=== PATIENT | male | born 1955 | race African-American/Black ===

== ENCOUNTER 2020-07-30 14:03 | Outpatient (CLI) | payer OTHER, SELFPAY ==
[2020-07-30 14:45] LABS: Albumin Level 4.1 g/dL (3.5-5.1); Anion Gap 8 mmol/L (8-16); Blood Urea Nitrogen 71 mg/dL (9-20); Calcium 9.1 mg/dL (8.4-10.2); Carbon Dioxide 25 mmol/L (22-30); Chloride 107 mmol/L (98-107); Estimated Glomerular Filt Rate 16; Glucose 119 mg/dL (75-110); Potassium 5.5 mmol/L (3.4-5.0); Sodium 140 mmol/L (137-145)
== END 2020-07-30 14:04 | disposition home or self-care (01) ==
LOC: ANHLAB 14:05
PROVIDERS: Visit Provider Internal Medicine Nephrology
DX: N18.4 Chronic kidney disease, stage 4 (severe) (principal); E11.29 Type 2 diabetes mellitus with other diabetic kidney complication; I12.9 Hypertensive chronic kidney disease with stage 1 through stage 4 chronic kidney disease, or unspecified chronic kidney disease
CPT/HCPCS: 36415; 80069

== ENCOUNTER 2020-09-02 11:01 | Outpatient (CLI) | payer OTHER, SELFPAY ==
--- NOTE | ~2020-09-02 | US_ITS ---
US renal BI DATE: 09/02/2020 12:15 INDICATION: Chronic kidney disease TECHNIQUE: Real-time imaging of kidneys and urinary bladder COMPARISON: None FINDINGS: The right kidney measures approximately 12 cm length. 4.7 x 5.3 x 5.7 cm right renal exophytic simpl e cyst. The left kidney measures 10.7 cm approximate length. 13 x 14 x 10 mm left renal cyst. There is increased echogenicity of the renal parenchyma bilaterally, suggesting bilateral chronic dirk al disease. No suspicious solid mass lesion or hydronephrosis of either kidney is evident. No significant abnormality of the urinary bladder is evident. IMPRESSION: Bilateral renal cysts Increased echogenicity of the renal parenchyma, suggesting chronic renal disease. Reviewed, dictated and finalized at [facility]. Reviewed, dictated and finalized at [facility]. IMPRESSION: Bilateral renal cysts Increased echogenicity of the renal parenchyma, suggesting chronic renal diseas e.
== END 2020-09-02 11:02 | disposition home or self-care (01) ==
PROVIDERS: Visit Provider Internal Medicine Nephrology
DX: N18.4 Chronic kidney disease, stage 4 (severe) (principal); M54.5 Low back pain; N28.1 Cyst of kidney, acquired
CPT/HCPCS: 76775

== ENCOUNTER 2020-09-10 13:14 | Outpatient (CLI) | payer OTHER, SELFPAY ==
[2020-09-10 17:29] LABS: Creatinine Urine 99.2 mg/dL; Total Protein Urine Random 161 mg/dL; Ur Ttl Prot Creatinine Ratio 1.62 mg/mg (0-0.20)
[2020-09-10 17:39] LABS: Vitamin D 25 Hydroxy 78.4 ng/mL
[2020-09-11 05:52] LABS: Albumin Level 3.8 g/dL (3.5-5.1); Anion Gap 8 mmol/L (8-16); Blood Urea Nitrogen 65 mg/dL (9-20); Carbon Dioxide 23 mmol/L (22-30); Chloride 108 mmol/L (98-107); Estimated Glomerular Filt Rate 18; Glucose 173 mg/dL (75-110); Phosphorus 4.4 mg/dL (2.5-4.5); Potassium 4.9 mmol/L (3.4-5.0); Sodium 139 mmol/L (137-145)
[2020-09-11 06:03] LABS: Parathyroid Intact 176.3 pg/mL (7.5-53.5)
== END 2020-09-10 13:15 | disposition home or self-care (01) ==
LOC: ANHLAB 13:16
PROVIDERS: Visit Provider Internal Medicine Nephrology
DX: I12.9 Hypertensive chronic kidney disease with stage 1 through stage 4 chronic kidney disease, or unspecified chronic kidney disease (principal); N18.4 Chronic kidney disease, stage 4 (severe); E11.29 Type 2 diabetes mellitus with other diabetic kidney complication; R84.8 Other abnormal findings in specimens from respiratory organs and thorax
CPT/HCPCS: 36415; 80069; 82306; 82570; 83970; 84156

== ENCOUNTER 2021-05-11 14:17 | Inpatient (IN) | payer OTHER, SELFPAY ==
[2021-05-11] VITALS (9 sets, daily range): BP systolic 161–189; BP diastolic 50–86; PULSE 86–103; RESP 16–31; TEMP 36.6–38.1; O2SAT 97–99; BMI 32.0
--- NOTE | ~2021-05-11 | XR_ITS ---
EXAMINATION: XR chest port-a-cath/central EXAM DATE: 05/13/2021 15:52 INDICATION: Insertion of tunneled dialysis catheter. TECHNIQUE: Portable AP frontal chest x-ray was obtained. Comparison is made to prior examination from 05/11/2021. FINDINGS: Left-sided double-lumen dialysis catheter. Some interval progression in diffuse bilateral a irspace disease, pneumonia and/or edema. There is cardiomegaly. No pneumothorax or sizable pleural ef fusion. Mild thoracic spondylosis. Patient has diffuse idiopathic skeletal hyperostosis (DISH). IMPRESSION: No evidence postprocedure pneumothorax. Diffuse pneumonia/edema with interval progressio n. Reviewed, dictated and finalized at location [facility]. BIT PREPARATOR IMPRESSION: No evidence postprocedure pneumothorax. Diffuse pneumonia/edema wi th interval progression.
--- NOTE | ~2021-05-11 | XR_ITS ---
EXAMINATION: XR fl guide central line place EXAM DATE: 05/13/2021 15:36 INDICATION: Tunnel dialysis catheter. TECHNIQUE: Fluoroscopy used during dialysis catheter placement performed by Dr. Stephen Hernandez DO. Radiologist was not present for the imaging or procedure. Total fluoroscopic time of 30 seconds . The DAP for this procedure was 0.2 mGym2. A total of 3 images sent to PACS from the exam. FINDINGS: Images demonstrate left-sided double-lumen dialysis catheter, tip projecting over cavoatri al junction, expected position. Correlate with procedure note. IMPRESSION: Fluoroscopy used during dialysis catheter placement. Reviewed, dictated and finalized at location [facility]. ITY DIVISION PROJECT MANAGER
--- NOTE | ~2021-05-11 | XR_ITS ---
EXAMINATION: XR chest 1V portable EXAM DATE: 05/11/2021 15:24 INDICATION: Cough,Weakness,Fatigue,N/V X 1wk,Hx CKD. TECHNIQUE: Portable AP frontal chest x-ray was obtained. There is no prior study for comparison. FINDINGS: Moderate amount of bilateral ill-defined airspace disease, pneumonia and/or edema. Recommen d considering COVID 19 given appearance and also community prevalence. There is cardiomegaly and/or p ericardial effusion. No sizable pleural effusion. No pneumothorax. IMPRESSION: 1. Moderate amount of pneumonia and/or edema. 2. Cardiomegaly and/or pericardial effusion. Reviewed, dictated and finalized at location [facility]. R GRADER ROUGH GRADE
--- NOTE | 2021-05-11 14:55 | ED.GENADULT ---
HPI - General Adult General Chief complaint: Weakness Stated complaint: weak Time Seen by Provider: 05/11/21 14:46 Source: patient and RN notes reviewed History of Present Illness HPI narrative: Patient is a 65 y/o male complaining of severe, generalized weakness starting 1 week ago. There is no alleviating or exacerbating factor. He also has fever, cough, vomiting and diarrhea. He states that he has been vomiting 4-5 times daily. He has no chest pain or abdominal pain. Related Data Home Medications Medication Instructions Recorded Confirmed amlodipine 10 mg PO HS 06/18/20 05/11/21 aspirin 81 mg PO DAILY 06/18/20 05/11/21 atorvastatin 40 mg PO HS 06/18/20 05/11/21 calcitriol 0.25 mcg PO DAILY 06/18/20 05/11/21 cholecalciferol (vitamin D3) 50 mcg PO DAILY 06/18/20 05/11/21 ferrous sulfate [iron] 325 mg PO DAILY 06/18/20 05/11/21 glipizide 5 mg PO DAILY 06/18/20 05/11/21 hydralazine 50 mg PO BID 06/18/20 05/11/21 isosorbide mononitrate [Imdur] 30 mg PO DAILY 06/18/20 05/11/21 labetalol 200 mg PO BID 06/18/20 05/11/21 pantoprazole 40 mg PO HS 06/18/20 05/11/21 trazodone 50 mg PO HS 08/13/20 05/11/21 baclofen 10 mg PO DAILY PRN 08/27/20 05/11/21 Allergies Allergy/AdvReac Type Severity Reaction Status Date / Time iohexol AdvReac Other Verified 05/12/21 00:40 [From contrast - CT, X-RAY] Review of Systems Constitutional: Constitutional: Denies chills, Reports fever(s), Denies headache(s) and Reports weakness Eyes: Eyes: Denies blurry vision ENT: Denies headache(s) and Denies neck pain Cardiovascular: Cardiovascular: Denies chest pain and Denies dyspnea Respiratory: Respiratory: Reports cough and Denies dyspnea Gastrointestinal: Gastrointestinal: Denies abdominal pain, Reports diarrhea, Reports nausea and Reports vomiting Genitourinary: Genitourinary: Denies hematuria and Denies dysuria Musculoskeletal: Musculoskeletal: Denies back pain and Denies neck pain Neurologic: Denies headache(s) and Denies weakness PMFSH Past Medical History Medical History (Updated 05/12/21 @ 06:56 by Kenji Clay MD) Anemia of chronic disease Chronic kidney disease, stage 5 Chronic neck pain DM2 (diabetes mellitus, type 2) HTN (hypertension), malignant Hyperlipidemia associated with type 2 diabetes mellitus Surgical History Surgical History History of carpal tunnel release elisa Hx of cervical spine surgery Hx of meniscectomy of right knee Family History Family History Mother Diabetes mellitus Father Heart disease Social History Social History Social History: the patient has had 6 children but he lost 2. He lives with his . She is the durable power state attorney for healthcare. 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 the patient stated that he used to smoke but no longer does he said it was many years ago since he smoked. He said he used to drink and smoke marijuana when he was younger but no longer does that either. Code status full code Smoking status: Former smoker Alcohol intake: never Substance use: never Gender identity (if verbalized by the patient): Male Spiritual care concerns: No Exam Const: General: no acute distress and well developed Orientation/consciousness: oriented to person, oriented to place, oriented to time and patient oriented x3 HENMT: Head: normocephalic Ears: external ears normal General nose exam: Normal external nose present Eyes: General: appearance normal, both eyes and all related structures Conjunctivae: conjunctivae normal Neck: Neck: normal visual inspection and full ROM Chest: Chest palpation & inspection: normal inspection of the chest and no tenderness Resp: Effort & Inspection: normal respiratory effort Auscultation: clear to auscultation bilaterally Cardio: Rate: tachycardic R
[2021-05-11 15:21] LABS: Basophils Percent Auto 0.3 % (0.2-1.2); Eosinophils Percent Auto 0.2 % (0-4.4); Hematocrit 29.1 % (42.0-52.0); Hemoglobin 9.3 g/dL (14.0-18.0); Immature Granulocyte Absolute 0.04 K/mm3 (0.00-0.031); Immature Granulocyte Percent A 0.7 % (0-0.5); Lymphocytes Absolute Auto 0.78 K/mm3 (0.9-3.2); Lymphocytes Percent Auto 12.7 % (18.3-44.2); Mean Corpuscular Hemoglobin 27.3 pg (26-34); Mean Corpuscular Volume 85.3 fl (80-100); Mean Platelet Volume 8.7 fl (7.4-10.4); Monocytes Absolute Auto 0.6 K/mm3 (0.1-0.6); Monocytes Percent Auto 9.2 % (2.6-8.5); Neutrophils Absolute Auto 4.7 K/mm3 (1.3-6.7); Neutrophils Percent Auto 76.9 % (45.5-73.1); Platelet Count Result 337 k/mm3 (150-375); Red Blood Count 3.41 M/mm3 (4.6-6.20); Red Cell Distribution Width 18.7 % (11.5-14.5); White Blood Count 6.1 K/mm3 (4.5-10.0)
[2021-05-11 15:33] LABS: Alanine Aminotransferase 21 U/L (4-50); Alkaline Phosphatase 56 U/L (38-126); Anion Gap 15 mmol/L (8-16); Aspartate Amino Transferase 35 U/L (17-59); Bilirubin,Total 0.4 mg/dL (0.2-1.3); Blood Urea Nitrogen 85 mg/dL (9-20); Calcium 7.9 mg/dL (8.4-10.2); Carbon Dioxide 11 mmol/L (22-30); Chloride 106 mmol/L (98-107); Estimated CRCL calculation 8 ml/min; Estimated Glomerular Filt Rate 6; Glucose 104 mg/dL (65-110); Lipase 314 U/L (23-300); Potassium 4.8 mmol/L (3.4-5.0); Sodium 132 mmol/L (137-145)
[2021-05-11 15:34] LABS: Lactic Acid Reflex 0.7 mmol/L (0.7-2.1)
[2021-05-11] MEDS: ONDANSETRON INJ 4 MG/2 ML VIAL IV PUSH (15:43)
[2021-05-11] MEDS: SODIUM CHLORIDE 0.9% IV 1,000 ML 999 ML IV CONT (15:43)
[2021-05-11 16:33] LABS: Influenza A QL RT-PCR Negative (Negative); Influenza B QL RT-PCR Negative (Negative); SARS-CoV-2 RNA PCR Positive
[2021-05-11 18:35] LABS: Add Urine Microscopic? YES; Appearance Urine Cloudy (Clear); Bilirubin Urine Negative (Negative); Blood Urine 2+ (Negative); Color Urine Yellow (Yellow); Glucose Urine UA Negative (Negative); Ketones Urine Negative (Negative); Leukocyte Esterase Ur Negative LEU/UL (Negative); Nitrate Urine Negative (Negative); Protein Urine 3+ mg/dL (Negative); Specific Grav Ur 1.011 (1.001-1.035); Urobilinogen Urine Negative mg/dL (<2.0)
--- NOTE | 2021-05-11 19:41 | PM.IMHP ---
H&P: HPI History of Present Illness Date/Time: 05/11/21 19:41 this is a 65-year-old male patient who has chronic renal failure. He also has chronic anemia due to the renal failure and typically gets Epogen. The patient came in complaining of severe generalized weakness of started about a week ago. The patient stated that he usually isolates himself and uses social distancing. He stated he has not been around any sick contacts. The patient denies any fever But has a cough and has been vomiting 4 to 5 times a day. No chest pain or abdominal pain. H&H is 9.3 and 29.1 which appears to be is baseline. His creatinine is 9.9 today and his baseline is anywhere from 4.2-6. Nephrology has been consulted. The patient was also found to be positive for COVID-19. The patient was started on IV fluids, Decadron, Tylenol, and Zofran. Initially the patient was admitted to inpatient status but was changed to observation. Date of service is 05/11/2021. Chief Complaint: Weakness Review of Systems Review of Systems: All systems reviewed & are unremarkable except as noted in HPI and below Constitutional: Constitutional: Reports as per HPI and Reports no additional constitutional complaints Eyes: Eyes: Reports as per HPI and Reports no additional eye complaints ENT: Reports system reviewed and no additional complaints, except as documented and Reports Normal hearing present Cardiovascular: Cardiovascular: Reports no additional cardiovascular complaints Respiratory: Respiratory: Reports no additional respiratory complaints and Reports no additional respiratory complaints Gastrointestinal: Gastrointestinal: Reports as per HPI and Reports no additional gastrointestinal complaints Musculoskeletal: Musculoskeletal: Reports no additional musculoskeletal complaints Integumentary/Breasts: Skin/Breast: Reports system reviewed and no additional complaints, except as docu and Reports as per HPI Neurologic: Reports system reviewed and no additional complaints, except as documented, Reports as per HPI and Reports Normal hearing present Psychiatric: Psychiatric: Reports no additional psychiatric complaints and Reports as per HPI Endocrine: Endocrine: Reports no additional endocrine complaints Hematologic/Lymphatic: Hematologic/Lymphatic: Reports no additional hematologic/lymphatic complaints Allergic/Immunologic: Allergic/Immunologic: Reports no additional allergic/immunologic complaints [facility] Past Medical History Medical History (Updated 05/12/21 @ 00:00 by Roxie Vincent NP) Anemia of chronic disease Chronic neck pain DM2 (diabetes mellitus, type 2) HTN (hypertension), malignant Hyperlipidemia associated with type 2 diabetes mellitus Surgical History Surgical History (Updated 05/11/21 @ 19:45 by Roxie Vincent NP) History of carpal tunnel release elisa Hx of cervical spine surgery Hx of meniscectomy of right knee Family History Family History Mother Diabetes mellitus Father Heart disease Social History Social History (Updated 05/12/21 @ 00:01 by Roxie Vincent NP) Social History: the patient has had 6 children but he lost 2. He lives with his . She is the durable power tax attorney for healthcare. He works for a [employer] company. the patient stated that he used to smoke but no longer does he said it was many years ago since he smoked. He said he used to drink and smoke marijuana when he was younger but no longer does that either. Code status full code Smoking status: Former smoker Alcohol intake: never Substance use: never Gender identity (if verbalized by the patient): Male Spiritual care concerns: No Meds Home Medications and Allergies Home Medications Medication Instructions Recorded Confirmed Type amlodipine 10 mg PO HS 06/18/20 05/11/21 History aspirin 81 mg PO DAILY 06/18/20 05/11/21 History atorvastatin 40 mg PO HS
[2021-05-11] MEDS: hydrALAZINE HCL 20 MG/ML VIAL 10 MG IV PUSH (21:25)
[2021-05-11] MEDS: SODIUM CHLORIDE 0.9% IV 1,000 ML 125 ML IV CONT (21:30)
[2021-05-11 22:08] LABS: Glucose Point of Care 94 mg/dl (65-105)
[2021-05-11] MEDS: ATORVASTATIN 40 MG TABLET PO (23:12)
[2021-05-11] MEDS: amLODIPine BESYLATE 5 MG TABLET 10 MG PO (23:12)
[2021-05-11] MEDS: hydrALAZINE HCL 50 MG TABLET PO (23:12)
[2021-05-11] MEDS: LABETALOL HCL 100 MG TABLET 200 MG PO (23:13)
[2021-05-11] MEDS: PANTOPRAZOLE 40 MG TABLET PO (23:13)
[2021-05-11] MEDS: traZODone HCL 50 MG TABLET PO (23:13)
[2021-05-12] VITALS (7 sets, daily range): BP systolic 142–166; BP diastolic 40–73; PULSE 61–84; RESP 18–20; TEMP 36.3–36.9; O2SAT 95–98
[2021-05-12] MEDS: guaiFENesin/DEXTROMETHORPHAN 10 ML UDC PO (00:15)
--- NOTE | 2021-05-12 04:45 | ADMGEN ---
This patient, Kenji Hernandez, was admitted to 3 [facility] Surg Room 312-01. Patient/family oriented to hospital policies and general routines including ID bracelet, bed and alarms, visiting hours, pain management, procedures, bathroom and other care routines, personal items, smoking policy, room service/diet, and visiting hours. Information on how to activate the Rapid Response Team has been discussed. Patient/Family are encouraged to report perceived risks to care and to ask questions if they do not understand what they are told or what they should do.
[2021-05-12] MEDS: SODIUM CHLORIDE 0.9% IV 1,000 ML 125 ML IV CONT (06:41)
--- NOTE | 2021-05-12 06:50 | PM.CNNEP ---
Assessment and Plan Assessment and plan (1) Chronic kidney disease, stage 5: Code(s): N18.5 - Chronic kidney disease, stage 5 Status: Acute Assessment and Plan: The patient has slowly progressive chronic kidney disease. Now his creatinine is up to 9. He has some symptoms of uremia including the nausea and vomiting. He also has volume overload on his chest x-ray. The emergency room tried giving a little bit of IV fluids but we can not give him much more because of the COVID. I think it is time for him to start dialysis. I will ask the surgeon to place a catheter and will initiate dialysis today or tomorrow depending on the timing of the catheter. I discussed the risks benefits alternatives and process of dialysis. He understands and agrees to proceed. (2) Pneumonia due to COVID-19 virus: Code(s): U07.1 - COVID-19; J12.82 - Pneumonia due to coronavirus disease 2018 Status: Acute Assessment and Plan: the patient has COVID-19. He is not on oxygen. Management per hospitalists. (3) HTN (hypertension), malignant: Code(s): I10 - Essential (primary) hypertension Status: Chronic Assessment and Plan: His blood pressure ranges from 140-190. Will get him back on his outpatient medications and on dialysis and see how it looks. Will give a p.r.n. if his blood pressure is above 170. (4) DM2 (diabetes mellitus, type 2): Code(s): E11.9 - Type 2 diabetes mellitus without complications Status: Chronic Assessment and Plan: Patient is on Accu-Cheks and sliding-scale insulin (5) Anemia in CKD (chronic kidney disease): Code(s): N18.9 - Chronic kidney disease, unspecified; D63.1 - Anemia in chronic kidney disease Status: Chronic Assessment and Plan: Hemoglobin is 9.3. Will give him a dose of EPO today Subcutaneously and then IV with dialysis (6) Hyperlipidemia associated with type 2 diabetes mellitus: Code(s): E11.69 - Type 2 diabetes mellitus with other specified complication; E78.5 - Hyperlipidemia, unspecified Status: Chronic Assessment and Plan: he is on atorvastatin History of Present Illness Reason for Consult Consult date: 05/12/21 Chief Complaint Chief complaint: yuli History of Present Illness Narrative: Kenji is a very pleasant 65-year-old gentleman who has multiple medical problems including chronic kidney disease due to hypertension diabetes, hyperlipidemia, hypertension, diabetes, anemia of chronic kidney disease on intermittent Epogen, who has had a fairly high creatinine. He has not had any uremic symptoms and his GFR has been between 7 and 12 so he has been followed in the office by Dr. Hernandez. last office visit the patient was started to feel a little bit under the weather. Dr. Hernandez told him that they would touch base in a week or 2 and see how he felt. If he was worse than they would initiate dialysis. He has been leaning toward peritoneal dialysis. Couple of days ago the patient had some nausea but no vomiting. He had intermittent diarrhea as well.. He had a little bit of a fever as well. He came to the emergency room yesterday because of these symptoms. Yesterday he developed shortness of breath and cough. He in the emergency room he was evaluated. His oxygen level was okay so he is not on supplemental oxygen. his creatinine was found to be 9. He is not having any chest pain. He was admitted Review of Systems Constitutional: Constitutional: Reports no additional constitutional complaints Eyes: Eyes: Reports no additional eye complaints ENT: Reports system reviewed and no additional complaints, except as documented Cardiovascular: Cardiovascular: Reports no additional cardiovascular complaints Respiratory: Respiratory: Reports no additional respiratory complaints Gastrointestinal: Gastrointestinal: Reports no additional gastrointestinal complaints Genitour
[2021-05-12 07:41] LABS: Basophils Percent Auto 0.2 % (0.2-1.2); Hematocrit 28.5 % (42.0-52.0); Hemoglobin 8.7 g/dL (14.0-18.0); Immature Granulocyte Absolute 0.04 K/mm3 (0.00-0.031); Immature Granulocyte Percent A 0.8 % (0-0.5); Lymphocytes Absolute Auto 0.37 K/mm3 (0.9-3.2); Lymphocytes Percent Auto 7.4 % (18.3-44.2); Mean Corpuscular HGB Conc 30.5 g/dl (32-36); Mean Corpuscular Hemoglobin 27.4 pg (26-34); Mean Corpuscular Volume 89.6 fl (80-100); Mean Platelet Volume 9.3 fl (7.4-10.4); Monocytes Absolute Auto 0.1 K/mm3 (0.1-0.6); Neutrophils Absolute Auto 4.5 K/mm3 (1.3-6.7); Neutrophils Percent Auto 89.6 % (45.5-73.1); Platelet Count Result 358 k/mm3 (150-375); Red Blood Count 3.18 M/mm3 (4.6-6.20); Red Cell Distribution Width 18.8 % (11.5-14.5)
[2021-05-12 07:43] LABS: Lactic Acid Reflex 0.5 mmol/L (0.7-2.1)
--- NOTE | 2021-05-12 07:45 | PM.IMPN ---
Progress Note: A&P Assessment and Plan (1) Acute on chronic kidney failure: Qualifiers: Acute renal failure type: unspecified Chronic kidney disease stage: unspecified stage Qualified Code(s): N17.9 - Acute kidney failure, unspecified; N18.9 - Chronic kidney disease, unspecified Code(s): N17.9 - Acute kidney failure, unspecified; N18.9 - Chronic kidney disease, unspecified Status: Acute Assessment and Plan: potassium is within normal limits chronic kidney disease renal ultrasound performed on 09/02/2020 which was read as bilateral renal cyst Increased echogenicity of the renal parenchyma suggesting chronic renal disease Continue with IV fluids turn them down to 75ml/hrs Nephrology consulted thank you Surgery consulted for dialysis catheter Baseline creatinine 4-6, currently 10.70 Will probably need dialysis today (2) Pneumonia due to COVID-19 virus: Code(s): U07.1 - COVID-19; J12.82 - Pneumonia due to coronavirus disease 2018 Status: Acute Assessment and Plan: Covid PCR positive Chest xray: Mod amount of PNA/Pulm edema, cardiomegaly, pericardial effusion Hold on remdesivir and decadron, ED gave one dose cough medicine and inhaler ordered patient is on room air Patient updated on plan of care (3) Chronic neck pain: Code(s): M54.2 - Cervicalgia; G89.29 - Other chronic pain Status: Chronic Assessment and Plan: cervical fusion several weeks ago Educate about Ibprofen and renal failure Baclophen ordered Add tylenol and norco for better control (4) DM2 (diabetes mellitus, type 2): Code(s): E11.9 - Type 2 diabetes mellitus without complications Status: Chronic Assessment and Plan: A1c 5.5 Insulin sliding scale AC/HS accu cheks Diabetic diet Adjust therapy as indicated (5) Hyperlipidemia associated with type 2 diabetes mellitus: Code(s): E11.69 - Type 2 diabetes mellitus with other specified complication; E78.5 - Hyperlipidemia, unspecified Status: Chronic Assessment and Plan: Continue with patient's Lipitor. (6) HTN (hypertension), malignant: Code(s): I10 - Essential (primary) hypertension Status: Chronic Assessment and Plan: Current BP 143/55 Continue home Amlodipine 10mg PO, Hydralazine 50mg PO BID, Imdur 30mg PO daily, labetalol 200mg PO BID Clonidine 0.1mg PO PRN for SBP >170 Trend BP Probably will be better after dailysis Adjust therapy as indicated (7) Anemia in CKD (chronic kidney disease): Code(s): N18.9 - Chronic kidney disease, unspecified; D63.1 - Anemia in chronic kidney disease Status: Chronic Assessment and Plan: H/H 8.7/28.5 Patient is seen by Oncology for Epogen. His H&H is at baseline Time Spent With Patient Time with patient: Greater than 35 minutes Subjective Date/time seen: 05/12/21744 Interval history: Date/Time: 05/11/21 19:41 This is a 65-year-old male patient who has chronic renal failure. He also has chronic anemia due to the renal failure and typically gets Epogen. The patient came in complaining of severe generalized weakness of started about a week ago. The patient stated that he usually isolates himself and uses social distancing. He stated he has not been around any sick contacts. The patient denies any fever But has a cough and has been vomiting 4 to 5 times a day. No chest pain or abdominal pain. H&H is 9.3 and 29.1 which appears to be is baseline. His creatinine is 9.9 today and his baseline is anywhere from 4.2-6. Nephrology has been consulted. The patient was also found to be positive for COVID-19. The patient was started on IV fluids, Decadron, Tylenol, and Zofran. Initially the patient was admitted to inpatient status but was changed to observation. Date/Time 05/12/21744 Patient was sitting up on the side the bed. Patient stated h
--- NOTE | 2021-05-12 07:45 | P.PNIM_ITS ---
Progress Note: A&P Assessment and Plan (1) Acute on chronic kidney failure: Qualifiers: Acute renal failure type: unspecified Chronic kidney disease stage: unspecified stage Qualified Code(s): N17.9 - Acute kidney failure, unspecified; N18.9 - Chronic kidney disease, unspecified Code(s): N17.9 - Acute kidney failure, unspecified; N18.9 - Chronic kidney disease, unsp ecified Status: Acute Assessment and Plan: * potassium is within normal limits * chronic kidney disease * renal ultrasound performed on 09/02/2020 which was read as bilateral renal cyst * Increased echogenicity of the renal parenchyma suggesting chronic renal disease * Continue with IV fluids turn them down to 75ml/hrs * Nephrology consulted thank you * Surgery consulted for dialysis catheter * Baseline creatinine 4-6, currently 10.70 * Will probably need dialysis today (2) Pneumonia due to COVID-19 virus: Code(s): U07.1 - COVID-19; J12.82 - Pneumonia due to coronavirus disease 2018 Status: Acute Assessment and Plan: * Covid PCR positive * Chest xray: Mod amount of PNA/Pulm edema, cardiomegaly, pericardial effusion * Hold on remdesivir and decadron, ED gave one dose * cough medicine and inhaler ordered * patient is on room air * Patient updated on plan of care (3) Chronic neck pain: Code(s): M54.2 - Cervicalgia; G89.29 - Other chronic pain Status: Chronic Assessment and Plan: * cervical fusion several weeks ago * Educate about Ibprofen and renal failure * Baclophen ordered * Add tylenol and norco for better control (4) DM2 (diabetes mellitus, type 2): Code(s): E11.9 - Type 2 diabetes mellitus without complications Status: Chronic Assessment and Plan: * A1c 5.5 * Insulin sliding scale * AC/HS accu cheks * Diabetic diet * Adjust therapy as indicated (5) Hyperlipidemia associated with type 2 diabetes mellitus: Code(s): E11.69 - Type 2 diabetes mellitus with other specified complication; E78.5 - Hyperlipidemia, unspecified Status: Chronic Assessment and Plan: * Continue with patient's Lipitor. (6) HTN (hypertension), malignant: Code(s): I10 - Essential (primary) hypertension Status: Chronic Assessment and Plan: * Current BP 143/55 * Continue home Amlodipine 10mg PO, Hydralazine 50mg PO BID, Imdur 30mg PO daily, labetalol 200mg PO BID * Clonidine 0.1mg PO PRN for SBP >170 * Trend BP * Probably will be better after dailysis * Adjust therapy as indicated (7) Anemia in CKD (chronic kidney disease): Code(s): N18.9 - Chronic kidney disease, unspecified; D63.1 - Anemia in chronic kidney disease Status: Chronic Assessment and Plan: * H/H 8.7/28.5 * Patient is seen by Oncology for Epogen. * His H&H is at baseline Time Spent With Patient Time with patient: Greater than 35 minutes Subjective Date/time seen: 05/12/21 0745 Interval history: Date/Time: 05/11/21 19:41 This is a 65-year-old male patient who has chronic renal failure. He also has chronic anemia due to the renal failure and typically gets Epogen. The patient came in complaining of severe generalized weakness of started about a week ago. The patient stated that he usually isolates himself and uses social distancing. He stated he has not been around any sick contacts. The patient denies any fever But has a cough and has been vomiting 4 to
[2021-05-12 07:51] LABS: Alanine Aminotransferase 20 U/L (4-50); Albumin Level 3.6 g/dL (3.5-5.1); Alkaline Phosphatase 46 U/L (38-126); Anion Gap 15 mmol/L (8-16); Aspartate Amino Transferase 33 U/L (17-59); Bilirubin,Total 0.4 mg/dL (0.2-1.3); Blood Urea Nitrogen 96 mg/dL (9-20); Calcium 7.5 mg/dL (8.4-10.2); Carbon Dioxide 9 mmol/L (22-30); Chloride 108 mmol/L (98-107); Estimated CRCL calculation 7 ml/min; Estimated Glomerular Filt Rate 6; Glucose 201 mg/dL (65-110); Lactate Dehydrogenase 979 U/L (313-618); Lipase 255 U/L (23-300); Magnesium 1.9 mg/dL (1.6-2.3); Potassium 5.9 mmol/L (3.4-5.0); Sodium 132 mmol/L (137-145)
[2021-05-12 07:57] LABS: Glucose Point of Care 197 mg/dl (65-105)
[2021-05-12 08:06] LABS: Hemoglobin A1C 5.5 % (<5.7)
[2021-05-12] MEDS: FERROUS SULFATE 324 MG TABLET PO (08:48)
[2021-05-12] MEDS: calcitrioL 0.25 MCG CAPSULE PO (08:48)
[2021-05-12] MEDS: CHOLECALCIFEROL 1,000 UNITS TABLET 2000 UNITS PO (08:48)
[2021-05-12] MEDS: ASPIRIN 81 MG CHEWABLE TABLET PO (08:48)
[2021-05-12] MEDS: hydrALAZINE HCL 50 MG TABLET PO ×2 (08:49→17:08)
[2021-05-12] MEDS: LABETALOL HCL 100 MG TABLET 200 MG PO ×2 (08:49→17:08)
[2021-05-12] MEDS: ISOSORBIDE MONONITRATE 30 MG TAB.ER.24H PO (08:49)
[2021-05-12 08:52] LABS: Atypical Lymphocytes Present; Platelet Estimate Adequate (Adequate)
[2021-05-12] MEDS: EPOETIN ALFA-EPBX 10,000 UNITS/ML VIAL 10000 UNITS SUB-Q (11:13)
[2021-05-12 11:41] LABS: Glucose Point of Care 307 mg/dl (65-105)
[2021-05-12] MEDS: INSULIN ASPART (*BKC) 100 UNITS/ML SUB-Q ×2 (12:14→17:08)
--- NOTE | 2021-05-12 13:01 | PM.CNGS ---
Assessment and Plan Assessment and plan (1) Chronic kidney disease, stage 5: Code(s): N18.5 - Chronic kidney disease, stage 5 Status: Acute Assessment and Plan: The patient has progressive chronic kidney disease with Nephrology wanting to start hemodialysis. We have been asked to see the patient for placement of a tunneled dialysis catheter. I have discussed the procedure, risks, benefits, and expected outcomes with the patient. He agrees to proceed. Dr. Hernandez will work on adding him onto the OR schedule for tomorrow. I will make him NPO after midnight in plans for surgery. (2) Pneumonia due to COVID-19 virus: Code(s): U07.1 - COVID-19; J12.82 - Pneumonia due to coronavirus disease 2018 Status: Acute Assessment and Plan: Continue droplet precautions and medical management per Hospitalist. (3) DM2 (diabetes mellitus, type 2): Code(s): E11.9 - Type 2 diabetes mellitus without complications Status: Chronic (4) Anemia in CKD (chronic kidney disease): Code(s): N18.9 - Chronic kidney disease, unspecified; D63.1 - Anemia in chronic kidney disease Status: Chronic (5) Chronic neck pain: Code(s): M54.2 - Cervicalgia; G89.29 - Other chronic pain Status: Chronic Assessment and Plan: 6-7 weeks post-op from cervical spinal surgery Additional Plan I have discussed the patient's case and plan of care with Dr. Hernandez. Thank you for allowing us to see the patient in consultation. History of Present Illness Consult details Consult date: 05/12/21 Reason for consult: other (Placement of tunneled dialysis catheter) Requesting physician: Kenji Clay MD Narrative: This is a 65-year-old male with a history of chronic kidney disease, diabetes, hypertension, and other medical problems, who presented to the ED for evaluation of generalized weakness, cough, fever, and vomiting. He was found to be positive for COVID-19 in the ER. He was also found to have acute on chronic renal failure with a creatinine of 9.9. He has been admitted to the hospitalist service, and nephrology has been consulted. They would like to initiate hemodialysis. Nephrology has consulted our service for placement of a tunneled dialysis catheter. He has never had hemodialysis in the past. He is now seen on the medical floor. He reports having cervical spinal surgery about 6-7 weeks ago at [facility] with no reported complications. Review of Systems Review of Systems: All systems reviewed & are unremarkable except as noted in HPI and below Constitutional: Constitutional: Reports fatigue, Reports fever(s) and Reports weakness ENT: Comments: Hx of cervical spinal surgery 6-7 weeks ago with a healed incision on the right anterior neck Cardiovascular: Cardiovascular: Denies chest pain Respiratory: Respiratory: Reports no additional respiratory complaints and Reports cough PMFSH Past Medical History Medical History Anemia of chronic disease Chronic kidney disease, stage 5 Chronic neck pain DM2 (diabetes mellitus, type 2) HTN (hypertension), malignant Hyperlipidemia associated with type 2 diabetes mellitus Surgical History Surgical History History of carpal tunnel release elisa Hx of cervical spine surgery 6-7 weeks ago at [facility] Hx of meniscectomy of right knee Family History Family History Mother Diabetes mellitus Father Heart disease Social History Social History Social History: The patient has had 6 children, but he lost 2. He lives with his , who is the durable power collections attorney for healthcare. 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 the patient stated that he used to smoke but has quit. He said he used to drink and smoke marijuana
[2021-05-12] MEDS: SODIUM CHLORIDE 0.9% IV 1,000 ML 75 ML IV CONT (14:36)
[2021-05-12 16:38] LABS: Glucose Point of Care 285 mg/dl (65-105)
[2021-05-12] MEDS: traZODone HCL 50 MG TABLET PO (20:49)
[2021-05-12] MEDS: ATORVASTATIN 40 MG TABLET PO (20:49)
[2021-05-12] MEDS: amLODIPine BESYLATE 5 MG TABLET 10 MG PO (20:49)
[2021-05-12] MEDS: PANTOPRAZOLE 40 MG TABLET PO (20:49)
[2021-05-13] VITALS (15 sets, daily range): BP systolic 120–174; BP diastolic 37–76; PULSE 73–94; RESP 18–36; TEMP 36.4–37.3; O2SAT 91–99
[2021-05-13] MEDS: guaiFENesin/DEXTROMETHORPHAN 10 ML UDC PO (03:45)
[2021-05-13] MEDS: SODIUM CHLORIDE 0.9% IV 1,000 ML 75 ML IV CONT (04:00)
[2021-05-13 07:33] LABS: Basophils Percent Auto 0.1 % (0.2-1.2); Hematocrit 25.8 % (42.0-52.0); Hemoglobin 8.1 g/dL (14.0-18.0); Lymphocytes Absolute Auto 0.64 K/mm3 (0.9-3.2); Lymphocytes Percent Auto 6.5 % (18.3-44.2); Mean Corpuscular HGB Conc 31.4 g/dl (32-36); Monocytes Absolute Auto 0.7 K/mm3 (0.1-0.6); Monocytes Percent Auto 7.5 % (2.6-8.5); Neutrophils Absolute Auto 8.4 K/mm3 (1.3-6.7); Neutrophils Percent Auto 84.9 % (45.5-73.1); Platelet Count Result 418 k/mm3 (150-375); Red Cell Distribution Width 18.6 % (11.5-14.5); White Blood Count 9.9 K/mm3 (4.5-10.0)
[2021-05-13 07:43] LABS: D Dimer 1.85 ug/mL (<0.48)
--- NOTE | 2021-05-13 08:00 | PM.PNNEP ---
Progress Note: A&P Assessment and Plan (1) Chronic kidney disease, stage 5: Code(s): N18.5 - Chronic kidney disease, stage 5 Status: Acute Assessment and Plan: The patient has slowly progressive chronic kidney disease. this is due to htn and dm. creatinine is worsening, probably due to the covid. to get a permacath later today HD tomorropw (2) Pneumonia due to COVID-19 virus: Code(s): U07.1 - COVID-19; J12.82 - Pneumonia due to coronavirus disease 2018 Status: Acute Assessment and Plan: the patient has COVID-19. He is not on oxygen. Management per hospitalists. (3) HTN (hypertension), malignant: Code(s): I10 - Essential (primary) hypertension Status: Chronic Assessment and Plan: His blood pressure ranges from 140-170 overnight on amlodipine, labetalol, isorbide, hydralazine. received clonidine once yesterday. give more prn (4) DM2 (diabetes mellitus, type 2): Code(s): E11.9 - Type 2 diabetes mellitus without complications Status: Chronic Assessment and Plan: Patient is on Accu-Cheks and sliding-scale insulin (5) Anemia in CKD (chronic kidney disease): Code(s): N18.9 - Chronic kidney disease, unspecified; D63.1 - Anemia in chronic kidney disease Status: Chronic Assessment and Plan: Hemoglobin is 8.1 will give more epo once bp is down (6) Hyperlipidemia associated with type 2 diabetes mellitus: Code(s): E11.69 - Type 2 diabetes mellitus with other specified complication; E78.5 - Hyperlipidemia, unspecified Status: Chronic Assessment and Plan: he is on atorvastatin Subjective Date/time seen: 05/13/21 08:00 Interval history: late entry pt is feeling okay. his is coughing more today no sob. no cp. ready for permacath placement today Review of Systems Cardiovascular: Cardiovascular: Reports no additional cardiovascular complaints Respiratory: Respiratory: Reports no additional respiratory complaints Gastrointestinal: Gastrointestinal: Reports no additional gastrointestinal complaints Genitourinary: Genitourinary: Reports no additional male genitourinary complaints Exam Narrative: WDWN in NAD skin no rash head ncat lungs dec breath sounds at the bases cor reg no rub abd BS+ nontender and soft ext trace edema. Objective Data Vital Signs Vital Signs: Vital Signs - 24 hr 05/12/21 20:00 05/13/21 00:00 05/13/21 04:00 Temperature 36.6 C 36.4 C 36.6 C Pulse Rate 81 80 88 Respiratory Rate 20 18 20 Blood Pressure 156/69 H 150/60 H 140/49 L Pulse Oximetry 96 94 93 05/13/21 08:00 05/13/21 09:20 05/13/21 11:19 Temperature 37.3 C 37.2 C Pulse Rate 94 94 84 Respiratory Rate 20 20 Blood Pressure 174/65 H 140/53 L Pulse Oximetry 94 94 05/13/21 14:15 05/13/21 15:32 05/13/21 15:45 Temperature 37.1 C 36.8 C Pulse Rate 87 83 87 Respiratory Rate 22 H 24 H 20 Blood Pressure 153/76 H 163/70 H 145/73 H Pulse Oximetry 96 97 99 05/13/21 15:54 05/13/21 16:10 05/13/21 16:57 Temperature 36.6 C 36.7 C Pulse Rate 73 88 85 Respiratory Rate 20 36 H 28 H Blood Pressure 148/70 H 149/51 H 160/55 H Pulse Oximetry 94 91 96 Intake/Output Intake/Output: Intake & Output 05/10/21 05/11/21 05/12/21 05/13/21 23:59 23:59 23:59 23:59 Intake Total 1100 2690 1200 Output Total 600 Balance 1100 2690 600 Meds/Results Medications: Active Medications Generic Name Dose Route Start Last Admin Trade Name Freq PRN Reason Stop Dose Admin Hydrocodone Bitart/Acetaminophen 1 tab 05/13/21 15:59 Hydrocodone/Acetaminophen (*Crx) 5-325 Mg Tablet PO Q4H PRN Pain Rated 4-6 Albuterol 2 puff 05/12/21 00:02 Albuterol Sulfate (*Sp) Aerosol 1 Puff INHALATION Q6HRT PRN Shortness Of Breath Amlodipine Besylate 10 mg 05/11/21 22:00 05/12/21 20:49 Amlodipine Besylate 5 Mg Tablet PO 10 mg HS JAVI Administration Aspirin
[2021-05-13 08:08] LABS: Alanine Aminotransferase 21 U/L (4-50); Albumin Level 3.6 g/dL (3.5-5.1); Alkaline Phosphatase 51 U/L (38-126); Anion Gap 15 mmol/L (8-16); Aspartate Amino Transferase 26 U/L (17-59); Bilirubin,Total 0.3 mg/dL (0.2-1.3); Blood Urea Nitrogen 107 mg/dL (9-20); CRP 5.2 mg/dL (<1.0); Calcium 7.5 mg/dL (8.4-10.2); Carbon Dioxide 10 mmol/L (22-30); Chloride 107 mmol/L (98-107); Estimated CRCL calculation 7 ml/min; Estimated Glomerular Filt Rate 6; Glucose 263 mg/dL (65-110); Lactate Dehydrogenase 904 U/L (313-618); Magnesium 1.9 mg/dL (1.6-2.3); Potassium 5.2 mmol/L (3.4-5.0); Sodium 132 mmol/L (137-145)
[2021-05-13 08:16] LABS: Glucose Point of Care 240 mg/dl (65-105)
--- NOTE | 2021-05-13 08:30 | P.PNIM_ITS ---
Progress Note: A&P Assessment and Plan (1) Acute on chronic kidney failure: Qualifiers: Acute renal failure type: unspecified Chronic kidney disease stage: unspecified stage Qualified Code(s): N17.9 - Acute kidney failure, unspecified; N18.9 - Chronic kidney disease, unspecified Code(s): N17.9 - Acute kidney failure, unspecified; N18.9 - Chronic kidney disease, unsp ecified Status: Acute Assessment and Plan: * potassium is slightly elevated at 5.2 * chronic kidney disease * renal ultrasound performed on 09/02/2020 which was read as bilateral renal cyst * Increased echogenicity of the renal parenchyma suggesting chronic renal disease * Continue with IV fluids turn them down to 30ml/hrs * Nephrology consulted thank you * Surgery consulted for dialysis catheter * Baseline creatinine 4-6, currently 11.10 * Will probably need dialysis today (2) Pneumonia due to COVID-19 virus: Code(s): U07.1 - COVID-19; J12.82 - Pneumonia due to coronavirus disease 2018 Status: Acute Assessment and Plan: * Covid PCR positive * Chest xray: Mod amount of PNA/Pulm edema, cardiomegaly, pericardial effusion * Hold on remdesivir and decadron, ED gave one dose * cough medicine and inhaler ordered * patient is on room air * Patient updated on plan of care (3) Chronic neck pain: Code(s): M54.2 - Cervicalgia; G89.29 - Other chronic pain Status: Chronic Assessment and Plan: * cervical fusion several weeks ago * Educate about Ibprofen and renal failure * Baclophen ordered * Add tylenol and norco for better control (4) DM2 (diabetes mellitus, type 2): Code(s): E11.9 - Type 2 diabetes mellitus without complications Status: Chronic Assessment and Plan: * Glucose 263 * A1c 5.5 * Insulin sliding scale * AC/HS accu cheks * Diabetic diet * Adjust therapy as indicated (5) Hyperlipidemia associated with type 2 diabetes mellitus: Code(s): E11.69 - Type 2 diabetes mellitus with other specified complication; E78.5 - Hyperlipidemia, unspecified Status: Chronic Assessment and Plan: * Continue with patient's Lipitor. (6) HTN (hypertension), malignant: Code(s): I10 - Essential (primary) hypertension Status: Chronic Assessment and Plan: * Current BP 174/65 * Continue home Amlodipine 10mg PO, Hydralazine 50mg PO BID, Imdur 30mg PO daily, labetalol 200mg PO BID * Clonidine 0.1mg PO PRN for SBP >170 * Trend BP * Probably will be better after dailysis * Adjust therapy as indicated (7) Anemia in CKD (chronic kidney disease): Code(s): N18.9 - Chronic kidney disease, unspecified; D63.1 - Anemia in chronic kidney disease Status: Chronic Assessment and Plan: * H/H 8.1/25.8 * Patient is seen by Oncology for Epogen. * His H&H is at baseline (8) Cough: Code(s): R05.9 - Cough, unspecified Status: Acute Assessment and Plan: * Reports cough overnight * antitussives on board * Could be secondary to fluid overload. Time Spent With Patient Time with patient: Greater than 35 minutes Subjective Date/time seen: 05/13/21 08:30 Interval history: Date/Time: 05/11/21 19:41 This is a 65-year-old male patient who has chronic renal failure. He also has chronic anemia due to the renal failure and typically gets Epogen. The pat
--- NOTE | 2021-05-13 08:30 | PM.IMPN ---
Progress Note: A&P Assessment and Plan (1) Acute on chronic kidney failure: Qualifiers: Acute renal failure type: unspecified Chronic kidney disease stage: unspecified stage Qualified Code(s): N17.9 - Acute kidney failure, unspecified; N18.9 - Chronic kidney disease, unspecified Code(s): N17.9 - Acute kidney failure, unspecified; N18.9 - Chronic kidney disease, unspecified Status: Acute Assessment and Plan: potassium is slightly elevated at 5.2 chronic kidney disease renal ultrasound performed on 09/02/2020 which was read as bilateral renal cyst Increased echogenicity of the renal parenchyma suggesting chronic renal disease Continue with IV fluids turn them down to 30ml/hrs Nephrology consulted thank you Surgery consulted for dialysis catheter Baseline creatinine 4-6, currently 11.10 Will probably need dialysis today (2) Pneumonia due to COVID-19 virus: Code(s): U07.1 - COVID-19; J12.82 - Pneumonia due to coronavirus disease 2018 Status: Acute Assessment and Plan: Covid PCR positive Chest xray: Mod amount of PNA/Pulm edema, cardiomegaly, pericardial effusion Hold on remdesivir and decadron, ED gave one dose cough medicine and inhaler ordered patient is on room air Patient updated on plan of care (3) Chronic neck pain: Code(s): M54.2 - Cervicalgia; G89.29 - Other chronic pain Status: Chronic Assessment and Plan: cervical fusion several weeks ago Educate about Ibprofen and renal failure Baclophen ordered Add tylenol and norco for better control (4) DM2 (diabetes mellitus, type 2): Code(s): E11.9 - Type 2 diabetes mellitus without complications Status: Chronic Assessment and Plan: Glucose 263 A1c 5.5 Insulin sliding scale AC/HS accu cheks Diabetic diet Adjust therapy as indicated (5) Hyperlipidemia associated with type 2 diabetes mellitus: Code(s): E11.69 - Type 2 diabetes mellitus with other specified complication; E78.5 - Hyperlipidemia, unspecified Status: Chronic Assessment and Plan: Continue with patient's Lipitor. (6) HTN (hypertension), malignant: Code(s): I10 - Essential (primary) hypertension Status: Chronic Assessment and Plan: Current BP 174/65 Continue home Amlodipine 10mg PO, Hydralazine 50mg PO BID, Imdur 30mg PO daily, labetalol 200mg PO BID Clonidine 0.1mg PO PRN for SBP >170 Trend BP Probably will be better after dailysis Adjust therapy as indicated (7) Anemia in CKD (chronic kidney disease): Code(s): N18.9 - Chronic kidney disease, unspecified; D63.1 - Anemia in chronic kidney disease Status: Chronic Assessment and Plan: H/H 8.1/25.8 Patient is seen by Oncology for Epogen. His H&H is at baseline (8) Cough: Code(s): R05.9 - Cough, unspecified Status: Acute Assessment and Plan: Reports cough overnight antitussives on board Could be secondary to fluid overload. Time Spent With Patient Time with patient: Greater than 35 minutes Subjective Date/time seen: 05/13/21 08:30 Interval history: Date/Time: 05/11/21 19:41 This is a 65-year-old male patient who has chronic renal failure. He also has chronic anemia due to the renal failure and typically gets Epogen. The patient came in complaining of severe generalized weakness of started about a week ago. The patient stated that he usually isolates himself and uses social distancing. He stated he has not been around any sick contacts. The patient denies any fever But has a cough and has been vomiting 4 to 5 times a day. No chest pain or abdominal pain. H&H is 9.3 and 29.1 which appears to be is baseline. His creatinine is 9.9 today and his baseline is anywhere from 4.2-6. Nephrology has been consulted. The patient was also found to be positive for COVID-19. The patient was s
[2021-05-13] MEDS: LABETALOL HCL 100 MG TABLET 200 MG PO ×2 (09:20→17:52)
[2021-05-13] MEDS: hydrALAZINE HCL 50 MG TABLET PO ×2 (09:20→17:52)
[2021-05-13] MEDS: ISOSORBIDE MONONITRATE 30 MG TAB.ER.24H PO (09:20)
[2021-05-13] MEDS: CHOLECALCIFEROL 1,000 UNITS TABLET 2000 UNITS PO (09:20)
[2021-05-13] MEDS: calcitrioL 0.25 MCG CAPSULE PO (09:21)
[2021-05-13] MEDS: FERROUS SULFATE 324 MG TABLET PO (09:21)
[2021-05-13] MEDS: INSULIN ASPART (*BKC) 100 UNITS/ML SUB-Q (11:33)
[2021-05-13 11:56] LABS: Glucose Point of Care 236 mg/dl (65-105)
--- NOTE | 2021-05-13 13:50 | WPDANESEPPF ---
Anes - Initial Pre Proc Eval Procedure: Operation Date: 05/13/21 15:00 Proposed Procedures p Insertion Tunneled Dialysis Catheter - Stephen Hernandez DO Date/Time: 05/13/21 13:50 Surgeon: Huyen Crowe MD Pre Op Diagnosis: yuli Patient Data Age: 65 Gender: M Height: 1.73 m Weight: 95.5 kg Last Vital Signs Temp 37.2 C 05/13/21 11:19 Pulse 84 05/13/21 11:19 Resp 20 05/13/21 11:19 BP 140/53 L 05/13/21 11:19 Pulse Ox 94 05/13/21 11:19 Allergies Allergy/AdvReac Type Severity Reaction Status Date / Time iohexol AdvReac Other Verified 05/12/21 00:40 [From contrast - CT, X-RAY] Home Medications Medication Instructions Recorded Confirmed Type amlodipine 10 mg PO HS 06/18/20 05/11/21 History aspirin 81 mg PO DAILY 06/18/20 05/11/21 History atorvastatin 40 mg PO HS 06/18/20 05/11/21 History calcitriol 0.25 mcg PO DAILY 06/18/20 05/11/21 History cholecalciferol (vitamin D3) 50 mcg PO DAILY 06/18/20 05/11/21 History ferrous sulfate [iron] 325 mg PO DAILY 06/18/20 05/11/21 History glipizide 5 mg PO DAILY 06/18/20 05/11/21 History hydralazine 50 mg PO BID 06/18/20 05/11/21 History isosorbide mononitrate [Imdur] 30 mg PO DAILY 06/18/20 05/11/21 History labetalol 200 mg PO BID 06/18/20 05/11/21 History pantoprazole 40 mg PO HS 06/18/20 05/11/21 History trazodone 50 mg PO HS 08/13/20 05/11/21 History baclofen 10 mg PO DAILY PRN 08/27/20 05/11/21 History Laboratory Tests 05/12/21 05/13/21 05/13/21 16:21 07:03 07:03 WBC 9.9 K/mm3 K/mm3 (4.5-10.0) RBC 3.00 M/mm3 L M/mm3 (4.6-6.20) Hgb 8.1 g/dL L g/dL (14.0-18.0) Hct 25.8 % L % (42.0-52.0) MCV 86.0 fl fl (80-100) MCH 27.0 pg pg (26-34) MCHC 31.4 g/dl L g/dl (32-36) RDW 18.6 % H % (11.5-14.5) Plt Count 418 k/mm3 H k/mm3 (150-375) MPV 9.0 fl fl (7.4-10.4) Immature Gran % (Auto) 1.0 % H % (0-0.5) Neut % (Auto) 84.9 % H % (45.5-73.1) Lymph % (Auto) 6.5 % L % (18.3-44.2) [place] % (Auto) 7.5 % % (2.6-8.5) Eos % (Auto) 0.0 % % (0-4.4) Baso % (Auto) 0.1 % L % (0.2-1.2) Lymph # (Auto) 0.64 K/mm3 L K/mm3 (0.9-3.2) [place] # (Auto) 0.7 K/mm3 H K/mm3 (0.1-0.6) Eos # (Auto) 0.0 K/mm3 K/mm3 (0-0.3) Baso # (Auto) 0.0 K/mm3 K/mm3 (0.0-0.1) Abs Immat Gran (auto) 0.10 K/mm3 H K/mm3 (0.00-0.031) Absolute Neuts (auto) 8.4 K/mm3 H K/mm3 (1.3-6.7) Absolute Nucleated RBC 0.0 K/mm3 K/mm3 (0.0-0.012) Nucleated RBC % 0.0 % % (0.0-0.2) D-Dimer 1.85 ug/mL H ug/mL (<0.48) Sodium Potassium Chloride Carbon Dioxide Anion Gap BUN Creatinine Estim Creat Clear Calc Estimated GFR Glucose POC Capillary Glucose 285 mg/dl H mg/dl (65-105) Calcium Magnesium Ferritin Total Bilirubin AST ALT Alkaline Phosphatase Lactate Dehydrogenase C-Reactive Protein Total Protein Albumin Hepatitis A IgM Ab Hep Bs Antigen Hep Bs Antibody Hep B Core Total Ab Hep B Core IgM Ab Hepatitis C Ab Screen 05/13/21 05/13/21 05/13/21 07:03 07:03 07:37 WBC RBC Hgb Hct MCV MCH MCHC RDW Plt Count MPV Immature Gran % (Auto) Neut % (Auto) Lymph % (Auto) [place] % (Auto) Eos % (Auto) Baso % (Auto) Lymph # (Auto) [place] # (Auto) Eos # (Auto) Baso
[2021-05-13 14:22] LABS: Glucose Point of Care 170 mg/dl (65-105)
--- NOTE | 2021-05-13 14:33 | WPDHPUPDATE1 ---
History and Physical Update Update Date/Time: 05/13/21 14:33 History and Physical has been reviewed, including an updated exam of the patient. There are NO changes in the patient's condition. Risks, benefits, and alternatives have been discussed and questions answered. Patient agrees to proceed with procedure.
--- NOTE | 2021-05-13 14:38 | PC.NURSE ---
to OR per bed. on room air. iv saline locked.
[2021-05-13] MEDS: LIDO 1%/EPINEPHRINE 1:100,000 50 ML VIAL 10 ML INFILTRATE (15:14)
[2021-05-13] MEDS: HEPARIN SODIUM, PORCINE 10,000 UNITS/10 ML VIAL 4000 UNITS IV PUSH (15:16)
[2021-05-13] MEDS: HEPARIN SODIUM 5,000 UNITS/ML VIAL 5000 UNITS IRRIGATION (15:16)
[2021-05-13] MEDS: SODIUM CHLORIDE 0.9% IV 500 ML 30 ML IV CONT (15:32)
--- NOTE | 2021-05-13 15:48 | P.OP_ITS ---
Procedure Note - Detailed Date of Procedure 05/13/21 Pre-op Diagnosis Acute on chronic renal failure, COVID-19 Post-op Diagnosis same Procedure Performed Left internal jugular tunneled dialysis catheter placement using ultrasound and fluoroscopic guidance Surgeon Stephen Hernandez, DO Anesthesia general and local (1% lidocaine with epinephrine) Findings Ultrasound guidance was used to identify the left internal jugular vein. This was visualized as a compressible vessel just lateral to the pulsatile carotid a rtery. The 18 gauge introducer needle was advanced under ultrasound guidance. Fluoroscopy was then used to guide advancement of the guidewire, followed by dilators and sheath. The final fluoroscopic images demonstrated catheter tip in the distal SVC and no kinks along its path. Description of Procedure Procedure as well as risks, benefits, and alternatives were discussed with patient. Written consent was obtained and placed in chart prior to procedure. Patient was brought back to surgical suite. Placed supine on operating table. Time-out was done confirm patient procedure. IV sedation was then administered by the Anesthesia Department. His left chest and neck area was prepped and draped in sterile fashion using chlorhexidine prep. Patient was placed in Trendelenburg position. SonoSite ultrasound was used to identify the left internal jugular vein. It was visualized as a compressible vessel just lateral to the carotid artery. 1% lidocaine with epinephrine was infiltrated directly over the vessel under ultrasound guidance. An 18 gauge introducer needle was then advanced under ultrasound guidance directly into the left internal jugular vein. Dark nonpulsatile blood was aspirated. A 0.035 in guidewire was then advanced through the needle under fluoroscopic guidance. The guidewire was visualized advancing all the way down into the superior vena cava. 1% lidocaine with epinephrine was then infiltrated on the left anterior chest and along the tract up to the guidewire insertion site. A 5 mm incision was made with a 15 blade scalpel. A small dada incision was then also made at the insertion site at the neck. The tunneler was then advanced from the chest incision up to the neck incision and the catheter tubing was brought up through this tract. The dilator and sheath were then advanced over the guidewire under fluoroscopic visualization. The dilator and guidewire were then removed leaving the sheath in place. The catheter tubing was then advanced through the sheath under fluoroscopic guidance. The sheath was unsnapped and carefully peeled away. The catheter tubing was released underneath the neck incision. Fluoroscopy was used to confirm proper placement of the catheter tubing and no kinks along its path. The catheter was then hep-locked with Hep-Lock solution. The skin of the incisions was then approximated using 4-0 Monocryl subcuticular suture. Exofin glue was then applied at the neck incision and 2x2 gauze and Tegaderm drassing applied at the chest. The patient was then awakened from anesthesia and transferred to recovery. Implants 28 cm DuraFlow2 dialysis catheter Estimated Blood Loss -10.0 Urine Output 300 Complications No immediate complications Condition stable Disposition floor
[2021-05-13] MEDS: FUROSEMIDE INJ 40 MG/4 ML VIAL 80 MG (17:04)
[2021-05-13 17:31] LABS: Hepatitis B Surface Antigen Negative (Negative)
[2021-05-13 17:37] LABS: HAV RESULT Negative (Negative); Hepatitis B Core IgM Result Negative (Negative)
[2021-05-13 17:48] LABS: Hepatitis B Surface Anti Res Negative; Hepatitis C Virus Antibody Negative (Negative)
[2021-05-13] MEDS: HYDROcodone/acetaminophen (*CRX) 5-325 MG TABLET 1 TAB PO (17:54)
[2021-05-13 18:03] LABS: Glucose Point of Care 181 mg/dl (65-105)
[2021-05-13 18:15] LABS: Glucose Point of Care 187 mg/dl (65-105)
[2021-05-13 19:26] LABS: Hepatitis B Surface Antigen Negative (Negative)
[2021-05-13 19:49] LABS: Hepatitis B Surface Anti Res Negative; Hepatitis C Virus Antibody Negative (Negative)
[2021-05-13] MEDS: ATORVASTATIN 40 MG TABLET PO (20:40)
[2021-05-13] MEDS: amLODIPine BESYLATE 5 MG TABLET 10 MG PO (20:40)
[2021-05-13 21:33] LABS: Glucose Point of Care 129 mg/dl (65-105)
[2021-05-14] VITALS (22 sets, daily range): BP systolic 124–165; BP diastolic 49–79; PULSE 82–102; RESP 18–20; TEMP 36.5–37.3; O2SAT 90–96
[2021-05-14] MEDS: HYDROcodone/acetaminophen (*CRX) 5-325 MG TABLET 1 TAB PO ×2 (03:50→20:19)
[2021-05-14] MEDS: ASPIRIN 81 MG CHEWABLE TABLET PO (08:19)
[2021-05-14] MEDS: FERROUS SULFATE 324 MG TABLET PO (08:19)
[2021-05-14] MEDS: CHOLECALCIFEROL 1,000 UNITS TABLET 2000 UNITS PO (08:20)
[2021-05-14] MEDS: calcitrioL 0.25 MCG CAPSULE PO (08:20)
--- NOTE | 2021-05-14 08:31 | PC.NURSE ---
Patient states his blood pressure is running low for him (120s/50s). Patient is also to have first dialysis treatment this morning. Held Labetolol and Hydralazine until I can discuss with Jaden Kovacs NP.
--- NOTE | 2021-05-14 08:45 | P.PNIM_ITS ---
Progress Note: A&P Assessment and Plan (1) Acute on chronic kidney failure: Qualifiers: Acute renal failure type: unspecified Chronic kidney disease stage: unspecified stage Qualified Code(s): N17.9 - Acute kidney failure, unspecified; N18.9 - Chronic kidney disease, unspecified Code(s): N17.9 - Acute kidney failure, unspecified; N18.9 - Chronic kidney disease, unsp ecified Status: Acute Assessment and Plan: * potassium is slightly elevated at 5.2 * chronic kidney disease * renal ultrasound performed on 09/02/2020 which was read as bilateral renal cyst * Increased echogenicity of the renal parenchyma suggesting chronic renal disease * Continue with IV fluids turn them down to 30ml/hrs * Nephrology consulted thank you * Surgery consulted for dialysis catheter * Baseline creatinine 4-6, currently 8.90 * dialysis today 3L off (2) Pneumonia due to COVID-19 virus: Code(s): U07.1 - COVID-19; J12.82 - Pneumonia due to coronavirus disease 2018 Status: Acute Assessment and Plan: * Covid PCR positive * Chest xray: Mod amount of PNA/Pulm edema, cardiomegaly, pericardial effusion * Hold on remdesivir and decadron, ED gave one dose * cough medicine and inhaler ordered * patient is on room air * Patient updated on plan of care (3) Chronic neck pain: Code(s): M54.2 - Cervicalgia; G89.29 - Other chronic pain Status: Chronic Assessment and Plan: * cervical fusion several weeks ago * Educate about Ibprofen and renal failure * Baclophen ordered * Add tylenol and norco for better control (4) DM2 (diabetes mellitus, type 2): Code(s): E11.9 - Type 2 diabetes mellitus without complications Status: Chronic Assessment and Plan: * Glucose 184 * A1c 5.5 * Insulin sliding scale * AC/HS accu cheks * Diabetic diet * Adjust therapy as indicated (5) Hyperlipidemia associated with type 2 diabetes mellitus: Code(s): E11.69 - Type 2 diabetes mellitus with other specified complication; E78.5 - Hyperlipidemia, unspecified Status: Chronic Assessment and Plan: * Continue with patient's Lipitor. (6) HTN (hypertension), malignant: Code(s): I10 - Essential (primary) hypertension Status: Chronic Assessment and Plan: * Current BP 150/51 * Continue home Amlodipine 10mg PO, Hydralazine 50mg PO BID, Imdur 30mg PO daily, labetalol 200mg PO BID * Clonidine 0.1mg PO PRN for SBP >170 * Trend BP * Probably will be better after dailysis * Adjust therapy as indicated (7) Anemia in CKD (chronic kidney disease): Code(s): N18.9 - Chronic kidney disease, unspecified; D63.1 - Anemia in chronic kidney disease Status: Chronic Assessment and Plan: * H/H 8.1/25.0 * Patient is seen by Oncology for Epogen. * His H&H is at baseline (8) Cough: Code(s): R05.9 - Cough, unspecified Status: Acute Assessment and Plan: * Reports cough overnight * Blood in the cough * antitussives on board * Could be secondary to fluid overload. Subjective Date/time seen: 05/14/21 0845 Interval history: Date/Time: 05/11/21 19:41 This is a 65-year-old male patient who has chronic renal failure. He also has chronic anemia due to the renal failure and typically gets Epogen. The patient came in complaining of severe generalized weakness of s
--- NOTE | 2021-05-14 08:45 | PM.IMPN ---
Progress Note: A&P Assessment and Plan (1) Acute on chronic kidney failure: Qualifiers: Acute renal failure type: unspecified Chronic kidney disease stage: unspecified stage Qualified Code(s): N17.9 - Acute kidney failure, unspecified; N18.9 - Chronic kidney disease, unspecified Code(s): N17.9 - Acute kidney failure, unspecified; N18.9 - Chronic kidney disease, unspecified Status: Acute Assessment and Plan: potassium is slightly elevated at 5.2 chronic kidney disease renal ultrasound performed on 09/02/2020 which was read as bilateral renal cyst Increased echogenicity of the renal parenchyma suggesting chronic renal disease Continue with IV fluids turn them down to 30ml/hrs Nephrology consulted thank you Surgery consulted for dialysis catheter Baseline creatinine 4-6, currently 8.90 dialysis today 3L off (2) Pneumonia due to COVID-19 virus: Code(s): U07.1 - COVID-19; J12.82 - Pneumonia due to coronavirus disease 2018 Status: Acute Assessment and Plan: Covid PCR positive Chest xray: Mod amount of PNA/Pulm edema, cardiomegaly, pericardial effusion Hold on remdesivir and decadron, ED gave one dose cough medicine and inhaler ordered patient is on room air Patient updated on plan of care (3) Chronic neck pain: Code(s): M54.2 - Cervicalgia; G89.29 - Other chronic pain Status: Chronic Assessment and Plan: cervical fusion several weeks ago Educate about Ibprofen and renal failure Baclophen ordered Add tylenol and norco for better control (4) DM2 (diabetes mellitus, type 2): Code(s): E11.9 - Type 2 diabetes mellitus without complications Status: Chronic Assessment and Plan: Glucose 184 A1c 5.5 Insulin sliding scale AC/HS accu cheks Diabetic diet Adjust therapy as indicated (5) Hyperlipidemia associated with type 2 diabetes mellitus: Code(s): E11.69 - Type 2 diabetes mellitus with other specified complication; E78.5 - Hyperlipidemia, unspecified Status: Chronic Assessment and Plan: Continue with patient's Lipitor. (6) HTN (hypertension), malignant: Code(s): I10 - Essential (primary) hypertension Status: Chronic Assessment and Plan: Current BP 150/51 Continue home Amlodipine 10mg PO, Hydralazine 50mg PO BID, Imdur 30mg PO daily, labetalol 200mg PO BID Clonidine 0.1mg PO PRN for SBP >170 Trend BP Probably will be better after dailysis Adjust therapy as indicated (7) Anemia in CKD (chronic kidney disease): Code(s): N18.9 - Chronic kidney disease, unspecified; D63.1 - Anemia in chronic kidney disease Status: Chronic Assessment and Plan: H/H 8.1/25.0 Patient is seen by Oncology for Epogen. His H&H is at baseline (8) Cough: Code(s): R05.9 - Cough, unspecified Status: Acute Assessment and Plan: Reports cough overnight Blood in the cough antitussives on board Could be secondary to fluid overload. Subjective Date/time seen: 05/14/21 0845 Interval history: Date/Time: 05/11/21 19:41 This is a 65-year-old male patient who has chronic renal failure. He also has chronic anemia due to the renal failure and typically gets Epogen. The patient came in complaining of severe generalized weakness of started about a week ago. The patient stated that he usually isolates himself and uses social distancing. He stated he has not been around any sick contacts. The patient denies any fever But has a cough and has been vomiting 4 to 5 times a day. No chest pain or abdominal pain. H&H is 9.3 and 29.1 which appears to be is baseline. His creatinine is 9.9 today and his baseline is anywhere from 4.2-6. Nephrology has been consulted. The patient was also found to be positive for COVID-19. The patient was started on IV fluids, Decadron, Tylenol, and Zofran. Initia
[2021-05-14 08:46] LABS: Glucose Point of Care 183 mg/dl (65-105)
--- NOTE | 2021-05-14 12:22 | WPDANESPN ---
Anes - Prog Note Post-Op Date/Time: 05/14/21 12:22 Cardiovascular status: normal Respiratory status: normal Airway patency: baseline Mental status: baseline Post-Op hydration status: normal Vital Signs: Last Vital Signs Temp 98.3 F 05/14/21 10:05 Pulse 94 05/14/21 12:15 Resp 18 05/14/21 10:05 BP 138/70 05/14/21 12:15 Pulse Ox 90 05/14/21 08:00 Pain Score (VAS): 05/05 I/O: Intake & Output 05/13/21 05/14/21 05/14/21 23:59 07:59 15:59 Intake Total 300 300 Output Total 650 Balance -350 300 Laboratory Tests 05/13/21 07:03 05/13/21 07:03 05/13/21 05/13/21 05/13/21 13:15 13:15 14:17 POC Capillary Glucose 170 H Hepatitis A IgM Ab Negative Hep Bs Antigen Negative Hep Bs Antibody Negative Hep B Core Total Ab Pending Hep B Core IgM Ab Negative Hepatitis C Ab Screen Negative 05/13/21 05/13/21 05/13/21 15:32 17:46 17:46 POC Capillary Glucose 181 H Hepatitis A IgM Ab Hep Bs Antigen Negative Hep Bs Antibody Negative Hep B Core Total Ab Hep B Core IgM Ab Hepatitis C Ab Screen Negative 05/13/21 05/13/21 05/14/21 17:50 21:23 08:14 POC Capillary Glucose 187 H 129 H 183 H Hepatitis A IgM Ab Hep Bs Antigen Hep Bs Antibody Hep B Core Total Ab Hep B Core IgM Ab Hepatitis C Ab Screen Post-procedural complaints: none Patient Feedback: Patient satisfied with anesthetic care.
--- NOTE | 2021-05-14 13:00 | PM.PNNEP ---
Progress Note: A&P Assessment and Plan (1) Chronic kidney disease, stage 5: Code(s): N18.5 - Chronic kidney disease, stage 5 Status: Acute Assessment and Plan: The patient has slowly progressive chronic kidney disease. this is due to htn and dm. creatinine is worsening, probably due to the covid. getting hemodialysis now. (2) Pneumonia due to COVID-19 virus: Code(s): U07.1 - COVID-19; J12.82 - Pneumonia due to coronavirus disease 2018 Status: Acute Assessment and Plan: the patient has COVID-19. He is not on oxygen. Management per hospitalists. (3) HTN (hypertension), malignant: Code(s): I10 - Essential (primary) hypertension Status: Chronic Assessment and Plan: His blood pressure ranges from 130 to 140 on amlodipine, labetalol, isorbide, hydralazine. received clonidine once yesterday. give more prn (4) DM2 (diabetes mellitus, type 2): Code(s): E11.9 - Type 2 diabetes mellitus without complications Status: Chronic Assessment and Plan: Patient is on Accu-Cheks and sliding-scale insulin (5) Anemia in CKD (chronic kidney disease): Code(s): N18.9 - Chronic kidney disease, unspecified; D63.1 - Anemia in chronic kidney disease Status: Chronic Assessment and Plan: Hemoglobin is 8.1 will give more epo (6) Hyperlipidemia associated with type 2 diabetes mellitus: Code(s): E11.69 - Type 2 diabetes mellitus with other specified complication; E78.5 - Hyperlipidemia, unspecified Status: Chronic Assessment and Plan: he is on atorvastatin Subjective Date/time seen: 05/14/21 13:00 Interval history: yesterday he developed more cough and sob after surgery but improved when anesthesia wore off. he is on HD and chandler it well. seen at 12:10pm his is coughing more today no sob. no cp. Exam Narrative: WDWN in NAD skin no rash head ncat lungs dec breath sounds at the bases cor reg no rub abd BS+ nontender and soft ext trace edema. Objective Data Vital Signs Vital Signs: Vital Signs - 24 hr 05/13/21 14:15 05/13/21 15:32 05/13/21 15:45 Temperature 37.1 C 36.8 C Pulse Rate 87 83 87 Respiratory Rate 22 H 24 H 20 Blood Pressure 153/76 H 163/70 H 145/73 H Pulse Oximetry 96 97 99 05/13/21 15:54 05/13/21 16:10 05/13/21 16:57 Temperature 36.6 C 36.7 C Pulse Rate 73 88 85 Respiratory Rate 20 36 H 28 H Blood Pressure 148/70 H 149/51 H 160/55 H Pulse Oximetry 94 91 96 05/13/21 17:44 05/13/21 17:52 05/13/21 18:40 Temperature 36.5 C 36.8 C Pulse Rate 86 85 86 Respiratory Rate 24 H 24 H Blood Pressure 151/62 H 120/37 L Pulse Oximetry 97 93 05/13/21 21:44 05/14/21 01:36 05/14/21 04:00 Temperature 36.6 C 36.6 C 36.5 C Pulse Rate 80 82 86 Respiratory Rate 20 18 18 Blood Pressure 122/43 L 128/50 L 124/53 L Pulse Oximetry 94 94 96 05/14/21 08:00 05/14/21 10:05 05/14/21 10:13 Temperature 36.6 C 36.8 C Pulse Rate 86 90 89 Respiratory Rate 18 18 Blood Pressure 150/51 H 152/74 H 159/72 H Pulse Oximetry 90 05/14/21 10:30 05/14/21 10:45 05/14/21 11:00 Temperature Pulse Rate 88 87 89 Respiratory Rate Blood Pressure 165/79 H 152/76 H 143/72 H Pulse Oximetry 05/14/21 11:15 05/14/21 11:30 05/14/21 11:45 Temperature Pulse Rate 91 90 93 Respiratory Rate Blood Pressure 146/74 H 140/67 139/69 Pulse Oximetry 05/14/21 12:00 05/14/21 12:15 Temperature Pulse Rate 93 94 Respiratory Rate Blood Pressure 137/70 138/70 Pulse Oximetry Intake/Output Intake/Output: Intake & Output 05/11/21 05/12/21 05/13/21 05/14/21 23:59 23:59 23:59 23:59 Intake Total 1100 2690 1500 300 Output Total 1250 Balance 1100 2690 250 300 Meds/Results Medications: Active Medications Generic Name Dose Route Start Last Admin Trade Name Freq PRN Reason Stop Dose Admin Hydrocodone Bitart/Acetaminophen 1 tab 05/13/21 15:59 05/14/21 03:
[2021-05-14 14:02] LABS: Glucose Point of Care 145 mg/dl (65-105)
[2021-05-14 15:21] LABS: Hemoglobin 8.1 g/dL (14.0-18.0); Mean Corpuscular HGB Conc 32.4 g/dl (32-36); Mean Corpuscular Hemoglobin 27.5 pg (26-34); Mean Corpuscular Volume 84.7 fl (80-100); Mean Platelet Volume 8.9 fl (7.4-10.4); Platelet Count Result 349 k/mm3 (150-375); Red Blood Count 2.95 M/mm3 (4.6-6.20); Red Cell Distribution Width 18.8 % (11.5-14.5); White Blood Count 8.4 K/mm3 (4.5-10.0)
[2021-05-14] MEDS: LABETALOL HCL 100 MG TABLET 200 MG PO (15:28)
[2021-05-14] MEDS: EPOETIN ALFA-EPBX 10,000 UNITS/ML VIAL 10000 UNITS SUB-Q (15:28)
[2021-05-14] MEDS: hydrALAZINE HCL 50 MG TABLET PO (15:29)
[2021-05-14 15:44] LABS: D Dimer 2.97 ug/mL (<0.48)
[2021-05-14 15:58] LABS: Band Neutrophils Percent 2 % (0-6); Eosinophils Absolute Manual 0.08 K/mm3 (0.02-0.5); Eosinophils Percent Manual 1 % (0-4); Lymphocytes Absolute Manual 0.84 K/mm3 (1.1-4.5); Monocytes Absolute Manual 0.67 K/mm3 (0.1-0.90); Monocytes Percent Manual 8 % (3-9); Neutrophils Percent Manual 79 % (46-73); Platelet Estimate Adequate (Adequate); Total Cells Counted 100
[2021-05-14 15:59] LABS: Anisocytosis 2+ (NORMAL)
[2021-05-14 17:07] LABS: Glucose Point of Care 200 mg/dl (65-105)
[2021-05-14 17:13] LABS: Alanine Aminotransferase 22 U/L (4-50); Albumin Level 3.4 g/dL (3.5-5.1); Alkaline Phosphatase 52 U/L (38-126); Anion Gap 16 mmol/L (8-16); Aspartate Amino Transferase 34 U/L (17-59); Bilirubin,Total 0.5 mg/dL (0.2-1.3); Blood Urea Nitrogen 78 mg/dL (9-20); CRP 7.1 mg/dL (<1.0); Calcium 7.7 mg/dL (8.4-10.2); Carbon Dioxide 17 mmol/L (22-30); Chloride 103 mmol/L (98-107); Estimated CRCL calculation 9 ml/min; Estimated Glomerular Filt Rate 7; Glucose 184 mg/dL (65-110); Lactate Dehydrogenase 939 U/L (313-618); Magnesium 1.9 mg/dL (1.6-2.3); Phosphorus 5.9 mg/dL (2.5-4.5); Potassium 4.1 mmol/L (3.4-5.0); Sodium 136 mmol/L (137-145)
[2021-05-14] MEDS: traZODone HCL 50 MG TABLET PO (20:19)
[2021-05-14] MEDS: ATORVASTATIN 40 MG TABLET PO (20:19)
[2021-05-14] MEDS: amLODIPine BESYLATE 5 MG TABLET 10 MG PO (20:19)
[2021-05-14 20:58] LABS: Glucose Point of Care 216 mg/dl (65-105)
[2021-05-15 04:00] VITALS: BP 148/50; PULSE 97; RESP 18; TEMP 36.7; O2SAT 93
--- NOTE | 2021-05-15 06:47 | PM.PNNEP ---
Progress Note: A&P Assessment and Plan (1) Chronic kidney disease, stage 5: Code(s): N18.5 - Chronic kidney disease, stage 5 Status: Acute Assessment and Plan: He now has end-stage renal disease. He is on dialysis. Hepatitis studies are negative so far. He will get placed to the unit the Dr. Hernandez goes to (2) Pneumonia due to COVID-19 virus: Code(s): U07.1 - COVID-19; J12.82 - Pneumonia due to coronavirus disease 2018 Status: Acute Assessment and Plan: the patient has COVID-19. He is not on oxygen. Management per hospitalists. (3) HTN (hypertension), malignant: Code(s): I10 - Essential (primary) hypertension Status: Chronic Assessment and Plan: His blood pressure ranges from 140-160 overnight on amlodipine, labetalol, isorbide, hydralazine. Will add lisinopril. received clonidine once yesterday. give more prn (4) DM2 (diabetes mellitus, type 2): Code(s): E11.9 - Type 2 diabetes mellitus without complications Status: Chronic Assessment and Plan: Patient is on Accu-Cheks and sliding-scale insulin (5) Anemia in CKD (chronic kidney disease): Code(s): N18.9 - Chronic kidney disease, unspecified; D63.1 - Anemia in chronic kidney disease Status: Chronic Assessment and Plan: Hemoglobin is 8.1 He received a 1 time EPO dose yesterday. Will continue EPO with dialysis. (6) Hyperlipidemia associated with type 2 diabetes mellitus: Code(s): E11.69 - Type 2 diabetes mellitus with other specified complication; E78.5 - Hyperlipidemia, unspecified Status: Chronic Assessment and Plan: he is on atorvastatin Subjective Date/time seen: 05/15/21 06:47 Interval history: The patient feels better today. He is less short of breath. Exam Narrative: WDWN in NAD skin no rash or subQ nodules head ncat lungs dec breath sounds at the bases cor reg no rub or gallop abd BS+ nontender and soft ext trace edema. Objective Data Vital Signs Vital Signs: Vital Signs - 24 hr 05/14/21 08:00 05/14/21 10:05 05/14/21 10:13 Temperature 36.6 C 36.8 C Pulse Rate 86 90 89 Respiratory Rate 18 18 Blood Pressure 150/51 H 152/74 H 159/72 H Pulse Oximetry 90 05/14/21 10:30 05/14/21 10:45 05/14/21 11:00 Temperature Pulse Rate 88 87 89 Respiratory Rate Blood Pressure 165/79 H 152/76 H 143/72 H Pulse Oximetry 05/14/21 11:15 05/14/21 11:30 05/14/21 11:45 Temperature Pulse Rate 91 90 93 Respiratory Rate Blood Pressure 146/74 H 140/67 139/69 Pulse Oximetry 05/14/21 12:00 05/14/21 12:15 05/14/21 12:30 Temperature Pulse Rate 93 94 95 Respiratory Rate Blood Pressure 137/70 138/70 141/66 H Pulse Oximetry 05/14/21 12:45 05/14/21 13:00 05/14/21 13:13 Temperature Pulse Rate 93 95 93 Respiratory Rate Blood Pressure 137/72 134/64 140/74 Pulse Oximetry 05/14/21 13:25 05/14/21 15:28 05/14/21 16:00 Temperature 36.6 C 37.3 C Pulse Rate 93 82 102 H Respiratory Rate 18 20 Blood Pressure 163/76 H 151/61 H Pulse Oximetry 94 05/14/21 20:00 05/14/21 23:50 05/15/21 04:00 Temperature 37.2 C 36.7 C 36.7 C Pulse Rate 95 99 97 Respiratory Rate 20 18 18 Blood Pressure 160/54 H 143/49 H 148/50 H Pulse Oximetry 90 96 93 Intake/Output Intake/Output: Intake & Output 05/12/21 05/13/21 05/14/21 05/15/21 23:59 23:59 23:59 23:59 Intake Total 2690 1500 600 500 Output Total 1250 3000 Balance 2690 250 -2400 500 Meds/Results Medications: Active Medications Generic Name Dose Route Start Last Admin Trade Name Freq PRN Reason Stop Dose Admin Hydrocodone Bitart/Acetaminophen 1 tab 05/13/21 15:59 05/14/21 20:19 Hydrocodone/Acetaminophen (*Crx) 5-325 Mg Tablet PO 1 tab Q4H PRN Administration Pain Rated 4-6 Albuterol 2 puff 05/12/21 00:02 Albuterol Sulfate (*Sp) Aerosol 1 Puff INHALATION Q6HRT PRN Shortness Of
[2021-05-15 08:00] VITALS: BP 155/50; PULSE 98; RESP 18; TEMP 36.8; O2SAT 90
[2021-05-15 08:46] LABS: Glucose Point of Care 187 mg/dl (65-105)
[2021-05-15 09:39] LABS: Basophils Percent Auto 0.3 % (0.2-1.2); Eosinophils Absolute Auto 0.1 K/mm3 (0-0.3); Eosinophils Percent Auto 0.6 % (0-4.4); Hematocrit 24.6 % (42.0-52.0); Hemoglobin 7.9 g/dL (14.0-18.0); Immature Granulocyte Percent A 2.6 % (0-0.5); Lymphocytes Absolute Auto 1.12 K/mm3 (0.9-3.2); Lymphocytes Percent Auto 14.5 % (18.3-44.2); Mean Corpuscular HGB Conc 32.1 g/dl (32-36); Mean Corpuscular Hemoglobin 27.3 pg (26-34); Mean Corpuscular Volume 85.1 fl (80-100); Mean Platelet Volume 8.7 fl (7.4-10.4); Monocytes Absolute Auto 0.5 K/mm3 (0.1-0.6); Monocytes Percent Auto 6.1 % (2.6-8.5); Neutrophils Absolute Auto 5.8 K/mm3 (1.3-6.7); Neutrophils Percent Auto 75.9 % (45.5-73.1); Nucleated Red Blood Cells Absolute Auto 0.1 K/mm3 (0.0-0.012); Nucleated Red Blood Cells Perc 0.6 % (0.0-0.2); Platelet Count Result 345 k/mm3 (150-375); Red Blood Count 2.89 M/mm3 (4.6-6.20); Red Cell Distribution Width 18.7 % (11.5-14.5); White Blood Count 7.7 K/mm3 (4.5-10.0)
--- NOTE | 2021-05-15 09:45 | PM.IMPN ---
Progress Note: A&P Assessment and Plan (1) Acute on chronic kidney failure: Qualifiers: Acute renal failure type: unspecified Chronic kidney disease stage: unspecified stage Qualified Code(s): N17.9 - Acute kidney failure, unspecified; N18.9 - Chronic kidney disease, unspecified Code(s): N17.9 - Acute kidney failure, unspecified; N18.9 - Chronic kidney disease, unspecified Status: Acute Assessment and Plan: potassium is better today 4.0 chronic kidney disease renal ultrasound performed on 09/02/2020 which was read as bilateral renal cyst Increased echogenicity of the renal parenchyma suggesting chronic renal disease Nephrology consulted thank you Surgery consulted for dialysis catheter Baseline creatinine 4-6, currently 9.90 dialysis today 3L off 05/14/21 (2) Pneumonia due to COVID-19 virus: Code(s): U07.1 - COVID-19; J12.82 - Pneumonia due to coronavirus disease 2018 Status: Acute Assessment and Plan: Covid PCR positive Chest xray: Mod amount of PNA/Pulm edema, cardiomegaly, pericardial effusion (05/13/21) Hold on remdesivir and decadron, ED gave one dose cough medicine and inhaler ordered patient is on room air Patient updated on plan of care Inflammatory markers: Dimer 2.89, Ferritin 890, LDH 1014, CRP 7.9 (3) Chronic neck pain: Code(s): M54.2 - Cervicalgia; G89.29 - Other chronic pain Status: Chronic Assessment and Plan: cervical fusion several weeks ago Educate about Ibprofen and renal failure Baclophen ordered Add tylenol and norco for better control (4) DM2 (diabetes mellitus, type 2): Code(s): E11.9 - Type 2 diabetes mellitus without complications Status: Chronic Assessment and Plan: Glucose 198 A1c 5.5 Insulin sliding scale AC/HS accu cheks Diabetic diet Adjust therapy as indicated (5) Hyperlipidemia associated with type 2 diabetes mellitus: Code(s): E11.69 - Type 2 diabetes mellitus with other specified complication; E78.5 - Hyperlipidemia, unspecified Status: Chronic Assessment and Plan: Continue with patient's Lipitor. (6) HTN (hypertension), malignant: Code(s): I10 - Essential (primary) hypertension Status: Chronic Assessment and Plan: Current BP 136/56 Continue home Amlodipine 10mg PO, Hydralazine 50mg PO BID, Imdur 30mg PO daily, labetalol 200mg PO BID Clonidine 0.1mg PO PRN for SBP >170 Trend BP Probably will be better after dailysis Adjust therapy as indicated (7) Anemia in CKD (chronic kidney disease): Code(s): N18.9 - Chronic kidney disease, unspecified; D63.1 - Anemia in chronic kidney disease Status: Chronic Assessment and Plan: H/H 7.9/24.6 Patient is seen by Oncology for Epogen. His H&H is at baseline (8) Cough: Code(s): R05.9 - Cough, unspecified Status: Acute Assessment and Plan: Reports cough overnight Blood in the cough antitussives on board Could be secondary to fluid overload. Time Spent With Patient Time with patient: Greater than 35 minutes Subjective Date/time seen: 05/15/21 09:45 Interval history: Date/Time: 05/11/21 19:41 This is a 65-year-old male patient who has chronic renal failure. He also has chronic anemia due to the renal failure and typically gets Epogen. The patient came in complaining of severe generalized weakness of started about a week ago. The patient stated that he usually isolates himself and uses social distancing. He stated he has not been around any sick contacts. The patient denies any fever But has a cough and has been vomiting 4 to 5 times a day. No chest pain or abdominal pain. H&H is 9.3 and 29.1 which appears to be is baseline. His creatinine is 9.9 today and his baseline is anywhere from 4.2-6. Nephrology has been consulted. The patient was also found to be positive
--- NOTE | 2021-05-15 09:45 | P.PNIM_ITS ---
Progress Note: A&P Assessment and Plan (1) Acute on chronic kidney failure: Qualifiers: Acute renal failure type: unspecified Chronic kidney disease stage: unspecified stage Qualified Code(s): N17.9 - Acute kidney failure, unspecified; N18.9 - Chronic kidney disease, unspecified Code(s): N17.9 - Acute kidney failure, unspecified; N18.9 - Chronic kidney disease, unsp ecified Status: Acute Assessment and Plan: * potassium is better today 4.0 * chronic kidney disease * renal ultrasound performed on 09/02/2020 which was read as bilateral renal cyst * Increased echogenicity of the renal parenchyma suggesting chronic renal disease * Nephrology consulted thank you * Surgery consulted for dialysis catheter * Baseline creatinine 4-6, currently 9.90 * dialysis today 3L off 05/14/21 (2) Pneumonia due to COVID-19 virus: Code(s): U07.1 - COVID-19; J12.82 - Pneumonia due to coronavirus disease 2018 Status: Acute Assessment and Plan: * Covid PCR positive * Chest xray: Mod amount of PNA/Pulm edema, cardiomegaly, pericardial effusion (05/13/21) * Hold on remdesivir and decadron, ED gave one dose * cough medicine and inhaler ordered * patient is on room air * Patient updated on plan of care * Inflammatory markers: Dimer 2.89, Ferritin 890, LDH 1014, CRP 7.9 (3) Chronic neck pain: Code(s): M54.2 - Cervicalgia; G89.29 - Other chronic pain Status: Chronic Assessment and Plan: * cervical fusion several weeks ago * Educate about Ibprofen and renal failure * Baclophen ordered * Add tylenol and norco for better control (4) DM2 (diabetes mellitus, type 2): Code(s): E11.9 - Type 2 diabetes mellitus without complications Status: Chronic Assessment and Plan: * Glucose 198 * A1c 5.5 * Insulin sliding scale * AC/HS accu cheks * Diabetic diet * Adjust therapy as indicated (5) Hyperlipidemia associated with type 2 diabetes mellitus: Code(s): E11.69 - Type 2 diabetes mellitus with other specified complication; E78.5 - Hyperlipidemia, unspecified Status: Chronic Assessment and Plan: * Continue with patient's Lipitor. (6) HTN (hypertension), malignant: Code(s): I10 - Essential (primary) hypertension Status: Chronic Assessment and Plan: * Current BP 136/56 * Continue home Amlodipine 10mg PO, Hydralazine 50mg PO BID, Imdur 30mg PO daily, labetalol 200mg PO BID * Clonidine 0.1mg PO PRN for SBP >170 * Trend BP * Probably will be better after dailysis * Adjust therapy as indicated (7) Anemia in CKD (chronic kidney disease): Code(s): N18.9 - Chronic kidney disease, unspecified; D63.1 - Anemia in chronic kidney disease Status: Chronic Assessment and Plan: * H/H 7.9/24.6 * Patient is seen by Oncology for Epogen. * His H&H is at baseline (8) Cough: Code(s): R05.9 - Cough, unspecified Status: Acute Assessment and Plan: * Reports cough overnight * Blood in the cough * antitussives on board * Could be secondary to fluid overload. Time Spent With Patient Time with patient: Greater than 35 minutes Subjective Date/time seen: 05/15/21 09:45 Interval history: Date/Time: 05/11/21 19:41 This is a 65-year-old male patient who has chronic renal failure. He also has chronic anemia due to the renal
[2021-05-15 09:54] LABS: Alanine Aminotransferase 20 U/L (4-50); Albumin Level 3.5 g/dL (3.5-5.1); Alkaline Phosphatase 50 U/L (38-126); Anion Gap 14 mmol/L (8-16); Aspartate Amino Transferase 27 U/L (17-59); Bilirubin,Total 0.5 mg/dL (0.2-1.3); Blood Urea Nitrogen 90 mg/dL (9-20); CRP 7.9 mg/dL (<1.0); Calcium 7.6 mg/dL (8.4-10.2); Carbon Dioxide 17 mmol/L (22-30); Chloride 103 mmol/L (98-107); Estimated CRCL calculation 8 ml/min; Estimated Glomerular Filt Rate 6; Glucose 198 mg/dL (65-110); Lactate Dehydrogenase 1014 U/L (313-618); Sodium 134 mmol/L (137-145)
[2021-05-15] MEDS: LABETALOL HCL 100 MG TABLET 200 MG PO ×2 (10:12→16:45)
[2021-05-15] MEDS: lisinopriL 20 MG TABLET PO (10:12)
[2021-05-15] MEDS: hydrALAZINE HCL 50 MG TABLET PO ×2 (10:12→16:45)
[2021-05-15] MEDS: CHOLECALCIFEROL 1,000 UNITS TABLET 2000 UNITS PO (10:12)
[2021-05-15] MEDS: calcitrioL 0.25 MCG CAPSULE PO (10:13)
[2021-05-15] MEDS: ASPIRIN 81 MG CHEWABLE TABLET PO (10:13)
[2021-05-15] MEDS: ISOSORBIDE MONONITRATE 30 MG TAB.ER.24H PO (10:13)
[2021-05-15] MEDS: FERROUS SULFATE 324 MG TABLET PO (10:13)
[2021-05-15 10:17] LABS: D Dimer 2.89 ug/mL (<0.48)
[2021-05-15 11:48] LABS: Glucose Point of Care 287 mg/dl (65-105)
[2021-05-15 12:00] VITALS: BP 136/56; PULSE 90; RESP 18; TEMP 36.8; O2SAT 90
[2021-05-15] MEDS: INSULIN ASPART (*BKC) 100 UNITS/ML SUB-Q (13:15)
[2021-05-15 15:35] VITALS: BP 147/52; PULSE 81; RESP 16; TEMP 36.3; O2SAT 90
[2021-05-15 17:09] LABS: Glucose Point of Care 192 mg/dl (65-105)
[2021-05-15 18:29] LABS: Hepatitis B Core Ab Total Nonreactive (Nonreactive)
[2021-05-15 20:00] VITALS: BP 163/59; PULSE 85; PULSE 88; RESP 16; TEMP 36.7; O2SAT 94
[2021-05-15] MEDS: amLODIPine BESYLATE 5 MG TABLET 10 MG PO (20:21)
[2021-05-15] MEDS: ATORVASTATIN 40 MG TABLET PO (20:22)
[2021-05-15] MEDS: traZODone HCL 50 MG TABLET PO (20:22)
[2021-05-15] MEDS: PANTOPRAZOLE 40 MG TABLET PO (20:23)
[2021-05-16] VITALS (20 sets, daily range): BP systolic 119–162; BP diastolic 42–72; PULSE 73–89; RESP 16–18; TEMP 36.5–37.9; O2SAT 94–100
[2021-05-16] MEDS: HYDROcodone/acetaminophen (*CRX) 5-325 MG TABLET 1 TAB PO (01:23)
[2021-05-16 06:54] LABS: Basophils Percent Auto 0.3 % (0.2-1.2); Eosinophils Absolute Auto 0.2 K/mm3 (0-0.3); Eosinophils Percent Auto 2.3 % (0-4.4); Hematocrit 22.8 % (42.0-52.0); Hemoglobin 7.1 g/dL (14.0-18.0); Immature Granulocyte Percent A 2.2 % (0-0.5); Lymphocytes Absolute Auto 1.28 K/mm3 (0.9-3.2); Lymphocytes Percent Auto 14.2 % (18.3-44.2); Mean Corpuscular HGB Conc 31.1 g/dl (32-36); Mean Corpuscular Hemoglobin 26.9 pg (26-34); Mean Corpuscular Volume 86.4 fl (80-100); Mean Platelet Volume 8.9 fl (7.4-10.4); Monocytes Absolute Auto 0.9 K/mm3 (0.1-0.6); Monocytes Percent Auto 9.6 % (2.6-8.5); Neutrophils Absolute Auto 6.5 K/mm3 (1.3-6.7); Neutrophils Percent Auto 71.4 % (45.5-73.1); Nucleated Red Blood Cells Absolute Auto 0.1 K/mm3 (0.0-0.012); Nucleated Red Blood Cells Perc 0.6 % (0.0-0.2); Platelet Count Result 343 k/mm3 (150-375); Red Blood Count 2.64 M/mm3 (4.6-6.20); Red Cell Distribution Width 18.6 % (11.5-14.5)
[2021-05-16 06:55] LABS: Alanine Aminotransferase 17 U/L (4-50); Albumin Level 3.1 g/dL (3.5-5.1); Alkaline Phosphatase 47 U/L (38-126); Anion Gap 14 mmol/L (8-16); Aspartate Amino Transferase 22 U/L (17-59); Bilirubin,Total 0.4 mg/dL (0.2-1.3); Blood Urea Nitrogen 96 mg/dL (9-20); CRP 6.7 mg/dL (<1.0); Calcium 7.2 mg/dL (8.4-10.2); Carbon Dioxide 16 mmol/L (22-30); Chloride 103 mmol/L (98-107); Estimated CRCL calculation 8 ml/min; Estimated Glomerular Filt Rate 6; Glucose 161 mg/dL (65-110); Sodium 133 mmol/L (137-145)
[2021-05-16 07:13] LABS: Lactate Dehydrogenase 912 U/L (313-618)
[2021-05-16 08:20] LABS: Anisocytosis 1+ (NORMAL); Platelet Estimate Adequate (Adequate); Poikilocytosis 1+ (NORMAL)
[2021-05-16 08:56] LABS: D Dimer 3.24 ug/mL (<0.48)
[2021-05-16 09:11] LABS: Glucose Point of Care 146 mg/dl (65-105)
[2021-05-16] MEDS: ISOSORBIDE MONONITRATE 30 MG TAB.ER.24H PO (09:21)
[2021-05-16] MEDS: ASPIRIN 81 MG CHEWABLE TABLET PO (09:21)
[2021-05-16] MEDS: CHOLECALCIFEROL 1,000 UNITS TABLET 2000 UNITS PO (09:21)
[2021-05-16] MEDS: FERROUS SULFATE 324 MG TABLET PO (09:21)
[2021-05-16] MEDS: calcitrioL 0.25 MCG CAPSULE PO (09:21)
[2021-05-16] MEDS: lisinopriL 20 MG TABLET PO (09:21)
[2021-05-16] MEDS: LABETALOL HCL 100 MG TABLET 200 MG PO (09:21)
[2021-05-16] MEDS: hydrALAZINE HCL 50 MG TABLET PO (09:21)
[2021-05-16 12:09] LABS: Glucose Point of Care 168 mg/dl (65-105)
--- NOTE | 2021-05-16 13:16 | PM.PNNEP ---
Progress Note: A&P Assessment and Plan (1) End stage renal disease: Code(s): N18.6 - End stage renal disease Status: Chronic Assessment and Plan: due to progression of disease with acute decline due to #2 HD today and continue M/W/F schedule follow electrolytes, volume status, and clearance (2) Pneumonia due to COVID-19 virus: Code(s): U07.1 - COVID-19; J12.82 - Pneumonia due to coronavirus disease 2019 Status: Acute Assessment and Plan: no evidence of hypoxia continue supportive therapy (3) HTN (hypertension), malignant: Code(s): I10 - Essential (primary) hypertension Status: Chronic Assessment and Plan: difficult to control at baseline just added lisinopril to regimen follow trend of hemodynamics dialysis intiation may help to some degree (4) Anemia in CKD (chronic kidney disease): Code(s): N18.9 - Chronic kidney disease, unspecified; D63.1 - Anemia in chronic kidney disease Status: Chronic Assessment and Plan: due to ESRD Epogen with HD follow trend of H/H (5) DM2 (diabetes mellitus, type 2): Code(s): E11.9 - Type 2 diabetes mellitus without complications Status: Chronic Assessment and Plan: follow Accu-Cheks on sliding-scale insulin Not opposed to discharge from renal perspective if otherwise medically stable and his outpatient dialysis unit/schedule has been finalized. Will continue to follow. Subjective Date/time seen: 05/16/21 13:16 Chart reviewed - assuming care from Dr. Clay; tolerating dialysis treatment at the time of my visit (seen on HD at 12:55PM); feeling okay currently; asking me about discharge; no other issues/events overnight. Exam Narrative: General: WD/WN AA male in NAD Heart: normal S1 and S2; no rub Lungs: decreased at bases Abdomen: soft, nontender, nondistended, positive bowel sounds Extremities: no cyanosis or clubbing; trace edema Skin: warm and dry Objective Data Vital Signs Vital Signs: Vital Signs Temp Pulse Resp BP Pulse Ox 05/16/21 14:18 95 05/16/21 14:15 36.8 C 84 16 135/69 05/16/21 14:06 88 130/69 05/16/21 14:01 100 05/16/21 13:45 81 119/62 05/16/21 13:30 86 138/63 05/16/21 13:15 82 123/64 05/16/21 13:00 74 132/65 05/16/21 12:45 76 133/68 05/16/21 12:30 73 126/66 05/16/21 12:15 75 140/69 05/16/21 12:00 76 146/69 H 05/16/21 11:45 75 145/72 H 05/16/21 11:35 76 152/70 H 05/16/21 11:15 36.7 C 76 16 147/71 H 05/16/21 08:00 36.6 C 84 18 162/65 H 95 05/16/21 04:46 95 05/16/21 04:00 36.6 C 76 16 132/55 L 98 05/16/21 02:30 89 18 94 05/16/21 00:00 37.9 C H 88 16 136/42 L 05/15/21 20:00 36.7 C 88 16 163/59 H 94 05/15/21 15:35 36.3 C L 81 16 147/52 H 90 Intake/Output Intake/Output: Intake & Output 05/13/21 05/14/21 05/15/21 05/16/21 23:59 23:59 23:59 23:59 Intake Total 2656 880 6216 850 Output Total 1250 3000 Balance 250 -2400 1460 850 Meds/Results Medications: Active Medications Generic Name Dose Route Start Last Admin Trade Name Freq PRN Reason Stop Dose Admin Hydrocodone Bitart/Acetaminophen 1 tab 05/13/21 15:59 05/16/21 01:23 Hydrocodone/Acetaminophen (*Crx) 5-325 Mg Tablet PO 1 tab Q4H PRN Administration Pain Rated 4-6 Albuterol 2 puff 05/12/21 00:02 Albuterol Sulfate (*Sp) Aerosol 1 Puff INHALATION Q6HRT PRN Shortness Of Breath Amlodipine Besylate 10 mg 05/11/21 22:00 05/15/21 20:21 Amlodipine Besylate 5 Mg Tablet PO 10 mg HS JAVI Administration Aspirin 81 mg 05/12/21 08:00 05/16/21 09:21 Aspirin 81 Mg Chewable Tablet PO 81 mg DAILY@0800 JAVI Administration Atorvastatin Calcium 40 mg 05/11/21 22:00 05/15/21 20:22 Atorvastatin 40 Mg Tablet PO 40 mg HS JAVI Administration Baclofen 10 mg 05/11/21 21:58 Baclofen 10 Mg Tab
[2021-05-16] MEDS: SODIUM CHLORIDE 0.9% IV 1,000 ML 999 ML IV CONT (13:20)
[2021-05-16] MEDS: EPOETIN ALFA-EPBX 10,000 UNITS/ML VIAL 10000 UNITS IV PUSH (13:20)
--- NOTE | 2021-05-16 15:12 | P.DS_ITS ---
DS: Admitting Diagnosis Discharge Date 05/16/2021 Admitting Diagnosis weakness DS: Discharge Diagnosis Discharge Diagnosis (1) Acute on chronic kidney failure: Qualifiers: Acute renal failure type: unspecified Chronic kidney disease stage: unspecified stage Qualified Code(s): N17.9 - Acute kidney failure, unspecified; N18.9 - Chronic kidney disease, unspecified Code(s): N17.9 - Acute kidney failure, unspecified; N18.9 - Chronic kidney disease, unspecified Status: Acute Assessment and Plan: * potassium is better today 4.0 * chronic kidney disease * renal ultrasound performed on 09/02/2020 which was read as bilateral renal cyst * Increased echogenicity of the renal parenchyma suggesting chronic renal disease * Nephrology consulted thank you * Surgery consulted for dialysis catheter * Baseline creatinine 4-6, currently 9.90 * dialysis today 3L off 05/14/21 (2) Pneumonia due to COVID-19 virus: Code(s): U07.1 - COVID-19; J12.82 - Pneumonia due to coronavirus disease 2018 Status: Acute Assessment and Plan: * Covid PCR positive * Chest xray: Mod amount of PNA/Pulm edema, cardiomegaly, pericardial effusion (05/13/21) * Hold on remdesivir and decadron, ED gave one dose * cough medicine and inhaler ordered * patient is on room air * Patient updated on plan of care * Inflammatory markers: Dimer 2.89, Ferritin 890, LDH 1014, CRP 7.9 (3) Chronic neck pain: Code(s): M54.2 - Cervicalgia; G89.29 - Other chronic pain Status: Chronic Assessment and Plan: * cervical fusion several weeks ago * Educate about Ibprofen and renal failure * Baclophen ordered * Add tylenol and norco for better control (4) DM2 (diabetes mellitus, type 2): Code(s): E11.9 - Type 2 diabetes mellitus without complications Status: Chronic Assessment and Plan: * Glucose 198 * A1c 5.5 * Insulin sliding scale * AC/HS accu cheks * Diabetic diet * Adjust therapy as indicated (5) Hyperlipidemia associated with type 2 diabetes mellitus: Code(s): E11.69 - Type 2 diabetes mellitus with other specified complication; E78.5 - Hyperlipidemia, unspecified Status: Chronic Assessment and Plan: * Continue with patient's Lipitor. (6) HTN (hypertension), malignant: Code(s): I10 - Essential (primary) hypertension Status: Chronic Assessment and Plan: * Current BP 136/56 * Continue home Amlodipine 10mg PO, Hydralazine 50mg PO BID, Imdur 30mg PO daily, labetalol 200mg PO BID * Clonidine 0.1mg PO PRN for SBP >170 * Trend BP * Probably will be better after dailysis * Adjust therapy as indicated (7) Anemia in CKD (chronic kidney disease): Code(s): N18.9 - Chronic kidney disease, unspecified; D63.1 - Anemia in chronic kidney disease Status: Chronic Assessment and Plan: * H/H 7.9/24.6 * Patient is seen by Oncology for Epogen. * His H&H is at baseline (8) Cough: Code(s): R05.9 - Cough, unspecified Status: Acute Assessment and Plan: * Reports cough overnight * Blood in the cough * antitussives on board * Could be secondary to fluid overload. DS: Summary Hospital Course Reason for hospitalization: this is a 65-year-old male patient who has chronic renal failure. He also has chronic anemia due to the renal failure an
--- NOTE | 2021-05-16 15:12 | PM.DS ---
DS: Admitting Diagnosis Discharge Date 05/16/2021 Admitting Diagnosis weakness DS: Discharge Diagnosis Discharge Diagnosis (1) Acute on chronic kidney failure: Qualifiers: Acute renal failure type: unspecified Chronic kidney disease stage: unspecified stage Qualified Code(s): N17.9 - Acute kidney failure, unspecified; N18.9 - Chronic kidney disease, unspecified Code(s): N17.9 - Acute kidney failure, unspecified; N18.9 - Chronic kidney disease, unspecified Status: Acute Assessment and Plan: potassium is better today 4.0 chronic kidney disease renal ultrasound performed on 09/02/2020 which was read as bilateral renal cyst Increased echogenicity of the renal parenchyma suggesting chronic renal disease Nephrology consulted thank you Surgery consulted for dialysis catheter Baseline creatinine 4-6, currently 9.90 dialysis today 3L off 05/14/21 (2) Pneumonia due to COVID-19 virus: Code(s): U07.1 - COVID-19; J12.82 - Pneumonia due to coronavirus disease 2018 Status: Acute Assessment and Plan: Covid PCR positive Chest xray: Mod amount of PNA/Pulm edema, cardiomegaly, pericardial effusion (05/13/21) Hold on remdesivir and decadron, ED gave one dose cough medicine and inhaler ordered patient is on room air Patient updated on plan of care Inflammatory markers: Dimer 2.89, Ferritin 890, LDH 1014, CRP 7.9 (3) Chronic neck pain: Code(s): M54.2 - Cervicalgia; G89.29 - Other chronic pain Status: Chronic Assessment and Plan: cervical fusion several weeks ago Educate about Ibprofen and renal failure Baclophen ordered Add tylenol and norco for better control (4) DM2 (diabetes mellitus, type 2): Code(s): E11.9 - Type 2 diabetes mellitus without complications Status: Chronic Assessment and Plan: Glucose 198 A1c 5.5 Insulin sliding scale AC/HS accu cheks Diabetic diet Adjust therapy as indicated (5) Hyperlipidemia associated with type 2 diabetes mellitus: Code(s): E11.69 - Type 2 diabetes mellitus with other specified complication; E78.5 - Hyperlipidemia, unspecified Status: Chronic Assessment and Plan: Continue with patient's Lipitor. (6) HTN (hypertension), malignant: Code(s): I10 - Essential (primary) hypertension Status: Chronic Assessment and Plan: Current BP 136/56 Continue home Amlodipine 10mg PO, Hydralazine 50mg PO BID, Imdur 30mg PO daily, labetalol 200mg PO BID Clonidine 0.1mg PO PRN for SBP >170 Trend BP Probably will be better after dailysis Adjust therapy as indicated (7) Anemia in CKD (chronic kidney disease): Code(s): N18.9 - Chronic kidney disease, unspecified; D63.1 - Anemia in chronic kidney disease Status: Chronic Assessment and Plan: H/H 7.9/24.6 Patient is seen by Oncology for Epogen. His H&H is at baseline (8) Cough: Code(s): R05.9 - Cough, unspecified Status: Acute Assessment and Plan: Reports cough overnight Blood in the cough antitussives on board Could be secondary to fluid overload. DS: Summary Hospital Course Reason for hospitalization: this is a 65-year-old male patient who has chronic renal failure. He also has chronic anemia due to the renal failure and typically gets Epogen. The patient came in complaining of severe generalized weakness of started about a week ago. The patient stated that he usually isolates himself and uses social distancing. He stated he has not been around any sick contacts. The patient denies any fever But has a cough and has been vomiting 4 to 5 times a day. No chest pain or abdominal pain. H&H is 9.3 and 29.1 which appears to be is baseline. His creatinine is 9.9 today and his baseline is anywhere from 4.2-6. Nephrology has been consulted. The patient was also found to be positive for COVID-19.
== END 2021-05-16 16:02 | disposition home or self-care (01) | DRG 177 ==
LOC: ANHED 15:04 → ANH3MEDSUR 19:51
PROVIDERS: Internal Medicine Nephrology; Nurse Practitioner; Surgery; Admitting Provider Hospitalist; Emergency Provider Emergency Medicine; Visit Provider Nurse Practitioner
PROC: 0JH63XZ Insertion of Tunneled Vascular Access Device into Chest Subcutaneous Tissue and Fascia, Percutaneous Approach (ICD-10-PCS; CPT 36908; principal; 2021-05-13 15:00)
DX: U07.1 COVID-19 (principal); J12.82 Pneumonia due to coronavirus disease 2019; N18.6 End stage renal disease; I12.0 Hypertensive chronic kidney disease with stage 5 chronic kidney disease or end stage renal disease; D63.1 Anemia in chronic kidney disease; E11.69 Type 2 diabetes mellitus with other specified complication; E11.22 Type 2 diabetes mellitus with diabetic chronic kidney disease; E78.5 Hyperlipidemia, unspecified; G89.29 Other chronic pain; I51.7 Cardiomegaly; M54.2 Cervicalgia; N28.1 Cyst of kidney, acquired; E66.9 Obesity, unspecified; Z79.82 Long term (current) use of aspirin; Z87.891 Personal history of nicotine dependence; Z79.84 Long term (current) use of oral hypoglycemic drugs; Z98.1 Arthrodesis status; Z68.33 Body mass index [BMI] 33.0-33.9, adult
CPT/HCPCS: 36415; 71045; 77001; 80053; 80069; 80074; 81001; 82728; 82948; 83036; 83605; 83615; 83690; 83735; 84100; 84443; 85025; 85380; 86140; 86704; 86705; 86706; 86803; 87040; 87340; 87502; 96360; 96361; 96365; 96375; 99285; A9270; C1750; C9803; G0257; G0378; J0131; J0360; J1100; J1644; J1815; J1940; J2405; J7030; J7040; Q5105; U0003; U0005

== ENCOUNTER 2024-06-18 11:37 | Inpatient (IN) | payer MEDICARE, SELFPAY ==
[2024-06-18] VITALS (17 sets, daily range): BP systolic 120–153; BP diastolic 56–84; PULSE 108–124; RESP 17–30; TEMP 36.1–37.6; O2SAT 96–100; BMI 27.1
--- NOTE | ~2024-06-18 | XR_ITS ---
EXAMINATION: XR chest 1V portable DATE: 06/18/2024 12:27 INDICATION: Weakness. TECHNIQUE: A single frontal view of the chest was obtained. COMPARISON: Chest single view 05/13/2021 FINDINGS: Calcified right lung nodules and calcified right hilar lymph nodes are consistent with old granulomatous disease. No pleural effusion or pneumothorax. The heart size is normal. IMPRESSION: 1. No acute cardiopulmonary disease. Reviewed, dictated and finalized at location A. OR DESIGN ENGINEERING SPECIALIST
--- NOTE | ~2024-06-18 | CT_ITS ---
EXAMINATION: CT chest abdomen pelvis wo con DATE: 06/18/2024 13:41 INDICATION: Shortness of breath. Weakness. TECHNIQUE: Computed tomography (CT) of the chest, abdomen, and pelvis was performed without intraveno us contrast. Automated exposure control and iterative reconstruction technique were employed. The dos e-length product was 726.08 mGy-cm. COMPARISON: None FINDINGS: CHEST CT: There is mild emphysema. There are tree-in-bud opacities and centrilobular nodules in all lobes, cons istent with pneumonia. Calcified right hilar and mediastinal lymph nodes are consistent with old gran ulomatous disease. No pleural effusion. The heart size is normal. There are coronary artery calcifica tions. There is a trace pericardial effusion. There are bridging endplate osteophytes at multiple lev els in the spine, consistent with diffuse idiopathic skeletal hyperostosis (DISH). ABDOMEN/PELVIS CT: Calcifications in the liver and spleen are consistent with old granulomatous disease. There is a smal l sliding hiatal hernia. The gallbladder, pancreas, and adrenal glands are normal. There is moderate atrophy of the kidneys. There are cysts in the kidneys measuring up to 6.3 cm on the right. There is a 5 mm stone in right kidney. There is a transplant kidney in right iliac fossa. The prostate is mild ly enlarged. There is diverticulosis of the colon without evidence of diverticulitis. The appendix is normal. There are no dilated loops of bowel. There are no pathologically enlarged lymph nodes. There is no free intraperitoneal fluid. There is moderate lower lumbar spondylosis. IMPRESSION: 1. Mild pneumonia involving all lobes. 2. Mild emphysema. 3. Small sliding hiatal hernia. Reviewed, dictated and finalized at location A. PACKER
--- OUTSIDE RECORDS SUMMARY | 2024-06-18 11:40 | XMS_ITS | Encounter Summary ---
Author Organization [facility] Address [address] [place] [address] Phone Care Team Providers Care Die Baker Name Role Phone Karolina Crowder MD Primary Care Provider [phone] Reason for Visit * Reason Comments Med Refill Encounter Details Date Type Department Care Team (Late st Contact Info) Description 07/02/[address] [facility] Nephrology and Hypertension [address] [facility], [address] [place] [id number] Lyla Hernandez MD [address] [facility], [address] [facility] [place] [address] Social History Tobacco Use Types Packs/Day Years Used Date Smoking Tobacco: Former Smokeless Tobacco: Never Alcohol Use Standard Drinks/Week Comments No 0 (1 standard drink = 0.6 oz pur e alcohol) Sex and Gender Information Value Date Recorded Sex Assigned at Not on file Gender Identity Not on file Sexual Orientation Not on file documented as of this encounter Miscellaneous Notes * Telephone Encounter - Lyla Hernandez MD - 07/03/2021 12:01 PM CST Under the care of another corporate administrator. documented in this encounter Plan of Treatment Not on file documented as of this encounter Visit Diagnoses Not on filedocumented in this encounter Care Teams Die Baker Relationship Specialty Start Date End Date Karolina Crowder MD [address] [place] [address] PCP - General 03/17/21 documented as of this encounter
--- OUTSIDE RECORDS SUMMARY | 2024-06-18 11:40 | XMS_ITS | Patient Health Summary ---
Author Organization [facility] Address [address] [place] [address] Care Team Providers Care Ship Mate Name Role Phone Rachel Nielsen OPEN HEARTH WORKER-RN HOSPICE Primary Care Provider [phone] Note from [facility],non-owned Affiliates and Associated Physician Practices is amultiple site organization consisting of ambulatory clinics and hospital sitesin [place], [place], [place] and [place]. This disclosure is being madepursuant to the Care Everywhere program and may not contain all information available regarding this patient. Last updated 18.[facility] [place] Allergies No known active allergies Medications * Be aware that medications may not be up to date on this document. Alwaysverify current medications with the patient. * LABETALOL HCL PO * Calcium Citrate (CALCITRATE PO) * AMLODIPINE-ATORVASTATIN PO * FUROSEMIDE PO * glipiZIDE (GLUCOTROL) 5 MG tablet Take 5 mg by mouth daily before breakfast * aspirin (ASPIRIN) 81 MG tablet Take 81 mg by mouth once daily * Cholecalciferol (VITAMIN D3) 1.25 MG (91694 UT) capsule Take 50,000 Units by mouth every 7 days * Ferrous Sulfate (IRON) 28 MG * HYDRALAZINE HCL PO Active Problems Problem Noted Date Diagnosed Date Skin lesion of left leg 05/16/2019 Scar 05/16/2019 Social History Tobacco Use Types Packs/Day Years Used Date Smoking Tobacco: Never Smokeless Tobacco: Never Alcohol Use Standard Drinks/Week Comments Not Currently 0 (1 standard drink = 0.6 oz pur e alcohol) Sex and Gender Information Value Date Recorded Sex Assigned at Not on file Gender Identity Not on file Sexual Orientation Not on file Last Filed Vital Signs Vital Sign Reading Time Taken Comments Blood Pressure 152/69 05/16/2019 11:09 AM BREAKFAST HOSTESS Pulse 80 05/16/2019 11:09 AM BREAKFAST HOSTESS Temperature 36.7 C (98 F) 05/16/2019 11:09 AM BREAKFAST HOSTESS Respiratory Rate - - Oxygen Saturation 98% 05/16/2019 11:09 AM BREAKFAST HOSTESS Inhaled Oxygen Concentration - - Weight 98.9 kg (218 lb) 05/16/2019 11:09 AM BREAKFAST HOSTESS Height 174 cm (5' 8.5 ) 05/16/2019 11:09 AM BREAKFAST HOSTESS Body Mass Index 32.66 05/16/2019 11:09 AM BREAKFAST HOSTESS Care Teams Ship Mate Relationship Specialty Start Date End Date Rachel Nielsen, OPEN HEARTH WORKER-RN HOSPICE [address] [place] [phone] PCP - General 03/20/19
--- OUTSIDE RECORDS SUMMARY | 2024-06-18 11:40 | XMS_ITS | Referral Summary ---
Author Organization [facility] Address [address] [place] [address] Care Team Providers Care Email Production Specialist Name Role Phone Rachel Nielsen CREDIT ADVISOR-ENGRAVING PLATE MAKER Primary Care Provider [phone] Source Comments [facility],non-owned Affiliates and Associated Physician Practices is amultiple site organization consisting of ambulatory clinics and hospital sitesin [place], [place], [place] and [place]. This disclosure is being madepursuant to the Care Everywhere program and may not contain all information available regarding this patient. Last updated 18.[facility] Allergies No known active allergies Medications * Be aware that medications may not be up to date on this document. Alwaysverify current medications with the patient. Medication Sig Dispensed Refills Start Date End Date Status LABETALOL HCL PO Active Calcium Citrate (CALCITRATE PO) Active AMLODIPINE-ATORVASTAT IN PO Active FUROSEMIDE PO Active glipiZIDE (GLUCOTROL) 5 MG tablet Take 5 mg by mouth daily before breakfast Active aspirin (ASPIRIN) 81 MG tablet Take 81 mg by mouth once daily Active Cholecalciferol (VITAMIN D3) 1.25 MG (45315 UT) capsule Take 50,000 Units by mouth every 7 days Active Ferrous Sulfate (IRON) 28 MG Active HYDRALAZINE HCL PO Active Active Problems Problem Noted Date Diagnosed Date [...] Comments Blood Pressure 152/69 05/16/2019 11:09 AM BIOMEDICAL ELECTRONICS TECHNICIAN Pulse 80 05/16/2019 11:09 AM BIOMEDICAL ELECTRONICS TECHNICIAN Temperature 36.7 C (98 F) 05/16/2019 11:09 AM BIOMEDICAL ELECTRONICS TECHNICIAN Respiratory Rate - - Oxygen Saturation 98% 05/16/2019 11:09 AM BIOMEDICAL ELECTRONICS TECHNICIAN Inhaled Oxygen Concentration - - Weight 98.9 kg (218 lb) 05/16/2019 11:09 AM BIOMEDICAL ELECTRONICS TECHNICIAN Height 174 cm (5' 8.5 ) 05/16/2019 11:09 AM BIOMEDICAL ELECTRONICS TECHNICIAN Body Mass Index 32.66 05/16/2019 11:09 AM BIOMEDICAL ELECTRONICS TECHNICIAN Plan of Treatment Not on file Care Teams Email Production Specialist Relationship Specialty Start Date End Date Rachel Nielsen, CREDIT ADVISOR-ENGRAVING PLATE MAKER [address] [place] [phone] PCP - General 03/20/19
--- OUTSIDE RECORDS SUMMARY | 2024-06-18 11:40 | XMS_ITS | Encounter Summary ---
Author Organization [facility] Address [address] [place] [address] Phone Care Team Providers Care Plating Department Helper Name Role Phone Karolina Crowder MD Primary Care Provider [phone] Reason for Visit * Reason Comments Med Refill Encounter Details Date Type Department Care Team ([facility] st Contact Info) Description 10/29/2019 Refill [facility] [address] [facility] [address] [place] [address] Arsalan Carrizales MD [facility] [address] Social History Tobacco Use Types Packs/Day Years Used Date Smoking Tobacco: Former Smokeless Tobacco: Never Alcohol Use Standard Drinks/Week Comments No 0 (1 standard drink = 0.6 oz pur e alcohol) Sex and Gender Information Value Date Recorded Sex Assigned at Not on file Gender Identity Not on file Sexual Orientation Not on file documented as of this encounter Plan of Treatment Not on file documented as of this encounter Visit Diagnoses Not on filedocumented in this encounter Care Teams Plating Department Helper Relationship Specialty Start Date End Date Karolina Crowder MD [address] [place] [address] PCP - General 03/17/21 documented as of this encounter
--- OUTSIDE RECORDS SUMMARY | 2024-06-18 11:40 | XMS_ITS | Clinical Summary ---
Author Organization [facility] Address [address] [place] [address] Care Team Providers Care Hearing Aid Specialist Name Role Phone Rachel Nielsen HOME ADMINISTRATOR-STABLEHAND Primary Care Provider [phone] [facility],non-owned Affiliates and Associated Physician Practices is amultiple site organization consisting of ambulatory clinics and hospital sitesin [place], [place], [place] and [place]. This disclosure is being madepursuant to the Care Everywhere program and may not contain all information available regarding this patient. Last updated 18.[facility] Allergies No known active allergies Medications * [...] daily Active Cholecalciferol (VITAMIN D3) 1.25 MG (07326 UT) capsule Take 50,000 Units by mouth [...] Comments Blood Pressure 152/69 05/16/2019 11:09 AM SHEET METAL WORK FURNACE INSTALLER Pulse 80 05/16/2019 11:09 AM SHEET METAL WORK FURNACE INSTALLER Temperature 36.7 C (98 F) 05/16/2019 11:09 AM SHEET METAL WORK FURNACE INSTALLER Respiratory Rate - - Oxygen Saturation 98% 05/16/2019 11:09 AM SHEET METAL WORK FURNACE INSTALLER Inhaled Oxygen Concentration - - Weight 98.9 kg (218 lb) 05/16/2019 11:09 AM SHEET METAL WORK FURNACE INSTALLER Height 174 cm (5' 8.5 ) 05/16/2019 11:09 AM SHEET METAL WORK FURNACE INSTALLER Body Mass Index 32.66 05/16/2019 11:09 AM SHEET METAL WORK FURNACE INSTALLER Plan of Treatment Health Maintenance Due Date Last Done Comments COLOGUARD (AGES 45-75) - COL ON CA SCREENING 1957 COLON MONITORING 1957 COLONOSCOPY - COLON CA SCREENING 1957 CT COLONOGRAPHY - COLON CA SCREENING 1957 Colorectal Cancer Screening 1957 FIT - COLON CA SCREENING 1957 FLEX SIG - COLON CA SCREENING 1957 HEPATITIS C SCREENING 11/24/1975 DTAP/TDAP/TD VACCINES (1 - Tdap) 1976 PNEUMOCOCCAL VACCINE 50+ (1 of 1 - PCV) 11/29/2007 ZOSTER VACCINE (1 of 2) 11/29/2007 SCREENING FOR DIABETES 05/16/2019 COVID-19 VACCINE ( - 2023-2 5 season) 2023 INFLUENZA VACCINE (#1) 2023 02/15/2017 DEPRESSION SCREENING 04/26/2024 Respiratory Syncytial Virus (RSV) Vaccine Pt: or over 60 yrs (1 - 1-dose 75+ series) 2032 HEPATITIS B VACCINE Aged Out No longe r eligible based on patient's age to complete this topic HIB VACCINE Aged Out No longer eligi ble based on patient's age to complete this topic HPV VACCINE Aged Out No longer eligi ble based on patient's age to complete this topic MENINGOCOCCAL (Group B) VACCINE Aged Out No longer eligible based on patient's age to complete this topic MENINGOCOCCAL VACCINE Aged Out No danielle abdi eligible based on patient's age to complete this topic Care Teams Hearing Aid Specialist Relationship Specialty Start Date End Date Rachel Nielsen, HOME ADMINISTRATOR-STABLEHAND [address] [place] [phone] PCP - General 03/20/19
--- OUTSIDE RECORDS SUMMARY | 2024-06-18 11:40 | XMS_ITS | Clinical Summary ---
Author Organization [facility] Address [address] [place] [address] Phone Care Team Providers Care Director Of Real Estate Name Role Phone Karolina Crowder MD Primary Care Provider [phone] Allergies Active Allergy Reactions Criticality Noted Date Comments Iodinated Contrast Media Other (see comments) Low 09/16/2020 Other reaction(s): Other (See Comments) Pt states it is contraindicated with renal disease. Pt states it is contraindicated with renal disease. Iodine Other (see comments) Low 09/16/2020 Other reaction(s): Other (See Comments) Pt states it is contraindicated with renal disease. Pt states it is contraindicated with renal disease. Pt states it is contraindicated with renal disease. Pt states it is contraindicated with renal disease. Medications Medication Sig Dispensed Refills Start Date End Date Status glipiZIDE (GLUCOTROL) 5 MG tablet 1 tab 2 times daily 0 01/03/2016 Active calcium carbonate (TUMS ULTRA 1000) 1000 MG chewable tablet One two times a day 5 09/22/2017 Active labetalol (NORMODYNE) 200 MG tablet 2 PO two times daily 0 01/03/2016 Active atorvastatin (LIPITOR) 40 MG tablet One tab at bedtime 0 03/10/2017 Active omeprazole (PriLOSEC) [address] capsule one tab daily PRN 0 06/23/2017 Active amLODIPine (NORVASC) 10 MG tablet 1 PO every morning 0 01/03/2016 Active ferrous sulfate 325 (65 Fe) MG tablet 1 PO two times daily 0 01/03/2016 Active isosorbide mononitrate (IMDUR) 30 MG 24 hr tablet One and a half tab daily 0 03/04/2017 Active aspirin (ASPIRIN LOW STRENGTH) 81 MG chewable tablet 1 PO daily 0 01/03/2016 Active ergocalciferol (VITAMIN D-2) 49653 units capsule one tab daily 0 06/15/2017 Active mupirocin (BACTROBAN) 2 % ointment 03/13/2019 Active albuterol HFA (PROVENTIL HFA;VENTOLIN HFA) 108 (90 Base) MCG/ACT inhaler Inhale 1 puff every 4 (four) hours if needed for wheezing Active pantoprazole (PROTONIX) 40 MG EC tablet Take 40 mg by mouth once daily as needed Active calcitriol (ROCALTROL) 0.25 MCG capsule Take 1 capsule (0.25 mcg total) by mouth 1 (one) time each day 30 capsule 11 07/16/2020 Active bumetanide (BUMEX) 1 MG tablet Take 2 tablets (2 mg total) by mouth 2 (two) times a day 120 tablet 11 07/30/2020 Active gabapentin (NEURONTIN) 300 MG capsule TAKE 1 CAPSULE BY MOUTH 3 TIMES A DAY DIRECTED FOR 60 DAYS 07/15/2020 Active diazePAM (VALIUM) 5 MG tablet Take 5 mg by mouth 11/05/2020 Active HYDROcodone-acetamin ophen (NORCO) 5-325 MG per tablet Take 1 tablet by mouth 10/11/2020 Active ondansetron ODT (ZOFRAN-ODT) 4 MG dispersible tablet Take 4 mg by mouth 10/11/2020 Active traZODone (DESYREL) 100 MG tablet TAKE 1 TABLET BY MOUTH EVERY DAY AT BEDTIME NEEDED FOR SLEEP 12/18/2020 Active cyclobenzaprine (FLEXERIL) 10 MG tablet 03/21/2021 Active doxazosin (CARDURA) 2 MG tablet 03/21/2021 Active hydrALAZINE (APRESOLINE) 100 MG tablet 03/21/2021 Active methocarbamol (ROBAXIN) 750 MG tablet 03/27/2021 Active Senexon-S 8.6-50 MG per tablet 03/21/2021 Active capsaicin (ZOSTRIX) 0.025 % cream 04/15/2021 Active Active Problems Problem Noted Date Diagnosed Date Myofascial pain 04/11/2021 Cervical spine instability 03/19/2021 Degeneration of cervical intervertebral disc History of cervical spine fusion 03/19/2021 Stenosis of intervertebral foramina 03/19/2021 Coronary arteriosclerosis 03/04/2021 Fatigue 03/04/2021 Gastritis 03/04/2021 Hypervolemia 03/04/2021 Hypomagnesemia 03/04/2021 Normocytic anemia 03/04/2021 Proteinuria 03/04/2021 Diverticulitis of cecum 10/14/2020 Congestive heart failure 07/30/2020 Insomnia 07/30/2020 Overview (09/05/2020): Last Assessment & Plan: He was recently started on trazodone 25 mg daily. Follow-up with me as needed. Can increase to 50 mg nightly if needed. Chronic kidney disease 07/30/2020 Overview (09/05/2020): Last Assessment & Plan: Chronic and stable. 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 Will check CMP today. Continue follow-up with specialist as scheduled. Anemia in chronic kidney disease stage 4 021 Overview (05/06/2021): Last Assessment & Plan: Chronic and stable. Continue to follow-up with Hematology. Will check CBC today. Chest pain 12/22/2019 Obesity 05/16/2019 Chronic kidney disease, stage 4 (severe) 018 Hypertensive chronic kidney disease with stage 1 through stage 4 chronic kidney disease, or unspecified chronic kidney disease 01/05/2018 Secondary hyperparathyroidism of renal origin Type 2 diabetes mellitus wit h diabetic chronic kidney disease 01/03/2016 Type 2 diabetes mellitus 01/03/2016 Resolved Problems Problem Noted Date Diagnosed Date Resolved Date Disorder of skin of lower limb 05/16/2019 05/28/2020 Hypocalcemia 01/16/2019 04/12/2019 Cervical radiculopathy 12/27/201805/28 Iron deficiency 08/01/2018 01/16/2019 Sideropenic dysphagia 05/04/20182018 Dyslipidemia 11/02/2017 05/28/2020 Essential hypertension 11/02/201705/28 Anemia in chronic kidney disease 09/08/2017 01/16/2019 Carpal tunnel syndrome 02/26/201105/28 Immunizations Name Administration Dates Next Due Influenza TIV (IM) 02/15/2017, 6(Deferred: Patient Refused) MARTITA SARS-COV-2 VACCINATION 07/02/2020 Tdap 04/26/2016 Family History Medical History Relation Comments Diabetes mellitus Father Diabetes mellitus Relative 1 Hypertensive disorder Relative 2 Kidney disease Neg Hx Relation Status Comments Father Relative 1 Relative 2 Social History Tobacco Use Types Packs/Day Years [...] Sign Reading Time Taken Comments Blood Pressure 154/84 05/07/2021 1:27 PM PROFESSOR OF EXERCISE SCIENCE Pulse 77 09/26/2019 1:05 PM CDT Temperature 36.3 C (97.4 F) 05/07/2021 1:27 PM PROFESSOR OF EXERCISE SCIENCE Respiratory Rate 18 05/07/2021 1:27 PM PROFESSOR OF EXERCISE SCIENCE Oxygen Saturation - - Inhaled Oxygen Concentration - - Weight 95.7 kg (211 lb) 05/07/2021 1:27 PM PROFESSOR OF EXERCISE SCIENCE Height 172.7 cm (5' 8 ) 05/07/2021 1:27 PM PROFESSOR OF EXERCISE SCIENCE Body Mass Index 32.08 05/07/2021 1:27 PM PROFESSOR OF EXERCISE SCIENCE Plan of Treatment Health Maintenance Due Date Last Done Comments Pneumococcal PPSV23/PCV13 65 + Years / Low and Medium Risk (1 of 4 - PCV) 2022 Influenza Vaccine (#1) 2023 02/15/2017 Care Teams Director Of Real Estate Relationship Specialty Start Date End Date Karolina Crowder MD [address] [facility] [place] [id number] PCP - General 03/17/21
--- OUTSIDE RECORDS SUMMARY | 2024-06-18 11:41 | XMS_ITS | Encounter Summary ---
Author Organization [facility] Address [address] [place] [address] Care Team Providers Care Awake Overnight Monitor Name Role Phone Rachel Nielsen NP Primary Care Provider Radha JuradoC Primary Care Provider Mohan Camacho MD Unavailable [phone] Lyla Hernandez MD Unavailable Encounter Details Date Type Department Care Team (Late st Contact Info) Description 07/05/2020 Prep for Procedure [facility] [place] [address] Rose Brizuela MD [facility] [address] [address] Social History Tobacco Use Types Packs/Day Years Used Date Smoking Tobacco: Former Cigarettes Q uit: 2009 Smokeless Tobacco: Never Alcohol Use Standard Drinks/Week Comments No 0 (1 standard drink = 0.6 oz pur e alcohol) AUDIT-C Answer Date Recorded Frequency of Alcohol Consumption Never 12/07/2018 Average Number of Drinks Not on file 019 Frequency of Binge Drinking Not on file 11/24 Sex and Gender Information Value Date Recorded Sex Assigned at Male 06/08/2024 3:09 PM PERSONALIZATION SPECIALIST Legal Sex Male 4:42 PM CDT Gender Identity Not on file Sexual Orientation Not on file 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 No / Unsure 07/05/2020 2:39 PM PERSONALIZATION SPECIALIST documented as of this encounter Plan of Treatment Upcoming Encounters Date Type Department Care Team (Latest Contact Info) Description 07/06/2024 10:20 AM CDT Hospital Encounter [facility] [place] [address] [id number] Taisha Meyer MD [facility] [address] [place] [id number] 07/06/2024 10:20 AM CDT - 07/06/2024 10:40 AM CDT Surgery [facility] [place] [address] [id number] Taisha Meyer MD [facility] [address] [place] [address] INJECTION EPIDURAL STEROID [id number] Scheduled Procedures Name Priority Associated Diagnoses Date/Ti me INJECTION EPIDURAL STEROID CERVICAL Cervical radiculopathy 07/06/2024 10:20 AM CDT documented as of this encounter Results * PRE-SURGICAL/PRE-PROCEDURE CORONAVIRUS (COVID 19) (07/08/2020 11:35 AM CDT) Pathologist [facility] CORONAVIRUS SARS COV 2 PCR (RESP) NOT DETECTED NOT DETECTED 07/09/2020 5:51 PM CDT [facility] Comment: A Not Detected (negative) test result for this test means that SARS- CoV-2 RNA was not present in the specimen above the limit of detection. A negative result does not rule out the possibility of COVID-19 and should not be used as the sole basis for treatment or patient management decisions. If COVID-19 is still suspected, based on exposure history together with other clinical findings, re-testing should be considered in consultation with public health authorities. Laboratory test results should always be considered in the context of clinical observations and epidemiological data in making a final diagnosis and patient management decisions. Please review the Fact Sheets and FDA authorized labeling available for health care providers and patients using the following websites: https://www.[employer].com/home/Covid-19/HCP/[facility]/fact- sheet.html https://www.[employer]/home/Covid-19/Patients/ [facility]/fact-sheet.html This test has been authorized by the FDA under an Emergency Use Authorization (EUA) for use by authorized laboratories. Due to the current public health emergency, [facility] is receiving a high volume of samples from a wide variety of swabs and media for COVID-19 testing. In order to serve patients during this public health crisis, samples from appropriate clinical sources are being tested. Negative test results derived from specimens received in non-commercially manufactured viral collection and transport media, or in media and sample collection kits not yet authorized by FDA for COVID-19 testing should be cautiously evaluated and the patient potentially subjected to extra precautions such as additional clinical monitoring, including collection of an additional specimen. Methodology: Nucleic Acid Amplification Test (NAAT) includes RT-PCR or TMA Additional information about COVID-19 can be found at the [facility] website: www.[employer]/Covid19. Test performed at [facility] [address] [id number] Director: ROBERT BELLA DO,MPH FIRST TEST YES 07/08/2020 12:39 PM CDT [facility] EMPLOYED IN HEALTHCARE NO 07/08/2020 12:39 PM CDT [facility] SYMPTOMATIC DEFINED BY CDC NO 07/08/2020 12:39 PM CDT [facility] DATE OF SYMPTOM ONSET NO 07/08/2020 12:50 PM CDT [facility] HOSPITALIZATION STATUS NO 07/08/2020 12:39 PM CDT [facility] PATIENT IN ICU NO 07/08/2020 12:39 PM CDT [facility] RESIDENT OF CONGREGATE CARE NO 07/08/2020 12:39 PM CDT [facility] NO 07/08/2020 12:50 PM CDT [facility] PATIENT'S RACE BLACK OR 07/08/2020 12:39 PM CDT [facility] ETHNICITY NONHISPANIC 07/08/2020 12:39 PM CDT [facility] SOURCE (QST) NASOPHARYNGEAL SWAB 07/08/2020 12:39 PM CDT [facility] NASOPHARYNGEAL SWAB / Unknown 07/08/2020 11:35 AM CDT us Rose Brizuela MD MICROBIOLOGY - GENERAL ORDERABLE S Final Result [facility] [address] [place] [address], [facility] [address] documented in this encounter Visit Diagnoses Diagnosis Diverticulitis- Primary Diverticulitis of colon (without mention of hemorrhage) Cervical radiculopathy Brachial neuritis or radiculitis nos documented in this encounter Additional Health Concerns Infection Onset Date Last Indicated Resolved Time COVID-19 Rule Out 07/08/2020 07/08/2020 07/09/2020 5:51 PM CDT documented as of this encounter Care Teams Awake Overnight Monitor Relationship Specialty Start Date End Date Rachel Nielsen NP [address] [place] [address] PCP - General Nurse Practitioner Family 12/25/19 1 Radha Jurado PA-C [address] [place] [address] PCP - General PHYSICIAN EATING DISORDER PSYCHOLOGIST 01/09/21 Mohan Camacho MD [address] [place] [address] [place] Director CARDIOVASCULAR DISEASE 03/11/21 Lyla Hernandez MD [address] [address] Referring Physician NEPHROLOGY 03/11/21 documented as of this encounter
--- OUTSIDE RECORDS SUMMARY | 2024-06-18 11:41 | XMS_ITS | Encounter Summary ---
Author Organization [facility] Address [address] [place] [address] Phone Care Team Providers Care Sr. Social Media & Mobile Manager Name Role Phone Karolina Crowder MD Primary Care Provider [phone] Reason for Visit * Reason Comments Med Refill Encounter Details Date Type Department Care Team ([facility] st Contact Info) Description 02/29/2020 Refill [facility] [address] [facility] [address] [place] [address] Arsalan Carrizales MD [facility] [address] Social History Tobacco Use Types [...] on filedocumented in this encounter Care Teams Sr. Social Media & Mobile Manager Relationship Specialty Start Date End Date Karolina Crowder MD [address] [place] [address] PCP - General 03/17/21 documented as of this encounter
--- OUTSIDE RECORDS SUMMARY | 2024-06-18 11:41 | XMS_ITS | Encounter Summary ---
Author Organization [facility] Address [address] [place] [address] Care Team Providers Care Manager Military Name Role Phone Mohan Camacho MD Unavailable [phone] Jasmyne Eduardo RN Unavailable [phone] Radha Jurado Primary Care Provider [phone] Sylvester Nicholas MD Unavailable [phone] Lyla Hernandez MD Unavailable [phone] Js Martinez MD Unavailable [phone] Alexis Ngo MD Unavailable [phone] Ludmila Tesfaye RN Unavailable [phone] Sudheer Arnold MD Unavailable + Haja Pires OD Unavailable [phone] Gaby Pierre MA Unavailable Unavailable Encounter Details Date Type Department Care Team (Late st Contact Info) Description 01/05/2022 Telephone [facility] D[facility] Access Center at [facility] [address] [facility] [address] [place] [address] [place] [address] [place] [address] [address] [employer], [place] [id number] Social History Tobacco Use Types Packs/Day Years Used Date Smoking Tobacco: Former Cigarettes 0.3 28 1 974 - 2002 Smokeless Tobacco: Never Comments:not a daily smoker Alcohol Use Standard Drinks/Week Comments No 0 (1 standard drink = 0.6 oz pur e alcohol) AUDIT-C Answer Date Recorded Q1: How often do you have a drink containing alc ohol? Never 01/01/2022 Average Number of Drinks Not on file 022 Q3: How often do you have si x or more drinks on one occasion? 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 Gender Identity Not on file Sexual Orientation Not on file documented as of this encounter Plan of Treatment Scheduled Procedures Name Priority Associated Diagnoses Date/Ti me TRANSPLANT KIDNEY ESRD (end stage renal disease) ([facility]CC) ([facility]) documented as of this encounter Visit Diagnoses Not on filedocumented in this encounter Care Teams Manager Military Relationship Specialty Start Date End Date Radha Jurado PA [address] [place] [address] PCP - General Family Medicine 07/23/20 Mohan Camacho MD Acid Tender Cardiology 12/17/17 Jasmyne Eduardo, RN [address] [facility] [address] [place] [address] Registered Nurse Bench Jeweler 07/04/20 Sylvester Nicholas MD [address] [place] [address] Consulting Physician Family Medicine 07/23/20 Lyla Hernandez MD [facility] [address] [place] [address] Referring Physician Nephrology 08/07/20 07/13/22 Js Martinez MD [address] [facility] [address] [place] [address] Referring Physician Nephrology 06/17/21 Alexis Ngo MD [address] [facility] [address] [place] [address] Surgeon Vascular Surgery 06/30/21 Ludmila Tesfaye, RN [address] [facility] [address] [place] [address] Bench Jeweler 09/01/22 Sudheer Arnold MD [address] [place] [address] Consulting Physician Nephrology 12/23/22 Haja Pires, OD [address] [facility] [address] [place] [address] Underwear Cutter 12/23/22 Gaby Pierre MA [address] [facility] [address] [place] [address] ACO Care Manager Professional Development 01/24/24 01/24/24 documented as of this encounter
--- OUTSIDE RECORDS SUMMARY | 2024-06-18 11:41 | XMS_ITS ---
Author Organization [facility] ([facility]) Address [address] [place] [id number] Care Team Providers Care Pacs Administrator Name Role Phone Unavailable Unavailable Unavailable Allergies, Adverse Reactions, Alerts Allergy Name Allergy Type Status Severity Reaction(s) Onset Date Inactive Date Treating Clinician Comments No Known Allergies Allergy Active 2022-02 21:25:0 9 Problems Condition Name Condition Details Condition Category Status Onset Date Resolution Date Condition Entered On Date Treating Clinician Comments End-stage renal disease Problem List Item Active 2022-05-07 20:01:20 Procedures Procedure Date / Time Performed Performing Clinician Jeana ce Details AV Fistula 2021-06-30 06:00:00 Access Surgeon ELADIO AYALA ([id number]),[place], [place] Access Site Upper Arm (Left) Access Use Start Date 2021-10-29 05:00:0 0 DIALYSIS TREATMENT INFORMATION Conventional Hemodialysis Date Type Treatment Start Date Treatment End Date Pre-Treatment Vitals Post-Treatment Vitals Weight Gain BFR DFR Actual UF Dialysis Access August 31, 2022 In-Ce nter Hemod ialys is Treat ment 2022-08-31 T15:37:42. 000Z 2022-08-31 T18:51:02. 000Z BP Sitting (Pre-Dialysis) 161/103 mmHg BP Sitting (Post-D ialysis ) 138/ 70 mmHg BP Standing (Pre-Dialysis) 174/92 mmHg BP Standing (P ost-Dialysis) 162/79 mmHg Sitting Heart Rate Pre-Dialysis 83 BPM Sitting Heart Rate Post-Dialysis 76 BPM Standing Heart Rate Pre-Dialysis 85 BPM Standing Heart Rate Post-Dialysis 88 BPM Temperature Pre-Dialysis 97.9 degF Temperature Post -Dialysis 96.2 degF August 28, 2022 In-Center Hemodialysis Treatment 9714-46-90P98:58:39.000Z 7062-61-30U67:24:54.000Z BP Sitting (Pre-Dialysis) 163/98 mmHg BP Sitting (Post-Dialysis) 174/85 mmHg Concurrent Access: falseAV Fistula Upper Arm (Left) Arterial BP Standing (Pre-Dialysis) 191/88 mmHg BP Standing (P ost-Dialysis) 174/78 mmHg Sitting Heart Rate Pre-Dialysis 87 BPM Sitting Heart Rate Post-Dialysis 85 BPM Standing Heart Rate Pre-Dialysis 89 BPM Standing Heart Rate Post-Dialysis 94 BPM Temperature Pre-Dialysis 97 degF Temperature Post -Dialysis 98.2 degF August 26, 2022 In-Center Hemodialysis Treatment [id number]:32:34.000Z 0284-11-39D24:02:34.000Z BP Sitting (Pre-Dialysis) 184/80 mmHg BP Sitting (Post-Dialysis) 180/83 mmHg Concurrent Access: falseAV Fistula Upper Arm (Left) Arterial BP Standing (Pre-Dialysis) 200/89 mmHg BP Standing (P ost-Dialysis) 183/82 mmHg Sitting Heart Rate Pre-Dialysis 84 BPM Sitting Heart Rate Post-Dialysis 91 BPM Standing Heart Rate Pre-Dialysis 88 BPM Standing Heart Rate Post-Dialysis 88 BPM Temperature Pre-Dialysis 96.8 degF Temperature Post -Dialysis 97.8 degF August 24, 2022 In-Center Hemodialysis Treatment 9035-38-08M73:34:00.000Z 4515-27-74T45:06:03.000Z BP Sitting (Pre-Dialysis) 121/98 mmHg BP Sitting (Post-Dialysis) 169/93 mmHg Concurrent Access: falseAV Fistula Upper Arm (Left) Arterial BP Standing (Pre-Dialysis) 175/82 mmHg BP Standing (P ost-Dialysis) 188/95 mmHg Sitting Heart Rate Pre-Dialysis 86 BPM Sitting Heart Rate Post-Dialysis 85 BPM Standing Heart Rate Pre-Dialysis 88 BPM Standing Heart Rate Post-Dialysis 95 BPM Temperature Pre-Dialysis 97.4 degF Temperature Post -Dialysis 97.8 degF August 21, 2022 In-Center Hemodialysis Treatment [id number]:41:27.000Z 8259-48-27N69:03:32.000Z BP Sitting (Pre-Dialysis) 169/75 mmHg BP Sitting (Post-Dialysis) 173/80 mmHg Concurrent Access: falseAV Fistula Upper Arm (Left) Arterial BP Standing (Pre-Dialysis) 172/88 mmHg BP Standing (P ost-Dialysis) 171/85 mmHg Sitting Heart Rate Pre-Dialysis 84 BPM Sitting Heart Rate Post-Dialysis 76 BPM Standing Heart Rate Pre-Dialysis 93 BPM Standing Heart Rate Post-Dialysis 90 BPM Temperature Pre-Dialysis 98.1 degF Temperature Post -Dialysis 97.9 degF August 19, 2022 In-Center Hemodialysis Treatment [id number]:33:55.000Z 3950-70-78M45:02:40.000Z BP Sitting (Pre-Dialysis) 159/74 mmHg BP Sitting (Post-Dialysis) 160/100 mmHg Concurrent Access: falseAV Fistula Upper Arm (Left) Arterial BP Standing (Pre-Dialysis) 181/89 mmHg BP Standing (P ost-Dialysis) 159/102 mmHg Sitting Heart Rate Pre-Dialysis 86 BPM Sitting Heart Rate Post-Dialysis 82 BPM Standing Heart Rate Pre-Dialysis 90 BPM Standing Heart Rate Post-Dialysis 94 BPM Temperature Pre-Dialysis 97.6 degF Temperature Post -Dialysis 97.2 degF August 17, 2022 In-Center Hemodialysis Treatment 6816-79-11L16:35:00.000Z 8463-45-68Q35:07:09.000Z BP Sitting (Pre-Dialysis) 184/78 mmHg BP Sitting (Post-Dialysis) 177/87 mmHg Concurrent Access: falseAV Fistula Upper Arm (Left) Arterial BP Standing (Pre-Dialysis) 200/80 mmHg BP Standing (P ost-Dialysis) 194/96 mmHg Sitting Heart Rate Pre-Dialysis 87 BPM Sitting Heart Rate Post-Dialysis 79 BPM Standing Heart Rate Pre-Dialysis 90 BPM Standing Heart Rate Post-Dialysis 92 BPM Temperature Pre-Dialysis 97.9 degF Temperature Post -Dialysis 97.1 degF August 14, 2022 In-Center Hemodialysis Treatment 5866-61-14F51:34:49.000Z 4771-82-51R55:04:24.000Z BP Sitting (Pre-Dialysis) 162/68 mmHg BP Sitting (Post-Dialysis) 181/77 mmHg Concurrent Access: falseAV Fistula Upper Arm (Left) Arterial BP Standing (Pre-Dialysis) 179/84 mmHg BP Standing (P ost-Dialysis) 177/84 mmHg Sitting Heart Rate Pre-Dialysis 78 BPM Sitting Heart Rate Post-Dialysis 72 BPM Standing Heart Rate Pre-Dialysis 92 BPM Standing Heart Rate Post-Dialysis 84 BPM Temperature Pre-Dialysis 97.2 degF Temperature Post -Dialysis 97.6 degF August 12, 2022 In-Center Hemodialysis Treatment 5159-26-76P63:29:00.000Z 8803-44-83O95:00:21.000Z BP Sitting (Pre-Dialysis) 171/75 mmHg BP Sitting (Post-Dialysis) 180/81 mmHg Concurrent Access: falseAV Fistula Upper Arm (Left) Arterial BP Standing (Pre-Dialysis) 166/93 mmHg BP Standing (P ost-Dialysis) 175/90 mmHg Sitting Heart Rate Pre-Dialysis 94 BPM Sitting Heart Rate Post-Dialysis 83 BPM Standing Heart Rate Pre-Dialysis 98 BPM Standing Heart Rate Post-Dialysis 91 BPM Temperature Pre-Dialysis 97.3 degF Temperature Post -Dialysis 96.5 degF August 10, 2022 In-Center Hemodialysis Treatment 8353-19-66O87:29:01.000Z 5504-87-90W95:03:27.000Z BP Sitting (Pre-Dialysis) 190/79 mmHg BP Sitting (Post-Dialysis) 183/89 mmHg Concurrent Access: falseAV Fistula Upper Arm (Left) Arterial BP Standing (Pre-Dialysis) 196/91 mmHg BP Standing (P ost-Dialysis) 184/88 mmHg Sitting Heart Rate Pre-Dialysis 86 BPM Sitting Heart Rate Post-Dialysis 81 BPM Standing Heart Rate Pre-Dialysis 91 BPM Standing Heart Rate Post-Dialysis 96 BPM Temperature Pre-Dialysis 97.2 degF Temperature Post -Dialysis 97.8 degF August 07, 2022 In-Center Hemodialysis Treatment 1937-70-28I08:32:00.000Z 9823-97-72X61:03:11.000Z BP Sitting (Pre-Dialysis) 180/80 mmHg BP Sitting (Post-Dialysis) 191/86 mmHg Concurrent Access: falseAV Fistula Upper Arm (Left) Arterial BP Standing (Pre-Dialysis) 207/96 mmHg BP Standing (P ost-Dialysis) 198/87 mmHg Sitting Heart Rate Pre-Dialysis 93 BPM Sitting Heart Rate Post-Dialysis 81 BPM Standing Heart Rate Pre-Dialysis 95 BPM Standing Heart Rate Post-Dialysis 93 BPM Temperature Pre-Dialysis 98.7 degF Temperature Post -Dialysis 96.7 degF August 05, 2022 In-Center Hemodialysis Treatment 6049-14-06N63:28:00.000Z 0688-32-84Q02:00:07.000Z BP Sitting (Pre-Dialysis) 175/85 mmHg BP Sitting (Post-Dialysis) 174/78 mmHg Concurrent Access: falseAV Fistula Upper Arm (Left) Arterial BP Standing (Pre-Dialysis) 126/54 mmHg BP Standing (P ost-Dialysis) 168/82 mmHg Sitting Heart Rate Pre-Dialysis 87 BPM Sitting Heart Rate Post-Dialysis 86 BPM Standing Heart Rate Pre-Dialysis 99 BPM Standing Heart Rate Post-Dialysis 98 BPM Temperature Pre-Dialysis 98.3 degF Temperature Post -Dialysis 97.1 degF August 03, 2022 In-Center Hemodialysis Treatment 6719-35-41J94:38:00.000Z 1315-60-79J86:01:30.000Z BP Sitting (Pre-Dialysis) 199/91 mmHg BP Sitting (Post-Dialysis) 224/99 mmHg Concurrent Access: falseAV Fistula Upper Arm (Left) Arterial BP Standing (Pre-Dialysis) 197/89 mmHg BP Standing (P ost-Dialysis) 184/119 mmHg Sitting Heart Rate Pre-Dialysis 84 BPM Sitting Heart Rate Post-Dialysis 80 BPM Standing Heart Rate Pre-Dialysis 91 BPM Standing Heart Rate Post-Dialysis 90 BPM Temperature Pre-Dialysis 98.1 degF Temperature Post -Dialysis 98.3 degF July 31, 2022 In-Center Hemodialysis Treatment [id number]:35:00.000Z 4554-39-33J81:01:21.000Z BP Sitting (Pre-Dialysis) 178/78 mmHg BP Sitting (Post-Dialysis) 192/94 mmHg Concurrent Access: falseAV Fistula Upper Arm (Left) Arterial BP Standing (Pre-Dialysis) 187/84 mmHg BP Standing (P ost-Dialysis) 196/90 mmHg Sitting Heart Rate Pre-Dialysis 84 BPM Sitting Heart Rate Post-Dialysis 81 BPM Standing Heart Rate Pre-Dialysis 90 BPM Standing Heart Rate Post-Dialysis 95 BPM Temperature Pre-Dialysis 96.7 degF Temperature Post -Dialysis 98.1 degF July 29, 2022 In-Center Hemodialysis Treatment 5070-82-91F01:27:35.000Z [id number]:57:42.000Z BP Sitting (Pre-Dialysis) 170/80 mmHg BP Sitting (Post-Dialysis) 178/80 mmHg Concurrent Access: falseAV Fistula Upper Arm (Left) Arterial BP Standing (Pre-Dialysis) 184/80 mmHg BP Standing (P ost-Dialysis) 152/83 mmHg Sitting Heart Rate Pre-Dialysis 95 BPM Sitting Heart Rate Post-Dialysis 77 BPM Standing Heart Rate Pre-Dialysis 95 BPM Standing Heart Rate Post-Dialysis 93 BPM Temperature Pre-Dialysis 97.8 degF Temperature Post -Dialysis 98.5 degF July 27, 2022 In-Center Hemodialysis Treatment 2615-02-11J15:28:00.000Z 8179-46-86R93:50:57.000Z BP Sitting (Pre-Dialysis) 175/86 mmHg BP Sitting (Post-Dialysis) 179/76 mmHg Concurrent Access: falseAV Fistula Upper Arm (Left) Arterial BP Standing (Pre-Dialysis) 188/67 mmHg BP Standing (P ost-Dialysis) 182/108 mmHg Sitting Heart Rate Pre-Dialysis 84 BPM Sitting Heart Rate Post-Dialysis 82 BPM Standing Heart Rate Pre-Dialysis 88 BPM Standing Heart Rate Post-Dialysis 92 BPM Temperature Pre-Dialysis 97.7 degF Temperature Post -Dialysis 98 degF July 24, 2022 In-Center Hemodialysis Treatment [id number]:47:16.000Z 7498-31-32C36:19:21.000Z BP Sitting (Pre-Dialysis) 181/83 mmHg BP Sitting (Post-Dialysis) 188/93 mmHg Concurrent Access: falseAV Fistula Upper Arm (Left) Arterial BP Standing (Pre-Dialysis) 194/96 mmHg BP Standing (P ost-Dialysis) 184/94 mmHg Sitting Heart Rate Pre-Dialysis 86 BPM Sitting Heart Rate Post-Dialysis 80 BPM Standing Heart Rate Pre-Dialysis 92 BPM Standing Heart Rate Post-Dialysis 94 BPM Temperature Pre-Dialysis 97.3 degF Temperature Post -Dialysis 98 degF July 22, 2022 In-Center Hemodialysis Treatment 9245-36-09F98:41:00.000Z 8884-59-43H76:13:38.000Z BP Sitting (Pre-Dialysis) 167/69 mmHg BP Sitting (Post-Dialysis) 199/91 mmHg Concurrent Access: falseAV Fistula Upper Arm (Left) Arterial BP Standing (Pre-Dialysis) 179/102 mmHg BP Standing (P ost-Dialysis) 188/96 mmHg Sitting Heart Rate Pre-Dialysis 85 BPM Sitting Heart Rate Post-Dialysis 83 BPM Standing Heart Rate Pre-Dialysis 93 BPM Standing Heart Rate Post-Dialysis 91 BPM Temperature Pre-Dialysis 96.5 degF Temperature Post -Dialysis 98.1 degF July 20, 2022 In-Center Hemodialysis Treatment [id number]:43:42.000Z 9532-41-58P20:13:42.000Z BP Sitting (Pre-Dialysis) 198/88 mmHg BP Sitting (Post-Dialysis) 181/88 mmHg Concurrent Access: falseAV Fistula Upper Arm (Left) Arterial BP Standing (Pre-Dialysis) 201/88 mmHg BP Standing (P ost-Dialysis) 195/92 mmHg Sitting Heart Rate Pre-Dialysis 86 BPM Sitting Heart Rate Post-Dialysis 78 BPM Standing Heart Rate Pre-Dialysis 89 BPM Standing Heart Rate Post-Dialysis 89 BPM Temperature Pre-Dialysis 97.6 degF Temperature Post -Dialysis 96.2 degF July 17, 2022 In-Center Hemodialysis Treatment 8726-30-50M13:32:00.000Z 2820-78-98U79:05:49.000Z BP Sitting (Pre-Dialysis) 160/80 mmHg BP Sitting (Post-Dialysis) 179/83 mmHg Concurrent Access: falseAV Fistula Upper Arm (Left) Arterial BP Standing (Pre-Dialysis) 183/95 mmHg BP Standing (P ost-Dialysis) 176/72 mmHg Sitting Heart Rate Pre-Dialysis 85 BPM Sitting Heart Rate Post-Dialysis 76 BPM Standing Heart Rate Pre-Dialysis 90 BPM Standing Heart Rate Post-Dialysis 87 BPM Temperature Pre-Dialysis 97.9 degF Temperature Post -Dialysis 97.2 degF July 15, 2022 In-Center Hemodialysis Treatment [id number]:39:00.000Z 2705-19-49C32:12:36.000Z BP Sitting (Pre-Dialysis) 185/80 mmHg BP Sitting (Post-Dialysis) 168/78 mmHg Concurrent Access: falseAV Fistula Upper Arm (Left) Arterial BP Standing (Pre-Dialysis) 177/82 mmHg BP Standing (P ost-Dialysis) 181/95 mmHg Sitting Heart Rate Pre-Dialysis 88 BPM Sitting Heart Rate Post-Dialysis 78 BPM Standing Heart Rate Pre-Dialysis 90 BPM Standing Heart Rate Post-Dialysis 92 BPM Temperature Pre-Dialysis 97.3 degF Temperature Post -Dialysis 98 degF July 13, 2022 In-Center Hemodialysis Treatment 5430-38-28Y91:28:00.000Z 1659-14-97Z15:00:55.000Z BP Sitting (Pre-Dialysis) 187/80 mmHg BP Sitting (Post-Dialysis) 192/84 mmHg Concurrent Access: falseAV Fistula Upper Arm (Left) Arterial BP Standing (Pre-Dialysis) 174/102 mmHg BP Standing (P ost-Dialysis) 187/87 mmHg Sitting Heart Rate Pre-Dialysis 91 BPM Sitting Heart Rate Post-Dialysis 75 BPM Standing Heart Rate Pre-Dialysis 94 BPM Standing Heart Rate Post-Dialysis 86 BPM Temperature Pre-Dialysis 97.3 degF Temperature Post -Dialysis 97.4 degF July 11, 2022 In-Center Hemodialysis Treatment 8733-66-77L51:46:45.000Z 3420-68-39Y56:17:10.000Z BP Sitting (Pre-Dialysis) 169/76 mmHg BP Sitting (Post-Dialysis) 148/54 mmHg Concurrent Access: falseAV Fistula Upper Arm (Left) Arterial BP Standing (Pre-Dialysis) 173/80 mmHg BP Standing (P ost-Dialysis) 168/81 mmHg Sitting Heart Rate Pre-Dialysis 74 BPM Sitting Heart Rate Post-Dialysis 80 BPM Standing Heart Rate Pre-Dialysis 81 BPM Standing Heart Rate Post-Dialysis 85 BPM Temperature Pre-Dialysis 98 degF Temperature Post -Dialysis 98 degF July 08, 2022 In-Center Hemodialysis Treatment 2099-06-14X31:42:00.000Z 2616-25-68E25:03:22.000Z BP Sitting (Pre-Dialysis) 164/82 mmHg BP Sitting (Post-Dialysis) 173/76 mmHg Concurrent Access: falseAV Fistula Upper Arm (Left) Arterial BP Standing (Pre-Dialysis) 178/89 mmHg BP Standing (P ost-Dialysis) 160/100 mmHg Sitting Heart Rate Pre-Dialysis 89 BPM Sitting Heart Rate Post-Dialysis 86 BPM Standing Heart Rate Pre-Dialysis 89 BPM Standing Heart Rate Post-Dialysis 95 BPM Temperature Pre-Dialysis 97.4 degF Temperature Post -Dialysis 97.1 degF July 06, 2022 In-Center Hemodialysis Treatment [id number]:39:39.000Z 3886-69-84Z09:08:37.000Z BP Sitting (Pre-Dialysis) 193/92 mmHg BP Sitting (Post-Dialysis) 175/89 mmHg Concurrent Access: falseAV Fistula Upper Arm (Left) Arterial BP Standing (Pre-Dialysis) 183/91 mmHg Sitting Heart Rate Post-Dialysis 92 BPM Sitting Heart Rate Pre-Dialysis 88 BPM Standing Heart Rate Post-Dialysis 92 BPM Standing Heart Rate Pre-Dialysis 90 BPM Temperat ure Post-Dialysis 98 degF Temperature Pre-Dialysis 97.7 degF July 04, 2022 In-Center Hemodialysis Treatment 0275-15-86E09:54:00.000Z 6428-32-60C92:25:47.000Z BP Sitting (Pre-Dialysis) 183/81 mmHg BP Sitting (Post-Dialysis) 166/78 mmHg Concurrent Access: falseAV Fistula Upper Arm (Left) Arterial BP Standing (Pre-Dialysis) 205/92 mmHg BP Standing (P ost-Dialysis) 183/84 mmHg Sitting Heart Rate Pre-Dialysis 83 BPM Sitting Heart Rate Post-Dialysis 84 BPM Standing Heart Rate Pre-Dialysis 87 BPM Standing Heart Rate Post-Dialysis 92 BPM Temperature Pre-Dialysis 98.2 degF Temperature Post -Dialysis 97.9 degF July 01, 2022 In-Center Hemodialysis Treatment 9082-63-13Y42:32:00.000Z 3320-31-36Z39:30:58.000Z BP Sitting (Pre-Dialysis) 185/79 mmHg BP Sitting (Post-Dialysis) 182/111 mmHg Concurrent Access: falseAV Fistula Upper Arm (Left) Arterial BP Standing (Pre-Dialysis) 172/81 mmHg BP Standing (P ost-Dialysis) 176/101 mmHg Sitting Heart Rate Pre-Dialysis 86 BPM Sitting Heart Rate Post-Dialysis 83 BPM Standing Heart Rate Pre-Dialysis 91 BPM Standing Heart Rate Post-Dialysis 92 BPM Temperature Pre-Dialysis 98.1 degF Temperature Post -Dialysis 98.2 degF June 29, 2022 In-Center Hemodialysis Treatment 5777-37-19K49:29:00.000Z 2517-81-07Z36:57:54.000Z BP Sitting (Pre-Dialysis) 182/90 mmHg BP Sitting (Post-Dialysis) 187/81 mmHg Concurrent Access: falseAV Fistula Upper Arm (Left) Arterial BP Standing (Pre-Dialysis) 194/92 mmHg BP Standing (P ost-Dialysis) 190/98 mmHg Sitting Heart Rate Pre-Dialysis 92 BPM Sitting Heart Rate Post-Dialysis 80 BPM Standing Heart Rate Pre-Dialysis 90 BPM Standing Heart Rate Post-Dialysis 96 BPM Temperature Pre-Dialysis 98.1 degF Temperature Post -Dialysis 98.3 degF June 26, 2022 In-Center Hemodialysis Treatment 6166-79-30Y75:33:27.000Z 4809-08-59K10:02:37.000Z BP Sitting (Pre-Dialysis) 178/74 mmHg BP Sitting (Post-Dialysis) 171/81 mmHg Concurrent Access: falseAV Fistula Upper Arm (Left) Arterial BP Standing (Pre-Dialysis) 198/86 mmHg BP Standing (P ost-Dialysis) 174/86 mmHg Sitting Heart Rate Pre-Dialysis 89 BPM Sitting Heart Rate Post-Dialysis 80 BPM Standing Heart Rate Pre-Dialysis 95 BPM Standing Heart Rate Post-Dialysis 93 BPM Temperature Pre-Dialysis 97.4 degF Temperature Post -Dialysis 97.6 degF June 24, 2022 In-Center Hemodialysis Treatment 3210-86-17P53:26:00.000Z 1287-88-38Z84:58:18.000Z BP Sitting (Pre-Dialysis) 178/76 mmHg BP Sitting (Post-Dialysis) 166/77 mmHg Concurrent Access: falseAV Fistula Upper Arm (Left) Arterial BP Standing (Pre-Dialysis) 179/95 mmHg BP Standing (P ost-Dialysis) 176/87 mmHg Sitting Heart Rate Pre-Dialysis 92 BPM Sitting Heart Rate Post-Dialysis 82 BPM Standing Heart Rate Pre-Dialysis 98 BPM Standing Heart Rate Post-Dialysis 94 BPM Temperature Pre-Dialysis 98.1 degF Temperature Post -Dialysis 97.8 degF June 22, 2022 In-Center Hemodialysis Treatment 3218-91-83Y17:29:08.000Z 0250-46-14L06:54:08.000Z BP Sitting (Pre-Dialysis) 174/77 mmHg BP Sitting (Post-Dialysis) 174/72 mmHg Concurrent Access: falseAV Fistula Upper Arm (Left) Arterial BP Standing (Pre-Dialysis) 186/90 mmHg BP Standing (P ost-Dialysis) 180/85 mmHg Sitting Heart Rate Pre-Dialysis 85 BPM Sitting Heart Rate Post-Dialysis 85 BPM Standing Heart Rate Pre-Dialysis 93 BPM Standing Heart Rate Post-Dialysis 98 BPM Temperature Pre-Dialysis 97.8 degF Temperature Post -Dialysis 98 degF June 19, 2022 In-Center Hemodialysis Treatment 2340-12-23B07:30:00.000Z 9991-56-30I01:54:10.000Z BP Sitting (Pre-Dialysis) 189/87 mmHg BP Sitting (Post-Dialysis) 169/109 mmHg Concurrent Access: falseAV Fistula Upper Arm (Left) Arterial BP Standing (Pre-Dialysis) 199/95 mmHg BP Standing (P ost-Dialysis) 189/92 mmHg Sitting Heart Rate Pre-Dialysis 86 BPM Sitting Heart Rate Post-Dialysis 62 BPM Standing Heart Rate Pre-Dialysis 90 BPM Standing Heart Rate Post-Dialysis 96 BPM Temperature Pre-Dialysis 98 degF Temperature Post -Dialysis 97.2 degF June 17, 2022 In-Center Hemodialysis Treatment 2821-01-76U02:27:00.000Z 5215-86-52U55:51:51.000Z BP Sitting (Pre-Dialysis) 156/74 mmHg BP Sitting (Post-Dialysis) 171/84 mmHg Concurrent Access: falseAV Fistula Upper Arm (Left) Arterial BP Standing (Pre-Dialysis) 186/88 mmHg BP Standing (P ost-Dialysis) 185/87 mmHg Sitting Heart Rate Pre-Dialysis 91 BPM Sitting Heart Rate Post-Dialysis 81 BPM Standing Heart Rate Pre-Dialysis 93 BPM Standing Heart Rate Post-Dialysis 92 BPM Temperature Pre-Dialysis 98 degF Temperature Post -Dialysis 97.5 degF June 15, 2022 In-Center Hemodialysis Treatment 2517-72-83M26:45:00.000Z 4386-85-36Z33:12:48.000Z BP Sitting (Pre-Dialysis) 180/77 mmHg BP Sitting (Post-Dialysis) 164/86 mmHg Concurrent Access: falseAV Fistula Upper Arm (Left) Arterial BP Standing (Pre-Dialysis) 177/82 mmHg BP Standing (P ost-Dialysis) 180/87 mmHg Sitting Heart Rate Pre-Dialysis 93 BPM Sitting Heart Rate Post-Dialysis 91 BPM Standing Heart Rate Pre-Dialysis 96 BPM Standing Heart Rate Post-Dialysis 104 BPM Temperature Pre-Dialysis 97.6 degF Temperature Post -Dialysis 98.3 degF June 12, 2022 In-Center Hemodialysis Treatment 4916-12-37W21:29:00.000Z 1781-70-46J10:59:52.000Z BP Sitting (Pre-Dialysis) 182/87 mmHg BP Sitting (Post-Dialysis) 195/83 mmHg Concurrent Access: falseAV Fistula Upper Arm (Left) Arterial BP Standing (Pre-Dialysis) 194/94 mmHg BP Standing (P ost-Dialysis) 194/86 mmHg Sitting Heart Rate Pre-Dialysis 88 BPM Sitting Heart Rate Post-Dialysis 78 BPM Standing Heart Rate Pre-Dialysis 92 BPM Standing Heart Rate Post-Dialysis 89 BPM Temperature Pre-Dialysis 97.8 degF Temperature Post -Dialysis 98.2 degF June 10, 2022 In-Center Hemodialysis Treatment 0561-32-03U36:22:00.000Z 9413-04-05Z10:53:42.000Z BP Sitting (Pre-Dialysis) 180/98 mmHg BP Sitting (Post-Dialysis) 176/93 mmHg Concurrent Access: falseAV Fistula Upper Arm (Left) Arterial BP Standing (Pre-Dialysis) 186/102 mmHg BP Standing (P ost-Dialysis) 167/94 mmHg Sitting Heart Rate Pre-Dialysis 90 BPM Sitting Heart Rate Post-Dialysis 85 BPM Standing Heart Rate Pre-Dialysis 98 BPM Standing Heart Rate Post-Dialysis 99 BPM Temperature Pre-Dialysis 97.3 degF Temperature Post -Dialysis 98.7 degF June 08, 2022 In-Center Hemodialysis Treatment 2567-42-21G77:36:00.000Z 9034-38-20X44:37:37.000Z BP Sitting (Pre-Dialysis) 181/90 mmHg BP Sitting (Post-Dialysis) 191/91 mmHg Concurrent Access: falseAV Fistula Upper Arm (Left) Arterial BP Standing (Pre-Dialysis) 173/95 mmHg BP Standing (P ost-Dialysis) 193/77 mmHg Sitting Heart Rate Pre-Dialysis 91 BPM Sitting Heart Rate Post-Dialysis 81 BPM Standing Heart Rate Pre-Dialysis 93 BPM Standing Heart Rate Post-Dialysis 96 BPM Temperature Pre-Dialysis 97.7 degF Temperature Post -Dialysis 96.6 degF June 05, 2022 In-Center Hemodialysis Treatment 2996-87-87L96:34:00.000Z 8126-89-35H53:58:12.000Z BP Sitting (Pre-Dialysis) 133/52 mmHg BP Sitting (Post-Dialysis) 178/87 mmHg Concurrent Access: falseAV Fistula Upper Arm (Left) Arterial BP Standing (Pre-Dialysis) 185/68 mmHg BP Standing (P ost-Dialysis) 201/99 mmHg Sitting Heart Rate Pre-Dialysis 83 BPM Sitting Heart Rate Post-Dialysis 85 BPM Standing Heart Rate Pre-Dialysis 93 BPM Standing Heart Rate Post-Dialysis 98 BPM Temperature Pre-Dialysis 97.2 degF Temperature Post -Dialysis 97.7 degF June 03, 2022 In-Center Hemodialysis Treatment 5864-25-09X35:34:00.000Z 5420-41-34Z32:04:01.000Z BP Sitting (Pre-Dialysis) 181/86 mmHg BP Sitting (Post-Dialysis) 179/81 mmHg Concurrent Access: falseAV Fistula Upper Arm (Left) Arterial BP Standing (Pre-Dialysis) 167/77 mmHg BP Standing (P ost-Dialysis) 153/80 mmHg Sitting Heart Rate Pre-Dialysis 91 BPM Sitting Heart Rate Post-Dialysis 81 BPM Standing Heart Rate Pre-Dialysis 94 BPM Standing Heart Rate Post-Dialysis 98 BPM Temperature Pre-Dialysis 97.4 degF Temperature Post -Dialysis 98 degF June 01, 2022 In-Center Hemodialysis Treatment 5149-70-73Z06:28:42.000Z 8119-97-65P28:56:22.000Z BP Sitting (Pre-Dialysis) 182/72 mmHg BP Sitting (Post-Dialysis) 177/76 mmHg Concurrent Access: falseAV Fistula Upper Arm (Left) Arterial BP Standing (Pre-Dialysis) 176/78 mmHg BP Standing (P ost-Dialysis) 189/93 mmHg Sitting Heart Rate Pre-Dialysis 91 BPM Sitting Heart Rate Post-Dialysis 80 BPM Standing Heart Rate Pre-Dialysis 94 BPM Standing Heart Rate Post-Dialysis 96 BPM Temperature Pre-Dialysis 98.4 degF Temperature Post -Dialysis 97.4 degF May 29, 2022 In-Center Hemodialysis Treatment 6199-16-16P83:26:29.000Z 4148-66-52F07:50:46.000Z BP Sitting (Pre-Dialysis) 155/79 mmHg BP Sitting (Post-Dialysis) 167/86 mmHg Concurrent Access: falseAV Fistula Upper Arm (Left) Arterial BP Standing (Pre-Dialysis) 162/82 mmHg BP Standing (P ost-Dialysis) 148/82 mmHg Sitting Heart Rate Pre-Dialysis 88 BPM Sitting Heart Rate Post-Dialysis 89 BPM Standing Heart Rate Pre-Dialysis 98 BPM Standing Heart Rate Post-Dialysis 99 BPM Temperature Pre-Dialysis 97 degF Temperature Post -Dialysis 97.8 degF May 27, 2022 In-Center Hemodialysis Treatment 3266-34-44F56:44:00.000Z 2053-97-97P19:15:33.000Z BP Sitting (Pre-Dialysis) 192/87 mmHg BP Sitting (Post-Dialysis) 193/85 mmHg Concurrent Access: falseAV Fistula Upper Arm (Left) Arterial BP Standing (Pre-Dialysis) 165/76 mmHg Sitti ng Heart Rate Post-Dialysis 85 BPM Sitting Heart Rate Pre-Dialysis 90 BPM Temperatu re Post-Dialysis 97.8 degF Standing Heart Rate Pre-Dialysis 95 BPM Temperature Pre-Dialysis 98.3 degF May 25, 2022 In-Center Hemodialysis Treatment [id number]:24:00.000Z [id number]:48:41.000Z BP Sitting (Pre-Dialysis) 168/103 mmHg BP Sitting (Post-Dialysis) 173/115 mmHg Concurrent Access: falseAV Fistula Upper Arm (Left) Arterial BP Standing (Pre-Dialysis) 191/88 mmHg BP Standing (P ost-Dialysis) 201/90 mmHg Sitting Heart Rate Pre-Dialysis 85 BPM Sitting Heart Rate Post-Dialysis 81 BPM Standing Heart Rate Pre-Dialysis 87 BPM Standing Heart Rate Post-Dialysis 95 BPM Temperature Pre-Dialysis 97.6 degF Temperature Post -Dialysis 97.2 degF May 22, 2022 In-Center Hemodialysis Treatment [id number]:35:13.000Z [id number]:01:53.000Z BP Sitting (Pre-Dialysis) 183/88 mmHg BP Sitting (Post-Dialysis) 181/94 mmHg Concurrent Access: falseAV Fistula Upper Arm (Left) Arterial BP Standing (Pre-Dialysis) 200/94 mmHg BP Standing (P ost-Dialysis) 179/87 mmHg Sitting Heart Rate Pre-Dialysis 92 BPM Sitting Heart Rate Post-Dialysis 87 BPM Standing Heart Rate Pre-Dialysis 97 BPM Standing Heart Rate Post-Dialysis 102 BPM Temperature Pre-Dialysis 97.3 degF Temperature Post -Dialysis 97.7 degF May 20, 2022 In-Center Hemodialysis Treatment [id number]:37:17.000Z [id number]:02:42.000Z BP Sitting (Pre-Dialysis) 175/69 mmHg BP Sitting (Post-Dialysis) 184/74 mmHg Concurrent Access: falseAV Fistula Upper Arm (Left) Arterial BP Standing (Pre-Dialysis) 201/93 mmHg BP Standing (P ost-Dialysis) 184/76 mmHg Sitting Heart Rate Pre-Dialysis 88 BPM Sitting Heart Rate Post-Dialysis 75 BPM Standing Heart Rate Pre-Dialysis 90 BPM Standing Heart Rate Post-Dialysis 87 BPM Temperature Pre-Dialysis 96 degF Temperature Post -Dialysis 97.6 degF May 18, 2022 In-Center Hemodialysis Treatment [id number]:29:31.000Z [id number]:59:31.000Z BP Sitting (Pre-Dialysis) 197/91 mmHg BP Sitting (Post-Dialysis) 189/90 mmHg Concurrent Access: falseAV Fistula Upper Arm (Left) Arterial BP Standing (Pre-Dialysis) 191/89 mmHg BP Standing (P ost-Dialysis) 199/92 mmHg Sitting Heart Rate Pre-Dialysis 89 BPM Sitting Heart Rate Post-Dialysis 79 BPM Standing Heart Rate Pre-Dialysis 89 BPM Standing Heart Rate Post-Dialysis 93 BPM Temperature Pre-Dialysis 96.5 degF Temperature Post -Dialysis 97.8 degF May 15, 2022 In-Center Hemodialysis Treatment [id number]:40:00.000Z [id number]:02:27.000Z BP Sitting (Pre-Dialysis) 175/79 mmHg BP Sitting (Post-Dialysis) 164/80 mmHg Concurrent Access: falseAV Fistula Upper Arm (Left) Arterial BP Standing (Pre-Dialysis) 186/91 mmHg BP Standing (P ost-Dialysis) 172/85 mmHg Sitting Heart Rate Pre-Dialysis 87 BPM Sitting Heart Rate Post-Dialysis 83 BPM Standing Heart Rate Pre-Dialysis 92 BPM Standing Heart Rate Post-Dialysis 81 BPM Temperature Pre-Dialysis 98.3 degF Temperature Post -Dialysis 97.6 degF May 13, 2022 In-Center Hemodialysis Treatment [id number]:28:00.000Z [id number]:59:19.000Z BP Sitting (Pre-Dialysis) 187/82 mmHg BP Sitting (Post-Dialysis) 171/76 mmHg Concurrent Access: falseAV Fistula Upper Arm (Left) Arterial BP Standing (Pre-Dialysis) 186/82 mmHg BP Standing (P ost-Dialysis) 181/87 mmHg Sitting Heart Rate Pre-Dialysis 91 BPM Sitting Heart Rate Post-Dialysis 76 BPM Standing Heart Rate Pre-Dialysis 96 BPM Standing Heart Rate Post-Dialysis 88 BPM Temperature Pre-Dialysis 97.8 degF Temperature Post -Dialysis 97.8 degF May 11, 2022 In-Center Hemodialysis Treatment [id number]:31:00.000Z [id number]:56:12.000Z BP Sitting (Pre-Dialysis) 176/84 mmHg BP Sitting (Post-Dialysis) 161/87 mmHg Concurrent Access: falseAV Fistula Upper Arm (Left) Arterial BP Standing (Pre-Dialysis) 149/73 mmHg BP Standing (P ost-Dialysis) 158/77 mmHg Sitting Heart Rate Pre-Dialysis 97 BPM Sitting Heart Rate Post-Dialysis 92 BPM Standing Heart Rate Pre-Dialysis 101 BPM Standing Heart Rate Post-Dialysis 98 BPM Temperature Pre-Dialysis 97.8 degF Temperature Post -Dialysis 97.5 degF May 09, 2022 In-Center Hemodialysis Treatment [id number]:34:13.000Z [id number]:58:23.000Z BP Sitting (Pre-Dialysis) 189/83 mmHg BP Sitting (Post-Dialysis) 180/84 mmHg Concurrent Access: falseAV Fistula Upper Arm (Left) Arterial BP Standing (Pre-Dialysis) 179/81 mmHg BP Standing (P ost-Dialysis) 187/92 mmHg Sitting Heart Rate Pre-Dialysis 89 BPM Sitting Heart Rate Post-Dialysis 77 BPM Standing Heart Rate Pre-Dialysis 89 BPM Standing Heart Rate Post-Dialysis 90 BPM Temperature Pre-Dialysis 98.3 degF Temperature Post -Dialysis 97.6 degF May 07, 2022 In-Center Hemodialysis Treatment [id number]:23:00.000Z [id number]:53:30.000Z BP Sitting (Pre-Dialysis) 186/81 mmHg BP Sitting (Post-Dialysis) 174/86 mmHg Concurrent Access: falseAV Fistula Upper Arm (Left) Arterial BP Standing (Pre-Dialysis) 171/87 mmHg BP Standing (P ost-Dialysis) 166/84 mmHg Sitting Heart Rate Pre-Dialysis 89 BPM Sitting Heart Rate Post-Dialysis 80 BPM Standing Heart Rate Pre-Dialysis 94 BPM Standing Heart Rate Post-Dialysis 91 BPM Temperature Pre-Dialysis 97.7 degF Temperature Post -Dialysis 97.6 degF May 04, 2022 In-Center Hemodialysis Treatment [id number]:32:00.000Z [id number]:02:44.000Z BP Sitting (Pre-Dialysis) 211/82 mmHg BP Sitting (Post-Dialysis) 152/55 mmHg Concurrent Access: falseAV Fistula Upper Arm (Left) Arterial BP Standing (Pre-Dialysis) 197/80 mmHg BP Standing (P ost-Dialysis) 159/82 mmHg Sitting Heart Rate Pre-Dialysis 94 BPM Sitting Heart Rate Post-Dialysis 82 BPM Standing Heart Rate Pre-Dialysis 97 BPM Standing Heart Rate Post-Dialysis 94 BPM Temperature Pre-Dialysis 97.5 degF Temperature Post -Dialysis 98.2 degF May 01, 2022 In-Center Hemodialysis Treatment [id number]:29:39.000Z [id number]:01:19.000Z BP Sitting (Pre-Dialysis) 189/80 mmHg BP Sitting (Post-Dialysis) 179/80 mmHg Concurrent Access: falseAV Fistula Upper Arm (Left) Arterial BP Standing (Pre-Dialysis) 195/77 mmHg BP Standing (P ost-Dialysis) 171/83 mmHg Sitting Heart Rate Pre-Dialysis 92 BPM Sitting Heart Rate Post-Dialysis 87 BPM Standing Heart Rate Pre-Dialysis 96 BPM Standing Heart Rate Post-Dialysis 91 BPM Temperature Pre-Dialysis 97.9 degF Temperature Post -Dialysis 97.8 degF April 29, 2022 In-Center Hemodialysis Treatment [id number]:43:00.000Z [id number]:08:39.000Z BP Sitting (Pre-Dialysis) 191/84 mmHg BP Sitting (Post-Dialysis) 187/82 mmHg Concurrent Access: falseAV Fistula Upper Arm (Left) Arterial BP Standing (Pre-Dialysis) 179/80 mmHg BP Standing (P ost-Dialysis) 186/91 mmHg Sitting Heart Rate Pre-Dialysis 92 BPM Sitting Heart Rate Post-Dialysis 85 BPM Standing Heart Rate Pre-Dialysis 93 BPM Standing Heart Rate Post-Dialysis 96 BPM Temperature Pre-Dialysis 97.8 degF Temperature Post -Dialysis 97.3 degF April 27, 2022 In-Center Hemodialysis Treatment [id number]:45:00.000Z [id number]:52:39.000Z BP Sitting (Pre-Dialysis) 187/86 mmHg BP Sitting (Post-Dialysis) 181/84 mmHg Concurrent Access: falseAV Fistula Upper Arm (Left) Arterial BP Standing (Pre-Dialysis) 201/89 mmHg BP Standing (P ost-Dialysis) 178/91 mmHg Sitting Heart Rate Pre-Dialysis 91 BPM Sitting Heart Rate Post-Dialysis 81 BPM Standing Heart Rate Pre-Dialysis 91 BPM Standing Heart Rate Post-Dialysis 92 BPM Temperature Pre-Dialysis 97.7 degF Temperature Post -Dialysis 97.8 degF April 24, 2022 In-Center Hemodialysis Treatment [id number]:22:35.000Z [id number]:53:00.000Z BP Sitting (Pre-Dialysis) 153/71 mmHg BP Sitting (Post-Dialysis) 161/72 mmHg Concurrent Access: falseAV Fistula Upper Arm (Left) Arterial BP Standing (Pre-Dialysis) 157/71 mmHg BP Standing (P ost-Dialysis) 133/81 mmHg Sitting Heart Rate Pre-Dialysis 84 BPM Sitting Heart Rate Post-Dialysis 83 BPM Standing Heart Rate Pre-Dialysis 88 BPM Standing Heart Rate Post-Dialysis 94 BPM Temperature Pre-Dialysis 98.3 degF Temperature Post -Dialysis 97.9 degF April 22, 2022 In-Center Hemodialysis Treatment [id number]:26:00.000Z [id number]:47:04.000Z BP Sitting (Pre-Dialysis) 14/83 mmHg BP Sitting (Post-Dialysis) 177/89 mmHg Concurrent Access: falseAV Fistula Upper Arm (Left) Arterial BP Standing (Pre-Dialysis) 204/96 mmHg BP Standing (P ost-Dialysis) 184/52 mmHg Sitting Heart Rate Pre-Dialysis 94 BPM Sitting Heart Rate Post-Dialysis 84 BPM Standing Heart Rate Pre-Dialysis 96 BPM Standing Heart Rate Post-Dialysis 94 BPM Temperature Pre-Dialysis 97.6 degF Temperature Post -Dialysis 97.8 degF April 20, 2022 In-Center Hemodialysis Treatment [id number]:42:00.000Z [id number]:02:26.000Z BP Sitting (Pre-Dialysis) 199/83 mmHg BP Sitting (Post-Dialysis) 205/86 mmHg Concurrent Access: falseAV Fistula Upper Arm (Left) Arterial BP Standing (Pre-Dialysis) 198/86 mmHg BP Standing (P ost-Dialysis) 196/93 mmHg Sitting Heart Rate Pre-Dialysis 78 BPM Sitting Heart Rate Post-Dialysis 83 BPM Standing Heart Rate Pre-Dialysis 78 BPM Standing Heart Rate Post-Dialysis 83 BPM Temperature Pre-Dialysis 98.3 degF Temperature Post -Dialysis 98.4 degF April 17, 2022 In-Center Hemodialysis Treatment [id number]:21:49.000Z [id number]:39:19.000Z BP Sitting (Pre-Dialysis) 179/82 mmHg BP Sitting (Post-Dialysis) 197/102 mmHg Concurrent Access: falseAV Fistula Upper Arm (Left) Arterial BP Standing (Pre-Dialysis) 177/75 mmHg BP Standing (P ost-Dialysis) 182/89 mmHg Sitting Heart Rate Pre-Dialysis 93 BPM Sitting Heart Rate Post-Dialysis 86 BPM Standing Heart Rate Pre-Dialysis 91 BPM Standing Heart Rate Post-Dialysis 95 BPM Temperature Pre-Dialysis 97.6 degF Temperature Post -Dialysis 97.8 degF April 15, 2022 In-Center Hemodialysis Treatment [id number]:22:00.000Z [id number]:50:50.000Z BP Sitting (Pre-Dialysis) 200/80 mmHg BP Sitting (Post-Dialysis) 227/89 mmHg Concurrent Access: falseAV Fistula Upper Arm (Left) Arterial BP Standing (Pre-Dialysis) 206/89 mmHg BP Standing (P ost-Dialysis) 194/111 mmHg Sitting Heart Rate Pre-Dialysis 84 BPM Sitting Heart Rate Post-Dialysis 84 BPM Standing Heart Rate Pre-Dialysis 89 BPM Standing Heart Rate Post-Dialysis 91 BPM Temperature Pre-Dialysis 98.1 degF Temperature Post -Dialysis 97.3 degF April 13, 2022 In-Center Hemodialysis Treatment [id number]:39:00.000Z [id number]:09:24.000Z BP Sitting (Pre-Dialysis) 173/74 mmHg BP Sitting (Post-Dialysis) 185/86 mmHg Concurrent Access: falseAV Fistula Upper Arm (Left) Arterial BP Standing (Pre-Dialysis) 195/95 mmHg BP Standing (P ost-Dialysis) 181/86 mmHg Sitting Heart Rate Pre-Dialysis 88 BPM Sitting Heart Rate Post-Dialysis 91 BPM Standing Heart Rate Pre-Dialysis 89 BPM Standing Heart Rate Post-Dialysis 98 BPM Temperature Pre-Dialysis 97 degF Temperature Post -Dialysis 98 degF April 10, 2022 In-Center Hemodialysis Treatment [id number]:49:00.000Z [id number]:57:06.000Z BP Sitting (Pre-Dialysis) 194/90 mmHg BP Sitting (Post-Dialysis) 166/82 mmHg Concurrent Access: falseAV Fistula Upper Arm (Left) Arterial BP Standing (Pre-Dialysis) 197/90 mmHg BP Standing (P ost-Dialysis) 185/93 mmHg Sitting Heart Rate Pre-Dialysis 93 BPM Sitting Heart Rate Post-Dialysis 86 BPM Standing Heart Rate Pre-Dialysis 97 BPM Standing Heart Rate Post-Dialysis 98 BPM Temperature Pre-Dialysis 97 degF Temperature Post -Dialysis 98 degF April 08, 2022 In-Center Hemodialysis Treatment [id number]:13:00.000Z [id number]:12:22.000Z BP Sitting (Pre-Dialysis) 190/81 mmHg BP Sitting (Post-Dialysis) 181/88 mmHg Concurrent Access: falseAV Fistula Upper Arm (Left) Arterial BP Standing (Pre-Dialysis) 205/92 mmHg BP Standing (P ost-Dialysis) 198/95 mmHg Sitting Heart Rate Pre-Dialysis 81 BPM Sitting Heart Rate Post-Dialysis 85 BPM Standing Heart Rate Pre-Dialysis 94 BPM Standing Heart Rate Post-Dialysis 96 BPM Temperature Pre-Dialysis 98 degF Temperature Post -Dialysis 97.7 degF April 06, 2022 In-Center Hemodialysis Treatment [id number]:43:30.000Z [id number]:12:16.000Z BP Sitting (Pre-Dialysis) 170/82 mmHg BP Sitting (Post-Dialysis) 187/87 mmHg Concurrent Access: falseAV Fistula Upper Arm (Left) Arterial BP Standing (Pre-Dialysis) 192/93 mmHg BP Standing (P ost-Dialysis) 161/97 mmHg Sitting Heart Rate Pre-Dialysis 91 BPM Sitting Heart Rate Post-Dialysis 86 BPM Standing Heart Rate Pre-Dialysis 91 BPM Standing Heart Rate Post-Dialysis 100 BPM Temperature Pre-Dialysis 97 degF Temperature Post -Dialysis 98 degF Results Adequacy Description Draw Date Result/Unit Status Ref Range Result Comments stdKt/V (DIAL) 2022-05-20 17:52:32 N/A F stdKT/V Total 2022-05-20 17:52:32 N/A F TOTAL HOURS/WEEK DIALYSIS 2022-05-20 17:52:32 10 F BLOOD FLOW-QWB 2022-05-20 17:52:32 449 F TOTAL HOURS/WEEK DIALYSIS 2022-05-20 17:52:32 10 F WEIGHT - POST DAY 1 2022-05-20 17:52:32 97.9 kg F WEIGHT (KG) 2022-05-20 17:52:32 97.5 kg F HEIGHT IN INCHES 2022-05-20 17:52:32 68 Inches F Total Kt/V 2022-05-20 17:52:32 1.63 F spKt/V 2022-05-20 17:52:32 1.63 F BLOOD FLOW-QWB 2022-05-20 17:52:32 449 F stdKt/V (DIAL) 2022-05-20 17:52:32 N/A F PRESCRIBED DAYS/WEEK 2022-05-20 17:52:32 3 Day/Wk F stdKT/V Total 2022-05-20 17:52:32 N/A F KT/V PRESCRIBED 2022-05-20 17:52:32 1.59 F PATIENT AGE 2022-05-20 17:52:32 66 Years F nPCR 2022-05-20 17:52:32 1 G/KG/D F WEIGHT - PRE DAY 1 2022-05-20 17:52:32 99.5 kg F AMPUTATE FACTOR 2022-05-20 17:52:32 0 F BLOOD FLOW-QWB 2022-05-20 17:52:32 449 F PATIENT AGE 2022-05-20 17:52:32 66 Years F spKt/V 2022-05-20 17:52:32 1.63 F TOTAL HOURS/WEEK DIALYSIS 2022-05-20 17:52:32 10 F stdKt/V (DIAL) 2022-05-20 17:52:32 N/A F PRESCRIBED DAYS/WEEK 2022-05-20 17:52:32 3 Day/Wk F KT/V PRESCRIBED 2022-05-20 17:52:32 1.59 F nPCR 2022-05-20 17:52:32 1 G/KG/D F WEIGHT - PRE DAY 1 2022-05-20 17:52:32 99.5 kg F Total Kt/V 2022-05-20 17:52:32 1.63 F AMPUTATE FACTOR 2022-05-20 17:52:32 0 F HEIGHT IN INCHES 2022-05-20 17:52:32 68 Inches F stdKT/V Total 2022-05-20 17:52:32 N/A F WEIGHT (KG) 2022-05-20 17:52:32 97.5 kg F WEIGHT - POST DAY 1 2022-05-20 17:52:32 97.9 kg F PATIENT AGE 2022-05-20 17:52:32 66 Years F WEIGHT - POST DAY 1 2022-05-20 17:52:32 97.9 kg F WEIGHT - PRE DAY 1 2022-05-20 17:52:32 99.5 kg F HEIGHT IN INCHES 2022-05-20 17:52:32 68 Inches F WEIGHT (KG) 2022-05-20 17:52:32 97.5 kg F PRESCRIBED DAYS/WEEK 2022-05-20 17:52:32 3 Day/Wk F KT/V PRESCRIBED 2022-05-20 17:52:32 1.59 F Total Kt/V 2022-05-20 17:52:32 1.63 F nPCR 2022-05-20 17:52:32 1 G/KG/D F AMPUTATE FACTOR 2022-05-20 17:52:32 0 F spKt/V 2022-05-20 17:52:32 1.63 F Std Renal KT/V 2022-05-20 17:52:32 N/A F CURRENT KRU 2022-05-20 17:52:32 F TBW (Krause) 2022-05-20 17:52:32 49.82 Liters F VM (KT/V MEAN VOL) 2022-05-20 17:52:32 45.1 F Residual kt/v 2022-05-20 17:52:32 F VT (KT/V TX VOL) 2022-05-20 17:52:32 40.4 L F eKt/V 2022-05-20 17:52:32 1.38 F CURRENT KRU 2022-05-20 17:52:32 F BSA XAVI 2022-05-20 17:52:32 2.11 sq m F Std Renal KT/V 2022-05-20 17:52:32 N/A F BSA XAVI 2022-05-20 17:52:32 2.11 sq m F VM (KT/V MEAN VOL) 2022-05-20 17:52:32 45.1 F eKt/V 2022-05-20 17:52:32 1.38 F VT (KT/V TX VOL) 2022-05-20 17:52:32 40.4 L F TBW (Krause) 2022-05-20 17:52:32 49.82 Liters F Residual kt/v 2022-05-20 17:52:32 F CURRENT KRU 2022-05-20 17:52:32 F Std Renal KT/V 2022-05-20 17:52:32 N/A F BSA XAVI 2022-05-20 17:52:32 2.11 sq m F VT (KT/V TX VOL) 2022-05-20 17:52:32 40.4 L F VM (KT/V MEAN VOL) 2022-05-20 17:52:32 45.1 F Residual kt/v 2022-05-20 17:52:32 F TBW (Krause) 2022-05-20 17:52:32 49.82 Liters F eKt/V 2022-05-20 17:52:32 1.38 F Dialyzer NURY 2022-05-20 17:52:31 1218 Calc F LENGTH OF DIALYSIS 2022-05-20 17:52:31 211 min F URR% 2022-05-20 17:52:31 77 % F DIALYZER FLOW-QD 2022-05-20 17:52:31 800 mL/min F URR% 2022-05-20 17:52:31 77 % F Dialyzer NURY 2022-05-20 17:52:31 1218 Calc F LENGTH OF DIALYSIS 2022-05-20 17:52:31 211 min F DIALYZER FLOW-QD 2022-05-20 17:52:31 800 mL/min F URR% 2022-05-20 17:52:31 77 % F DIALYZER FLOW-QD 2022-05-20 17:52:31 800 mL/min F Dialyzer NURY 2022-05-20 17:52:31 1218 Calc F LENGTH OF DIALYSIS 2022-05-20 17:52:31 211 min F Urea nitrogen [Mass/volume] in Serum or Plasma --post dialysis 2022-05-20 17:50:01 15 mg/dL F 9.0-23.0 Urea nitrogen [Mass/volume] in Serum or Plasma --post dialysis 2022-05-20 17:50:01 15 mg/dL F 9.0-23.0 Urea nitrogen [Mass/volume] in Serum or Plasma --post dialysis 2022-05-20 17:50:01 15 mg/dL F 9.0-23.0 Urea nitrogen [Mass/volume] in Serum or Plasma 2022-05-19 17:41:49 64 mg/dL F 9.0-23.0 Creatinine [Mass/volume] in Serum or Plasma 2022-05-19 17:41:49 6.06 mg/dL F 0.7-1.3 Creatinine [Mass/volume] in Serum or Plasma 2022-05-19 17:41:49 6.06 mg/dL F 0.7-1.3 Urea nitrogen [Mass/volume] in Serum or Plasma 2022-05-19 17:41:49 64 mg/dL F 9.0-23.0 Urea nitrogen [Mass/volume] in Serum or Plasma 2022-05-19 17:41:49 64 mg/dL F 9.0-23.0 Creatinine [Mass/volume] in Serum or Plasma 2022-05-19 17:41:49 6.06 mg/dL F 0.7-1.3 Creatinine [Mass/volume] in Serum or Plasma 2022-04-23 20:38:40 5.61 mg/dL F 0.7-1.3 DIALYZER FLOW-QD 2022-04-08 18:11:52 800 mL/min F Dialyzer NURY 2022-04-08 18:11:52 1218 Calc F LENGTH OF DIALYSIS 2022-04-08 18:11:52 211 min F PATIENT AGE 2022-04-08 18:11:52 66 Years F WEIGHT - POST DAY 1 2022-04-08 18:11:52 96.3 kg F LENGTH OF DIALYSIS 2022-04-08 18:11:52 211 min F PATIENT AGE 2022-04-08 18:11:52 66 Years F spKt/V 2022-04-08 18:11:52 1.39 F TOTAL HOURS/WEEK DIALYSIS 2022-04-08 18:11:52 3 F WEIGHT - PRE DAY 1 2022-04-08 18:11:52 98 kg F URR% 2022-04-08 18:11:52 73 % F DIALYZER FLOW-QD 2022-04-08 18:11:52 800 mL/min F Dialyzer NURY 2022-04-08 18:11:52 1218 Calc F WEIGHT - POST DAY 1 2022-04-08 18:11:52 96.3 kg F BLOOD FLOW-QWB 2022-04-08 18:11:52 437 F HEIGHT IN INCHES 2022-04-08 18:11:52 68 Inches F WEIGHT (KG) 2022-04-08 18:11:52 96 kg F nPCR 2022-04-08 18:11:52 0.45 G/KG/D F HEIGHT IN INCHES 2022-04-08 18:11:52 68 Inches F WEIGHT - PRE DAY 1 2022-04-08 18:11:52 98 kg F stdKT/V Total 2022-04-08 18:11:52 N/A F KT/V PRESCRIBED 2022-04-08 18:11:52 1.61 F stdKt/V (DIAL) 2022-04-08 18:11:52 N/A F Total Kt/V 2022-04-08 18:11:52 1.39 F PRESCRIBED DAYS/WEEK 2022-04-08 18:11:52 3 Day/Wk F AMPUTATE FACTOR 2022-04-08 18:11:52 0 F WEIGHT (KG) 2022-04-08 18:11:52 96 kg F PRESCRIBED DAYS/WEEK 2022-04-08 18:11:52 3 Day/Wk F KT/V PRESCRIBED 2022-04-08 18:11:52 1.61 F Total Kt/V 2022-04-08 18:11:52 1.39 F nPCR 2022-04-08 18:11:52 0.45 G/KG/D F AMPUTATE FACTOR 2022-04-08 18:11:52 0 F spKt/V 2022-04-08 18:11:52 1.39 F stdKt/V (DIAL) 2022-04-08 18:11:52 N/A F stdKT/V Total 2022-04-08 18:11:52 N/A F BLOOD FLOW-QWB 2022-04-08 18:11:52 437 F TOTAL HOURS/WEEK DIALYSIS 2022-04-08 18:11:52 3 F stdKt/V (DIAL) 2022-04-08 18:11:52 N/A F PRESCRIBED DAYS/WEEK 2022-04-08 18:11:52 3 Day/Wk F WEIGHT - POST DAY 1 2022-04-08 18:11:52 96.3 kg F Dialyzer NURY 2022-04-08 18:11:52 1218 Calc F spKt/V 2022-04-08 18:11:52 1.39 F WEIGHT - PRE DAY 1 2022-04-08 18:11:52 98 kg F nPCR 2022-04-08 18:11:52 0.45 G/KG/D F HEIGHT IN INCHES 2022-04-08 18:11:52 68 Inches F WEIGHT (KG) 2022-04-08 18:11:52 96 kg F stdKT/V Total 2022-04-08 18:11:52 N/A F KT/V PRESCRIBED 2022-04-08 18:11:52 1.61 F LENGTH OF DIALYSIS 2022-04-08 18:11:52 211 min F DIALYZER FLOW-QD 2022-04-08 18:11:52 800 mL/min F BLOOD FLOW-QWB 2022-04-08 18:11:52 437 F TOTAL HOURS/WEEK DIALYSIS 2022-04-08 18:11:52 3 F Total Kt/V 2022-04-08 18:11:52 1.39 F URR% 2022-04-08 18:11:52 73 % F AMPUTATE FACTOR 2022-04-08 18:11:52 0 F PATIENT AGE 2022-04-08 18:11:52 66 Years F URR% 2022-04-08 18:11:52 73 % F BSA XAVI 2022-04-08 18:11:52 2.09 sq m F CURRENT KRU 2022-04-08 18:11:52 F VT (KT/V TX VOL) 2022-04-08 18:11:52 46.7 L F BSA XAVI 2022-04-08 18:11:52 2.09 sq m F Residual kt/v 2022-04-08 18:11:52 F eKt/V 2022-04-08 18:11:52 1.18 F TBW (Jimi) 2022-04-08 18:11:52 49.28 Liters F Std Renal KT/V 2022-04-08 18:11:52 N/A F VM (KT/V MEAN VOL) 2022-04-08 18:11:52 46.7 F VT (KT/V TX VOL) 2022-04-08 18:11:52 46.7 L F VM (KT/V MEAN VOL) 2022-04-08 18:11:52 46.7 F Residual kt/v 2022-04-08 18:11:52 F TBW (Krause) 2022-04-08 18:11:52 49.28 Liters F eKt/V 2022-04-08 18:11:52 1.18 F Std Renal KT/V 2022-04-08 18:11:52 N/A F CURRENT KRU 2022-04-08 18:11:52 F CURRENT KRU 2022-04-08 18:11:52 F eKt/V 2022-04-08 18:11:52 1.18 F Std Renal KT/V 2022-04-08 18:11:52 N/A F VT (KT/V TX VOL) 2022-04-08 18:11:52 46.7 L F BSA XAVI 2022-04-08 18:11:52 2.09 sq m F Residual kt/v 2022-04-08 18:11:52 F TBW (Krause) 2022-04-08 18:11:52 49.28 Liters F VM (KT/V MEAN VOL) 2022-04-08 18:11:52 46.7 F Urea nitrogen [Mass/volume] in Serum or Plasma --post dialysis 2022-04-08 17:53:46 17 mg/dL F 9.0-23.0 Urea nitrogen [Mass/volume] in Serum or Plasma --post dialysis 2022-04-08 17:53:46 17 mg/dL F 9.0-23.0 Urea nitrogen [Mass/volume] in Serum or Plasma --post dialysis 2022-04-08 17:53:46 17 mg/dL F 9.0-23.0 Urea nitrogen [Mass/volume] in Serum or Plasma 2022-04-07 17:00:45 62 mg/dL F 9.0-23.0 Urea nitrogen [Mass/volume] in Serum or Plasma 2022-04-07 17:00:45 62 mg/dL F 9.0-23.0 Urea nitrogen [Mass/volume] in Serum or Plasma 2022-04-07 17:00:45 62 mg/dL F 9.0-23.0 Anemia Description Draw Date Result/Unit Status Ref Range Result Comments HCT CALC HGBX3 2022-05-19 21:37:04 34.2 % F 42.0-52.0 HCT CALC HGBX3 2022-05-19 21:37:04 34.2 % F 42.0-52.0 HCT CALC HGBX3 2022-05-19 21:37:04 34.2 % F 42.0-52.0 Erythrocyte distribution width [Ratio] by Automated count 2022-05-19 21:36:50 19.6 % F 11.0-15.0 Erythrocytes [#/volume] in Blood by Automated count 2022-05-19 21:36:50 4.02 x 10'6 cells/uL F 4.6-6.2 Hematocrit [Volume Fraction] of Blood by Automated count 2022-05-19 21:36:50 36.1 % F 42.0-52.0 Hemoglobin [Mass/volume] in Blood 2022-05-19 21:36:50 11.4 g/dL F 14.0-18.0 MCV [Entitic volume] by Automated count 2022-05-19 21:36:50 90 fL F 80.0-100.0 MCH [Entitic mass] by Automated count 2022-05-19 21:36:50 28.3 pg F 27.0-31.0 MCHC [Mass/volume] by Automated count 2022-05-19 21:36:50 31.5 g/dL F 32.0-36.0 Platelets [#/volume] in Blood by Automated count 2022-05-19 21:36:50 216 x 10^3 cells/uL F 150.0-400.0 Reticulocytes/100 erythrocytes in Blood by Automated count 2022-05-19 21:36:50 1.95 % F 0.8-2.1 Hematocrit [Volume Fraction] of Blood by Automated count 2022-05-19 21:36:50 36.1 % F 42.0-52.0 Reticulocytes/100 erythrocytes in Blood by Automated count 2022-05-19 21:36:50 1.95 % F 0.8-2.1 MCH [Entitic mass] by Automated count 2022-05-19 21:36:50 28.3 pg F 27.0-31.0 Hemoglobin [Mass/volume] in Blood 2022-05-19 21:36:50 11.4 g/dL F 14.0-18.0 Erythrocyte distribution width [Ratio] by Automated count 2022-05-19 21:36:50 19.6 % F 11.0-15.0 Erythrocytes [#/volume] in Blood by Automated count 2022-05-19 21:36:50 4.02 x 10'6 cells/uL F 4.6-6.2 MCV [Entitic volume] by Automated count 2022-05-19 21:36:50 90 fL F 80.0-100.0 Platelets [#/volume] in Blood by Automated count 2022-05-19 21:36:50 216 x 10'3 cells/uL F 150.0-400.0 MCHC [Mass/volume] by Automated count 2022-05-19 21:36:50 31.5 g/dL F 32.0-36.0 Reticulocytes/100 erythrocytes in Blood by Automated count 2022-05-19 21:36:50 1.95 % F 0.8-2.1 Erythrocytes [#/volume] in Blood by Automated count 2022-05-19 21:36:50 4.02 x 10'6 cells/uL F 4.6-6.2 Erythrocyte distribution width [Ratio] by Automated count 2022-05-19 21:36:50 19.6 % F 11.0-15.0 Hemoglobin [Mass/volume] in Blood 2022-05-19 21:36:50 11.4 g/dL F 14.0-18.0 MCH [Entitic mass] by Automated count 2022-05-19 21:36:50 28.3 pg F 27.0-31.0 MCHC [Mass/volume] by Automated count 2022-05-19 21:36:50 31.5 g/dL F 32.0-36.0 Hematocrit [Volume Fraction] of Blood by Automated count 2022-05-19 21:36:50 36.1 % F 42.0-52.0 MCV [Entitic volume] by Automated count 2022-05-19 21:36:50 90 fL F 80.0-100.0 Platelets [#/volume] in Blood by Automated count 2022-05-19 21:36:50 216 x 10^3 cells/uL F 150.0-400.0 HCT CALC HGBX3 2022-04-23 21:20:19 32.4 % F 42.0-52.0 Erythrocyte distribution width [Ratio] by Automated count 2022-04-23 21:19:41 20 % F 11.0-15.0 Erythrocytes [#/volume] in Blood by Automated count 2022-04-23 21:19:41 3.82 x 10'6 cells/uL F 4.6-6.2 Hematocrit [Volume Fraction] of Blood by Automated count 2022-04-23 21:19:41 34.7 % F 42.0-52.0 MCV [Entitic volume] by Automated count 2022-04-23 21:19:41 90.9 fL F 80.0-100.0 Hemoglobin [Mass/volume] in Blood 2022-04-23 21:19:41 10.8 g/dL F 14.0-18.0 MCH [Entitic mass] by Automated count 2022-04-23 21:19:41 28.1 pg F 27.0-31.0 MCHC [Mass/volume] by Automated count 2022-04-23 21:19:41 31 g/dL F 32.0-36.0 Platelets [#/volume] in Blood by Automated count 2022-04-23 21:19:41 247 x 10^3 cells/uL F 150.0-400.0 Reticulocytes/100 erythrocytes in Blood by Automated count 2022-04-23 21:19:41 3.13 % F 0.8-2.1 HCT CALC HGBX3 2022-04-07 18:24:02 30.3 % F 42.0-52.0 HCT CALC HGBX3 2022-04-07 18:24:02 30.3 % F 42.0-52.0 HCT CALC HGBX3 2022-04-07 18:24:02 30.3 % F 42.0-52.0 Hemoglobin [Mass/volume] in Blood 2022-04-07 18:23:42 10.1 g/dL F 14.0-18.0 Hemoglobin [Mass/volume] in Blood 2022-04-07 18:23:42 10.1 g/dL F 14.0-18.0 Hemoglobin [Mass/volume] in Blood 2022-04-07 18:23:42 10.1 g/dL F 14.0-18.0 FluidBP Description Draw Date Result/Unit Status Ref Range Result Comments Sodium [Moles/volume] in Serum or Plasma 2022-05-19 17:41:49 137 mEq/L F 132.0-146.0 Sodium [Moles/volume] in Serum or Plasma 2022-05-19 17:41:49 137 mEq/L F 132.0-146.0 Sodium [Moles/volume] in Serum or Plasma 2022-05-19 17:41:49 137 mEq/L F 132.0-146.0 Sodium [Moles/volume] in Serum or Plasma 2022-04-23 20:38:40 139 mEq/L F 132.0-146.0 General Description Draw Date Result/Unit Status Ref Range Result Comments Chloride [Moles/volume] in Serum or Plasma 2022-05-19 17:41:51 104 mEq/L F 99.0-109.0 Chloride [Moles/volume] in Serum or Plasma 2022-05-19 17:41:51 104 mEq/L F 99.0-109.0 Chloride [Moles/volume] in Serum or Plasma 2022-05-19 17:41:51 104 mEq/L F 99.0-109.0 Aspartate aminotransferase [Enzymatic activity/volume] in Serum or Plasma 2022-05-19 17:41:49 20 U/L F 0.0-33.0 Alanine aminotransferase [Enzymatic activity/volume] in Serum or Plasma 2022-05-19 17:41:49 19 U/L F 10.0-49.0 Aspartate aminotransferase [Enzymatic activity/volume] in Serum or Plasma 2022-05-19 17:41:49 20 U/L F 0.0-33.0 Alanine aminotransferase [Enzymatic activity/volume] in Serum or Plasma 2022-05-19 17:41:49 19 U/L F 10.0-49.0 Alanine aminotransferase [Enzymatic activity/volume] in Serum or Plasma 2022-05-19 17:41:49 19 U/L F 10.0-49.0 Aspartate aminotransferase [Enzymatic activity/volume] in Serum or Plasma 2022-05-19 17:41:49 20 U/L F 0.0-33.0 Chloride [Moles/volume] in Serum or Plasma 2022-04-23 20:38:40 101 mEq/L F 99.0-109.0 Alanine aminotransferase [Enzymatic activity/volume] in Serum or Plasma 2022-04-23 20:38:40 25 U/L F 10.0-49.0 Aspartate aminotransferase [Enzymatic activity/volume] in Serum or Plasma 2022-04-23 20:38:40 22 U/L F 0.0-33.0 InfectionVaccination Description Draw Date Result/Unit Status Ref Range Result Comments Basophils/100 leukocytes in Blood by Automated count 2022-05-19 21:36:50 1.5 % F Neutrophils/100 leukocytes in Blood by Automated count 2022-05-19 21:36:50 55.2 % F Lymphocytes/100 leukocytes in Blood by Automated count 2022-05-19 21:36:50 26.4 % F Monocytes/100 leukocytes in Blood by Automated count 2022-05-19 21:36:50 8.2 % F Eosinophils/100 leukocytes in Blood by Automated count 2022-05-19 21:36:50 8.7 % F Leukocytes [#/volume] in Blood by Automated count 2022-05-19 21:36:50 4.8 x 10^3 cells/uL F 4.5-11.0 Neutrophils [#/volume] in Blood by Automated count 2022-05-19 21:36:50 2638.56 Cell/uL F 2000.0-8800.0 Lymphocytes [#/volume] in Blood by Automated count 2022-05-19 21:36:50 1261.92 Cell/uL F 1100.0-4800.0 Monocytes [#/volume] in Blood by Automated count 2022-05-19 21:36:50 391.96 Cell/uL F 0.0-1100.0 Basophils [#/volume] in Blood by Automated count 2022-05-19 21:36:50 71.7 Cell/uL F 0.0-400.0 Eosinophils [#/volume] in Blood by Automated count 2022-05-19 21:36:50 415.86 Cell/uL F 0.0-700.0 Lymphocytes [#/volume] in Blood by Automated count 2022-05-19 21:36:50 1261.92 Cell/uL F 1100.0-4800.0 Eosinophils [#/volume] in Blood by Automated count 2022-05-19 21:36:50 415.86 Cell/uL F 0.0-700.0 Monocytes [#/volume] in Blood by Automated count 2022-05-19 21:36:50 391.96 Cell/uL F 0.0-1100.0 Neutrophils/100 leukocytes in Blood by Automated count 2022-05-19 21:36:50 55.2 % F Eosinophils/100 leukocytes in Blood by Automated count 2022-05-19 21:36:50 8.7 % F Basophils/100 leukocytes in Blood by Automated count 2022-05-19 21:36:50 1.5 % F Basophils [#/volume] in Blood by Automated count 2022-05-19 21:36:50 71.7 Cell/uL F 0.0-400.0 Lymphocytes/100 leukocytes in Blood by Automated count 2022-05-19 21:36:50 26.4 % F Leukocytes [#/volume] in Blood by Automated count 2022-05-19 21:36:50 4.8 x 10'3 cells/uL F 4.5-11.0 Neutrophils [#/volume] in Blood by Automated count 2022-05-19 21:36:50 2638.56 Cell/uL F 2000.0-8800.0 Monocytes/100 leukocytes in Blood by Automated count 2022-05-19 21:36:50 8.2 % F Monocytes/100 leukocytes in Blood by Automated count 2022-05-19 21:36:50 8.2 % F Neutrophils/100 leukocytes in Blood by Automated count 2022-05-19 21:36:50 55.2 % F Lymphocytes/100 leukocytes in Blood by Automated count 2022-05-19 21:36:50 26.4 % F Eosinophils/100 leukocytes in Blood by Automated count 2022-05-19 21:36:50 8.7 % F Basophils/100 leukocytes in Blood by Automated count 2022-05-19 21:36:50 1.5 % F Leukocytes [#/volume] in Blood by Automated count 2022-05-19 21:36:50 4.8 x 10^3 cells/uL F 4.5-11.0 Basophils [#/volume] in Blood by Automated count 2022-05-19 21:36:50 71.7 Cell/uL F 0.0-400.0 Eosinophils [#/volume] in Blood by Automated count 2022-05-19 21:36:50 415.86 Cell/uL F 0.0-700.0 Monocytes [#/volume] in Blood by Automated count 2022-05-19 21:36:50 391.96 Cell/uL F 0.0-1100.0 Lymphocytes [#/volume] in Blood by Automated count 2022-05-19 21:36:50 1261.92 Cell/uL F 1100.0-4800.0 Neutrophils [#/volume] in Blood by Automated count 2022-05-19 21:36:50 2638.56 Cell/uL F 2000.0-8800.0 Basophils/100 leukocytes in Blood by Automated count 2022-04-23 21:19:41 0.6 % F Lymphocytes/100 leukocytes in Blood by Automated count 2022-04-23 21:19:41 30.7 % F Neutrophils/100 leukocytes in Blood by Automated count 2022-04-23 21:19:41 57.2 % F Monocytes/100 leukocytes in Blood by Automated count 2022-04-23 21:19:41 6.8 % F Eosinophils/100 leukocytes in Blood by Automated count 2022-04-23 21:19:41 4.8 % F Leukocytes [#/volume] in Blood by Automated count 2022-04-23 21:19:41 5.6 x 10^3 cells/uL F 4.5-11.0 Neutrophils [#/volume] in Blood by Automated count 2022-04-23 21:19:41 3191.76 Cell/uL F 2000.0-8800.0 Lymphocytes [#/volume] in Blood by Automated count 2022-04-23 21:19:41 1713.06 Cell/uL F 1100.0-4800.0 Monocytes [#/volume] in Blood by Automated count 2022-04-23 21:19:41 379.44 Cell/uL F 0.0-1100.0 Basophils [#/volume] in Blood by Automated count 2022-04-23 21:19:41 33.48 Cell/uL F 0.0-400.0 Eosinophils [#/volume] in Blood by Automated count 2022-04-23 21:19:41 267.84 Cell/uL F 0.0-700.0 MineralBone Disorder Description Draw Date Result/Unit Status Ref Range Result Comments CA CORRECTED 2022-05-20 08:18:02 8.5 mg/dL F CA CORRECTED 2022-05-20 08:18:02 8.5 mg/dL F CA CORRECTED 2022-05-20 08:18:02 8.5 mg/dL F Calcium [Mass/volume] in Serum or Plasma 2022-05-20 03:14:23 8.5 mg/dL F 8.7-10.4 Calcium [Mass/volume] in Serum or Plasma 2022-05-20 03:14:23 8.5 mg/dL F 8.7-10.4 Calcium [Mass/volume] in Serum or Plasma 2022-05-20 03:14:23 8.5 mg/dL F 8.7-10.4 Alkaline phosphatase [Enzymatic activity/volume] in Serum or Plasma 2022-05-19 17:41:51 59 U/L F 46.0-116.0 Alkaline phosphatase [Enzymatic activity/volume] in Serum or Plasma 2022-05-19 17:41:51 59 U/L F 46.0-116.0 Alkaline phosphatase [Enzymatic activity/volume] in Serum or Plasma 2022-05-19 17:41:51 59 U/L F 46.0-116.0 CA CORRECTED 2022-04-23 23:07:11 8.5 mg/dL F CA/PHOS PRODUCT 2022-04-23 23:05:05 42.5 Calc F 21.0-53.0 CA*PO4 CORRCTD 2022-04-23 23:05:05 42.5 Calc F 21.0-53.0 Parathyrin.intact [Mass/volume] in Serum or Plasma 2022-04-23 23:04:40 325 pg/mL F 18.0-80.0 Calcium [Mass/volume] in Serum or Plasma 2022-04-23 22:41:08 8.5 mg/dL F 8.7-10.4 Alkaline phosphatase [Enzymatic activity/volume] in Serum or Plasma 2022-04-23 20:38:40 64 U/L F 46.0-116.0 Phosphate [Mass/volume] in Serum or Plasma 2022-04-23 20:38:40 5 mg/dL F 2.4-5.1 CA CORRECTED 2022-04-08 08:09:29 8.5 mg/dL F CA CORRECTED 2022-04-08 08:09:29 8.5 mg/dL F CA CORRECTED 2022-04-08 08:09:29 8.5 mg/dL F CA*PO4 CORRCTD 2022-04-08 05:02:14 40.8 Calc F 21.0-53.0 CA/PHOS PRODUCT 2022-04-08 05:02:14 40.8 Calc F 21.0-53.0 CA*PO4 CORRCTD 2022-04-08 05:02:14 40.8 Calc F 21.0-53.0 CA*PO4 CORRCTD 2022-04-08 05:02:14 40.8 Calc F 21.0-53.0 CA/PHOS PRODUCT 2022-04-08 05:02:14 40.8 Calc F 21.0-53.0 CA/PHOS PRODUCT 2022-04-08 05:02:14 40.8 Calc F 21.0-53.0 Calcium [Mass/volume] in Serum or Plasma 2022-04-08 04:54:21 8.5 mg/dL F 8.7-10.4 Calcium [Mass/volume] in Serum or Plasma 2022-04-08 04:54:21 8.5 mg/dL F 8.7-10.4 Calcium [Mass/volume] in Serum or Plasma 2022-04-08 04:54:21 8.5 mg/dL F 8.7-10.4 Phosphate [Mass/volume] in Serum or Plasma 2022-04-07 17:00:45 4.8 mg/dL F 2.4-5.1 Phosphate [Mass/volume] in Serum or Plasma 2022-04-07 17:00:45 4.8 mg/dL F 2.4-5.1 Phosphate [Mass/volume] in Serum or Plasma 2022-04-07 17:00:45 4.8 mg/dL F 2.4-5.1 Nutrition Description Draw Date Result/Unit Status Ref Range Result Comments A/G RATIO 2022-05-19 17:42:19 2.2 Calc F 1.0-2.5 GLOBULIN 2022-05-19 17:42:19 2.1 g/dL F 0.9-5.0 A/G RATIO 2022-05-19 17:42:19 2.2 Calc F 1.0-2.5 GLOBULIN 2022-05-19 17:42:19 2.1 g/dL F 0.9-5.0 A/G RATIO 2022-05-19 17:42:19 2.2 Calc F 1.0-2.5 GLOBULIN 2022-05-19 17:42:19 2.1 g/dL F 0.9-5.0 Lactate dehydrogenase [Enzymatic activity/volume] in Serum or Plasma 2022-05-19 17:41:49 225 U/L F 120.0-246.0 Protein [Mass/volume] in Serum or Plasma 2022-05-19 17:41:49 6.7 g/dL F 5.7-8.2 Albumin [Mass/volume] in Serum or Plasma by Bromocresol green (BCG) dye binding method 2022-05-19 17:41:49 4.6 g/dL F 3.4-4.8 Potassium [Moles/volume] in Serum or Plasma 2022-05-19 17:41:49 5.4 mEq/L F 3.5-5.5 Bicarbonate [Moles/volume] in Serum or Plasma 2022-05-19 17:41:49 23 mEq/L F 20.0-31.0 Albumin [Mass/volume] in Serum or Plasma by Bromocresol green (BCG) dye binding method 2022-05-19 17:41:49 4.6 g/dL F 3.4-4.8 Potassium [Moles/volume] in Serum or Plasma 2022-05-19 17:41:49 5.4 mEq/L F 3.5-5.5 Protein [Mass/volume] in Serum or Plasma 2022-05-19 17:41:49 6.7 g/dL F 5.7-8.2 Bicarbonate [Moles/volume] in Serum or Plasma 2022-05-19 17:41:49 23 mEq/L F 20.0-31.0 Lactate dehydrogenase [Enzymatic activity/volume] in Serum or Plasma 2022-05-19 17:41:49 225 U/L F 120.0-246.0 Albumin [Mass/volume] in Serum or Plasma by Bromocresol green (BCG) dye binding method 2022-05-19 17:41:49 4.6 g/dL F 3.4-4.8 Bicarbonate [Moles/volume] in Serum or Plasma 2022-05-19 17:41:49 23 mEq/L F 20.0-31.0 Lactate dehydrogenase [Enzymatic activity/volume] in Serum or Plasma 2022-05-19 17:41:49 225 U/L F 120.0-246.0 Potassium [Moles/volume] in Serum or Plasma 2022-05-19 17:41:49 5.4 mEq/L F 3.5-5.5 Protein [Mass/volume] in Serum or Plasma 2022-05-19 17:41:49 6.7 g/dL F 5.7-8.2 A/G RATIO 2022-04-23 20:38:46 1.9 Calc F 1.0-2.5 GLOBULIN 2022-04-23 20:38:46 2.3 g/dL F 0.9-5.0 Albumin [Mass/volume] in Serum or Plasma by Bromocresol green (BCG) dye binding method 2022-04-23 20:38:40 4.4 g/dL F 3.4-4.8 Bicarbonate [Moles/volume] in Serum or Plasma 2022-04-23 20:38:40 27 mEq/L F 20.0-31.0 Lactate dehydrogenase [Enzymatic activity/volume] in Serum or Plasma 2022-04-23 20:38:40 248 U/L F 120.0-246.0 Potassium [Moles/volume] in Serum or Plasma 2022-04-23 20:38:40 4.5 mEq/L F 3.5-5.5 Protein [Mass/volume] in Serum or Plasma 2022-04-23 20:38:40 6.7 g/dL F 5.7-8.2 Albumin [Mass/volume] in Serum or Plasma by Bromocresol green (BCG) dye binding method 2022-04-07 17:00:45 4.4 g/dL F 3.4-4.8 Potassium [Moles/volume] in Serum or Plasma 2022-04-07 17:00:45 4.8 mEq/L F 3.5-5.5 Albumin [Mass/volume] in Serum or Plasma by Bromocresol green (BCG) dye binding method 2022-04-07 17:00:45 4.4 g/dL F 3.4-4.8 Potassium [Moles/volume] in Serum or Plasma 2022-04-07 17:00:45 4.8 mEq/L F 3.5-5.5 Albumin [Mass/volume] in Serum or Plasma by Bromocresol green (BCG) dye binding method 2022-04-07 17:00:45 4.4 g/dL F 3.4-4.8 Potassium [Moles/volume] in Serum or Plasma 2022-04-07 17:00:45 4.8 mEq/L F 3.5-5.5 Encounters No encounter information to report Immunizations Ordered Immunization Name Filled Immunization Name Date Status Comments Refusal Reason TST-PPD intradermal 2022-06-03 22:22:00 Influenza Vaccination 2022-03-06 06:00:00 TB Skin Test 2021-06-12 06:00:00 TB Skin Test 2021-06-10 06:00:00 TB Skin Test 2021-05-28 06:00:00 Hepatitis B Vaccination 2021-05-15 06:00:00 Pneumococcal Vaccination 2021-05-15 06:00:00 Influenza Vaccination 2021-02-13 05:00:00 Influenza Vaccination 2021-02-04 05:00:00
--- OUTSIDE RECORDS SUMMARY | 2024-06-18 11:41 | XMS_ITS | Encounter Summary ---
Author Organization [facility] Facility Care Team Providers Care Policy Analyst Name Role Phone Sena Marie RN Unavailable [phone] Seun Green RN Unavailable [phone] Miscellaneous, Not In File Primary Care Provider Unavailable Unknown, Notinfile Primary Care Provider Unavail able Arsalan Carrizales MD Unavailable + [phone] Miscellaneous, Not In File Primary Care Provider Unavailable Unknown, Notinfile Primary Care Provider Unavail able Karolina Crowder Primary Care Provider + [phone] Mohan Camacho MD Unavailable + [phone] Unknown, Notinfile Primary Care Provider Unavail able Karolina Crowder Primary Care Provider + [phone] Racehl Nielsen RESORT HOUSEKEEPER Primary Care Provider + [phone] MonRachel lindquist RESORT HOUSEKEEPER Primary Care Provider + [phone] Karolina Crowder Primary Care Provider + [phone] MonRachel lindquist RESORT HOUSEKEEPER Primary Care Provider + [phone] Jasmyne Eduardo RN Unavailable [phone] Rachel Nielsen RESORT HOUSEKEEPER Primary Care Provider + [phone] Radha Jurado PA Primary Care Provider [phone] Sylvester Nicholas MD Unavailable + [phone] Lyla Hernandez MD Unavailable [phone] Js Martinez MD Unavailable [phone] Alexis Ngo MD Unavailable +[phone] Ludmila Tesfaye RN Unavailable [phone] Sudheer Arnold MD Unavailable + Haja Pires OD Unavailable [phone] Gaby Pierre MA Unavailable Unavailable Encounter Details Date Type Department Care Team (Latest Contact Info) Description 05/27/2015 Orders Only [facility] CLINCONV Provider, MD Rasheed [address] [place] [id number] Social History Tobacco Use Types Packs/Day Years Used Date Smoking Tobacco: Former Sex and Gender Information Value Date Recorded Sex Assigned at Not on file Legal Sex Male 3:15 PM POLICE CADET Gender Identity Not on file Sexual Orientation Not on file documented as of this encounter Plan of Treatment Scheduled Procedures Name Priority Associated Diagnoses Date/Ti me TRANSPLANT KIDNEY ESRD (end stage renal disease) (CMS/HCC) ([facility]) documented as of this encounter Procedures Procedure Name Priority Date/Time Associated Diagnosis Comments PROCEDURE - RESULT 06/07/2015 12 :00 AM POLICE CADET documented in this encounter Results * PROCEDURE - RESULT (06/07/2015 12:00 AM POLICE CADET) Narrative 06/07/2015 12:00 AM POLICE CADET Ordered by an unspecified provider. Historical Provider Final Res ult documented in this encounter Visit Diagnoses Not on filedocumented in this encounter Additional Health Concerns Infection Onset Date Last Indicated Resolved Time COVID: Recovered Comment:Positive 05/11/21 at OSH. Results scanned in media. 06/25/2021 06/25/2021 10/23/2021 3:0 5 AM CDT documented as of this encounter Care Teams Policy Analyst Relationship Specialty Start Date End Date Miscellaneous, Not In File PCP - General 10/11/17 10/19/17 Unknown, Notinfile PCP - General 10/20/17 11/22/17 Miscellaneous, Not In File PCP - General 11/23/17 11/24/17 Unknown, Notinfile PCP - General 11/25/17 11/28/17 Karolina Crowder PA PCP - General 11/29/17 12/23/17 Unknown, Notinfile PCP - General 12/24/17 06/08/18 Karolina Crowder PA PCP - General 06/09/18 04/24/20 Rachel Nielsen RESORT HOUSEKEEPER PCP - General 04/29/20 05/25/20 Rachel Nielsen RESORT HOUSEKEEPER PCP - General 04/25/20 04/28/20 Karolina Crowder PA PCP - General 05/26/20 06/16/20 Rachel Nielsen RESORT HOUSEKEEPER PCP - General Nurse Practitioner 07/04/20 07/22/20 Rachel Nielsen, RESORT HOUSEKEEPER PCP - General 06/17/20 07/03/20 Radha Jurado PA [facility] [address] [place] [address] PCP - General Family Medicine 07/23/20 Sena Marie, RN [address] [id number] Print Shop Chief Clerk 09/21/17 8 Seun Green, ELEANOR [address] [address] Print Shop Chief Clerk 09/27/17 9 Arsalan Carrizales MD Referring Physician Nephrology 11/08/17 08/06/20 Mohan Camacho MD Disposal Plant Operator Cardiology 12/17/17 Jasmyne Eduardo RN [address] [address] Registered Nurse Print Shop Chief Clerk 07/04/20 Sylvester Nicholas MD [address] [place] [address] Consulting Physician Family Medicine 07/23/20 Lyla Hernandez MD [facility] [address] [address] Referring Physician Nephrology 08/07/20 07/13/22 Js Martinez MD [facility] [address] [address] Referring Physician Nephrology 06/17/21 [place] [address] [place] [address] Surgeon Vascular Surgery 06/30/21 Ludmila Tesfaye, RN [address] [address] Print Shop Chief Clerk 09/01/22 Sudheer Arnold MD [address] [place] [address] Consulting Physician Nephrology 12/23/22 Haja Pires, OD [address] [facility] [address] [place] [address] Life Insurance Sales 12/23/22 Gaby Pierre MA [address] [place] [address] ACO Care Supervisor Nuclear Medicine 01/24/24 01/24/24 documented as of this encounter
--- OUTSIDE RECORDS SUMMARY | 2024-06-18 11:41 | XMS_ITS | Encounter Summary ---
Author Organization [facility] Facility Care Team Providers Care Community Pharmacist Name Role Phone Sena Marie RN Unavailable [phone] Seun Green RN Unavailable [phone] Miscellaneous, Not In File Primary Care [...] Karolina Crowder Primary Care Provider + [phone] Rachel Nielsen FORGING DIES FINAL FINISHER Primary Care Provider + [phone] MonRachel lindquist FORGING DIES FINAL FINISHER Primary Care Provider + [phone] Karolina Crowder Primary Care Provider + [phone] MonRachel lindquist FORGING DIES FINAL FINISHER Primary Care Provider + [phone] Jasmyne Eduardo RN Unavailable [phone] Rachel Nielsen FORGING DIES FINAL FINISHER Primary Care Provider + [phone] Radha Jurado PA Primary Care Provider +[phone] Sylvester Nicholas MD Unavailable + [phone] Lyla Hernandez MD Unavailable [phone] Js Martinez MD Unavailable [phone] Alexis Ngo MD Unavailable +[phone] Ludmila Tesfaye RN Unavailable [phone] Sudheer Arnold MD Unavailable + Haja Pires OD Unavailable [phone] Gaby Pierre MA Unavailable Unavailable Encounter Details Date Type Department Care Team (Latest Contact Info) Description 05/30/2015 Orders Only [facility] CLINCONV ProviderRasheed MD [address] [place] [address] Social History Tobacco Use Types Packs/Day Years Used Date Smoking Tobacco: Former Sex and Gender Information Value Date Recorded Sex Assigned at Not on file Legal Sex Male 3:15 PM LINER REROLL TENDER Gender Identity Not on file Sexual Orientation Not on file documented as of this encounter Plan of Treatment Scheduled Procedures Name Priority Associated Diagnoses Date/Ti me TRANSPLANT KIDNEY ESRD (end stage renal disease) (CMS/HCC) ([facility]) documented as of this encounter Procedures Procedure Name Priority Date/Time Associated Diagnosis Comments PROCEDURE - RESULT 06/03/2015 12 :00 AM LINER REROLL TENDER documented in this encounter Results * PROCEDURE - RESULT (06/03/2015 12:00 AM LINER REROLL TENDER) Narrative 06/03/2015 12:00 AM LINER REROLL TENDER Ordered by an unspecified provider. Historical Provider Final Res ult documented in this encounter Visit Diagnoses Not on filedocumented in this encounter Additional Health Concerns Infection Onset Date Last Indicated Resolved Time COVID: Recovered Comment:Positive 05/11/21 at OSH. Results scanned in media. 06/25/2021 06/25/2021 10/23/2021 3:0 5 AM CDT documented as of this encounter Care Teams Community Pharmacist Relationship Specialty Start Date End Date Miscellaneous, Not In File PCP - General 10/11/17 10/19/17 Unknown, Notinfile PCP - General 10/20/17 11/22/17 Miscellaneous, Not In File PCP - General 11/23/17 11/24/17 Unknown, Notinfile PCP - General 11/25/17 11/28/17 Karolina Crowder PA PCP - General 11/29/17 12/23/17 Unknown, Notinfile PCP - General 12/24/17 06/08/18 Karolina Crowdre PA PCP - General 06/09/18 04/24/20 Rachel Nielsen FORGING DIES FINAL FINISHER PCP - General 04/29/20 05/25/20 Rachel Nielsen FORGING DIES FINAL FINISHER PCP - General 04/25/20 04/28/20 Karolina Crowder PA PCP - General 05/26/20 06/16/20 Rachel Nielsen FORGING DIES FINAL FINISHER PCP - General Nurse Practitioner 07/04/20 07/22/20 Rachel Nielsen, FORGING DIES FINAL FINISHER PCP - General 06/17/20 07/03/20 Radha Jurado PA [facility] [address] [place] [address] PCP - General Family Medicine 07/23/20 Sena Marie, RN [address] [phone] Dairy Management Specialist 09/21/17 8 Seun Green, ELEANOR [address] [address] Dairy Management Specialist 09/27/17 9 Arsalan Carrizales MD Referring Physician Nephrology 11/08/17 08/06/20 Mohan Camacho MD Mobile Home Mechanic Cardiology 12/17/17 Jasmyne Eduardo RN [address] [address] Registered Nurse Dairy Management Specialist 07/04/20 Sylvester Nicholas MD [address] [place] [address] Consulting Physician Family Medicine 07/23/20 Lyla Hernandez MD [facility] [address] Referring Physician Nephrology 08/07/20 07/13/22 Js Martinez MD [facility] [address] [address] Referring Physician Nephrology 06/17/21 [place] [address] [place] [address] Surgeon Vascular Surgery 06/30/21 Ludmila Tesfaye, RN [address] [address] Dairy Management Specialist 09/01/22 Sudheer Arnold MD [address] [place] [address] Consulting Physician Nephrology 12/23/22 Haja Pires, OD [address] [facility] [address] [place] [address] Skills Instructor 12/23/22 Gaby Pierre MA [address] [address] [place] [address] ACO Care Solar Electric Installer 01/24/24 01/24/24 documented as of this encounter
--- OUTSIDE RECORDS SUMMARY | 2024-06-18 11:41 | XMS_ITS ---
Author Organization [facility] [address] [facility] Address [address] [place] [address] Care Team Providers Care Battery Plate Assembler Name Role Phone Mohan Camacho MD Unavailable [phone] Radha Jurado Primary Care Provider [phone] Sylvester Nicholas MD Unavailable + [phone] Js Martinez MD Unavailable [phone] Alexis Ngo MD Unavailable [phone] Ludmila Tesfaye RN Unavailable [phone] Sudheer Arnold MD Unavailable + Haja Pires OD Unavailable [phone] Transplant Episode Kidney Recipient [facility] ([place], [place]) - [facility] Organ Received: 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 Marked as Active Follow-up on 09/01/2022 Reason: Transplanted at [facility] Kidney CoordinatorLudmila Tesfaye RN Fax: N/A Email: N/A [place] Organ Diagnosis Organ Primary Contributory Kidney Diabetes Mellitus - Type II Infection History Noted Survival Infection Treatment Organism Resolved 11/18/2023 1 year 2 months Tinea cruris Donor Information Organ ABO Source Meets Risk Criteria HLA Match Mismatches Cross Match Left Kidney Transplanted O Positive Live A: 2 B: 1 DR: 2 T cell (Negative) B cell (Negative) Left Kidney Donor Serology Results Anti-CMV CMV IgG: Positive EBV IgG EBV VCA IgG: Positive Anti-HBcAb HBC Total: Nonreactive HBsAg HBsAg: Nonreactive HBV DNA HBV DNA: Not Detected Anti-HCV HCV Ab: Nonreactive HCV RNA: Not Detected Anti-HIV I/II HIV RNA: Not Detected HIV Ag/Ab Combo Assay: Nonreactive Anti-HTLV I/II No results on file RPR/VDRL RPR: Nonreactive EBV IgM No results on file HBsAb HBsAb: Nonreacti ve EBNA No results on file SARS CoV-2 SARS CoV-2 RNA: Not Detected Care Team Name Role Phone Fax Email Ludmila Tesfaye RN Kidney Coordinator [phone] N/A N/A Yanet Issa Primary Bellman N/A N/A N/A Daysi Shanks Prime Minister [phone] N/A N/A Js Martinez MD Referring Physician [phone] N/A Reyna Rodriguez Secondary Bellman N/A N/A N/A Clare Castro RN Secondary Coordinator Secondary Post Kidney Coordinator [phone] N/A N/A Ludmila Tesfaye RN Heading Saw Operator [phone] N/A N/A Events Post-Transplant Pre-Transplant Admitted: 09/01/2022 Referred: 07/04/2020 Transplanted: 09/01/2022 Evaluation began: 1 Discharged: 09/04/2022 Committee: 11/04/2020 Center waitlisted: 1 Appointments (05/18/2024 - 07/16/2024) When With Visit Type Description 06/05/2024 Transplant - Marcell, E John Alexander ey transplanted (Primary Dx); Encounter for long-term (current) use of high-risk medication; Primary hypertension; Dyslipidemia Dialysis History Dialysis History Start End Type Comments Center 05/14/2021 09/01/2022 Hemo MWF PM [facility] Dialysis Center Information Center Phone Fax Address [facility] [phone] [facility] [address]
--- OUTSIDE RECORDS SUMMARY | 2024-06-18 11:41 | XMS_ITS | Encounter Summary ---
Author Organization [facility] Healthcare Address [address] [place] [address] Care Team Providers Care Safety Physician Name Role Phone Mohan Camacho MD Unavailable [phone] Jasmyne Eduardo RN Unavailable +[phone] Radha Jurado Primary Care Provider [phone] Sylvester Nicholas MD Unavailable + [phone] Lyla Hernandez MD Unavailable [phone] Js Martinez MD Unavailable [phone] Alexis Ngo MD Unavailable [phone] Ludmila Tesfaye RN Unavailable [phone] Sudheer Arnold MD Unavailable + Haja Pires OD Unavailable [phone] Gaby Pierre MA Unavailable Unavailable Encounter Details Date Type Department Care Team (Late st Contact Info) Description 02/26/2022 Telephone [facility] D[facility] Access [facility] at [facility] [address] [facility] [address] [place] [address] Tutu Ngo MD [address] [facility] [address] [place] [address] Social History Tobacco Use Types Packs/Day Years [...] on file Legal Sex Male 3:15 PM NARRATIVE WRITER Gender Identity Not on file Sexual Orientation Not on file documented as of this encounter Plan of Treatment Scheduled Procedures Name Priority Associated Diagnoses Date/Ti me TRANSPLANT KIDNEY ESRD (end stage renal disease) ([facility]/HCC) ([facility]) documented as of this encounter Visit Diagnoses Not on filedocumented in this encounter Care Teams Safety Physician Relationship Specialty Start Date End Date Radha Jurado PA [address] [place] [address] PCP - General Family Medicine 07/23/20 Mohan Camacho MD Vegetable Packer Cardiology 12/17/17 Jasmyne Eduardo, RN [address] [facility] [address] [place] [address] Registered Nurse Customer Service Cashier 07/04/20 Sylvester Nicholas MD [address] [place] [address] Consulting Physician Family Medicine 07/23/20 Lyla Hernandez MD [facility] [facility] [address] [place] [address] Referring Physician Nephrology 08/07/20 07/13/22 Js Martinez MD [address] [facility] [address] [place] [address] Referring Physician Nephrology 06/17/21 Alexis Ngo MD [address] [facility] [address] [place] [address] Surgeon Vascular Surgery 06/30/21 Ludmila Tesfaye, RN [address] [facility] [address] [place] [address] Customer Service Cashier 09/01/22 Sudheer Arnold MD [address] [place] [address] Consulting Physician Nephrology 12/23/22 Haja Pires, OD [address] [facility] [address] [place] [address] Food Service Sales Representatives 12/23/22 Gaby Pierre, HECTOR [address] [facility] [address] [address] [place] [address] ACO Care Machine Bunch Maker 01/24/24 01/24/24 documented as of this encounter
--- OUTSIDE RECORDS SUMMARY | 2024-06-18 11:41 | XMS_ITS | Clinical Summary ---
Author Organization [facility] Address [address] [place] [address] Care Team Providers Care Art Studio Teacher Name Role Phone Provider, Abstract Primary Care Provider Unavail able Allergies Active Allergy Reactions Criticality Noted Date Comments Iodinated Contrast Media Other (See Comments) Low 09/16/2020 Pt states it is contraindicated with renal disease. Other reaction(s): Other (See Comments) Pt states it is contraindicated with renal disease. Pt states it is contraindicated with renal disease. Iodine Other (See Comments) Low 09/16/2020 Pt states it is contraindicated with renal disease. Pt states it is contraindicated with renal disease. Medications cholecalciferol , vitamin D3, 125 mcg (5,000 unit) Tablet, Rapid Dissolve Take 5,000 Units by mouth. 9 Active calcium as carbonate (TUMS ULTRA) 1,000 mg (400 mg elemental) Tablet, Chewable Take 1 Tablet by mouth. 8 Active atorvastatin (LIPITOR) 40 mg tablet Take 40 mg by mouth. Active calcitRIOL (ROCALTROL) 0.25 mcg capsule Take 0.25 mcg by mouth. 9 Active albuterol HFA 90 mcg inhaler Take 1 Puff by inhalation. Active amLODIPine-ator vastatin 10-10 mg tablet Take 1 Tablet by mouth. Active ferrous sulfate (Iron, Ferrous Sulfate,) 325 mg (65 mg iron) tablet Take by mouth. Activ e glipiZIDE (GLUCOTROL) 5 mg tablet Take 5 mg by mouth. Active furosemide (LASIX) 40 mg tablet Take 40 mg by mouth. Active epoetin lonnie (EPOGEN, PROCRIT) 10,000 unit/mL Solution Inject by subcutaneous injection. Active iron sucrose (VENOFER) 50 mg iron/2.5 mL Solution Active hydrALAZINE (APRESOLINE) 50 mg tablet Take 50 mg by mouth. Active isosorbide dinitrate (ISORDIL) 10 mg tablet Take 10 mg by mouth. Active labetaloL (NORMODYNE) 100 mg tablet Take 100 mg by mouth. Active mupirocin (BACTROBAN) 2 % Ointment 9 Active omeprazole (PriLOSEC) 20 mg Capsule, Delayed Release(E.C.) Take by mouth. 8 Active pantoprazole (PROTONIX) 40 mg Tablet, Delayed Release (E.C.) Take 40 mg by mouth. Active sulfamethoxazol e-trimethoprim (BACTRIM DS) 800-160 mg tablet 9 Active labetaloL (NORMODYNE) 200 mg tablet Take by mouth. Activ e isosorbide mononitrate (IMDUR) 30 mg Extended Release 24 hour tablet TAKE 1 TABLET (30 MG) BY MOUTH EVERY DAY 1 Active amLODIPine (NORVASC) 10 mg tablet Take 10 mg by mouth. 1 Active bumetanide (BUMEX) 1 mg tablet 1 Active aspirin (ECOTRIN EC) 81 mg Tablet, Delayed Release (E.C.) Take 81 mg by mouth daily. Active baclofen (LIORESAL) 10 mg tablet TAKE 1 TABLET BY MOUTH EVERY DAY IN THE EVENING NEEDED FOR MUSCLE SPASMS 1 Active HYDROcodone-na taminophen (NORCO) 5-325 mg tablet Take 1 Tablet by mouth. 1 Active ondansetron (ZOFRAN ODT) 4 mg Tablet, Rapid Dissolve Take 4 mg by mouth. 1 Active traZODone (DESYREL) 100 mg tablet Take 100 mg by mouth. 1 Active diazePAM (VALIUM) 5 mg tablet Take 5 mg by mouth. 1 Active Active Problems Problem Noted Date Diagnosed Date Anemia of chronic renal failure, stage 4 (severe ) 05/27/2020 Family History Medical History Relation Name Comments Diabetes Daughter Diabetes Father Heart Disease Father Diabetes Mother Diabetes Sister Diabetes Son Relation Name Status Comments Brother Alive Daughter Alive Father Mother Sister Alive Son Social History Tobacco Use Types Packs/Day Years Used Date Smoking Tobacco: Never Smokeless Tobacco: Never Alcohol Use Standard Drinks/Week Comments Never 0 (1 standard drink = 0.6 oz pur e alcohol) Sex and Gender Information Value Date Recorded Sex Assigned at Not on file Legal Sex Male 9:35 PM CDT Gender Identity Not on file Sexual Orientation Not on file Last Filed Vital Signs Vital Sign Reading Time Taken Comments Blood Pressure 159/68 02/25/2021 1:34 PM CDT Pulse 82 02/25/2021 1:34 PM CDT Temperature 36.9 C (98.5 F) 02/25/2021 1:34 PM CDT Respiratory Rate - - Oxygen Saturation 98% 02/25/2021 1:34 PM CDT Inhaled Oxygen Concentration - - Weight 101.4 kg (223 lb 9.6 oz) 02/25/2021 1:34 PM CDT Height 172.7 cm (5' 8 ) 02/25/2021 1:34 PM CDT Body Mass Index 34 02/25/2021 1:34 PM CDT Plan of Treatment Health Maintenance Due Date Last Done Comments DIABETES ANNUAL FOOT EXAM 11/29/1975 DIABETES ANNUAL RETINAL EXAM 11/29/1975 DIABETES MICROALBUMIN ANNUAL SCREEN 11/29/1975 LDL CHOLESTEROL ANNUAL 11/29/1975 PNEUMOCOCCAL VACCINE 65+ YEA RS (1 of 2 - PCV) 1976 FIT-DNA Q 3 years 2002 FIT/FOBT Q 1 year 2002 Flex Sig/CT Colonography Q 5 years 2002 ZOSTER VACCINE (1 of 2) 11/29/2007 RSV VACCINE (60+ or ) (1 - Risk 60-74 years 1-dose series) 2017 DIABETES HBA1C Q 6 MONTHS 03/19/2021 09/16/2020, INFLUENZA VACCINE (#1) 2023 02/15/2017 COVID-19 Vaccine (2 - 2023- season) 12/26/202312/2020 DTAP/TDAP/TD VACCINES (2 - Td or Tdap) 04/26/2026 COLORECTAL SCREENING 07/11/2030 07/11/2020 Colorectal Cancer Screening 07/11/2030 Insurance Care Teams Art Studio Teacher Relationship Specialty Start Date End Date Provider, Abstract NO ADDRESS ON FILE PCP - General 05/27/20
--- OUTSIDE RECORDS SUMMARY | 2024-06-18 11:41 | XMS_ITS | Encounter Summary ---
Author Organization [facility] Facility Care Team Providers Care Snow Fence Erector Name Role Phone Sena Marie RN Unavailable [phone] Seun Green RN Unavailable [phone] Miscellaneous, Not In File Primary Care [...] Primary Care Provider + [phone] Rachel Nielsen BOSS MINER Primary Care Provider + [phone] MonRachel lindquist BOSS MINER Primary Care Provider + [phone] Karolina Crowder Primary Care Provider + [phone] MonRachel lindquist BOSS MINER Primary Care Provider + [phone] Jasmyne Eduardo RN Unavailable [phone] Rachel Nielsen BOSS MINER Primary Care Provider + [phone] Radha Jurado PA Primary Care Provider [phone] Sylvester Nicholas MD Unavailable + [phone] Lyla Hernandez MD Unavailable [phone] Js Martinez MD Unavailable [phone] Alexis Ngo MD Unavailable +[phone] Ludmila Tesfaye RN Unavailable [phone] Sudheer Arnold MD Unavailable + Haja Pires OD Unavailable [phone] Gaby Pierre MA Unavailable Unavailable Encounter Details Date Type Department Care Team (Latest Contact Info) Description 06/21/2015 Orders Only [facility] CLINCONV ProviderRasheed MD [address] [place] [address] Social History Tobacco Use Types Packs/Day Years Used Date Smoking Tobacco: Former Sex and Gender Information Value Date Recorded Sex Assigned at Not on file Legal Sex Male 3:15 PM ANALOG DEVICE DESIGNER Gender Identity Not on file Sexual Orientation Not on file documented as of this encounter Plan of Treatment Scheduled Procedures Name Priority Associated Diagnoses Date/Ti me TRANSPLANT KIDNEY ESRD (end stage renal disease) (CMS/HCC) ([facility]) documented as of this encounter Procedures Procedure Name Priority Date/Time Associated Diagnosis Comments PROCEDURE - RESULT 06/21/2015 12 :00 AM ANALOG DEVICE DESIGNER documented in this encounter Results * PROCEDURE - RESULT (06/21/2015 12:00 AM ANALOG DEVICE DESIGNER) Narrative 06/21/2015 12:00 AM ANALOG DEVICE DESIGNER Ordered by an unspecified provider. Historical Provider Final Res ult documented in this encounter Visit Diagnoses Not on filedocumented in this encounter Additional Health Concerns Infection Onset Date Last Indicated Resolved Time COVID: Recovered Comment:Positive 05/11/21 at OSH. Results scanned in media. 06/25/2021 06/25/2021 10/23/2021 3:0 5 AM CDT documented as of this encounter Care Teams Snow Fence Erector Relationship Specialty Start Date End Date Miscellaneous, Not In File PCP - General 10/11/17 10/19/17 Unknown, Notinfile PCP - General 10/20/17 11/22/17 Miscellaneous, Not In File PCP - General 11/23/17 11/24/17 Unknown, Notinfile PCP - General 11/25/17 11/28/17 Karolina Crowder PA PCP - General 11/29/17 12/23/17 Unknown, Notinfile PCP - General 12/24/17 06/08/18 Karolina Crowder PA PCP - General 06/09/18 04/24/20 Rachel Nielsen BOSS MINER PCP - General 04/29/20 05/25/20 Rachel Nielsen BOSS MINER PCP - General 04/25/20 04/28/20 Karolina Crowder PA PCP - General 05/26/20 06/16/20 Rachel Nielsen BOSS MINER PCP - General Nurse Practitioner 07/04/20 07/22/20 Rachel Nielsen, BOSS MINER PCP - General 06/17/20 07/03/20 Radha Jurado PA [facility] [address] [place] [address] PCP - General Family Medicine 07/23/20 Sena Marie, RN [address] [place] [id number] System Programmer 09/21/17 8 Seun Green, ELEANOR [address] [address] System Programmer 09/27/17 9 rAsalan Carrizales MD Referring Physician Nephrology 11/08/17 08/06/20 Mohan Camacho MD Title I Math Tutor Cardiology 12/17/17 Jasmyne Eduardo RN [address] [address] Registered Nurse System Programmer 07/04/20 Sylvester Nicholas MD [address] [place] [address] Consulting Physician Family Medicine 07/23/20 Lyla Hernandez MD [facility] [address] Referring Physician Nephrology 08/07/20 07/13/22 Js Martinez MD [facility] [address] [address] Referring Physician Nephrology 06/17/21 [place] [address] [place] [address] Surgeon Vascular Surgery 06/30/21 Ludmila Tesfaye, RN [address] [address] System Programmer 09/01/22 Sudheer Arnold MD [address] [place] [address] Consulting Physician Nephrology 12/23/22 Haja Pires, OD [address] [facility] [address] [place] [address] Tape Controlled Machine Stitcher 12/23/22 Gaby Pierre MA [address] [facility] [address] [place] [address] ACO Care Cardiac/Vascular Sonographer 01/24/24 01/24/24 documented as of this encounter
--- OUTSIDE RECORDS SUMMARY | 2024-06-18 11:41 | XMS_ITS | Encounter Summary ---
Author Organization [facility] Facility Care Team Providers Care Brick And Blocker Aid Labor Name Role Phone Sena Marie RN Unavailable [phone] Seun Green RN Unavailable [phone] Miscellaneous, Not In File Primary Care [...] Primary Care Provider + [phone] Rachel Nielsen AIRPORT RAMP AGENT Primary Care Provider + [phone] MonRachel lindquist AIRPORT RAMP AGENT Primary Care Provider + 4-05 Karolina Crowder Primary Care Provider + [phone] MonRachel lindquist AIRPORT RAMP AGENT Primary Care Provider + [phone] Jasmyne Eduardo RN Unavailable [phone] Rachel Nielsen AIRPORT RAMP AGENT Primary Care Provider + [phone] Radha Jurado PA Primary Care Provider [phone] Sylvester Nicholas MD Unavailable + [phone] Lyla Hernandez MD Unavailable [phone] Js Martinez MD Unavailable [phone] Alexis Ngo MD Unavailable [phone] Ludmila Tesfaye RN Unavailable [phone] Sudheer Arnold MD Unavailable + Haja Pires OD Unavailable [phone] Gaby Pierre MA Unavailable Unavailable Encounter Details Date Type Department Care Team (Latest Contact Info) Description 06/06/2015 Orders Only [facility] CLINCONV ProviderRasheed MD [address] [place] [address] Social History Tobacco Use Types Packs/Day Years Used Date Smoking Tobacco: Former Sex and Gender Information Value Date Recorded Sex Assigned at Not on file Legal Sex Male 3:15 PM PAINT SPRAY INSPECTOR Gender Identity Not on file Sexual Orientation Not on file documented as of this encounter Plan of Treatment Scheduled Procedures Name Priority Associated Diagnoses Date/Ti me TRANSPLANT KIDNEY ESRD (end stage renal disease) (CMS/HCC) ([facility]) documented as of this encounter Procedures Procedure Name Priority Date/Time Associated Diagnosis Comments PROCEDURE - RESULT 06/06/2015 12 :00 AM PAINT SPRAY INSPECTOR documented in this encounter Results * PROCEDURE - RESULT (06/06/2015 12:00 AM PAINT SPRAY INSPECTOR) Narrative 06/06/2015 12:00 AM PAINT SPRAY INSPECTOR Ordered by an unspecified provider. Historical Provider Final Res ult documented in this encounter Visit Diagnoses Not on filedocumented in this encounter Additional Health Concerns Infection Onset Date Last Indicated Resolved Time COVID: Recovered Comment:Positive 05/11/21 at OSH. Results scanned in media. 06/25/2021 06/25/2021 10/23/2021 3:0 5 AM CDT documented as of this encounter Care Teams Brick And Blocker Aid Labor Relationship Specialty Start Date End Date Miscellaneous, Not In File PCP - General 10/11/17 10/19/17 Unknown, Notinfile PCP - General 10/20/17 11/22/17 Miscellaneous, Not In File PCP - General 11/23/17 11/24/17 Unknown, Notinfile PCP - General 11/25/17 11/28/17 Karolina Crowder PA PCP - General 11/29/17 12/23/17 Unknown, Notinfile PCP - General 12/24/17 06/08/18 Karolina Crowder PA PCP - General 06/09/18 04/24/20 Rachel Nielsen AIRPORT RAMP AGENT PCP - General 04/29/20 05/25/20 Rachel Nielsen AIRPORT RAMP AGENT PCP - General 04/25/20 04/28/20 Karolina Crowder PA PCP - General 05/26/20 06/16/20 Rachel Nielsen AIRPORT RAMP AGENT PCP - General Nurse Practitioner 07/04/20 07/22/20 Rachel Nielsen, AIRPORT RAMP AGENT PCP - General 06/17/20 07/03/20 Radha Jurado PA [facility] [address] [place] [address] PCP - General Family Medicine 07/23/20 Sena Marie, RN [address] [place] [id number] Wardrobe Supervisor 09/21/17 8 Seun Green, ELEANOR [address] [address] Wardrobe Supervisor 09/27/17 9 Arsalan Carrizales MD Referring Physician Nephrology 11/08/17 08/06/20 Mohan Camacho MD Dredge Pipe Installer Cardiology 12/17/17 Jasmyne Eduardo RN [address] [address] Registered Nurse Wardrobe Supervisor 07/04/20 Sylvester Nicholas MD [address] [place] [address] Consulting Physician Family Medicine 07/23/20 Lyla Hernandez MD [facility] [address] Referring Physician Nephrology 08/07/20 07/13/22 Js Martinez MD [facility] [address] Referring Physician Nephrology 06/17/21 [place] [address] [place] [address] Surgeon Vascular Surgery 06/30/21 Ludmila Tesfaye, RN [address] [address] Wardrobe Supervisor 09/01/22 Sudheer Arnold MD [address] [place] [address] Consulting Physician Nephrology 12/23/22 Haja Pires, OD [address] [facility] [address] [place] [address] Vascular Surgeon 12/23/22 Gaby Pierre MA [address] [facility] [address] [place] [address] ACO Care Transportation Supervisor 01/24/24 01/24/24 documented as of this encounter
--- OUTSIDE RECORDS SUMMARY | 2024-06-18 11:41 | XMS_ITS | Patient Health Record ---
Author Organization [facility] Address [address] [address] Care Team Providers Care Table Runner Name Role Phone Karolina Crowder PA-C Primary Care Provider Unavail able Mansoor Pineda Unavailable Reason For Referral No Information Medications Medication SIG (Take, Route, Frequency, Duration) Notes Start Date End Date Status glipiZIDE Active Furosemide Active amLODIPine Besylate Active hydrALAZINE HCl Acti ve Labetalol HCl Active Isosorbide Mononitrate Active Atorvastatin Calcium Active Triamcinolone Acetonide 0.1 % 1 to affected area Topical TID x 2 weeks, BID x 1 week, QD x 1 week for 4 weeks 05/09/2018 Active Social History Tobacco Use: Social History Observation Description Date Details (start date - stop date) Former Smoker NA - NA Tobacco Use/Smoking Question Answer Notes Are you a former smoker How long has it been since you last smoked? > 10 years Problems Problem Type SNOMED Code ICD Code Onset Dates Problem Status W/U Status Risk Notes Problem [id number] Type 2 diabetes mellitus without complication, without long-term current use of insulin (E11.9) Active confirmed Plan Of Treatment No Information Insurance Providers Payer Name Payer Address Payer Phone Subscriber Number Group Number Insured Name Patient Relationship to Insured Coverage Start Date Coverage End Date [employer] [address] [address] [place], [place] [id number] Kenji Hernandez Self - patient is the insured Medical (General) History Medical History History ICD Code anemia, DIABETES, high zeyad sterol, high blood pressure, chronic kidney disease Surgical History Surgery Date(Month/Year)
--- OUTSIDE RECORDS SUMMARY | 2024-06-18 11:42 | XMS_ITS | Data Portability ---
Author Organization [facility] OFFICE Address [address] [place] [id number] Care Team Providers [facility] Coordinator Name Role Phone JHONY DOYLESEY Primary Care Provider [phone] Assessment Encounter Date Assessment Date Assessment LastModified by Organization Details LastModified Time 06/07/2019 06/07/2019 Discussed with patient findings, diagnosis, and prognosis. Discussed evaluation and treatment options including risks and benefits with patient, and patient expressed understanding. The following interventions were recommended: heart healthy low-fat, low-sodium diet, continue regular exercise, maintain appropriate weight, continue current medications, and medical follow-up as noted. [email or web address] Not available 06/07/2019 16:45:08 10/27/2019 10/27/2019 Discussed with patient findings, diagnosis, and prognosis. Discussed evaluation and treatment options including risks and benefits with patient, and patient expressed understanding. The following interventions were recommended: heart healthy low-fat, low-sodium diet, continue regular exercise, maintain appropriate weight, continue current medications, and medical follow-up as noted. [email or web address] Not available 10/27/2019 11:32:27 04/10/2020 04/10/2020 Discussed with patient findings, diagnosis, and prognosis. Discussed evaluation and treatment options including risks and benefits with patient, and patient expressed understanding. The following interventions were recommended: heart healthy low-fat, low-sodium diet, continue regular exercise, maintain appropriate weight, continue current medications, and medical follow-up as noted. [email or web address] Not available 04/09/2020 17:24:35 03/07/2021 03/07/2021 Discussed with patient findings, diagnosis, and prognosis. Discussed evaluation and treatment options including risks and benefits with patient, and patient expressed understanding. The following interventions were recommended: heart healthy low-fat, low-sodium diet, continue regular exercise, maintain appropriate weight, continue current medications, and medical follow-up as noted. [email or web address] Not available 03/06/2021 20:32:11 07/25/2021 07/25/2021 Discussed with patient findings, diagnosis, and prognosis. Discussed evaluation and treatment options including risks and benefits with patient, and patient expressed understanding. The following interventions were recommended: heart healthy low-fat, low-sodium diet, avoid strenuous exercise pending completion of cardiovascular evaluation,mainta in appropriate weight, continue current medications, and medical follow-up as noted. [email or web address] Not available 07/25/2021 13:11:53 Plan of Treatment Reminders Order Date Submit Date Provider Last Modified By Organization Details Last Modified Time Details Appointments None record ed. Lab None record ed. Referral None record ed. Procedures None record ed. Surgeries None record ed. Imaging None record ed. Medication Orders None record ed. Patient TargetsNo targets recorded. Patient Instructions Encounter Date Encounter Id Patient Instructions Last Modified By Organization Details Last Modified Time 06/07/2019 [id number] high cholesterol : care instructions [email or web address] Not available 06/07/2019 18:11:25 learning about low-fat eating [email or web address] Not available 06/07/2019 18:11:24 aortic valve stenosis: care instructions Not available 06/07/2019 18:11:24 leg and ankle edema: care instructions [email or web address] Not available 06/07/2019 18:11:24 10/27/2019 [id number] high cholesterol : care instructions Not available 10/27/2019 13:10:34 learning about low-fat eating [email or web address] Not available 10/27/2019 13:10:33 aortic valve stenosis: care instructions Not available 10/27/2019 13:10:34 leg and ankle edema: care instructions [email or web address] Not available 10/27/2019 13:10:34 04/10/2020 [id number] chest pain: care instructions [email or web address] Not available 04/10/2020 17:01:30 high cholesterol : care instructions [email or web address] Not available 04/10/2020 17:01:30 learning about low-fat eating [email or web address] Not available 04/10/2020 17:01:30 aortic valve stenosis: care instructions [email or web address] Not available 04/10/2020 17:01:30 leg and ankle edema: care instructions Not available 04/10/2020 17:01:30 03/07/2021 [id number] chest pain: care instructions [email or web address] Not available 03/07/2021 13:12:50 high cholesterol : care instructions [email or web address] Not available 03/07/2021 13:12:50 learning about low-fat eating Not available 03/07/2021 13:12:50 aortic valve stenosis: care instructions [email or web address] Not available 03/07/2021 13:12:50 leg and ankle edema: care instructions [email or web address] Not available 03/07/2021 13:12:50 07/25/2021 [id number] chest pain: care instructions [email or web address] Not available 07/25/2021 13:14:32 high cholesterol : care instructions [email or web address] Not available 07/25/2021 13:14:32 learning about low-fat eating [email or web address] Not available 07/25/2021 13:14:32 aortic valve stenosis: care instructions [email or web address] Not available 07/25/2021 13:14:32 leg and ankle edema: care instructions [email or web address] Not available 07/25/2021 13:14:32 Reason for Referral None Reported. Results Created Date Observation Date Name Description Value Unit Range Abnormal Flag Note LastModifiedBy Organization Detail LastModifiedTime 06/09/19 20 06/07/2019 elect rocar diogr am No observ ation record ed. [email or web address] Not Available 2019 13:46:13 01/31/20 20 12/26/2019 (ARIEL) ankle brach ial index * No observ ation record ed. [email or web address] Not Available 2019 14:37:30 04/15/20 20 03/22/2020 elect rocar diogr am No observ ation record ed. [email or web address] Not Available 2019 15:13:37 04/15/20 20 03/22/2020 XR, chest , 1 view No observ ation record ed. [email or web address] Not Available 2019 15:19:35 05/23/19 21 04/10/2020 elect rocar diogr am No observ ation record ed. [email or web address] Not Available 2020 11:06:53 03/12/20 21 07/28/2020 edwin kendallgr am No observ ation record ed. [email or web address] Not Available 2020 17:07:39 03/12/20 21 09/16/2020 stres s echoc ardio gram No observ ation record ed. [email or web address] Not Available 2020 17:11:08 09/23/19 22 09/04/2021 US, echoc ardio gram No observ ation record ed. [email or web address] [facility] [address] [place], [place], [address], 09/23/2021 17:00:54 09/24/19 22 09/04/2021 US, echoc ardio gram No observ ation record ed. [email or web address] Not Available 2021 14:42:33 02/20/20 22 09/16/2020 exerc ise stres s echoc ardio gram No observ ation record ed. [email or web address] Not Available 2021 10:07:16 02/20/20 22 10/14/2021 exerc ise stres s echoc ardio gram No observ ation record ed. [email or web address] Not Available 2021 10:09:00 Result Notes None recorded. Problems Name Problem SNOMED Code Status Onset Date Resolution Date Notes Provider Name and Address Organization Details Recorded Time Pre-surgery evaluation Active [address] [facility] 12:52:09 Edema 860323653 Active 2015 Marlene matthew [place] - [facility] 6 14:55:27 Essential hypertensio n 73816286 Active 2015 Marlene matthew [place] - [facility] 6 14:55:38 Diabetes mellitus 02293186 Active 2015 Marlene matthew [place] - [facility] 6 14:56:09 Chronic renal impairment Active 2015 Marlene matthew [facility] 14:56:26 Hyperlipide dasiy 15560370 Active 2015 Marlene matthew, [place] - [facility] 6 14:56:38 Simple renal cyst 52560452 Active 2015 Marlene Dickson [place], [place] - [facility] 6 14:56:54 Anemia 962938953 Active 2015 Marlene matthew, [place] - [facility] 6 14:57:03 Influenza 0643354 Active 2015 Joseph Fletcher [place] - [facility] 6 16:53:53 Coronary arterioscle rosis 57590428 Active 2015 Joseph Fletcher [place] - [facility] 6 16:37:11 Cramp 59735697 Active 2016 Mohan Janice [place] - [facility] 7 18:42:59 Chronic diastolic heart failure 345868486 Active 2016 Mohan Camacho [place] - [facility] 7 16:47:45 Aortic valve stenosis 36347736 Active 2016 Mohan Eas[place]hman [place] - [facility] 7 17:13:30 Pain in bilateral legs 1720314210414 9108 Active 2016 Mohan Eas[place]hman [place] - [facility] 7 16:57:21 Intermitten t claudicatio n 80320293 Active 2019 Mohan Camacho [place] - [facility] 0 12:51:51 Chest pain 86716991 Active 2019 Mohan Camacho [place] - [facility] 0 16:49:26 Problem Notes None recorded. Procedures Surgical History Date Name Laterality Status Provider Name and Address Organization Details Recorded Time Hernia Repair completed Marlene Ramoselissa [place] - [facility] 10/02/2015 14:57:23 Carpal tunnel surgery completed Rosario Richardelissa ID - [facility] 10/02/2015 14:57:49 Imaging Results Imaging Date Name Status LastModified by Organization Details LastModified Time 06/07/2019 electrocardiogram completed [email or web address] Informa tion not available 06/09/2019 13:46:13 12/26/2019 (ARIEL) ankle brachial index* completed esto Information not available 02/01/2020 14:37:30 03/22/2020 electrocardiogram completed Informa tion not available 04/15/2020 15:13:37 03/22/2020 XR, chest, 1 view completed Informa tion not available 04/15/2020 15:19:35 04/10/2020 electrocardiogram completed [email or web address] Informa tion not available 06/03/2020 11:06:53 07/28/2020 electrocardiogram completed Informa tion not available 03/12/2021 17:07:39 09/16/2020 stress echocardiogram completed Information not available 03/12/2021 17:11:08 09/04/2021 US, echocardiogram completed [email or web address] [facility] [address] [place] [address] [address], [place], [address], 09/23/2021 17:00:54 09/04/2021 US, echocardiogram completed [email or web address] Inform ation not available 09/23/2021 14:42:33 09/16/2020 exercise stress echocardiogram completed Information not available 02/19/2022 10:07:16 10/14/2021 exercise stress echocardiogram completed Information not available 02/19/2022 10:09:00 Procedure Notes None recorded. Medical Equipment None Reported. Allergies No known drug allergies Medications Name Sig Start Date Stop Date Status Note LastModified by Organization Details LastModified Time cyclobenza rod 10 mg tablet active Not Available Not Available No t Available furosemide 40 mg tablet TAKE ONE TABLET BY MOUTH TWICE DAILY active Not Available Not Available No t Available atorvastat in 40 mg tablet TAKE 1 TABLET BY MOUTH EVERYDAY AT BEDTIME active Not Available Not Available No t Available methocarba mol 500 mg tablet active Not Available Not Available Not Available clonidine HCl 0.1 mg tablet 01/27 completed Not Available Not Available Not Available atorvastat in 20 mg tablet Take 1 tablet every day by oral route. 06/16 completed Not Available Not Available Not Available labetalol 200 mg tablet TAKE 1 TABLET (200 MG TOTAL) BY MOUTH 2 TIMES A DAY. active Not Available Not Available No t Available trazodone 50 mg tablet active Not Available Not Available Not Available citalopram 10 mg tablet TAKE 1 TABLET BY MOUTH DAILY active Not Available Not Available No t Available hydrocodon e 5 mg-acetami nophen 325 mg tablet active Not Available Not Available No t Available lisinopril 20 mg tablet qd 07/25 completed Not Available Not Available Not Available prednisone 20 mg tablet 10/02 completed Not Available Not Available Not Available isosorbide mononitrat e ER 30 mg tablet,ext ended release 24 hr TAKE 1 TABLET BY MOUTH EVERY DAY active Not Available Not Available No t Available Adeline Low Dose Aspirin 81 mg tablet,del ayed release Take 1 tablet every day by oral route. active Not Available Not Available No t Available hydralazin e 25 mg tablet Take 1 tablet 3 times a day by oral route. 10/26 completed Not Available Not Available Not Available metronidaz ole 500 mg tablet active Not Available Not Available Not Available hydroxyzin e HCl 50 mg tablet 01/06 completed Not Available Not Available Not Available acetaminop hen 300 mg-codeine 30 mg tablet active Not Available Not Available Not Available dextrometh orphan-gua ifenesin 10 mg-100 mg/5 mL oral syrup active Not Available Not Available N ot Available ciprofloxa eula 500 mg tablet active pt no longer take 021 FH Not Available Not Available Not Available sulfametho xazole 800 mg-trimeth oprim 160 mg tablet active pt not taking 0 Not Available Not Available Not Available tramadol 50 mg tablet TAKE 0.5 TABLET (25 MG) BY MOUTH 2 (TWO) TIMES A DAY NEEDED FOR PAIN active Not Available Not Available No t Available baclofen 20 mg tablet 06/07 completed Not Available Not Available Not Available isosorbide mononitrat e ER 60 mg tablet,ext ended release 24 hr Take 1 tablet every day by oral route. 06/13 completed Not Available Not Available Not Available clonidine HCl 0.2 mg tablet 10/02 completed Not Available Not Available Not Available citalopram 20 mg tablet TAKE 1 TABLET BY MOUTH EVERY DAY active Not Available Not Available No t Available methocarba mol 750 mg tablet active Not Available Not Available Not Available tamsulosin 0.4 mg capsule 1 tab qhs 04/14 completed Not Available Not Available Not Available furosemide 80 mg tablet 1 tab qd 04/10 completed pt not taking 0 Not Available Not Available Not Available trazodone 100 mg tablet TAKE 1 TABLET BY MOUTH AT BEDTIME NEEDED FOR SLEEP active Not Available Not Available No t Available dicyclomin e 20 mg tablet active Not Available Not Available Not Available baclofen 10 mg tablet active Not Available Not Available Not Available amlodipine 10 mg tablet TAKE 1 TABLET BY MOUTH EVERY DAY active Not Available Not Available No t Available benzonatat e 100 mg capsule TAKE 1 CAPSULE BY MOUTH THREE TIMES A DAY NEEDED FOR COUGH active Not Available Not Available No t Available hydrocodon e 7.5 mg-acetami nophen 325 mg tablet 11/07 completed Not Available Not Available Not Available hydralazin e 100 mg tablet TAKE 100 MG BY MOUTH 3 (THREE) TIMES DAILY. 07/25 completed no longer take Not Available Not Available Not Available pantoprazo le 40 mg tablet,del ayed release 1 tab qd active Not Available Not Available Not Available triamcinol one acetonide 0.1 % topical ointment active Not Available Not Available Not Available ranitidine 150 mg tablet 10/02 completed Not Available Not Available Not Available gabapentin 300 mg capsule active Not Available Not Available Not Available omeprazole 20 mg capsule,de layed release 09/13 completed Not Available Not Available Not Available bumetanide 1 mg tablet 07/25 completed Not Available Not Available Not Available capsaicin 0.025 % topical cream active Not Available Not Available Not Available hydralazin e 50 mg tablet TAKE 1 TABLET BY MOUTH TWICE A DAY active Not Available Not Available No t Available mupirocin 2 % topical ointment active Not Available Not Available Not Available furosemide 20 mg tablet Take 1 tablet every day by oral route. 06/16 completed Not Available Not Available Not Available clobetasol 0.05 % topical ointment active Not Available Not Available Not Available lorazepam 1 mg tablet active Not Available Not Available Not Available labetalol 300 mg tablet Take 1 tablet twice a day by oral route. 10/02 completed Not Available Not Available Not Available levofloxac in 500 mg tablet 12/02 completed Not Available Not Available Not Available methylpred nisolone 4 mg tablets in a dose pack 10/02 completed Not Available Not Available Not Available ondansetro n 4 mg disintegra ting tablet TAKE 1 TABLET BY MOUTH EVERY 8 HOURS NEEDED FOR NAUSEA AND VOMITING active Not Available Not Available No t Available fluticason e propionate 50 mcg/actuat ion nasal spray,susp ension 09/13 completed Not Available Not Available Not Available calcitriol 0.25 mcg capsule TAKE 1 CAPSULE BY MOUTH DAILY active Not Available Not Available No t Available Tums 200 mg (as calcium carbonate 500 mg) chewable tablet Take 2 tablets every day by oral route. 04/14 completed Not Available Not Available Not Available glipizide 5 mg tablet TAKE 1 TABLET (5 MG TOTAL) BY MOUTH DAILY. active Not Available Not Available No t Available naproxen 500 mg tablet TAKE 1 TABLET BY MOUTH TWICE A DAY WITH MEALS active Not Available Not Available No t Available diazepam 5 mg tablet active Not Available Not Available No t Available metoclopra mide 10 mg tablet qd active Not Available Not Available Not Available doxazosin 2 mg tablet qd 07/25 completed Not Available Not Available Not Available amoxicilli n 875 mg-potassi um clavulanat e 125 mg tablet TAKE 1 TABLET BY MOUTH TWICE A DAY active pt. no longer takes 021 FH Not Available Not Available Not Available ProAir HFA 90 mcg/actuat ion aerosol inhaler prn active Not Available Not Available Not Available ferrous fumarate 325 mg (106 mg iron) tablet Take every day by oral route. active Not Available Not Available No t Available Kionex (with sorbitol) 15 gram-19.3 gram/60 mL oral suspension 04/14 completed Not Available Not Available Not Available Senexon-S 8.6 mg-50 mg tablet active Not Available Not Available No t Available blood pressure kit med and lrg 04/14 completed Not Available Not Available Not Available D3-2000 50 mcg (2,000 unit) capsule Take every day by oral route. active Not Available Not Available No t Available clonidine HCl ER 0.1 mg tablet,ext ended release,12 hr Take 60 tablets twice a day by oral route. 04/14 completed Not Available Not Available Not Available Retacrit 20,000 unit/mL injection solution active Not Available Not Available Not Available Vitals Date Recorded Body height Body mass index (BMI) Body weight Heart rate Oxygen saturation Oxygen saturation in Arterial blood by Pulse oximetry Systolic blood pressure Diastolic blood pressure Provider Name and Address Organization Details Last Updated DateTime 0 172.72 cm 34.5 kg/m2 499981. 47 g 80 /min 98 % 98 % 178 mm[Hg] 78 mm[Hg] IVANA OLIVARES [facility] 0 17:00:05 Date Recorded Body height Body mass index (BMI) Body weight Heart rate Respiratory rate Oxygen saturation Oxygen saturation in Arterial blood by Pulse oximetry Systolic blood pressure Diastolic blood pressure Provider Name and Address Organization Details Last Updated DateTime 0 172.72 cm 33.8 kg/m2 079409. 51 g 79 /min 18 /min 99 % 99 % 132 mm[Hg] 70 mm[Hg] Levy Jo [facility] 0 11:54:17 Date Recorded Body height Body mass index (BMI) Body weight Heart rate Respiratory rate Oxygen saturation Oxygen saturation in Arterial blood by Pulse oximetry Systolic blood pressure Diastolic blood pressure Systolic blood pressure Diastolic blood pressure Provider Name and Address Organization Details Last Updated DateTime 0 172.72 cm 35 kg/m2 641781. 25 g 80 /min 18 /min 97 % 97 % 160 mm[Hg] 78 mm[Hg] 158 mm[Hg] 74 mm[Hg] Yue Andrew [facility] 0 15:39:56 Date Recorded Body height Body mass index (BMI) Body weight Heart rate Oxygen saturation Oxygen saturation in Arterial blood by Pulse oximetry Systolic blood pressure Diastolic blood pressure Provider Name and Address Organization Details Last Updated DateTime 1 172.72 cm 35 kg/m2 685289. 25 g 67 /min 98 % 98 % 150 mm[Hg] 78 mm[Hg] Liviajerald Momin [facility] 1 11:40:05 Date Recorded Body height Body mass index (BMI) Body weight Heart rate Oxygen saturation Oxygen saturation in Arterial blood by Pulse oximetry Systolic blood pressure Diastolic blood pressure Provider Name and Address Organization Details Last Updated DateTime 2 172.72 cm 31 kg/m2 04389.3 1 g 80 /min 98 % 98 % 138 mm[Hg] 56 mm[Hg] Jeanette Reyna [facility] 2 11:28:24 Social History Question Answer Notes LastModified by Organizat ion Details LastModified Time Tobacco Smoking Status Former Smoker Not Available [employer] 02/27/2020 03:30:19 Do You Or Have You Ever Used E-cigarettes Or Vape? Never Used Electronic Cigarettes [id number] Information not available 02/27/2020 What Was The Date Of Your Most Recent Tobacco Screening? 10/06/2017 [id number] Information not available 02/27/2020 Do You Or Have You Ever Used Smokeless Tobacco? Former Smokeless Tobacco User [id number] Information not available 02/27/2020 Sex: Unknown Functional Status None recorded. Mental Status None recorded. Family History Relationship Description Onset Age of this Age Resolved Age Notes LastModified by Organization Details LastModified Time Mother Hypertensive disorder [email or web address] Not available 2015 15:02:35 Mother Diabetes mellitus [email or web address] Not available 2015 15:02:49 Mother Cerebrovascu lar accident [email or web address] Not available 11/2015 15:03:02 Medical History Condition Response Diabetes Y Hyperlipidemia Y Anemia Y Hypertension Y Kidney Disease Y Past Encounters Encounter ID Performer Location Encounter Start Date Encounter Closed Date Diagnosis/Indication Diagnosis SNOMED-CT Code Diagnosis ICD10 Code Diagnosis Note [id number] [address] [place] [address] 10/03/2015 16:37:02 10/03/2015 17:03:49 Essential hypertension 24170176 I10 Currently elevated, however controlled at home, continue to check bp at home. Will consider to adjust bp meds if bp is consistent ly elevated. Benign hypertension 1072 5009 I10 Chronic re nal impairment 007268905 N18.9 sees nephrology Influenza 1188084 J11.1 recommend hydration and rest, no abx at this time, if symptoms worsen or don't improve with symptomati c therapy call PCP or go to ER. [id number] Joseph Fletcher [facility] Office [address] [facility] [place] [address] 11/04/2015 16:08:01 11/07/2015 12:45:01 Hyperlipidemia 48493961 E78.5 continue on lipitor Essential hypertension 82256090 I10 controlled continue on current meds. Coronary arteriosclerosis 84274347 I25.10 with recent positive stress test and recent admission with chest pain despite maximum medical therapy.Pl an for cardiac cath with IV hydration prior to it.nephrol ogy are Ok with it with acceptable EULA risk for the patientcon tinue on asa and plavix and bb and statin. [id number] Joseph Fletcher [facility] [address] [place] [place] [address] 11/08/2015 11:17:34 11/18/2015 14:49:55 Coronary arteriosclerosis 43103175 I25.10 Mild on cardiac cath Stop plavix (risk of bleeding exceeds benefit) Continue on asa and bb and control of risk factors follow up on renal function. Benign hypertension 1072 5009 I10 Mildly elevated continue no current meds Increase hydralazin e 50 tid Hyperlipidemia 36568253 E78.5 continue crestor goal LDL <100 [id number] Mohan Camacho [facility] [address] [place] [address] 01/07/2016 15:32:00 01/08/2016 11:49:28 Hyperlipidemia 33515447 E78.5 Continue atorvastat in. F/u FLP results from Dr. Johnson. Coronary arteriosclerosis 75887335 I25.10 Distal 50% stenosis involving the right coronary artery and 40% mid LAD stenosis on recent LHC. Needs to keep LDL less than 70, and HDL more than 40. ASA. Essential hypertension 43368188 I10 Patient's blood pressure is {{well-con trolled* s omewhat well-contr olled not well-contr olled}} on present medical therapy. Patient is {{tolerati ng, without difficulty ,* having side effects with}} the current medication s. I have {{not made* made the following} } changes to the current regimen. {{ Patient is advised to maintain a blood pressure diary.}} Patient was advised to eat a low-sodium diet (2 grams sodium or less daily). [id number] Alfonzo Giraldo MD [facility] [address] [place] [address] 04/29/2016 16:46:27 04/30/2016 17:08:50 Benign hypertension 49192484 I10 Patient's blood pressure is {{well-con trolled so mewhat well-contr olled not well-contr olled*}} on present medical therapy. Patient is {{tolerati ng, without difficulty ,* having side effects with}} the current medication s. I have {{not made made the following* }} changes to the current regimen. {{ Patient is advised to maintain a blood pressure diary.*}} Patient was advised to eat a low-sodium diet (2 grams sodium or less daily). Given occasional mild LE edema, pt will return to prior dose of Lasix 20 mg daily from his current 10 mg qd. Check electrolyt es given cramps. Begin isosorbide mononitrat e ER 30mg qd to improve BP control and as anti-angin al. Hyperlipidemia [id number] E78.5 Continue atorvastat in. Obtain FLP. Needs to keep LDL less than 70, and HDL more than 40. Coronary arteriosclerosis 18207424 I25.10 Distal 50% RCA stenosis and 40% mid LAD stenosis on recent LHC. Needs to keep LDL less than 70, and HDL more than 40. Continue ASA, beta-block er, statin. Given 2 episodes of new exertional dyspnea and atypical chest pain, obtain echo to evaluate for structural /functiona l disease. [id number] Alfonzo Giraldo MD [facility] OFFICE [facility] [place] [address] 06/16/2016 15:30:23 06/17/2016 10:04:39 Coronary arteriosclerosis [id number] I25.10 Two vessel mild-moder ate CAD. Distal 50% RCA stenosis and 40% mid LAD stenosis on recent LHC. Needs to keep LDL less than 70, and HDL more than 40. Continue ASA, beta-block er, statin. Benign hypertension 1072 5009 I10 Patient's blood pressure is {{well-con trolled so mewhat well-contr olled not well-contr olled*}} on present medical therapy. Patient is {{tolerati ng, without difficulty ,* having side effects with}} the current medication s. I have {{not made made the following* }} changes to the current regimen. {{ Patient is advised to maintain a blood pressure diary.*}} Patient was advised to eat a low-sodium diet (2 grams sodium or less daily). Began last visit isosorbide mononitrat e ER 30mg qd to improve BP control and as anti-angin al but pt had not started until last night. Increase labetalol from 200 mg bid to 400 mg bid. Hyperlipidemia 14885680 E78.5 LDL: 92. Needs to keep LDL less than 70, and HDL more than 40. Increase atorvastat in from 20 mg to 40 mg qd. FLP in 4 wks. Chronic di astolic heart failure [id number] I50.32 Increased LE edema with worse BP control. Increase Lasix from 20 mg qd to 40 mg qd. BMP/Mg/CK/ CBC in 1-2 days. Aortic valve stenosis 60 844612 I35.0 Mild on 05/06/16 echo. 29634 Mohan Camacho [facility] [address] [place] [address] 07/28/2016 16:30:44 07/29/2016 10:54:27 Coronary arteriosclerosis 85208077 I25.10 Two vessel mild-moder ate CAD. Distal 50% RCA stenosis and 40% mid LAD stenosis on recent LHC. Needs to keep LDL less than 70, and HDL more than 40. Continue ASA, beta-block er, statin. Chronic di astolic heart failure [id number] I50.32 Stable intermitte nt LE edema with need for better BP control. Increased Lasix from 20 mg qd to 40 mg qd 6 weeks ago. BMP/Mg/CK/ FLP. CK elevated at 829 but pt with CKD. Benign hypertension 1072 5009 I10 Patient's blood pressure is {{well-con trolled so mewhat well-contr olled not well-contr olled*}} on present medical therapy. Patient is {{tolerati ng, without difficulty ,* having side effects with}} the current medication s. I have {{not made made the following* }} changes to the current regimen. {{ Patient is advised to maintain a blood pressure diary.*}} Patient was advised to eat a low-sodium diet (2 grams sodium or less daily). Prescribed last visit isosorbide mononitrat e ER 30mg qd to improve BP control and as anti-angin al but pt had not started yet. Will start now. Increased labetalol from 200 mg bid to 400 mg bid 6 weeks ago. Pt to bring med bottles in next visit. Hyperlipidemia 69788787 E78.5 LDL: 92. Needs to keep LDL less than 70, and HDL more than 40. Increase atorvastat in from 20 mg to 40 mg qd. FLP now. Aortic valve stenosis 60 115085 I35.0 Mild on 05/06/16 echo. Follow echo in 2 years. [id number] Mohan Easleyhman [facility] [address] [place] [address] 08/26/2016 16:20:14 08/27/2016 09:33:37 Chronic diastolic heart failure [id number] I50.32 Stable intermitte nt LE edema with need for better BP control. Increased Lasix from 20 mg qd to 40 mg qd 06/16/16. Aortic valve stenosis 60 318269 I35.0 Mild on 05/06/16 echo. Follow echo in 2 years. Coronary arteriosclerosis 94283427 I25.10 Two vessel mild-moder ate CAD. Distal 50% RCA stenosis and 40% mid LAD stenosis on recent LHC. Needs to keep LDL less than 70, and HDL more than 40. Continue ASA, beta-block er, statin. Hyperlipidemia 53858595 E78.5 Well-contr olled.Need s to keep LDL less than 70, and HDL more than 40. Increased atorvastat in from 20 mg to 40 mg qd, with subsequent LDL 68. Benign hypertension 1072 5009 I10 Patient's blood pressure is {{well-con trolled so mewhat well-contr olled not well-contr olled*}} on present medical therapy. Patient is {{tolerati ng, without difficulty ,* having side effects with}} the current medication s. I have {{not made made the following* }} changes to the current regimen. {{ Patient is advised to maintain a blood pressure diary.*}} Patient was advised to eat a low-sodium diet (2 grams sodium or less daily). Prescribed previously isosorbide mononitrat e ER 30mg qd to improve BP control and as anti-angin al. Will start now. Previously Increased labetalol from 200 mg bid to 400 mg bid. Increase hydralazin e 50 mg to 75 mg tid. Pt brought all med bottles in 08/26/16. [address] Mohan Camacho [facility] [address] [place] [address] 12/02/2016 16:00:27 12/03/2016 10:46:06 Chronic diastolic heart failure [id number] I50.32 Stable intermitte nt LE edema with need for better BP control. Increased Lasix from 20 mg qd to 40 mg qd 06/16/16. Pt reports being taken off lisinopril per nephrologi st previously . Aortic valve stenosis 60 368661 I35.0 Mild on 05/06/16 echo. Follow echo in 2 years. Coronary arteriosclerosis 84139068 I25.10 Two vessel mild-moder ate CAD. Distal 50% RCA stenosis and 40% mid LAD stenosis on recent LHC. Needs to keep LDL less than 70, and HDL more than 40. Continue ASA, beta-block er, statin. Hyperlipidemia 76515639 E78.5 Well-contr olled.Need s to keep LDL less than 70, and HDL more than 40. Increased atorvastat in from 20 mg to 40 mg qd, with subsequent LDL 68. Benign hypertension 1072 5009 I10 Patient's blood pressure is {{well-con trolled so mewhat well-contr olled* not well-contr olled}} on present medical therapy. Patient is {{tolerati ng, without difficulty ,* having side effects with}} the current medication s. I have {{not made made the following* }} changes to the current regimen. {{ Patient is advised to maintain a blood pressure diary.*}} Patient was advised to eat a low-sodium diet (2 grams sodium or less daily). Prescribed previously isosorbide mononitrat e ER 30mg qd to improve BP control and as anti-angin al. Will start now. Previously Increased labetalol from 200 mg bid to 400 mg bid. Increased hydralazin e 50 mg to 75 mg tid previously . Pt brought all med bottles in 08/26/16. Began clonidine 0.1 mg bid 12/02/16. [id number] Mohan Camacho [facility] [address] [place] [address] 01/27/2017 15:56:12 01/28/2017 09:19:07 Chronic diastolic heart failure [id number] I50.32 Resolved LE edema with need for continued BP control. Increased Lasix from 20 mg qd to 40 mg qd 06/16/16. Pt reports being taken off lisinopril per nephrologi st previously . Aortic valve stenosis 60 346794 I35.0 Mild on 05/06/16 echo. Follow echo in 2 years. Coronary arteriosclerosis 58018203 I25.10 Two vessel mild-moder ate CAD. Distal 50% RCA stenosis and 40% mid LAD stenosis on recent LHC. Needs to keep LDL less than 70, and HDL more than 40. Continue ASA, beta-block er, statin. Hyperlipidemia 08684951 E78.5 Well-contr olled.Need s to keep LDL less than 70, and HDL more than 40. Increased atorvastat in from 20 mg to 40 mg qd, with subsequent LDL 68 07/2016. Benign hypertension 1072 5009 I10 Patient's blood pressure is {{well-con trolled so mewhat well-contr olled* not well-contr olled}} on present medical therapy. Patient is {{tolerati ng, without difficulty ,* having side effects with}} the current medication s. I have {{not made made the following* }} changes to the current regimen. {{ Patient is advised to maintain a blood pressure diary.*}} Patient was advised to eat a low-sodium diet (2 grams sodium or less daily). Prescribed previously isosorbide mononitrat e ER 30mg qd to improve BP control and as anti-angin al. Will start now. Previously Increased labetalol from 200 mg bid to 400 mg bid. Increased hydralazin e 50 mg to 75 mg tid previously . Return to 75 mg tid 01/27/17. Pt brought all med bottles in 08/26/16. Began clonidine 0.1 mg bid 12/02/16. Diabetes mellitus 560393 09 E11.59 Discussed importance of tight glycemic control to minimize cardiovasc ular disease ronald Field [id number] R25.2 Leg discomfort in calves with walking. [id number] [address] [place] [address] 04/14/2017 16:29:45 04/15/2017 12:07:16 Chronic diastolic heart failure 941652527 I50.32 Recent decompensa tion of HF-pEF with increased edema and dyspnea in the setting of possible viral URI. Edema improving after increased to Lasix 40 mg bid 04/12/17. Continue Lasix 40 mg bid and obtain BMP/Mg. Obtain echo to evaluate for structural /functiona l disease. Pt reports being taken off lisinopril per nephrologi st previously . Pt needs to see PCP and Dr. Carrizales. Aortic valve stenosis 60 527817 I35.0 Mild on 05/06/16 echo. Follow echo in 2 years. Coronary arteriosclerosis 65544221 I25.10 Two vessel mild-moder ate CAD. Distal 50% RCA stenosis and 40% mid LAD stenosis on recent LHC. Needs to keep LDL less than 70, and HDL more than 40. Continue ASA, beta-block er, statin. Hyperlipidemia 44720803 E78.5 Well-contr olled.Need s to keep LDL less than 70, and HDL more than 40. Increased atorvastat in from 20 mg to 40 mg qd, with subsequent LDL 68 07/2016. Had LDL 73 04/12/17. Benign hypertension 1072 5009 I10 Patient's blood pressure is {{well-con trolled so mewhat well-contr olled* not well-contr olled}} on present medical therapy. Patient is {{tolerati ng, without difficulty ,* having side effects with}} the current medication s. I have {{not made made the following* }} changes to the current regimen. {{ Patient is advised to maintain a blood pressure diary.*}} Patient was advised to eat a low-sodium diet (2 grams sodium or less daily). Prescribed previously isosorbide mononitrat e ER 30mg qd to improve BP control and as anti-angin al. Will start now. Previously Increased labetalol from 200 mg bid to 400 mg bid. Increased hydralazin e 50 mg to 75 mg tid previously . Return to 75 mg tid 01/27/17. Pt brought all med bottles in 08/26/16. Began clonidine 0.1 mg bid 12/02/16. Diabetes mellitus 572685 09 E11.59 Discussed importance of tight glycemic control to minimize cardiovasc ular disease progressroland Field [id number] R25.2 Leg discomfort in calves with walking. Obtained ARIEL: Normal. [id number] Mohan Camacho [facility] [address] [place] [address] 09/13/2017 16:32:00 09/16/2017 09:31:07 Chronic diastolic heart failure 349172764 I50.32 Recent decompensa tion of HF-pEF with increased dyspnea and anemia. Edema improving after increased to Lasix 40 mg bid 04/12/17. Continue Lasix 40 mg bid and obtain BMP/Mg. Pt reports being taken off lisinopril per nephrologi st previously and was intolerant of clonidine. Pt needs to see PCP and Dr. Carrizales. Aortic valve stenosis 60 516369 I35.0 Mild on 05/06/16 echo. Follow echo in 2 years. Coronary arteriosclerosis 78968955 I25.10 Two vessel mild-moder ate CAD. Distal 50% RCA stenosis and 40% mid LAD stenosis on recent LHC. Needs to keep LDL less than 70, and HDL more than 40. Continue ASA, beta-block er, statin. Hyperlipidemia 05050544 E78.5 Well-contr olled.Need s to keep LDL less than 70, and HDL more than 40. Increased atorvastat in from 20 mg to 40 mg qd, with subsequent LDL 68 07/2016. Had LDL 73 04/12/17. Benign hypertension 1072 5009 I10 Patient's blood pressure is {{well-con trolled so mewhat well-contr olled* not well-contr olled}} on present medical therapy. Patient is {{tolerati ng, without difficulty ,* having side effects with}} the current medication s. I have {{not made made the following* }} changes to the current regimen. {{ Patient is advised to maintain a blood pressure diary.*}} Patient was advised to eat a low-sodium diet (2 grams sodium or less daily). Prescribed previously isosorbide mononitrat e ER 30mg qd to improve BP control and as anti-angin al. Will start now. Previously Increased labetalol from 200 mg bid to 400 mg bid. Increased hydralazin e 50 mg to 75 mg tid previously . Return to 75 mg tid 01/27/17. Pt brought all med bottles in 08/26/16. Increased to isosorbide mononitrat e 60 mg qd 09/13/17. Obtain renal artery U/S. Diabetes mellitus 143334 09 E11.59 Discussed importance of tight glycemic control to minimize cardiovasc ular disease ronald Field [id number] R25.2 Leg discomfort in calves with walking. Obtained ARIEL: Normal. [id number] [facility] OFFICE [address] [place] [address] 10/06/2017 16:31:00 10/07/2017 11:34:20 Chronic diastolic heart failure 678785262 I50.32 Improved. Had prior decompensa tion of HF-pEF with increased dyspnea and anemia. Edema improving after increased to Lasix 40 mg bid 04/12/17. Continue Lasix 40 mg bid. Pt reports being taken off lisinopril per nephrologi st previously and was intolerant of clonidine. Pt needs to see PCP and Dr. Carrizales. Aortic valve stenosis 60 887804 I35.0 Mild on 05/06/16 echo. Follow echo in 2 years. Coronary arteriosclerosis 63561125 I25.10 Two vessel mild-moder ate CAD. Distal 50% RCA stenosis and 40% mid LAD stenosis on recent LHC. Needs to keep LDL less than 70, and HDL more than 40. Continue ASA, beta-block er, statin. Hyperlipidemia 16211286 E78.5 Well-contr olled.Need s to keep LDL less than 70, and HDL more than 40. Increased atorvastat in from 20 mg to 40 mg qd, with subsequent LDL 68 07/2016. Had LDL 73 04/12/17. Obtain FLP in 3 mo. Benign hypertension 1072 5009 I10 Patient's blood pressure is {{well-con trolled so mewhat well-contr olled* not well-contr olled}} on present medical therapy. Patient is {{tolerati ng, without difficulty ,* having side effects with}} the current medication s. I have {{not made made the following* }} changes to the current regimen. {{ Patient is advised to maintain a blood pressure diary.*}} Patient was advised to eat a low-sodium diet (2 grams sodium or less daily). Previously Increased labetalol from 200 mg bid to 400 mg bid. Increased hydralazin e 50 mg to 75 mg tid previously . Return to 75 mg tid 01/27/17. Pt brought all med bottles in 08/26/16. Increased to isosorbide mononitrat e 60 mg qd 09/13/17. Had Renal Artery Ultrasound on 09/14/17 showing bilateral less than 60% renal artery stenosis, 5x5 cm hypoechoic , nonvascula r lesion in the right kidney. Renal US, CT or MRI analy alan Had Renal US at [facility] on 05/28/17: No hydronephr osis in either kidney. 2.4.9 x 4.7 x 4.6 cm simple cyst in the right kidney. Diabetes mellitus 046351 09 E11.59 Discussed importance of tight glycemic control to minimize cardiovasc ular disease progressio n. Cramp 72071924 R25.2 Leg discomfort in calves with walking. Obtained ARIEL: Normal. Edema 222707236 R60.9 Intermitte nt. Stable. Low sodium diet. [id number] Mohan Easleyhman [facility] [address] [place] [address] 01/12/2018 16:21:19 01/12/2018 18:17:00 Chronic diastolic heart failure 415752327 I50.32 Improved. Had prior decompensa tion of HF-pEF with increased dyspnea and anemia. Edema improving after increased to Lasix 40 mg bid 04/12/17. Continue Lasix 40 mg bid. Pt reports being taken off lisinopril per nephrologi st previously and was intolerant of clonidine. Pt needs to see PCP and Dr. Carrizales. Had ECHO done in 11/29/17 showed Contrast enhancemen t was employed after initial imaging due to sub-optima l quality related to co-morbidi ty defined by patient's body habitus. Maximal exercise stress echo, negative for myocardial ischemia. Grade 2 diastolic dysfunctio n. Mild LVH. Mild aortic sclerosis and no aortic stenosis, mild AI. Aortic valve stenosis 60 147502 I35.0 Mild on 05/06/16 echo. Follow echo in 2 years. Had ECHO done in 11/29/17 showed Contrast enhancemen t was employed after initial imaging due to sub-optima l quality related to co-morbidi ty defined by patient's body habitus. Maximal exercise stress echo, negative for myocardial ischemia. Grade 2 diastolic dysfunctio n. Mild aortic sclerosis and no aortic stenosis, mild AI. Coronary arteriosclerosis 51077544 I25.10 Two vessel mild-moder ate CAD. Distal 50% RCA stenosis and 40% mid LAD stenosis on recent LHC. Needs to keep LDL less than 70, and HDL more than 40. Continue ASA, beta-block er, statin. Hyperlipidemia 13878392 E78.5 Well-contr olled.Need s to keep LDL less than 70, and HDL more than 40. Increased atorvastat in from 20 mg to 40 mg qd, with subsequent LDL 68 07/2016. Had LDL 73 04/12/17. Obtain FLP in 3 mo. Benign hypertension 1072 5009 I10 Patient's blood pressure is {{well-con trolled* s omewhat well-contr olled not well-contr olled}} on present medical therapy. Patient is {{tolerati ng, without difficulty ,* having side effects with}} the current medication s. I have {{not made* made the following} } changes to the current regimen. {{ Patient is advised to maintain a blood pressure diary.*}} Patient was advised to eat a low-sodium diet (2 grams sodium or less daily). Previously Increased labetalol from 200 mg bid to 400 mg bid. Increased hydralazin e 50 mg to 75 mg tid previously . Return to 75 mg tid 01/27/17. Pt brought all med bottles in 08/26/16. Increased to isosorbide mononitrat e 60 mg qd 09/13/17, currently on 30 mg qd 01/12/18 per pt decision. Had Renal Artery Ultrasound on 09/14/17 showing bilateral less than 60% renal artery stenosis, 5x5 cm hypoechoic , nonvascula r lesion in the right kidney. Renal US, CT or MRI recommende d. Had Renal US at [facility] on 05/28/17: No hydronephr osis in either kidney. 2.4.9 x 4.7 x 4.6 cm simple cyst in the right kidney. Diabetes mellitus 336482 09 E11.59 Discussed importance of tight glycemic control to minimize cardiovasc ular disease progressio n. Cramp 96643475 R25.2 Leg discomfort in calves with walking. Obtained ARIEL: Normal. Edema 265266169 R60.9 Intermitte nt. Stable. Low sodium diet. Chronic re nal impairment 482362666 N18.9 Under evaluation for renal transplant but no transplant for now per [facility] since renal function is improved at this time. Had 09/14/17 RENAL ARTERY ULTRASOUND : Bilateral less than 60% renal artery stenosis. 5x5 cm hypoechoic , nonvascula r lesion in the right kidney. Renal ultrasound , CT or MRI recommende d. Had repeat renal U/S 11/2017 which showed stable cyst per patient report. [id number] Mohan Camacho [facility] [address] [place] [address] 06/13/2018 16:40:53 06/13/2018 17:57:07 Chronic diastolic heart failure 033357055 I50.32 Improved. Euvolemic. Had prior decompensa tion of HF-pEF with increased dyspnea and anemia. Edema improving after increased to Lasix 40 mg bid 04/12/17. Continue Lasix 40 mg bid. Pt reports being taken off lisinopril per nephrologi st previously and was intolerant of clonidine. Pt needs to see PCP and Dr. Carrizales. Had ECHO done in 11/29/17 showed Contrast enhancemen t was employed after initial imaging due to sub-optima l quality related to co-morbidi ty defined by patient's body habitus. Maximal exercise stress echo, negative for myocardial ischemia. Grade 2 diastolic dysfunctio n. Mild LVH. Mild aortic sclerosis and no aortic stenosis, mild AI. Obtain most recent BMP from PCP and Dr. Carrizales. Aortic valve stenosis 60 349145 I35.0 Mild on 05/06/16 echo. Follow echo in 2 years. Had ECHO done in 11/29/17 showed Contrast enhancemen t was employed after initial imaging due to sub-optima l quality related to co-morbidi ty defined by patient's body habitus. Maximal exercise stress echo, negative for myocardial ischemia. Grade 2 diastolic dysfunctio n. Mild aortic sclerosis and no aortic stenosis, mild AI. Coronary arteriosclerosis 76893394 I25.10 Two vessel mild-moder ate CAD. Distal 50% RCA stenosis and 40% mid LAD stenosis on recent LHC. Needs to keep LDL less than 70, and HDL more than 40. Continue ASA, beta-block er, statin. Hyperlipidemia 69793919 E78.5 Well-contr olled.Need s to keep LDL less than 70, and HDL more than 40. Increased atorvastat in from 20 mg to 40 mg qd, with subsequent LDL 68 07/2016. Had LDL 73 04/12/17. Obtain FLP per PCP. Benign hypertension 1072 5049 I10 Patient's blood pressure is {{well-con trolled so mewhat well-contr olled not well-contr olled*}} on present medical therapy. Patient is {{tolerati ng, without difficulty ,* having side effects with}} the current medication s. I have {{not made* made the following} } changes to the current regimen. {{ Patient is advised to maintain a blood pressure diary.*}} Patient was advised to eat a low-sodium diet (2 grams sodium or less daily). Previously Increased labetalol from 200 mg bid to 400 mg bid. Increased hydralazin e 50 mg to 75 mg tid previously . Return to 75 mg tid 01/27/17. Pt brought all med bottles in 08/26/16. Increased to isosorbide mononitrat e 60 mg qd 09/13/17, currently on 30 mg qd 01/12/18 per pt decision. Had Renal Artery Ultrasound on 09/14/17 showing bilateral less than 60% renal artery stenosis, 5x5 cm hypoechoic , nonvascula r lesion in the right kidney. Renal US, CT or MRI recommende d. Had Renal US at [facility] on 05/28/17: No hydronephr osis in either kidney. 2.4.9 x 4.7 x 4.6 cm simple cyst in the right kidney. He reports good BP control at home; BP diary. Diabetes mellitus 903033 09 E11.59 Discussed importance of tight glycemic control to minimize cardiovasc ular disease progressio n. Cramp 61771414 R25.2 Leg discomfort in calves with walking. Obtained ARIEL: Normal. Edema 965513545 R60.9 Intermitte nt. Stable. Low sodium diet. Chronic re nal impairment 799931922 N18.9 Under evaluation for renal transplant but no transplant for now per [facility] since renal function is improved at this time. Had 09/14/17 RENAL ARTERY ULTRASOUND : Bilateral less than 60% renal artery stenosis. 5x5 cm hypoechoic , nonvascula r lesion in the right kidney. Renal ultrasound , CT or MRI recommende d. Had repeat renal U/S 11/2017 which showed stable cyst per patient report. [id number] Mohan Camacho [facility] [address] [place] [address] 06/07/2019 16:28:50 06/07/2019 18:13:28 Chronic diastolic heart failure 560877196 I50.32 Improved. Euvolemic. Had prior decompensa tion of HF-pEF with increased dyspnea and anemia. Edema improving after increased to Lasix 40 mg bid 04/12/17. Continue Lasix 40 mg bid. Pt reports being taken off lisinopril per nephrologi st previously and was intolerant of clonidine. Pt needs to see PCP and Dr. Carrizales. Had ECHO done in 11/29/17 showed Contrast enhancemen t was employed after initial imaging due to sub-optima l quality related to co-morbidi ty defined by patient's body habitus. Maximal exercise stress echo, negative for myocardial ischemia. Grade 2 diastolic dysfunctio n. Mild LVH. Mild aortic sclerosis and no aortic stenosis, mild AI. Obtain most recent BMP from PCP and Dr. Carrizales. Aortic valve stenosis 60 745205 I35.0 Mild on 05/06/16 echo. Follow echo in 2 years. Had STRESS ECHO done at [facility] in 11/29/17 showed Contrast enhancemen t was employed after initial imaging due to sub-optima l quality related to co-morbidi ty defined by patient's body habitus. Maximal exercise stress echo, negative for myocardial ischemia. Normal LV systolic function, Grade 2 diastolic dysfunctio n. Mild aortic sclerosis and no aortic stenosis, mild AI. Coronary arteriosclerosis 02248485 I25.10 Two vessel mild-moder ate CAD. Distal 50% RCA stenosis and 40% mid LAD stenosis on LHC. Had LHC/ Angiogram on 11/06/15 : No significan t obstructiv e coronary artery disease. One vessel coronary artery disease with distal 50% stenosis involving the right coronary artery. Had STRESS ECHO done at [facility] in 11/29/17 showed Contrast enhancemen t was employed after initial imaging due to sub-optima l quality related to co-morbidi ty defined by patient's body habitus. Maximal exercise stress echo, negative for myocardial ischemia. Normal LV systolic function, Grade 2 diastolic dysfunctio n. Mild aortic sclerosis and no aortic stenosis, mild AI. Needs to keep LDL less than 70, and HDL more than 40. Continue ASA, beta-block er, statin. Hyperlipidemia [id number] E78.5 Well-contr olled.Need s to keep LDL less than 70, and HDL more than 40. Increased atorvastat in from 20 mg to 40 mg qd, with subsequent LDL 68 07/2016. Had LDL 73 04/12/17. Restarted atorvastat in 3 weeks ago. Obtain FLP. Benign hypertension 1072 5009 I10 Patient's blood pressure is {{well-con trolled so mewhat well-contr olled* not well-contr olled}} on present medical therapy. Patient is {{tolerati ng, without difficulty ,* having side effects with}} the current medication s. I have {{not made* made the following} } changes to the current regimen. {{ Patient is advised to maintain a blood pressure diary.*}} Patient was advised to eat a low-sodium diet (2 grams sodium or less daily). Previously Increased labetalol from 200 mg bid to 400 mg bid. Increased hydralazin e 50 mg to 75 mg tid previously . Return to 75 mg tid 01/27/17. Pt brought all med bottles in 08/26/16. Increased to isosorbide mononitrat e 60 mg qd 09/13/17, currently on 30 mg qd 01/12/18 per pt decision. Had Renal Artery Ultrasound on 09/14/17 showing bilateral less than 60% renal artery stenosis, 5x5 cm hypoechoic , nonvascula r lesion in the right kidney. Renal US, CT or MRI recommende d. Had Renal US at [facility] on 05/28/17: No hydronephr osis in either kidney. 2.4.9 x 4.7 x 4.6 cm simple cyst in the right kidney. He missed mid-day dose of hydralazin e today. BP diary. Diabetes mellitus 292668 09 E11.59 Discussed importance of tight glycemic control to minimize cardiovasc ular disease progressio [place] [id number] R25.2 Leg discomfort in calves with walking. Obtained ARIEL: Normal. Edema [id number] R60.9 Intermitte nt. Stable. Low sodium diet. Chronic re nal impairment [id number] N18.9 Under evaluation for renal transplant but no transplant for now per [facility] since renal function is improved at this time. Had 09/14/17 RENAL ARTERY ULTRASOUND : Bilateral less than 60% renal artery stenosis. 5x5 cm hypoechoic , nonvascula r lesion in the right kidney. Renal ultrasound , CT or MRI recommende d. Had repeat renal U/S 11/2017 which showed stable cyst per patient report. [id number] [address] [address] [place] [address] 10/27/2019 11:25:32 10/27/2019 13:12:10 Chronic diastolic heart failure [id number] I50.32 Improved. Euvolemic. Had prior decompensa tion of HF-pEF with increased dyspnea and anemia. Edema improving after increased to Lasix 40 mg bid 04/12/17. Continue Lasix 40 mg bid. Pt reports being taken off lisinopril per nephrologi st previously and was intolerant of clonidine. Pt needs to see PCP and Dr. Carrizales. Had ECHO done in 11/29/17 showed Contrast enhancemen t was employed after initial imaging due to sub-optima l quality related to co-morbidi ty defined by patient's body habitus. Maximal exercise stress echo, negative for myocardial ischemia. Grade 2 diastolic dysfunctio n. Mild LVH. Mild aortic sclerosis and no aortic stenosis, mild AI. Obtain most recent CMP/FLP from Dr. Carrizales. Aortic valve stenosis 60 427863 I35.0 Mild on 05/06/16 echo. Follow echo in 2 years. Had STRESS ECHO done at [facility] in 11/29/17 showed Contrast enhancemen t was employed after initial imaging due to sub-optima l quality related to co-morbidi ty defined by patient's body habitus. Maximal exercise stress echo, negative for myocardial ischemia. Normal LV systolic function, Grade 2 diastolic dysfunctio n. Mild aortic sclerosis and no aortic stenosis, mild AI. Coronary arteriosclerosis [id number] I25.10 Two vessel mild-moder ate CAD. Distal 50% RCA stenosis and 40% mid LAD stenosis on LHC. Had LHC/ Angiogram on 11/06/15 : No significan t obstructiv e coronary artery disease. One vessel coronary artery disease with distal 50% stenosis involving the right coronary artery. Had STRESS ECHO done at [facility] in 11/29/17 showed Contrast enhancemen t was employed after initial imaging due to sub-optima l quality related to co-morbidi ty defined by patient's body habitus. Maximal exercise stress echo, negative for myocardial ischemia. Normal LV systolic function, Grade 2 diastolic dysfunctio n. Mild aortic sclerosis and no aortic stenosis, mild AI. Needs to keep LDL less than 70, and HDL more than 40. Continue ASA, beta-block er, statin. Hyperlipidemia 73828073 E78.5 Well-contr olled.Need s to keep LDL less than 70, and HDL more than 40. Increased atorvastat in from 20 mg to 40 mg qd, with subsequent LDL 68 07/2016. Had LDL 73 04/12/17. Restarted atorvastat in 3 weeks ago. Obtain FLP, CMP results per Dr. Carrizales 08/2019. Benign hypertension 1072 5009 I10 Patient's blood pressure is {{well-con trolled so mewhat well-contr olled* not well-contr olled}} on present medical therapy. Patient is {{tolerati ng, without difficulty ,* having side effects with}} the current medication s. I have {{not made* made the following} } changes to the current regimen. {{ Patient is advised to maintain a blood pressure diary.*}} Patient was advised to eat a low-sodium diet (2 grams sodium or less daily). Previously Increased labetalol from 200 mg bid to 400 mg bid. Pt brought all med bottles in 08/26/16. Increased to isosorbide mononitrat e 60 mg qd 09/13/17, currently on 30 mg qd 01/12/18 per pt decision. Had Renal Artery Ultrasound on 09/14/17 showing bilateral less than 60% renal artery stenosis, 5x5 cm hypoechoic , nonvascula r lesion in the right kidney. Renal US, CT or MRI recommende lexa. Had Renal US at [facility] on 05/28/17: No hydronephr osis in either kidney. 2.4.9 x 4.7 x 4.6 cm simple cyst in the right kidney. Dr. Carrizales, renal, decreased hydralazin e from 75 mg to 50 mg tid August 2019. BP diary. Diabetes mellitus 275150 09 E11.59 Discussed importance of tight glycemic control to minimize cardiovasc ular disease progressio n. Edema 101486060 R60.9 Intermitte nt. Stable. Low sodium diet. Chronic re nal impairment [id number] N18.9 Under evaluation for renal transplant but no transplant for now per [facility] since renal function is improved at this time. Had 09/14/17 RENAL ARTERY ULTRASOUND : Bilateral less than 60% renal artery stenosis. 5x5 cm hypoechoic , nonvascula r lesion in the right kidney. Renal ultrasound , CT or MRI stevee lexa. Had repeat renal U/S 11/2017 which showed stable cyst per patient report. Intermitte nt claudication [id number] I73.9 Reports left thigh pain with walking. Obtain ARIEL. Previously , had ARIEL on 02/19/17: Normal ankle-brac hial index. Calcified non-compre ssible lower extremity arteries. [id number] [address] [facility] [address] [place] [address] 04/10/2020 15:19:15 04/10/2020 17:02:03 Chronic diastolic heart failure [id number] I50.32 Improved. Euvolemic. Had prior decompensa tion of HF-pEF with increased dyspnea and anemia. Edema improving after increased to Lasix 40 mg bid 04/12/17. Continue Lasix 40 mg bid. Pt reports being taken off lisinopril per nephrologi st previously and was intolerant of clonidine. Pt needs to see PCP and Dr. Carrizales. Had ECHO done in 11/29/17 showed Contrast enhancemen t was employed after initial imaging due to sub-optima l quality related to co-morbidi ty defined by patient's body habitus. Maximal exercise stress echo, negative for myocardial ischemia. Grade 2 diastolic dysfunctio n. Mild LVH. Mild aortic sclerosis and no aortic stenosis, mild AI. Obtain echo to evaluate for structural /functiona l disease. Aortic valve stenosis 60 027613 I35.0 Mild on 05/06/16 echo. Follow with echo. Had STRESS ECHO done at [facility] in 11/29/17 showed Contrast enhancemen t was employed after initial imaging due to sub-optima l quality related to co-morbidi ty defined by patient's body habitus. Maximal exercise stress echo, negative for myocardial ischemia. Normal LV systolic function, Grade 2 diastolic dysfunctio n. Mild aortic sclerosis and no aortic stenosis, mild AI. Coronary arteriosclerosis 69263065 I25.10 Two vessel mild-moder ate CAD. Distal 50% RCA stenosis and 40% mid LAD stenosis on LHC. Had LHC/ Angiogram on 11/06/15: No significan t obstructiv e coronary artery disease. One vessel coronary artery disease with distal 50% stenosis involving the right coronary artery. Had STRESS ECHO done at [facility] in 11/29/17 showed Contrast enhancemen t was employed after initial imaging due to sub-optima l quality related to co-morbidi ty defined by patient's body habitus. Maximal exercise stress echo, negative for myocardial ischemia. Normal LV systolic function, Grade 2 diastolic dysfunctio n. Mild aortic sclerosis and no aortic stenosis, mild AI. Needs to keep LDL less than 70, and HDL more than 40. Continue ASA, beta-block er, statin. Repeat stress testing as above. Hyperlipidemia 24874242 E78.5 Well-contr olled.Need s to keep LDL less than 70, and HDL more than 40. Increased atorvastat in from 20 mg to 40 mg qd, with subsequent LDL 68 07/2016. Had LDL 73 04/12/17. Restarted atorvastat in 3 weeks ago. Obtain FLP. Benign hypertension 1072 5009 I10 Patient's blood pressure is {{well-con trolled so mewhat well-contr olled* not well-contr olled}} on present medical therapy. Patient is {{tolerati ng, without difficulty ,* having side effects with}} the current medication s. I have {{not made* made the following} } changes to the current regimen. {{ Patient is advised to maintain a blood pressure diary.*}} Patient was advised to eat a low-sodium diet (2 grams sodium or less daily). Previously Increased labetalol from 200 mg bid to 400 mg bid. Pt brought all med bottles in 08/26/16. Increased to isosorbide mononitrat e 60 mg qd 09/13/17, currently on 30 mg qd 01/12/18 per pt decision. Had Renal Artery Ultrasound on 09/14/17 showing bilateral less than 60% renal artery stenosis, 5x5 cm hypoechoic , nonvascula r lesion in the right kidney. Renal US, CT or MRI recommende d. Had Renal US at [facility] on 05/28/17: No hydronephr osis in either kidney. 2.4.9 x 4.7 x 4.6 cm simple cyst in the right kidney. Dr. Carrizales, renal, decreased hydralazin e from 75 mg to 50 mg tid August 2019. BP diary. Diabetes mellitus 918346 09 E11.59 Discussed importance of tight glycemic control to minimize cardiovasc ular disease progressio n. Intermitte nt claudication [id number] I73.9 No claudicati on. Had 12-26-2019 ankle brachial index ARIEL 02/19/17 : Normal ankle-brac hial index. Calcified non-compre ssible lower extremity arteries. Normal ankle-brac hial index. Calcified non-compre ssible lower extremity arteries. ARIEL right >1.0 with triphasic waveforms, with toe index 0.803. ARIEL left >1.0 with triphasic waveforms, with toe index 0.809. No significan t peripheral arterial disease at rest. No evidence of tibial artery disease bilaterall y. There is no evidence of small vessel disease or embolism in either foot. Previously , had ARIEL on 02/19/17: Normal ankle-brac hial index. Calcified non-compre ssible lower extremity arteries. Edema [id number] R60.9 Intermitte nt. Stable. Low sodium diet. Chronic re nal impairment 511303443 N18.9 Under evaluation for renal transplant but no transplant for now per [facility] since renal function is improved at this time. Had 09/14/17 RENAL ARTERY ULTRASOUND : Bilateral less than 60% renal artery stenosis. 5x5 cm hypoechoic , nonvascula r lesion in the right kidney. Renal ultrasound , CT or MRI recommende d. Had repeat renal U/S 11/2017 which showed stable cyst per patient report. Chest pain 07114534 R07. 9 Patient presents with {{chest* a rm back ja w}} pain {{typical of angina wit h atypical features*} }. Given the history, exam findings and {{high* in termediate low}} cardiac risk factors with known moderate CAD, I {{feel* do not feel}} additional investigat ion is warranted. I have made arrangemen ts in the near future for {{an exercise stress echocardio gram to evaluate for any ischemia, structural heart disease, or exercise induced arrythmia an exercise stress nuclear test an exercise stress nuclear test (stress echo not possible due to COPD or obesity) a n exercise stress nuclear test and an echocardio gram to evaluate for any ischemia or structural heart disease* a pharmacolo gic stress nuclear test due to reduced functional capacity or conduction abnormalit y cardiac catheteriz ation an echocardio gram to evaluate left ventricula r function and any structural heart disease or valvular abnormalit y}}. The procedure was discussed with the patient, and risks, benefits, and alternativ e options were explained. {{ The patient was informed about heart catheteriz ation and interventi onal procedures and agrees to proceed.}} Appropriat e labwork {{has has not*}} been performed recently, therefore I {{have not have*} } made arrangemen ts for further testing: CMP, Mg, CBC, FLP. I have asked the patient to curtail exercise and activities until our investigat ion is complete. I have {{made no made the following* }} adjustment s to the present medical regimen. {{ Patient has been started on daily aspirin.}} {{ Patient has been given a prescripti on for sublingual nitroglyce rin.}} [id number] [facility] [address] [place] [place] [address] 03/07/2021 11:27:52 03/07/2021 13:12:58 Chest pain 37324298 R07.9 Patient presents with {{chest* a rm back ja w}} pain {{typical of angina wit h atypical features*} } Had STRESS ECHO done at [facility] in 09/16/20: maximal exercise stress echo negative for ischemia, fair exercise tolerance, systolic hypertensi ve response to exercise. LVEF 70%, normal LV size, moderate LVH. Obtain echo results [facility] in 2020. {{ Patient has been given a prescripti on for sublingual nitroglyce rin.}} Chronic di astolic heart failure [id number] I50.32 Improved. Euvolemic. Had prior decompensa tion of HF-pEF with increased dyspnea and anemia. Edema improving after increased to Lasix 40 mg bid 04/12/17. Continue Lasix 40 mg bid. Pt reports being taken off lisinopril per nephrologi st previously and was intolerant of clonidine. Pt needs to see PCP and Renal. Had STRESS ECHO done at [facility] in 09/16/20: maximal exercise stress echo negative for ischemia, fair exercise tolerance, systolic hypertensi ve response to exercise. LVEF 70%, normal LV size, moderate LVH Had ECHO done in 11/29/17 showed Contrast enhancemen t was employed after initial imaging due to sub-optima l quality related to co-morbidi ty defined by patient's body habitus. Maximal exercise stress echo, negative for myocardial ischemia. Grade 2 diastolic dysfunctio n. Mild LVH. Mild aortic sclerosis and no aortic stenosis, mild AI. Aortic valve stenosis 60 299303 I35.0 Mild on 05/06/16 echo. Had STRESS ECHO done at [facility] in 09/16/20: maximal exercise stress echo negative for ischemia, fair exercise tolerance, systolic hypertensi ve response to exercise. LVEF 70%, normal LV size, moderate LVH. No . Had STRESS ECHO done at [facility] in 11/29/17 showed Contrast enhancemen t was employed after initial imaging due to sub-optima l quality related to co-morbidi ty defined by patient's body habitus. Maximal exercise stress echo, negative for myocardial ischemia. Normal LV systolic function, Grade 2 diastolic dysfunctio n. Mild aortic sclerosis and no aortic stenosis, mild AI. Coronary arteriosclerosis 31375024 I25.10 Two vessel mild-moder ate CAD. Distal 50% RCA stenosis and 40% mid LAD stenosis on LHC. Had LHC/ Angiogram on 11/06/15: No significan t obstructiv e coronary artery disease. One vessel coronary artery disease with distal 50% stenosis involving the right coronary artery. Had STRESS ECHO done at [facility] in 09/16/20: maximal exercise stress echo negative for ischemia, fair exercise tolerance, systolic hypertensi ve response to exercise. LVEF 70%, normal LV size, moderate LVH. No . Had STRESS ECHO done at [facility] in 11/29/17 showed Contrast enhancemen t was employed after initial imaging due to sub-optima l quality related to co-morbidi ty defined by patient's body habitus. Maximal exercise stress echo, negative for myocardial ischemia. Normal LV systolic function, Grade 2 diastolic dysfunctio n. Mild aortic sclerosis and no aortic stenosis, mild AI. Needs to keep LDL less than 70, and HDL more than 40. Continue ASA, beta-block er, statin. Repeat stress testing as above. Hyperlipidemia 21913454 E78.5 Well-contr olled.Need s to keep LDL less than 70, and HDL more than 40. Increased atorvastat in from 20 mg to 40 mg qd, with subsequent LDL 68 07/2016. Had LDL 73 04/12/17. Restarted atorvastat in previously . Obtained FLP 09/16/20: LDL 57. Benign hypertension 1072 5009 I10 Patient's blood pressure is {{well-con trolled so mewhat well-contr olled* not well-contr olled}} on present medical therapy. Patient is {{tolerati ng, without difficulty ,* having side effects with}} the current medication s. I have {{not made made the following* }} changes to the current regimen. {{ Patient is advised to maintain a blood pressure diary.*}} Patient was advised to eat a low-sodium diet (2 grams sodium or less daily). Previously Increased labetalol from 200 mg bid to 400 mg bid. Pt brought all med bottles in 08/26/16. Increased to isosorbide mononitrat e 60 mg qd 09/13/17, currently on 30 mg qd 01/12/18 per pt decision. Had Renal Artery Ultrasound on 09/14/17 showing bilateral less than 60% renal artery stenosis, 5x5 cm hypoechoic , nonvascula r lesion in the right kidney. Renal US, CT or MRI analy lindquist. Had Renal US at [facility] on 05/28/17: No hydronephr osis in either kidney. 2.4.9 x 4.7 x 4.6 cm simple cyst in the right kidney. Dr. Carrizales, renal, decreased hydralazin e from 75 mg to 50 mg tid August 2019, but patient had self-reduc ed hydralazin e to 50 mg bid, so resumed hydralazin e 50 mg tid 03/07/21. BP diary. Diabetes mellitus 161726 09 E11.59 Discussed importance of tight glycemic control to minimize cardiovasc ular disease progressio n. Intermitte nt claudication 72932134 I73.9 No claudicati on. Had 12-26-2019 ankle brachial index ARIEL 02/19/17 : Normal ankle-brac hial index. Calcified non-compre ssible lower extremity arteries. Normal ankle-brac hial index. Calcified non-compre ssible lower extremity arteries. ARIEL right >1.0 with triphasic waveforms, with toe index 0.803. ARIEL left >1.0 with triphasic waveforms, with toe index 0.809. No significan t peripheral arterial disease at rest. No evidence of tibial artery disease bilaterall y. There is no evidence of small vessel disease or embolism in either foot. Previously , had ARIEL on 02/19/17: Normal ankle-brac hial index. Calcified non-compre ssible lower extremity arteries. Edema [id number] R60.9 Intermitte nt. Stable. Low sodium diet. Chronic re nal impairment 110125584 N18.9 He is listed for renal transplant . Had 09/14/17 RENAL ARTERY ULTRASOUND : Bilateral less than 60% renal artery stenosis. 5x5 cm hypoechoic , nonvascula r lesion in the right kidney. Renal ultrasound , CT or MRI recommende d. Had repeat renal U/S 11/2017 which showed stable cyst per patient report. Pre-surger y evaluation [id number] Z01.818 He has upcoming C-spine surgery 03/18/21 [facility] with Dr. Carey Ambrocio. Had STRESS ECHO done at [facility] in 09/16/20: maximal exercise stress echo negative for ischemia, fair exercise tolerance, systolic hypertensi ve response to exercise. LVEF 70%, normal LV size, moderate LVH. There is no cardiac contraindi cation for the procedure. The planned procedure would be within acceptable risk. {{ Patient may stop taking aspirin and Plavix five (5) days prior to the procedure. Patient may stop taking aspirin five (5) days prior to the procedure. #}} [id number] [facility] [address] [place] [address] 07/25/2021 11:09:50 07/25/2021 13:15:30 Chest pain 91471039 R07.9 Patient presents with {{chest* a rm back ja w}} pain {{typical of angina wit h atypical features*} }. Given the history, exam findings and {{high* in termediate low}} cardiac risk factors, I {{feel* do not feel}} additional investigat ion is warranted. I have made arrangemen ts in the near future for {{an exercise stress echocardio gram to evaluate for any ischemia, structural heart disease, or exercise induced arrythmia an exercise stress nuclear test an exercise stress nuclear test (stress echo not possible due to COPD or obesity) a n exercise stress nuclear test and an echocardio gram to evaluate for any ischemia or structural heart disease* a pharmacolo gic stress nuclear test due to reduced functional capacity or conduction abnormalit y cardiac catheteriz ation an echocardio gram to evaluate left ventricula r function and any structural heart disease or valvular abnormalit y}}. The procedure was discussed with the patient, and risks, benefits, and alternativ e options were explained. {{ The patient was informed about heart catheteriz ation and interventi onal procedures and agrees to proceed.}} Appropriat e labwork {{has has not*}} been performed recently, therefore I {{have not have*} } made arrangemen ts for further testing. I have asked the patient to curtail exercise and activities until our investigat ion is complete. I have {{made no made the following* }} adjustment s to the present medical regimen. {{ Patient has been started on daily aspirin.}} {{ Patient has been given a prescripti on for sublingual nitroglyce rin.}} Had STRESS ECHO done at [facility] in 09/16/20: maximal exercise stress echo negative for ischemia, fair exercise tolerance, systolic hypertensi ve response to exercise. LVEF 70%, normal LV size, moderate LVH. Obtain echo results [facility] in 2020. {{ Patient has been given a prescripti on for sublingual nitroglyce rin.}} Chronic di astolic heart failure [id number] I50.32 Improved. Euvolemic. Had prior decompensa tion of HF-pEF with increased dyspnea and anemia. Edema improving after increased to Lasix 40 mg bid 04/12/17. Continue Lasix 40 mg bid. Pt reports being taken off lisinopril per nephrologi st previously and was intolerant of clonidine. Pt needs to see PCP and Renal. Had STRESS ECHO done at [facility] in 09/16/20: maximal exercise stress echo negative for ischemia, fair exercise tolerance, systolic hypertensi ve response to exercise. LVEF 70%, normal LV size, moderate LVH Had ECHO done in 11/29/17 showed Contrast enhancemen t was employed after initial imaging due to sub-optima l quality related to co-morbidi ty defined by patient's body habitus. Maximal exercise stress echo, negative for myocardial ischemia. Grade 2 diastolic dysfunctio n. Mild LVH. Mild aortic sclerosis and no aortic stenosis, mild AI. Bring all meds in bottles. Aortic valve stenosis 60 244194 I35.0 Mild on 05/06/16 echo. Had STRESS ECHO done at [facility] in 09/16/20: maximal exercise stress echo negative for ischemia, fair exercise tolerance, systolic hypertensi ve response to exercise. LVEF 70%, normal LV size, moderate LVH. No . Had STRESS ECHO done at [facility] in 11/29/17 showed Contrast enhancemen t was employed after initial imaging due to sub-optima l quality related to co-morbidi ty defined by patient's body habitus. Maximal exercise stress echo, negative for myocardial ischemia. Normal LV systolic function, Grade 2 diastolic dysfunctio n. Mild aortic sclerosis and no aortic stenosis, mild AI. Coronary arteriosclerosis 45807918 I25.10 Two vessel mild-moder ate CAD. Distal 50% RCA stenosis and 40% mid LAD stenosis on LHC. Had LHC/ Angiogram on 11/06/15: No significan t obstructiv e coronary artery disease. One vessel coronary artery disease with distal 50% stenosis involving the right coronary artery. Had STRESS ECHO done at [facility] in 09/16/20: maximal exercise stress echo negative for ischemia, fair exercise tolerance, systolic hypertensi ve response to exercise. LVEF 70%, normal LV size, moderate LVH. No . Had STRESS ECHO done at [facility] in 11/29/17 showed Contrast enhancemen t was employed after initial imaging due to sub-optima l quality related to co-morbidi ty defined by patient's body habitus. Maximal exercise stress echo, negative for myocardial ischemia. Normal LV systolic function, Grade 2 diastolic dysfunctio n. Mild aortic sclerosis and no aortic stenosis, mild AI. Needs to keep LDL less than 70, and HDL more than 40. Continue ASA, beta-block er, statin. Repeat stress testing as above. Hyperlipidemia [id number] E78.5 Well-contr olled.Need s to keep LDL less than 70, and HDL more than 40. Increased atorvastat in from 20 mg to 40 mg qd, with subsequent LDL 68 07/2016. Had LDL 73 04/12/17. Restarted atorvastat in previously . Obtained FLP 09/16/20: LDL 57. Benign hypertension 1072 [id number] I10 Patient's blood pressure is {{well-con trolled so mewhat well-contr olled* not well-contr olled}} on present medical therapy. Patient is {{tolerati ng, without difficulty ,* having side effects with}} the current medication s. I have {{not made* made the following} } changes to the current regimen. {{ Patient is advised to maintain a blood pressure diary.*}} Patient was advised to eat a low-sodium diet (2 grams sodium or less daily). Previously Increased labetalol from 200 mg bid to 400 mg bid. Pt brought all med bottles in 08/26/16. Increased to isosorbide mononitrat e 60 mg qd 09/13/17, currently on 30 mg qd 01/12/18 per pt decision. Had Renal Artery Ultrasound on 09/14/17 showing bilateral less than 60% renal artery stenosis, 5x5 cm hypoechoic , nonvascula r lesion in the right kidney. Renal US, CT or MRI analy alan Had Renal US at [facility] on 05/28/17: No hydronephr osis in either kidney. 2.4.9 x 4.7 x 4.6 cm simple cyst in the right kidney. Dr. Carrizales, renal, decreased hydralazin e from 75 mg to 50 mg tid August 2019, but patient had self-reduc ed hydralazin e to 50 mg bid, so resumed hydralazin e 50 mg tid 03/07/21. BP diary. Diabetes mellitus [id number] E11.59 Discussed importance of tight glycemic control to minimize cardiovasc ular disease progressio n. Intermitte nt claudication [id number] I73.9 No claudicati on. Had 12-26-2019 ankle brachial index ARIEL 02/19/17 : Normal ankle-brac hial index. Calcified non-compre ssible lower extremity arteries. Normal ankle-brac hial index. Calcified non-compre ssible lower extremity arteries. ARIEL right >1.0 with triphasic waveforms, with toe index 0.803. ARIEL left >1.0 with triphasic waveforms, with toe index 0.809. No significan t peripheral arterial disease at rest. No evidence of tibial artery disease bilaterall y. There is no evidence of small vessel disease or embolism in either foot. Previously , had ARIEL on 02/19/17: Normal ankle-brac hial index. Calcified non-compre ssible lower extremity arteries. Edema [id number] R60.9 Resolved. Stable. Low sodium diet. Chronic re nal impairment [id number] N18.9 He is listed for renal transplant . Now on HD. Had 09/14/17 RENAL ARTERY ULTRASOUND : Bilateral less than 60% renal artery stenosis. 5x5 cm hypoechoic , nonvascula r lesion in the right kidney. Renal ultrasound , CT or MRI recommende d. Had repeat renal U/S 11/2017 which showed stable cyst per patient report. Health Concerns Section Related Observation LastModified by Organization Detai ls LastModified Time None Recorded Concern Status LastModified by Organization Details LastModified Time None Recorded Advance Directives Directive None Recorded Payers Encounter Date Sequence Insurance Name Policy Number Policy Cheng Covered Member ID Cheng Member ID Guarantor Name 06/07/2019 1 [facility] [id number] Kenji [facility] [id number] [facility] 10/27/2019 1 [facility] [id number] [facility] [id number] [facility] 04/10/2020 1 [facility] [id number] [facility] [id number] [facility] 03/07/2021 1 [facility] [id number] [facility] [id number] [facility] 07/25/2021 1 [facility] [id number] [facility] [id number] [facility] Notes Date Note Type Note Provider Name and Address Organization Details Recorded Time 06/07/2019 text/html 06/07/19 CC : Shortness of breath 63 year-old -[place] man with CAD, HF-pEF, mild aortic stenosis, hypertension, hyperlipidemia, diabetes mellitus, proteinuria with chronic kidney disease, anemia is here for follow-up. He reports BP at home 148/66. He has no leg edema. He has followed up with Dr. Paige (Pulm) and was told he had FLORENCE but has not used CPAP (AHI 15). Per patient, Dr. Paige does not feel CPAP is needed. He has CKD and follows up with Dr. Carrizales (Neph). BUN 66, Cr 2.8. He does have a physical job, he is active, but does no exercise regularly.No chest pain with exertion. Reports central heartburn/burning sensation without pressure or dullness at rest, but he self-stopped pantoprazole. Tums relieves his heartburn. No shortness of breath at rest. No dyspnea on exertion. No palpitations. No orthopnea. No PND's. No lightheadedness or dizziness. No syncope or near syncope. Rare infrequent leg swelling, intermittent. No nausea and vomiting. No major bleeding events. No side effects from medications. Previously, he was in the hospital in 05/27/17 because of shortness of breath with exertion. He was admitted for CHF and given IV Lasix. EKG showed normal sinus rhythm, single PVC, poor R progression. Had ECHO done in 05/28/17 showed mild LVH, LV systolic function is normal. EF 55-60%. He was also found to be anemic and needed 2 Units of blood transfused, said to be from possible gastric ulcer. He is now taking Iron supplements daily and Iron shot every week. Had Renal US at [facility] on 05/28/17: No hydronephrosis in either kidney. 2.4.9 x 4.7 x 4.6 cm simple cyst in the right kidney. Had Renal Artery Ultrasound on 09/14/17 showing bilateral less than 60% renal artery stenosis, 5x5 cm hypoechoic, nonvascular lesion in the right kidney. Renal US, CT or MRI recommended. Had Echo on 05/28/17: There is mild concentric left ventricular hypertrophy. Left ventricular systolic function is normal. Ejection fraction =55-60%. Had ARIEL on 02/19/17: Normal ankle-brachial index. Calcified non-compressible lower extremity arteries. Had LHC/ Angiogram on 11/06/15 : No significant obstructive coronary artery disease. One vessel coronary artery disease with distal 50% stenosis involving the right coronary artery. Had STRESS ECHO done at [facility] in 11/29/17 showed Contrast enhancement was employed after initial imaging due to sub-optimal quality related to co-morbidity defined by patient's body habitus. Maximal exercise stress echo, negative for myocardial ischemia. Normal LV systolic function, Grade 2 diastolic dysfunction. Mild aortic sclerosis and no aortic stenosis, mild AI. Results from this visit, or from the past: 09/23/17 HGB: 9.9, HCT: 30.5 08/26/17: Na 140 , K 4.6 ,CL 104 , CO2 21 ,GLU 128 , BUN 66 , CR 2.8, 07/15/17: HGB: 10.1, HCT 30.7 07/01/17: BMP: SOD 141, K 4.5, CL 101, CO2 24, GL 115, BUN 64, CR 3.3 05/28/17: CBC: WBC 7.1, RBC 3.78, HGB 10.2, HCT 31.6, PLT 252.; smCBC 05/28/17: WBC 7.1, Hgb 10.2, Hct 31.6, PLt 252 05/28/17: NA 143 , K 4.8 , CL 101 ,CO2 25 ,GLU 108 , BUN 44 ,CR 2.6, 08/15/16: Cr 2.05, BUN 40, K 5.2, Na 142, CK 566, Lipids: LDL 68. HDL 44. TC 125. TG 64. 07/04/16, Cr 2.11, BUN 36, K 5.3 (stable). 06-28-2016: GLU-181 BUN-42 CR-2.91 N-139 K-5.3 (upper limit of normal is 5.3 for [facility]) CL-107 CO2-23 04/27/16 : NA:140, K:4.3,CL:102, CO2: 25, GLU:107, BUN:18, CR:1.2, AST:19, ALT:16 04/27/16 : TR:229, TC:167, HDL:29, LDL:92 11/29/2015: Cr 1.75, BUN 36, K 4.7, 11-13-2015: SOD 143, K 4.6, CL 108, GLU 115, BUN 34, CR 2.0, Co2 22. 11-13-2015: WBC 6.8, RBC 3.18, HGB 8.9, HCT 26.6, PLT 260 10/30/15: SOD 137, K 4.9, CL 104, CO2 22, GL 232, BUN 38, CR 2.3, TC 186, HDL 43, TR 159, LDL 111, AST 17, ALT 23. (nonfasting) EKG 06/13/18 : Poor R progression in chest leads , Non-specific Inverted T waves , inferior leads. 09/13/17 EKG: Sinus rhythm. P: normal. QRS: vertical axis. ST: T inferior ST:T changes. Consider ischemia or LV overload. Negative T n aVF, with negative T in III, Abnormal ECG. EKG 05/28/17: Sinus rhythm occasional premature ventricular complexes right reddy axis,possible anterior infarct age undetermined T wave abnormality consider inferior ischemia abnormal EKG. EKG 12/02/16 : NSR. nonspecific inverted T waves, inferior leads EKG 08/26/16: sinus rhythm. P: normal. QRS: vertical axis. ST-T: inferior ST-T changes, consider ischemia or LV overload. negative T in aVF. with negative T in III. Conclusion: abnormal ECG. HR:82 EKG 04/29/16: sinus rhythm. P: normal. QRS: right axis deviation. possible LVH. age corrected Sokolow index (SV1 +RV5 or V6.) = 3.7 mV. age corrected R in left precordial leads= 2.8mV. ST-T: marked inferior ST-T changes secondary to LVH. consider also ischemia. large negative T in III. Conclusion: abnormal ECG EKG 10/03/15: Sinus rhythm(rapid).P:lorena l.QRS:normal.ST-T:nor mal. EK10/30/15 Normal sinus rhythm. Possible inferior infarct (cited on or before 30-OCT-2015). Abnormal ECG. When compared with ECG of 30-OCT-2015 No significant change was found. 05/27/17 Chest XR: No acute cardiopulmonary abnormality. Cardiomegaly with no acute pulmonary edema; 10/30/15: CXR Stable mild cardiomegaly. No acute appearing cardiopulmonary abnormality is evident. 11/29/17 ECHO: Contrast enhancement was employed after initialimaging due to sub-optimal quality related to co-morbidity defined by patient's body habitus. Mximal exercise stress echo, negative for myocardial ischemia. Had STRESS ECHO done at [facility] in 11/29/17 showed Contrast enhancement was employed after initial imaging due to sub-optimal quality related to co-morbidity defined by patient's body habitus. Maximal exercise stress echo, negative for myocardial ischemia. Normal LV systolic function, Grade 2 diastolic dysfunction. Mild aortic sclerosis and no aortic stenosis, mild AI. US, echocardiogram 05-28-2017 ECHO 05/28/17 : There is a mild concentric LVH. LV systolic function is normal. EF 55-60%. 05/06/16 ECHOCARDIOGRAM REPORT: Study quality : technically difficult. LV chamber size is normal. LV wall thickness is mildly increased. There is normal global systolic function and contractility. The estimated left ventricle ejection fraction is 55-60%(normal). Diastolic filling reveals impaired relaxation ( grade 1 diastolic dysfunction). Left Atrium chamber is mildly dilated. The aortic valve is mildly calcified. There is mild aortic regurgitation. There is mild aortic valve stenosis. There is mild tricuspid regurgitation. ARIEL 02/19/17 : Normal ankle-brachial index. Calcified non-compressible lower extremity arteries. C 11/06/15 : No significant obstructive coronary artery disease. One vessel coronary artery disease with distal 50% stenosis involving the right coronary artery. 40% mid LAD stenosis. Mohan Camacho [place], [place] - [facility] 06/07/2019 18:13:25 10/27/2019 text/html 11/23/19 CC: Shortness of breath 63 year-old -[place] man with CAD, HF-pEF, mild aortic stenosis, hypertension, hyperlipidemia, diabetes mellitus, proteinuria with chronic kidney disease, anemia is here for follow-up. He has no leg edema. He had 5 lb weight loss. In the distant past, he followed up with Dr. Paige (Pulm) and was told he had FLORENCE but has not used CPAP (AHI 15). Per patient, Dr. Paige does not feel CPAP is needed. He has CKD and follows up with Dr. Carrizales (Neph). BUN 66, Cr 2.8. He does have a physical job, he is active, but does no exercise regularly.No chest pain with exertion. Previously, reported central heartburn/burning sensation without pressure or dullness at rest, but he self-stopped pantoprazole. Tums relieves his heartburn. No shortness of breath at rest. No dyspnea on exertion. No palpitations. No orthopnea. No PND's. No lightheadedness or dizziness. No syncope or near syncope. Rare infrequent leg swelling, intermittent. No nausea and vomiting. No major bleeding events. No side effects from medications. Obtain CMP, Mg in 2 weeks. Reports left thigh pain with walking. Previously, he was in the hospital in 05/27/17 because of shortness of breath with exertion. He was admitted for CHF and given IV Lasix. EKG showed normal sinus rhythm, single PVC, poor R progression. Had ECHO done in 05/28/17 showed mild LVH, LV systolic function is normal. EF 55-60%. He was also found to be anemic and needed 2 Units of blood transfused, said to be from possible gastric ulcer. He is now taking Iron supplements daily and Iron shot every week. Had Renal US at [facility] on 05/28/17: No hydronephrosis in either kidney. 2.4.9 x 4.7 x 4.6 cm simple cyst in the right kidney. Had Renal Artery Ultrasound on 09/14/17 showing bilateral less than 60% renal artery stenosis, 5x5 cm hypoechoic, nonvascular lesion in the right kidney. Renal US, CT or MRI recommended. Had Echo on 05/28/17: There is mild concentric left ventricular hypertrophy. Left ventricular systolic function is normal. Ejection fraction =55-60%. Had ARIEL on 02/19/17: Normal ankle-brachial index. Calcified non-compressible lower extremity arteries. Had LHC/ Angiogram on 11/06/15 : No significant obstructive coronary artery disease. One vessel coronary artery disease with distal 50% stenosis involving the right coronary artery. Had STRESS ECHO done at [facility] in 11/29/17 showed Contrast enhancement was employed after initial imaging due to sub-optimal quality related to co-morbidity defined by patient's body habitus. Maximal exercise stress echo, negative for myocardial ischemia. Normal LV systolic function, Grade 2 diastolic dysfunction. Mild aortic sclerosis and no aortic stenosis, mild AI. Results from this visit, or from the past: 09/23/17 HGB: 9.9, HCT: 30.5 08/26/17: Na 140 , K 4.6 ,CL 104 , CO2 21 ,GLU 128 , BUN 66 , CR 2.8, 07/15/17: HGB: 10.1, HCT 30.7 07/01/17: BMP: SOD 141, K 4.5, CL 101, CO2 24, GL 115, BUN 64, CR 3.3 05/28/17: CBC: WBC 7.1, RBC 3.78, HGB 10.2, HCT 31.6, PLT 252.; smCBC 05/28/17: WBC 7.1, Hgb 10.2, Hct 31.6, PLt 252 05/28/17: NA 143 , K 4.8 , CL 101 ,CO2 25 ,GLU 108 , BUN 44 ,CR 2.6, 08/15/16: Cr 2.05, BUN 40, K 5.2, Na 142, CK 566, Lipids: LDL 68. HDL 44. TC 125. TG 64. 3/03/12, Cr 2.11, BUN 36, K 5.3 (stable). 06-28-2016: GLU-181 BUN-42 CR-2.91 N-139 K-5.3 (upper limit of normal is 5.3 for [facility]) CL-107 CO2-23 04/27/16 : NA:140, K:4.3,CL:102, CO2: 25, GLU:107, BUN:18, CR:1.2, AST:19, ALT:16 04/27/16 : TR:229, TC:167, HDL:29, LDL:92 11/29/2015: Cr 1.75, BUN 36, K 4.7, 11-13-2015: SOD 143, K 4.6, CL 108, GLU 115, BUN 34, CR 2.0, Co2 22. 11-13-2015: WBC 6.8, RBC 3.18, HGB 8.9, HCT 26.6, PLT 260 10/30/15: SOD 137, K 4.9, CL 104, CO2 22, GL 232, BUN 38, CR 2.3, TC 186, HDL 43, TR 159, LDL 111, AST 17, ALT 23. (nonfasting) EKG 06/13/18 : Poor R progression in chest leads , Non-specific Inverted T waves , inferior leads. 09/13/17 EKG: Sinus rhythm. P: normal. QRS: vertical axis. ST: T inferior ST:T changes. Consider ischemia or LV overload. Negative T n aVF, with negative T in III, Abnormal ECG. EKG 05/28/17: Sinus rhythm occasional premature ventricular complexes right reddy axis,possible anterior infarct age undetermined T wave abnormality consider inferior ischemia abnormal EKG. EKG 12/02/16 : NSR. nonspecific inverted T waves, inferior leads EKG 08/26/16: sinus rhythm. P: normal. QRS: vertical axis. ST-T: inferior ST-T changes, consider ischemia or LV overload. negative T in aVF. with negative T in III. Conclusion: abnormal ECG. HR:82 EKG 04/29/16: sinus rhythm. P: normal. QRS: right axis deviation. possible LVH. age corrected Sokolow index (SV1 +RV5 or V6.) = 3.7 mV. age corrected R in left precordial leads= 2.8mV. ST-T: marked inferior ST-T changes secondary to LVH. consider also ischemia. large negative T in III. Conclusion: abnormal ECG EKG 10/03/15: Sinus rhythm(rapid).P:lorena l.QRS:normal.ST-T:nor mal. EK10/30/15 Normal sinus rhythm. Possible inferior infarct (cited on or before 30-OCT-2015). Abnormal ECG. When compared with ECG of 30-OCT-2015 No significant change was found. 05/27/17 Chest XR: No acute cardiopulmonary abnormality. Cardiomegaly with no acute pulmonary edema; 10/30/15: CXR Stable mild cardiomegaly. No acute appearing cardiopulmonary abnormality is evident. 11/29/17 ECHO: Contrast enhancement was employed after initialimaging due to sub-optimal quality related to co-morbidity defined by patient's body habitus. Mximal exercise stress echo, negative for myocardial ischemia. Had STRESS ECHO done at [facility] in 11/29/17 showed Contrast enhancement was employed after initial imaging due to sub-optimal quality related to co-morbidity defined by patient's body habitus. Maximal exercise stress echo, negative for myocardial ischemia. Normal LV systolic function, Grade 2 diastolic dysfunction. Mild aortic sclerosis and no aortic stenosis, mild AI. US, echocardiogram 05-28-2017 ECHO 05/28/17 : There is a mild concentric LVH. LV systolic function is normal. EF 55-60%. 05/06/16 ECHOCARDIOGRAM REPORT: Study quality : technically difficult. LV chamber size is normal. LV wall thickness is mildly increased. There is normal global systolic function and contractility. The estimated left ventricle ejection fraction is 55-60%(normal). Diastolic filling reveals impaired relaxation ( grade 1 diastolic dysfunction). Left Atrium chamber is mildly dilated. The aortic valve is mildly calcified. There is mild aortic regurgitation. There is mild aortic valve stenosis. There is mild tricuspid regurgitation. ARIEL 02/19/17 : Normal ankle-brachial index. Calcified non-compressible lower extremity arteries. LHC 11/06/15 : No significant obstructive coronary artery disease. One vessel coronary artery disease with distal 50% stenosis involving the right coronary artery. 40% mid LAD stenosis. [facility] - [facility] 10/27/2019 13:11:48 04/10/2020 text/html 04/10/20 CC: Shortness of breath 64 year-old -[place] man with CAD, HF-pEF, mild aortic stenosis, hypertension, hyperlipidemia, diabetes mellitus, proteinuria with chronic kidney disease, anemia is here for follow-up. Following increased diuretic to Lasix 80 mg bid from [address] Carrizales, he was seen in [facility] ED 03/22/20 for fatigue and was found to have low Mg, and he was started on Mg. He was noted to have low iron and anemia. BP was elevated 185/81. Had 03/22/20: K 5.1, Cr 3.5, Mg 1.5, LDL 108, hgb 9.0. Reports recent BP 167-140/80-69. .He has intermittent mild leg edema. He had 8 lb weight gain. In the distant past, he followed up with Dr. Paige (Pulm) and was told he had FLORENCE but has not used CPAP (AHI 15). Per patient, Dr. Paige does not feel CPAP is needed. He has CKD and follows up with Dr. Carrizales (Neph). He does have a physical job, he is active, but does no exercise regularly.Reports chest pain with exertion at work. Previously, reported central heartburn/burning sensation without pressure or dullness at rest, but he self-stopped pantoprazole. Tums relieves his heartburn. No shortness of breath at rest. No dyspnea on exertion. No palpitations. No orthopnea. No PND's. No lightheadedness or dizziness. No syncope or near syncope. Occasional leg swelling, intermittent. No nausea and vomiting. No major bleeding events. No side effects from medications. Obtain CMP, Mg in 2 weeks. Reports left thigh pain with walking. Previously, he was in the hospital in 05/27/17 because of shortness of breath with exertion. He was admitted for CHF and given IV Lasix. EKG showed normal sinus rhythm, single PVC, poor R progression. Had ECHO done in 05/28/17 showed mild LVH, LV systolic function is normal. EF 55-60%. He was also found to be anemic and needed 2 Units of blood transfused, said to be from possible gastric ulcer. He is now taking Iron supplements daily and Iron shot every week. Had Renal US at [facility] on 05/28/17: No hydronephrosis in either kidney. 2.4.9 x 4.7 x 4.6 cm simple cyst in the right kidney. Had Renal Artery Ultrasound on 09/14/17 showing bilateral less than 60% renal artery stenosis, 5x5 cm hypoechoic, nonvascular lesion in the right kidney. Renal US, CT or MRI recommended. Had Echo on 05/28/17: There is mild concentric left ventricular hypertrophy. Left ventricular systolic function is normal. Ejection fraction =55-60%. Had ARIEL on 02/19/17: Normal ankle-brachial index. Calcified non-compressible lower extremity arteries. Had LHC/ Angiogram on 11/06/15 : No significant obstructive coronary artery disease. One vessel coronary artery disease with distal 50% stenosis involving the right coronary artery. Had STRESS ECHO done at [facility] in 11/29/17 showed Contrast enhancement was employed after initial imaging due to sub-optimal quality related to co-morbidity defined by patient's body habitus. Maximal exercise stress echo, negative for myocardial ischemia. Normal LV systolic function, Grade 2 diastolic dysfunction. Mild aortic sclerosis and no aortic stenosis, mild AI. No claudication. Had 12-26-2019 ankle brachial index ARIEL 02/19/17 : Normal ankle-brachial index. Calcified non-compressible lower extremity arteries. Normal ankle-brachial index. Calcified non-compressible lower extremity arteries. ARIEL right >1.0 with triphasic waveforms, with toe index 0.803. ARIEL left >1.0 with triphasic waveforms, with toe index 0.809. No significant peripheral arterial disease at rest. No evidence of tibial artery disease bilaterally. There is no evidence of small vessel disease or embolism in either foot. Results from this visit, or from the past: Had 03/22/20: K 5.1, Cr 3.5, Mg 1.5, LDL 108, hgb 9.0 01/25/20: HGB: 9.5; HCT: 30.8 01/14/18: Na 141, K 5.2, CL 104 , CO2 21, GLU 134, BUN 62, CR 3.3, AST 25,ALT 29,01/14/18: HB 9.7, HT 30.5 09/23/17 HGB: 9.9, HCT: 30.5 08/26/17: Na 140 , K 4.6 ,CL 104 , CO2 21 ,GLU 128 , BUN 66 , CR 2.8, 07/15/17: HGB: 10.1, HCT 30.7 07/01/17: BMP: SOD 141, K 4.5, CL 101, CO2 24, GL 115, BUN 64, CR 3.3 05/28/17: CBC: WBC 7.1, RBC 3.78, HGB 10.2, HCT 31.6, PLT 252.; smCBC 05/28/17: WBC 7.1, Hgb 10.2, Hct 31.6, PLt 252 05/28/17: NA 143 , K 4.8 , CL 101 ,CO2 25 ,GLU 108 , BUN 44 ,CR 2.6, 08/15/16: Cr 2.05, BUN 40, K 5.2, Na 142, CK 566, Lipids: LDL 68. HDL 44. TC 125. TG 64. 07/04/16, Cr 2.11, BUN 36, K 5.3 (stable). 06-28-2016: GLU-181 BUN-42 CR-2.91 N-139 K-5.3 (upper limit of normal is 5.3 for [facility]) CL-107 CO2-23 04/27/16 : NA:140, K:4.3,CL:102, CO2: 25, GLU:107, BUN:18, CR:1.2, AST:19, ALT:16 04/27/16 : TR:229, TC:167, HDL:29, LDL:92 11/29/2015: Cr 1.75, BUN 36, K 4.7, 11-13-2015: SOD 143, K 4.6, CL 108, GLU 115, BUN 34, CR 2.0, Co2 22. 11-13-2015: WBC 6.8, RBC 3.18, HGB 8.9, HCT 26.6, PLT 260 10/30/15: SOD 137, K 4.9, CL 104, CO2 22, GL 232, BUN 38, CR 2.3, TC 186, HDL 43, TR 159, LDL 111, AST 17, ALT 23. (nonfasting) 06/07/2019 EKG: Normal sinus rhythm within normal limits EKG 06/13/18 : Poor R progression in chest leads , Non-specific Inverted T waves , inferior leads. 09/13/17 EKG: Sinus rhythm. P: normal. QRS: vertical axis. ST: T inferior ST:T changes. Consider ischemia or LV overload. Negative T n aVF, with negative T in III, Abnormal ECG. EKG 05/28/17: Sinus rhythm occasional premature ventricular complexes right reddy axis,possible anterior infarct age undetermined T wave abnormality consider inferior ischemia abnormal EKG. EKG 12/02/16 : NSR. nonspecific inverted T waves, inferior leads EKG 08/26/16: sinus rhythm. P: normal. QRS: vertical axis. ST-T: inferior ST-T changes, consider ischemia or LV overload. negative T in aVF. with negative T in III. Conclusion: abnormal ECG. HR:82 EKG 04/29/16: sinus rhythm. P: normal. QRS: right axis deviation. possible LVH. age corrected Sokolow index (SV1 +RV5 or V6.) = 3.7 mV. age corrected R in left precordial leads= 2.8mV. ST-T: marked inferior ST-T changes secondary to LVH. consider also ischemia. large negative T in III. Conclusion: abnormal ECG EKG 10/03/15: Sinus rhythm(rapid).P:lorena l.QRS:normal.ST-T:nor mal. EK10/30/15 Normal sinus rhythm. Possible inferior infarct (cited on or before 30-OCT-2015). Abnormal ECG. When compared with ECG of 30-OCT-2015 No significant change was found. 12/26/19: ARIEL right >1.0 with triphasic waveforms, with toe index 0.803. ARIEL left >1.0 with triphasic waveforms, with toe index 0.809. No significant peripheral arterial disease at rest. No evidence of tibial artery disease bilaterally. There is no evidence of small vessel disease or embolism in either foot. 05/27/17 Chest XR: No acute cardiopulmonary abnormality. Cardiomegaly with no acute pulmonary edema; 10/30/15: CXR Stable mild cardiomegaly. No acute appearing cardiopulmonary abnormality is evident. 11/29/17 ECHO: Contrast enhancement was employed after initialimaging due to sub-optimal quality related to co-morbidity defined by patient's body habitus. Mximal exercise stress echo, negative for myocardial ischemia. Had STRESS ECHO done at [facility] in 11/29/17 showed Contrast enhancement was employed after initial imaging due to sub-optimal quality related to co-morbidity defined by patient's body habitus. Maximal exercise stress echo, negative for myocardial ischemia. Normal LV systolic function, Grade 2 diastolic dysfunction. Mild aortic sclerosis and no aortic stenosis, mild AI. 09/14/17 RENAL ARTERY ULTRASOUND: Bilateral less than 60% renal artery stenosis. 5x5 cm hypoechoic, nonvascular lesion in the right kidney. Renal ultrasound , CT or MRI recommended. US, echocardiogram 05-28-2017 ECHO 05/28/17 : There is a mild concentric LVH. LV systolic function is normal. EF 55-60%. 05/06/16 ECHOCARDIOGRAM REPORT: Study quality : technically difficult. LV chamber size is normal. LV wall thickness is mildly increased. There is normal global systolic function and contractility. The estimated left ventricle ejection fraction is 55-60%(normal). Diastolic filling reveals impaired relaxation ( grade 1 diastolic dysfunction). Left Atrium chamber is mildly dilated. The aortic valve is mildly calcified. There is mild aortic regurgitation. There is mild aortic valve stenosis. There is mild tricuspid regurgitation. ARIEL 02/19/17 : Normal ankle-brachial index. Calcified non-compressible lower extremity arteries. LHC 11/06/15 : No significant obstructive coronary artery disease. One vessel coronary artery disease with distal 50% stenosis involving the right coronary artery. 40% mid LAD stenosis. Mohan Camacho [place], [place] - [facility] 04/10/2020 17:02:00 03/07/2021 text/html 03/07/21 CC: Shortness of breath 65 year-old -[place] man with CAD, HF-pEF, mild aortic stenosis, hypertension, hyperlipidemia, diabetes mellitus, proteinuria with chronic kidney disease (follows with Renal at [facility]), anemia, is here for follow-up. He is now on the renal transplant list at [facility]. He has upcoming C-spine surgery 03/18/21 at [facility] with Dr. Carey Ambrocio. Previously, following increased diuretic to Lasix 80 mg bid from [address] Carrizales, he was seen in [facility] ED 03/22/20 for fatigue and was found to have low Mg, and he was started on Mg. He was noted to have low iron and anemia. BP was elevated 185/81. Had 03/22/20: K 5.1, Cr 3.5, Mg 1.5, LDL 108, hgb 9.0. Reports recent BP 140s/69, with reading at PCP 180/80..He has intermittent improving mild leg edema. He had 0 lb weight gain. In the distant past, he followed up with Dr. Paige ([facility]) and was told he had FLORENCE but has not used CPAP (AHI 15). Per patient, Dr. Paige does not feel CPAP is needed. He has CKD and follows up with Neph. He does have a physical job, he is active, but does no exercise regularly.Reports no chest pain with exertion at work. Previously, reported central heartburn/burning sensation without pressure or dullness at rest, but he self-stopped pantoprazole. Tums relieves his heartburn. No shortness of breath at rest. No dyspnea on exertion. No palpitations. No orthopnea. No PND's. No lightheadedness or dizziness. No syncope or near syncope. Occasional mild right leg swelling, intermittent. No nausea and vomiting. No major bleeding events. No side effects from medications. Obtain CMP, Mg in 2 weeks. Reports left thigh pain with walking. Previously, he was in the hospital in 05/27/17 because of shortness of breath with exertion. He was admitted for CHF and given IV Lasix. EKG showed normal sinus rhythm, single PVC, poor R progression. Had ECHO done in 05/28/17 showed mild LVH, LV systolic function is normal. EF 55-60%. He was also found to be anemic and needed 2 Units of blood transfused, said to be from possible gastric ulcer. He is now taking Iron supplements daily and Iron shot every week. Had Renal US at [facility] on 05/28/17: No hydronephrosis in either kidney. 2.4.9 x 4.7 x 4.6 cm simple cyst in the right kidney. Had Renal Artery Ultrasound on 09/14/17 showing bilateral less than 60% renal artery stenosis, 5x5 cm hypoechoic, nonvascular lesion in the right kidney. Renal US, CT or MRI recommended. Had Echo on 05/28/17: There is mild concentric left ventricular hypertrophy. Left ventricular systolic function is normal. Ejection fraction =55-60%. Had ARIEL on 02/19/17: Normal ankle-brachial index. Calcified non-compressible lower extremity arteries. Had LHC/ Angiogram on 11/06/15 : No significant obstructive coronary artery disease. One vessel coronary artery disease with distal 50% stenosis involving the right coronary artery. Had STRESS ECHO done at [facility] in 09/16/20: maximal exercise stress echo negative for ischemia, fair exercise tolerance, systolic hypertensive response to exercise. LVEF 70%, normal LV size, moderate LVH. Had STRESS ECHO done at [facility] in 11/29/17 showed Contrast enhancement was employed after initial imaging due to sub-optimal quality related to co-morbidity defined by patient's body habitus. Maximal exercise stress echo, negative for myocardial ischemia. Normal LV systolic function, Grade 2 diastolic dysfunction. Mild aortic sclerosis and no aortic stenosis, mild AI. No claudication. Had 12-26-2019 ankle brachial index ARIEL 02/19/17 : Normal ankle-brachial index. Calcified non-compressible lower extremity arteries. Normal ankle-brachial index. Calcified non-compressible lower extremity arteries. ARIEL right >1.0 with triphasic waveforms, with toe index 0.803. ARIEL left >1.0 with triphasic waveforms, with toe index 0.809. No significant peripheral arterial disease at rest. No evidence of tibial artery disease bilaterally. There is no evidence of small vessel disease or embolism in either foot. Results from this visit, or from the past: 10/14/20: hgb 8.6, K 4.7, Cr 4.3 Had 03/22/20: K 5.1, Cr 3.5, Mg 1.5, LDL 108, hgb 9.0 01/25/20: HGB: 9.5; HCT: 30.8 01/14/18: Na 141, K 5.2, CL 104 , CO2 21, GLU 134, BUN 62, CR 3.3, AST 25,ALT 29,01/14/18: HB 9.7, HT 30.5 09/23/17 HGB: 9.9, HCT: 30.5 08/26/17: Na 140 , K 4.6 ,CL 104 , CO2 21 ,GLU 128 , BUN 66 , CR 2.8, 07/15/17: HGB: 10.1, HCT 30.7 07/01/17: BMP: SOD 141, K 4.5, CL 101, CO2 24, GL 115, BUN 64, CR 3.3 05/28/17: CBC: WBC 7.1, RBC 3.78, HGB 10.2, HCT 31.6, PLT 252.; smCBC 05/28/17: WBC 7.1, Hgb 10.2, Hct 31.6, PLt 252 05/28/17: NA 143 , K 4.8 , CL 101 ,CO2 25 ,GLU 108 , BUN 44 ,CR 2.6, 08/15/16: Cr 2.05, BUN 40, K 5.2, Na 142, CK 566, Lipids: LDL 68. HDL 44. TC 125. TG 64. 3/03/12, Cr 2.11, BUN 36, K 5.3 (stable). 06-28-2016: GLU-181 BUN-42 CR-2.91 N-139 K-5.3 (upper limit of normal is 5.3 for [facility]) CL-107 CO2-23 04/27/16 : NA:140, K:4.3,CL:102, CO2: 25, GLU:107, BUN:18, CR:1.2, AST:19, ALT:16 04/27/16 : TR:229, TC:167, HDL:29, LDL:92 11/29/2015: Cr 1.75, BUN 36, K 4.7, 11-13-2015: SOD 143, K 4.6, CL 108, GLU 115, BUN 34, CR 2.0, Co2 22. 11-13-2015: WBC 6.8, RBC 3.18, HGB 8.9, HCT 26.6, PLT 260 10/30/15: SOD 137, K 4.9, CL 104, CO2 22, GL 232, BUN 38, CR 2.3, TC 186, HDL 43, TR 159, LDL 111, AST 17, ALT 23. (nonfasting) 06/07/2019 EKG: Normal sinus rhythm within normal limits EKG 06/13/18 : Poor R progression in chest leads , Non-specific Inverted T waves , inferior leads. 09/13/17 EKG: Sinus rhythm. P: normal. QRS: vertical axis. ST: T inferior ST:T changes. Consider ischemia or LV overload. Negative T n aVF, with negative T in III, Abnormal ECG. EKG 05/28/17: Sinus rhythm occasional premature ventricular complexes right reddy axis,possible anterior infarct age undetermined T wave abnormality consider inferior ischemia abnormal EKG. EKG 12/02/16 : NSR. nonspecific inverted T waves, inferior leads EKG 08/26/16: sinus rhythm. P: normal. QRS: vertical axis. ST-T: inferior ST-T changes, consider ischemia or LV overload. negative T in aVF. with negative T in III. Conclusion: abnormal ECG. HR:82 EKG 04/29/16: sinus rhythm. P: normal. QRS: right axis deviation. possible LVH. age corrected Sokolow index (SV1 +RV5 or V6.) = 3.7 mV. age corrected R in left precordial leads= 2.8mV. ST-T: marked inferior ST-T changes secondary to LVH. consider also ischemia. large negative T in III. Conclusion: abnormal ECG EKG 10/03/15: Sinus rhythm(rapid).P:lorena l.QRS:normal.ST-T:nor mal. EK10/30/15 Normal sinus rhythm. Possible inferior infarct (cited on or before 30-OCT-2015). Abnormal ECG. When compared with ECG of 30-OCT-2015 No significant change was found. 12/26/19: ARIEL right >1.0 with triphasic waveforms, with toe index 0.803. ARIEL left >1.0 with triphasic waveforms, with toe index 0.809. No significant peripheral arterial disease at rest. No evidence of tibial artery disease bilaterally. There is no evidence of small vessel disease or embolism in either foot. 05/27/17 Chest XR: No acute cardiopulmonary abnormality. Cardiomegaly with no acute pulmonary edema; 10/30/15: CXR Stable mild cardiomegaly. No acute appearing cardiopulmonary abnormality is evident. 11/29/17 ECHO: Contrast enhancement was employed after initialimaging due to sub-optimal quality related to co-morbidity defined by patient's body habitus. Mximal exercise stress echo, negative for myocardial ischemia. Had STRESS ECHO done at [facility] in 09/16/20: maximal exercise stress echo negative for ischemia, fair exercise tolerance, systolic hypertensive response to exercise. Had STRESS ECHO done at [facility] in 11/29/17 showed Contrast enhancement was employed after initial imaging due to sub-optimal quality related to co-morbidity defined by patient's body habitus. Maximal exercise stress echo, negative for myocardial ischemia. Normal LV systolic function, Grade 2 diastolic dysfunction. Mild aortic sclerosis and no aortic stenosis, mild AI. 09/14/17 RENAL ARTERY ULTRASOUND: Bilateral less than 60% renal artery stenosis. 5x5 cm hypoechoic, nonvascular lesion in the right kidney. Renal ultrasound , CT or MRI recommended. US, echocardiogram 05-28-2017 ECHO 05/28/17 : There is a mild concentric LVH. LV systolic function is normal. EF 55-60%. 05/06/16 ECHOCARDIOGRAM REPORT: Study quality : technically difficult. LV chamber size is normal. LV wall thickness is mildly increased. There is normal global systolic function and contractility. The estimated left ventricle ejection fraction is 55-60%(normal). Diastolic filling reveals impaired relaxation ( grade 1 diastolic dysfunction). Left Atrium chamber is mildly dilated. The aortic valve is mildly calcified. There is mild aortic regurgitation. There is mild aortic valve stenosis. There is mild tricuspid regurgitation. ARIEL 02/19/17 : Normal ankle-brachial index. Calcified non-compressible lower extremity arteries. LHC 11/06/15 : No significant obstructive coronary artery disease. One vessel coronary artery disease with distal 50% stenosis involving the right coronary artery. 40% mid LAD stenosis. Mohan Camacho [place], [place] - [facility] 03/07/2021 13:12:55 07/25/2021 text/html 07/25/2021 CC: Shortness of breath 65 year-old -[place] man with CAD, HF-pEF, mild aortic stenosis, hypertension, hyperlipidemia, diabetes mellitus, proteinuria with chronic kidney disease (follows with Renal at [facility], Dr. Martinez), anemia, is here for follow-up. He is still on the renal transplant list at [facility]. He is awaiting HD fistula and was started on HD 04/2021, while in [facility] with COVID pneumonia and ARF. He had pre-syncope 07/19/21 while on HD with BP 80/42 with fluid removal with some associated central sharp, stabbing chest pain. He had C-spine surgery 03/18/21 at [facility]., with Dr. Carey Ambrocio. Previously, following increased diuretic to Lasix 80 mg bid from [address] Carrizales, he was seen in [facility] ED 03/22/20 for fatigue and was found to have low Mg, and he was started on Mg. He was noted to have low iron and anemia. BP was elevated 185/81. Had 03/22/20: K 5.1, Cr 3.5, Mg 1.5, LDL 108, hgb 9.0. Reports recent BP 140s/69. He has no leg edema. He had 0 lb weight gain. In the distant past, he followed up with Dr. Paige ([facility]) and was told he had FLORENCE but has not used CPAP (AHI 15). Per patient, Dr. Paige does not feel CPAP is needed and did not feel he had FLORENCE. He has CKD and follows up with Neph. He did have a physical job but has been away from that, he is active, but does not exercise regularly. Reports chest pain. Previously, reported central heartburn/burning sensation without pressure or dullness at rest, but he self-stopped pantoprazole. Tums relieves his heartburn. No shortness of breath at rest. No dyspnea on exertion. No palpitations. No orthopnea. No PND's. Reports dizziness. No syncope or near syncope. No leg swelling. No nausea and vomiting. No major bleeding events. No side effects from medications. Obtain CMP, Mg in 2 weeks. Reports left thigh pain with walking. Previously, he was in the hospital in 05/27/17 because of shortness of breath with exertion. He was admitted for CHF and given IV Lasix. EKG showed normal sinus rhythm, single PVC, poor R progression. Had ECHO done in 05/28/17 showed mild LVH, LV systolic function is normal. EF 55-60%. He was also found to be anemic and needed 2 Units of blood transfused, said to be from possible gastric ulcer. He is now taking Iron supplements daily and Iron shot every week. Had Renal US at [facility] on 05/28/17: No hydronephrosis in either kidney. 2.4.9 x 4.7 x 4.6 cm simple cyst in the right kidney. Had Renal Artery Ultrasound on 09/14/17 showing bilateral less than 60% renal artery stenosis, 5x5 cm hypoechoic, nonvascular lesion in the right kidney. Renal US, CT or MRI recommended. Had Echo on 05/28/17: There is mild concentric left ventricular hypertrophy. Left ventricular systolic function is normal. Ejection fraction =55-60%. Had ARIEL on 02/19/17: Normal ankle-brachial index. Calcified non-compressible lower extremity arteries. Had LHC/ Angiogram on 11/06/15 : No significant obstructive coronary artery disease. One vessel coronary artery disease with distal 50% stenosis involving the right coronary artery. Had STRESS ECHO done at [facility] in 09/16/20: maximal exercise stress echo negative for ischemia, fair exercise tolerance, systolic hypertensive response to exercise. LVEF 70%, normal LV size, moderate LVH. Had STRESS ECHO done at [facility] in 11/29/17 showed Contrast enhancement was employed after initial imaging due to sub-optimal quality related to co-morbidity defined by patient's body habitus. Maximal exercise stress echo, negative for myocardial ischemia. Normal LV systolic function, Grade 2 diastolic dysfunction. Mild aortic sclerosis and no aortic stenosis, mild AI. No claudication. Had 12-26-2019 ankle brachial index ARIEL 02/19/17 : Normal ankle-brachial index. Calcified non-compressible lower extremity arteries. Normal ankle-brachial index. Calcified non-compressible lower extremity arteries. ARIEL right >1.0 with triphasic waveforms, with toe index 0.803. ARIEL left >1.0 with triphasic waveforms, with toe index 0.809. No significant peripheral arterial disease at rest. No evidence of tibial artery disease bilaterally. There is no evidence of small vessel disease or embolism in either foot. Results from this visit, or from the past: 10/14/20: hgb 8.6, K 4.7, Cr 4.3 Had 03/22/20: K 5.1, Cr 3.5, Mg 1.5, LDL 108, hgb 9.0 01/25/20: HGB: 9.5; HCT: 30.8 01/14/18: Na 141, K 5.2, CL 104 , CO2 21, GLU 134, BUN 62, CR 3.3, AST 25,ALT 29,01/14/18: HB 9.7, HT 30.5 09/23/17 HGB: 9.9, HCT: 30.5 08/26/17: Na 140 , K 4.6 ,CL 104 , CO2 21 ,GLU 128 , BUN 66 , CR 2.8, 07/15/17: HGB: 10.1, HCT 30.7 07/01/17: BMP: SOD 141, K 4.5, CL 101, CO2 24, GL 115, BUN 64, CR 3.3 05/28/17: CBC: WBC 7.1, RBC 3.78, HGB 10.2, HCT 31.6, PLT 252.; smCBC 05/28/17: WBC 7.1, Hgb 10.2, Hct 31.6, PLt 252 05/28/17: NA 143 , K 4.8 , CL 101 ,CO2 25 ,GLU 108 , BUN 44 ,CR 2.6, 08/15/16: Cr 2.05, BUN 40, K 5.2, Na 142, CK 566, Lipids: LDL 68. HDL 44. TC 125. TG 64. 3/03/12, Cr 2.11, BUN 36, K 5.3 (stable). 06-28-2016: GLU-181 BUN-42 CR-2.91 N-139 K-5.3 (upper limit of normal is 5.3 for [facility]) CL-107 CO2-23 04/27/16 : NA:140, K:4.3,CL:102, CO2: 25, GLU:107, BUN:18, CR:1.2, AST:19, ALT:16 04/27/16 : TR:229, TC:167, HDL:29, LDL:92 11/29/2015: Cr 1.75, BUN 36, K 4.7, 11-13-2015: SOD 143, K 4.6, CL 108, GLU 115, BUN 34, CR 2.0, Co2 22. 11-13-2015: WBC 6.8, RBC 3.18, HGB 8.9, HCT 26.6, PLT 260 10/30/15: SOD 137, K 4.9, CL 104, CO2 22, GL 232, BUN 38, CR 2.3, TC 186, HDL 43, TR 159, LDL 111, AST 17, ALT 23. (nonfasting) 07/28/2020 EKG: Normal sinus rhythm. Poor R-wave progression in the precordial leads. Nonspecific T wave abnormality. When compared with ECG of 22-Mar-2020, no significant change was found. 06/07/2019 EKG: Normal sinus rhythm within normal limits EKG 06/13/18 : Poor R progression in chest leads , Non-specific Inverted T waves , inferior leads. 09/13/17 EKG: Sinus rhythm. P: normal. QRS: vertical axis. ST: T inferior ST:T changes. Consider ischemia or LV overload. Negative T n aVF, with negative T in III, Abnormal ECG. EKG 05/28/17: Sinus rhythm occasional premature ventricular complexes right reddy axis,possible anterior infarct age undetermined T wave abnormality consider inferior ischemia abnormal EKG. EKG 12/02/16 : NSR. nonspecific inverted T waves, inferior leads EKG 08/26/16: sinus rhythm. P: normal. QRS: vertical axis. ST-T: inferior ST-T changes, consider ischemia or LV overload. negative T in aVF. with negative T in III. Conclusion: abnormal ECG. HR:82 EKG 04/29/16: sinus rhythm. P: normal. QRS: right axis deviation. possible LVH. age corrected Sokolow index (SV1 +RV5 or V6.) = 3.7 mV. age corrected R in left precordial leads= 2.8mV. ST-T: marked inferior ST-T changes secondary to LVH. consider also ischemia. large negative T in III. Conclusion: abnormal ECG EKG 10/03/15: Sinus rhythm(rapid).P:lorena l.QRS:normal.ST-T:nor mal. EK10/30/15 Normal sinus rhythm. Possible inferior infarct (cited on or before 30-OCT-2015). Abnormal ECG. When compared with ECG of 30-OCT-2015 No significant change was found. 12/26/19: ARIEL right >1.0 with triphasic waveforms, with toe index 0.803. ARIEL left >1.0 with triphasic waveforms, with toe index 0.809. No significant peripheral arterial disease at rest. No evidence of tibial artery disease bilaterally. There is no evidence of small vessel disease or embolism in either foot. 05/27/17 Chest XR: No acute cardiopulmonary abnormality. Cardiomegaly with no acute pulmonary edema; 10/30/15: CXR Stable mild cardiomegaly. No acute appearing cardiopulmonary abnormality is evident. 11/29/17 ECHO: Contrast enhancement was employed after initialimaging due to sub-optimal quality related to co-morbidity defined by patient's body habitus. Mximal exercise stress echo, negative for myocardial ischemia. Had STRESS ECHO done at [facility] in 09/16/20: maximal exercise stress echo negative for ischemia, fair exercise tolerance, systolic hypertensive response to exercise. Had STRESS ECHO done at [facility] in 11/29/17 showed Contrast enhancement was employed after initial imaging due to sub-optimal quality related to co-morbidity defined by patient's body habitus. Maximal exercise stress echo, negative for myocardial ischemia. Normal LV systolic function, Grade 2 diastolic dysfunction. Mild aortic sclerosis and no aortic stenosis, mild AI. 09/14/17 RENAL ARTERY ULTRASOUND: Bilateral less than 60% renal artery stenosis. 5x5 cm hypoechoic, nonvascular lesion in the right kidney. Renal ultrasound , CT or MRI recommended. US, echocardiogram 05-28-2017 ECHO 05/28/17 : There is a mild concentric LVH. LV systolic function is normal. EF 55-60%. 05/06/16 ECHOCARDIOGRAM REPORT: Study quality : technically difficult. LV chamber size is normal. LV wall thickness is mildly increased. There is normal global systolic function and contractility. The estimated left ventricle ejection fraction is 55-60%(normal). Diastolic filling reveals impaired relaxation ( grade 1 diastolic dysfunction). Left Atrium chamber is mildly dilated. The aortic valve is mildly calcified. There is mild aortic regurgitation. There is mild aortic valve stenosis. There is mild tricuspid regurgitation. ARIEL 02/19/17 : Normal ankle-brachial index. Calcified non-compressible lower extremity arteries. LHC 11/06/15 : No significant obstructive coronary artery disease. One vessel coronary artery disease with distal 50% stenosis involving the right coronary artery. 40% mid LAD stenosis. Mohan Camacho [facility], [place] - [facility] 07/25/2021 13:15:23
--- OUTSIDE RECORDS SUMMARY | 2024-06-18 11:42 | XMS_ITS | Data Portability ---
Author Organization [facility] Address [address] [address] Care Team Providers Care Gas Tender Name Role Phone GURINDER NIELSEN Primary Care Provider [phone] Assessment Encounter Date Assessment Date Assessment LastModified by Organization Details LastModified Time 05/06/2020 05/06/2020 Phone visit as hosp f/u. Pt with recent inpatient stay in the management of cecal diverticuliti s: tmond Not available 05/06/2020 16:55:11 06/07/2020 06/07/2020 Pt presents for routine f/u and review of chronic illnesses, medication effectiveness , labs and advised screenings: tmond Not available 06/07/2020 12:02:54 07/15/2020 07/15/2020 Pt presents with acute complaints r/t persistent neck pain worsening with pain radiating down arms: tmond Not available 07/15/2020 20:07:36 12/19/2020 12/19/2020 Pt presents for routine f/u and review of chronic illnesses, medication effectiveness , labs and advised screenings: tmond Not available 12/19/2020 16:25:47 01/07/2023 01/07/2023 Pt presents as returning pt. Routine exam, screenings and education completed: tmond Not available 01/07/2023 11:56:53 Plan of Treatment Reminders Order Date Submit Date Provider Last Modified By Organization Details Last Modified Time Details Appointments None recorded. Lab HbA1c (hemoglob in A1c), blood 2022 023 tmond In-Office Order, Internal Use Only DO Not Attach Compendium DO Not Attach Compendium, Do Not Delete/merge, [id number] 09/14/202 3 12:34:18 glucose, fingersti ck, blood 2022 023 ond In-Office Order, Internal Use Only DO Not Attach Compendium DO Not Attach Compendium, Do Not Delete/merge, [id number] 3 12:34:18 lipid panel, serum 2020 021 [facility], [address], [place], [address], 1 10:49:58 HbA1c (hemoglob in A1c), blood 2020 021 [facility], [address], [place], [address], 1 11:22:04 HIV 1+2 Ab + HIV1 p24 Ag, quantitat mckenzie immunoass ay, serum 2020 021 AT[facility], [address], [address], [place], [address], 1 10:49:58 HbA1c (hemoglob in A1c), blood 2020 021 [facility], [address], [place], [address], 1 13:40:11 Referral neurosurg galileo referral 2020 021 todd [facility] - Neurosurgery, [address], [address], [place], [address], 1 09:45:36 Procedures None recorded. Surgeries None recorded. Imaging None recorded. Medication Orders Vitamin D3 50 mcg (2,000 unit) capsule 2022 023 [facility], [address], [place], [address], 3 15:45:23 gabapenti n 300 mg capsule 2020 021 [id number], [address] [place] [address], [address], 3 11:38:13 glipizide 5 mg tablet 2020 021 [facility] In [facility], [address] [place] [address], [address], 3 11:38:22 atorvasta tin 40 mg tablet 2020 021 tmond [facility] In [facility], [address] [place] [address], [address], 3 12:07:39 pantopraz ole 40 mg tablet,de layed release 2020 021 tmond [facility] [address] In [facility], [address] [place] [address], [address], 3 11:59:26 isosorbid e mononitra te ER 30 mg tablet,ex tended release 24 hr 2020 021 [facility] [address] In [facility], [address] [place] [address], [address], 3 11:38:51 hydralazi ne 50 mg tablet 2020 021 [facility] [address] In [facility], [address] [place] [address], [address], 3 11:38:35 labetalol 200 mg tablet 2020 021 [facility] [address] In [facility], [address] [place] [address], [address], 3 11:39:15 furosemid e 40 mg tablet 2020 021 [facility] [address]268 In [facility], [address] [place] [address], [address], 3 11:38:02 amlodipin e 10 mg tablet 2020 021 tmond [facility] In [facility], [address] [place] [address], [address], 3 12:01:31 gabapenti n 300 mg capsule 2020 021 [facility] [address] In [facility], [address] [place] [address], [address], 3 11:38:13 pantopraz ole 40 mg tablet,de layed release 2020 021 [facility] [address]184 In [facility], [address] [place] [address], [address], 1 17:55:15 glipizide 5 mg tablet 2020 021 [facility] [address] In [facility], [address] [place] [address], [address], 3 11:38:22 isosorbid e mononitra te ER 30 mg tablet,ex tended release 24 hr 2020 021 [facility] [address] In [facility], [address] [place] [address], [address], 3 11:38:51 hydralazi ne 50 mg tablet 2020 021 [facility] [address] In [facility], [address] [place] [address], [address], 3 11:38:35 labetalol 200 mg tablet 2020 021 [facility] [address] In [facility], [address] [place] [address], [address], 3 11:39:15 furosemid e 40 mg tablet 2020 021 [facility] [address]253 In [facility], [address] [place] [address], [address], 3 11:38:02 amlodipin e 10 mg tablet 2020 021 [facility] [address]677 In [facility], [address] [place] [address], [address], 1 15:53:09 atorvasta tin 40 mg tablet 2020 021 [facility] [address], [address], 1 13:57:50 Patient TargetsNo targets recorded. Patient Instructions Encounter Date Encounter Id Patient Instructions Last Modified By Organization Details Last Modified Time 05/06/2020 [id number] diverticulitis: care instructions tmond Not available 05/06/2020 16:32:04 body mass index: care instructions tmond Not available 05/06/2020 16:56:06 learning about healthy weight tmond Not available 05/06/2020 16:56:06 -Patient instructed to call office with changes in condition -Pt instructed to present to the ED or urgent care with urgent concerns or urgent changes in condition. tmond Not available 05/06/2020 16:43:18 -Discussed POC -Pt to follow up with routine f/u visits with PCP as scheduled tmond Not available 05/06/2020 16:43:28 06/07/2020 [id number] medicines to avoid with kidney disease: care instructions tmond Not available 06/07/2020 13:55:27 knee pain or injury: care instructions tmond Not available 06/07/2020 13:55:27 low sodium diet (2,000 milligram): care instructions tmond Not available 06/07/2020 13:55:27 -Always present to ER or Urgent Care with any progession of/alarming symptoms, significant changes in symptoms that are concerning or urgent matters -Pt to avoid a diet high in NA+ as well as no addeded NA+ -Pt to check b/p daily in am and in evening -Patient instructed to call office with changes in condition -Pt advised to continue to check FBG daily as well as post prandial 1-2 hrs after dinner meal, record and bring to f/u visits tmond Not available 06/07/2020 12:03:00 -Discussed POC -Pt informed of optimum health recommendations: 150 mins of aerobic exercise weekly 7-9 hrs of sleep 7-13 servings of fruit and vegetables each day 1/2 of body weight in oz of water daily Plant based diet tmond Not available 06/07/2020 13:52:04 07/15/2020 [id number] cervical disc disease: care instructions tmond Not available 07/15/2020 17:13:29 A healthy lifestyle: care instructions tmond Not available 07/15/2020 16:46:03 body mass index: care instructions tmond Not available 07/15/2020 16:46:04 -Patient instructed to call office with changes in condition -Pt instructed to present to the ED or urgent care with urgent concerns or urgent changes in condition. tmond Not available 07/15/2020 16:41:13 -Discussed POC -Pt to follow up with routine f/u visits with PCP tmond Not available 07/15/2020 16:40:30 12/19/2020 [id number] A healthy lifestyle: care instructions tmond Not available 12/20/2020 13:56:34 medicines to avoid with kidney disease: care instructions tmond Not available 12/20/2020 13:56:34 knee pain or injury: care instructions tmond Not available 12/20/2020 13:56:34 low sodium diet (2,000 milligram): care instructions tmond Not available 12/20/2020 13:56:34 body mass index: care instructions tmond Not available 12/20/2020 13:56:34 -Always present to ER or Urgent Care with any progression of/alarming symptoms, significant changes in symptoms that are concerning or urgent matters -Pt to avoid a diet high in NA+ as well as no addeded NA+ -Pt to check b/p daily in am and in evening -Patient instructed to call office with changes in condition -Pt advised to continue to check FBG daily as well as post prandial 1-2 hrs after dinner meal, record and bring to f/u visits tmond Not available 12/20/2020 13:39:42 -Discussed POC -Pt informed of optimum health recommendations: 150 mins of aerobic exercise weekly 7-9 hrs of sleep 7-13 servings of fruit and vegetables each day 1/2 of body weight in oz of water daily Plant based diet Pt has reported he has failed f/u as he had transitioned to a new provider. Pt cites reason as clinical staff rudeness . He states he wishes to return to provider for care. Discussed appropriate management r/t staff and pt interactions. Pt is to call for appt (3 mo f/u on Wednesday). tmond Not available 12/20/2020 13:59:16 01/07/2023 [id number] medical record request* - MOST RECENT DISCHARGE FROM [facility] LOCATION tmond Not available 01/11/2023 15:25:39 -Always present to ER or Urgent Care with any progression of/alarming symptoms, significant changes in symptoms that are concerning or urgent matters -Pt to avoid a diet high in NA+ as well as no addeded NA+ -Pt to check b/p daily in am and in evening -Patient instructed to call office with changes in condition -Pt advised to continue to check FBG daily as well as post prandial 1-2 hrs after dinner meal, record and bring to f/u visits -Pt educated re heart health TLCs: Eat a variety of foods every day. Good choices include fruits, vegetables, whole grains (like oatmeal), dried beans and peas, nuts and seeds, soy products (like tofu), and fat-free or low-fat dairy products. Replace butter, margarine, and hydrogenated or partially hydrogenated oils with olive and canola oils. (Canola oil margarine without trans fat is fine.) Replace red meat with fish, poultry, and soy protein (like tofu). Limit processed and packaged foods like chips, crackers, and cookies. Bake, broil, or steam foods. Don't peace them. Be physically active. Get at least 30 minutes of exercise on most days of the week. tmond Not available 01/11/2023 15:19:52 -Discussed POC -Pt informed of optimum health recommendations: 150 mins of aerobic exercise weekly 7-9 hrs of sleep 7-13 servings of fruit and vegetables each day 1/2 of body weight in oz of water daily Plant based diet tmond Not available 01/11/2023 15:19:15 Reason for Referral Neurosurgery Referral for Ce rvical radiculopathy Referring Physician: Gurinder Nielsen, Family Medicine, Encounter Date: 07/15/2020 Results Created Date Observation Date Name Description Value Unit Range Abnormal Flag Note LastModifiedBy Organization Detail LastModifiedTime 01/08/20 23 01/07/2023 HbA1c (hemo globi n A1c), blood HbA1c 7.4 Not Available In-Office Order Internal Use Only DO Not Attach Compendium DO Not Attach Compendium, Do Not Delete/merge, [id number] 01/07/2023 11:49:10 01/08/20 23 01/07/2023 gluco se, finge rstic k, blood Blood Glucose: mg/dl 224 Not Available In-Off ice Order Internal Use Only DO Not Attach Compendium DO Not Attach Compendium, Do Not Delete/merge, [id number] 01/07/2023 11:49:15 04/29/19 21 04/29/2020 CT, abdom en + pelvi s, w/o contr ast No observ ation record ed. tmond Not Available 2020 16:20:33 06/14/19 21 06/11/2020 CT, abdom en + pelvi s, w/o contr ast No observ ation record ed. tmond Not Available 2020 20:18:27 12/10/19 21 12/05/2020 MRI, cervi [place] spine , w/o contr ast No observ ation record ed. tmond [facility] [place] [address] [facility], [place], [address], 12/19/2020 16:25:04 03/06/20 23 MRI brain wo acute strok e merced col [facility] [place] [address] REASON FOR EXAM: Pain, left upper extrem ity parest hesias COMPAR ALAN: Head CT, earlie r same date TECHNI QUE: Multip lanar multis equenc e imagin g of the brain, withou t admini strati on of IV contra st. DISCUS TREVON: Noncon trast MRI evalua tion of the brain demons trates no eviden ce of abnorm al diffus ion restri ction within the brain or extra- axial spaces . A few scatte red tiny areas of T2 and FLAIR signal hyperi ntensi ty within the vee radiat a and centru m semiov amelia of both cerebr al hemisp heres in a patter n compat ible with mild white matter small vessel diseas e. No signif icant intrac ranial mass effect or midlin e shift. No intrac ranial hemorr karson or abnorm al extra- axial fluid collec tion is identi fied. Ventri cles and basal cister ns are normal . Evalua tion of the mold forms builder ior fossa struct ures demons trates normal appear ance of the cerebe llar hemisp heres and cerebe llar vermis . Cerebe llar tonsil s are normal in positi on and morpho logy. Fourth ventri ian is normal . No brains tem abnorm ality identi fied. Intrac ranial flow voids are patent . Mucus retent ion cyst left maxill rohan sinus. IMPRES TREVON: 1. No acute intrac ranial abnorm ality. 2. Trace chroni c microv ascula r ischem ic change s of the white matter . Referr ed By: Electr onical ly Signed By: Arabella Abbott MD on 2022 12:31 AM Interp reted By: Arabella Abbott MD, 2022 11:55 PM onwanegwo [facility] [address] [facility], [place], [address], 03/12/2023 09:05:57 Result Notes None recorded. Problems Name Problem SNOMED Code Status Onset Date Resolution Date Notes Provider Name and Address Organization Details Recorded Time Iron deficien cy anemia 48902674 Completed 201703/14/2019 Removal Reason: Duplicat e JIMENA GALE Attn: Accountin g,[address], [place], [address], [place] [facility] 9 21:20:12 Abdomina l pain 39462525 Completed 201703/14/2019 Removal Reason: acute resolved JIMENA GALE Attn: Accountin g,[address], [place], [address], [place] [facility] 9 22:06:24 Hyperpar athyroid ism 78328884 Completed 201703/14/[address] Carrizales Removal Reason: Updated JIMENA GALE Attn: Accountin g,[address], [place], [address], [place] [facility] 9 22:05:29 Neck pain 86306366 Completed 201703/14/2019 Removal Reason: Updated JIMENA GALE Attn: Accountin g,[address], [place], [address], [place] [facility] 9 21:19:25 Anemia of chronic disease 576250345 Active 2018 Secondar y to renal failure; *Managed by JIMENA Kern Attn: Accountin g,[address], [place], [address], [place] [facility] 3 15:21:00 Hyperpar athyroid ism due to renal insuffic iency 61200705 Active 2018 Managed by Nephrolo JIMENA Pierre Attn: Accountin g,[address], [place], [address], [place] [facility] 3 15:21:48 Gastroes ophageal reflux disease without esophagi tis 498204893 Active 2019 JIMENA GALE Attn: Angie diaz,[address] [facility], [place], [place], [address] [place] [address] 2, [facility] 3 15:21:37 Coronary arterios clerosis 86732373 Active 2020 Per Cards Note JIMENA GALE Attn: Angie diaz,[address] [facility], [place], [place], [address] [place] [address] 2, [facility] 1 12:04:33 Aortic valve stenosis 40795802 Active 2020 Per Cards Note; Mild JIMENA GALE Attn: Angie diaz,[address] [facility], [place], [place], [address] [place] [address] 2, [facility] 1 12:05:03 Diastoli c dysfunct ion 5126300 Active 2020 Per Cards note; Grade II JIMENA GALE Attn: Angie diaz,[address] [facility], [place], [place], [address] [place] [address] 2, [facility] 1 12:06:35 Benign prostati c hyperpla sarah 281636022 Active 2020 Mild; incident al finding per CT of abd/pelv is JIMENA GALE Attn: Angie diaz,[address] [facility], [place], [address] [place] [address] 2, [facility] 1 14:18:08 Degenera tion of cervical interver tebral disc 80662388 Active 2020 Pain Manageme nt JIMENA GALE Attn: Angie diaz,[address] [facility], [place], [address] [place] [address] 2, [facility] 3 15:21:27 Chronic kidney disease due to hyperten trevon 25374429218 9100 Completed 202005/02/2021 Nephrolo gy Removal Reason: Duplicat e JIMENA GALE Attn: Accountin g,[address] [facility], [place], [address] [place] [address] 2, [place] [facility] 2 13:41:37 Cervical radiculo meenu 03077515 Active 2020 Managed by Pain Manageme nt JIMENA GALE Attn: Accountin g,[address] [facility], [place], [address] [place] [address] 2, [facility] 3 15:21:02 Anxiety 15283849 Completed 05/02/2021 Pt states resolved Removal Reason: Pt denies (resolve d) JIMENA GALE Attn: Accountin g,[address] [facility], [place], [address] [place] [address] 2, [facility] 2 13:40:47 Dyslipid emia 510246862 Completed 03/14/2019 Removal Reason: Duplicat jessica JIMENA GALE Attn: Accounthiram g,[address] [facility], [place], [address] [place] [address] 2, [place] - [facility] 9 22:06:08 Benign paroxysm al position al vertigo 051239921 Active 2022 JIMENA GALE Attn: Accounthiram g,[address] [facility], [place], [address] [place] [address] 2, [place] [facility] 3 15:21:04 Internal carotid artery stenosis 697779703 Active 2022 JIMENA GALE Attn: Accountin g,[address] [facility], [place], [address] [place] [address] 2, [place] [facility] 3 15:21:51 History of deep vein thrombos is 409407493 Active 2022 JIMENA GALE Attn: Accountin g,[address] [facility], [place], [address] [place] [address] 2, [place] [facility] 3 15:21:42 Hyperlip idemia 84814507 Active JIMENA GALE Attn: Accountin g,[address] [facility], [place], [address], [facility] 3 15:21:45 Urgent desire to urinate 65356801 Completed 05/02/2021 Removal Reason: duplicat e VIC GALEP-C Attn: Angie diaz,[address] [facility], [place], [address], [facility] 2 13:42:12 Cooper graves 276066977 Completed 03/14/2019 Removal Reason: Resolved GURINDER NIELSEN [employer] Attn: Angie diaz,[address] [facility], [place], [address], [facility] 9 21:19:43 Knee pain Completed 05/03/2019 resolved GURINDER NIELSEN [employer] Attn: Angie diaz,[address] [facility], [place], [address], [facility] 0 23:55:[address] [facility] l hyperten trevon 55032148 Active GURINDER NIELSEN [employer] Attn: Angie diaz,[address] [facility], [place], [address], [facility] 3 15:21:32 Renal failure syndrome 89479165 Completed 03/14/2019 Removal Reason: Updated VIC GALEP-C Attn: Angie diaz,[address] [facility], [place], [address], [facility] 9 22:21:59 Diabetes mellitus 42241431 Active WITH DIABETIC NEPHROPA THY PER LAST DIACHARG E SUMMARY VIC GALEP-C Attn: Angie diaz,[address] [facility], [place], [address], [facility] 3 15:24:12 Notes:Hx of Carpel Tunnel Re lease, Knee surgery and Prostate Biopsy; problem list updated r/t acute problems, duplicates and updating dx Problem Notes None recorded. Procedures Surgical History Date Name Laterality Status Provider Name and Address Organization Details Recorded Time 8 Routine Foot Care completed SABRINA BUENROSTRO DPM [address] [place], [address], [facility] 09/07/2017 16:03:27 Imaging Results Imaging Date Name Status LastModified by Organiz ation Details LastModified Time 04/29/2020 CT, abdomen + pelvis, w/o contrast completed Information not available 05/06/2020 16:20:33 06/11/2020 CT, abdomen + pelvis, w/o contrast completed Information not available 07/15/2020 20:18:27 12/05/2020 MRI, cervical spine, w/o contrast completed ond [facility] [place], [address], 12/19/2020 16:25:04 03/06/2023 MRI brain wo acute stroke protocol completed onwanegwo [address], [place], [address], 03/12/2023 09:05:57 Procedure Notes None recorded. Medical Equipment None Reported. Allergies Allergen ID Allergen Name Allergen Category Reaction Reaction Severity Criticality Documentation Date Start Date Code Code System Note Provider Name and Address Organization Details Recorded Time 503572 Non-stero idal anti-infl ammatory agent (product) medicatio n other severe Not available 03/13/2019 64781 005 SNOMED Renal ; Intol eranc e Not Available Not Available Not Available 863372 Substance with sulfonami de structure and antibacte rial mechanism of action (substanc e) medicatio n Not available Not available unabletoasse ss 01/11/2023 20723 8003 SNOMED PER [facility] NOTE Not Available Not Available Not Available Medications Name Sig Start Date Stop Date Status Note LastModified by Organization Details LastModified Time cyclobenz aprine 10 mg tablet TAKE 1 TABLET BY MOUTH THREE TIMES A DAY NEEDED FOR MUSCLE SPASMS 01/07 completed Not Available Not Available Not Available furosemid e 40 mg tablet TAKE 1 TABLET BY MOUTH TWICE DAILY 01/07 completed Not Available Not Available Not Available atorvasta tin 40 mg tablet TAKE 1 TABLET BY MOUTH ONCE DAILY active Not Available Not Available No t Available methocarb keon 500 mg tablet TAKE 2 TABLETS (1,000 MG TOTAL) BY MOUTH 3 (THREE) TIMES DAILY NEEDED. 01/07 completed Not Available Not Available Not Available hydralazi ne 10 mg tablet Take 1 tablet 3 times a day by oral route. 2014 active Not Available Not Available Not Avai lable valgancic lovir 450 mg tablet 01/07 completed Not Available Not Available Not Available carvedilo l 25 mg tablet TAKE ONE TABLET TWICE DAILY active Not Available Not Available No t Available clonidine HCl 0.1 mg tablet 10/11 completed Not Available Not Available Not Available atorvasta tin 20 mg tablet Take 1 tablet every day by oral route. 11/06 completed Not Available Not Available Not Available labetalol 200 mg tablet TAKE 1 TABLET BY MOUTH TWICE DAILY 01/07 completed Not Available Not Available Not Available trazodone 50 mg tablet 12/20 completed Not Available Not Available Not Available Iron (ferrous sulfate) 325 mg (65 mg iron) tablet Take 1 tablet twice a day by oral route. 01/07 completed Neph Rx Not Available Not Available Not Available glyburide 2.5 mg tablet Take 1 tablet every day by oral route with meals. 06/10 completed Not Available Not Available Not Available citalopra m 10 mg tablet 01/07 completed Not Available Not Available Not Available hydrocodo ne 5 mg-acetam inophen 325 mg tablet TAKE 1 TABLET BY MOUTH EVERY 6 HOURS NEEDED FOR PAIN FOR UP TO 15 DOSES 01/07 completed Not Available Not Available Not Available fluconazo le 200 mg tablet 01/07 completed Not Available Not Available Not Available lisinopri l 20 mg tablet TAKE 1 TABLET BY MOUTH EVERY MORNING 01/07 completed Not Available Not Available Not Available Medrol (Ronny) 4 mg tablets in a dose pack Take 1 package by oral route as directed . 04/06 completed Not Available Not Available Not Available prednison e 20 mg tablet active Not Available Not Available Not Available isosorbid e mononitra te ER 30 mg tablet,ex tended release 24 hr TAKE 1 TABLET BY MOUTH ONCE DAILY 01/07 completed Not Available Not Available Not Available prednison e 5 mg tablet active Not Available Not Available Not Available hydralazi ne 25 mg tablet TAKE ONE TABLET BY MOUTH THREE TIMES A DAY 11/02 completed Not Available Not Available Not Available metronida zole 500 mg tablet TAKE 1 TABLET BY MOUTH THREE TIMES A DAY FOR 10 DAYS 12/19 completed Not Available Not Available Not Available hydroxyzi ne HCl 50 mg tablet Take 1 tablet 3 times a day by oral route as needed. 05/02 completed Not Available Not Available Not Available acetamino phen 300 mg-codein e 30 mg tablet 11/02 completed Not Available Not Available Not Available clopidogr el 75 mg tablet TAKE 1 TABLET BY MOUTH ONCE DAILY active Not Available Not Available No t Available dextromet horphan-g uaifenesi n 10 mg-100 mg/5 mL oral syrup TAKE 10ML BY MOUTH EVERY 4 HOURS NEEDED FOR COUGH 01/07 completed Not Available Not Available Not Available ciproflox acin 500 mg tablet TAKE 1 TABLET BY MOUTH TWICE A DAY FOR 10 DAYS 12/19 completed Not Available Not Available Not Available sulfameth oxazole 800 mg-trimet hoprim 160 mg tablet Take 1 tablet every 12 hours by oral route for 3 days. 05/02 completed Not Available Not Available Not Available aspirin 81 mg tablet,de layed release Take 1 tablet every day by oral route. 01/07 completed Not Available Not Available Not Available tramadol 50 mg tablet TAKE 0.5 TABLET (25 MG) BY MOUTH 2 (TWO) TIMES A DAY NEEDED FOR PAIN 01/07 completed Not Available Not Available Not Available lidocaine -prilocai ne 2.5 %-2.5 % topical cream USE DIRECTED 01/07 completed Not Available Not Available Not Available baclofen 20 mg tablet Take 1 tablet 3 times a day by oral route. 07/03 completed Not Available Not Available Not Available Lamisil AT 1 % topical cream APPLY TO THE AFFECTED AND SURROUND ING AREAS OF SKIN BY TOPICAL ROUTE ONCE DAILY 03/13 completed Not Available Not Available Not Available isosorbid e mononitra te ER 60 mg tablet,ex tended release 24 hr 04/06 completed Not Available Not Available Not Available clonidine HCl 0.2 mg tablet active Not Available Not Available No t Available alprazola m 0.25 mg tablet TAKE 1 TABLET BY MOUTH A ONE TIME DOSE [address] MYELOGRA M 01/07 completed Not Available Not Available Not Available citalopra m 20 mg tablet TAKE 1 TABLET BY MOUTH EVERY DAY 01/07 completed Not Available Not Available Not Available methocarb keon 750 mg tablet 01/07 completed *Neurolo gy Rx (?) Not Available Not Available Not Available tamsulosi n 0.4 mg capsule Take 1 capsule every day by oral route. 03/13 completed Not Available Not Available Not Available furosemid e 80 mg tablet TAKE ONE TABLET BY MOUTH TWICE DAILY 03/08 completed Not Available Not Available Not Available trazodone 100 mg tablet TAKE 1 TABLET BY MOUTH EVERY DAY AT BEDTIME NEEDED FOR SLEEP 01/07 completed Not Available Not Available Not Available dicyclomi ne 20 mg tablet TAKE 1 TABLET BY MOUTH 2 TIMES A DAY FOR 10 DAYS. 01/07 completed Not Available Not Available Not Available meclizine 25 mg tablet TAKE 1 TABLET BY MOUTH THREE TIMES DAILY NEEDED FOR DIZZINES S active [facility] Not Available Not Available No t Available baclofen 10 mg tablet Take 1 tablet 3 times a day by oral route as needed. 12/19 completed Not Available Not Available Not Available amlodipin e 10 mg tablet TAKE 1 TABLET BY MOUTH ONCE DAILY active Not Available Not Available No t Available benzonata te 100 mg capsule TAKE 1 CAPSULE BY MOUTH THREE TIMES A DAY NEEDED FOR COUGH 01/07 completed Not Available Not Available Not Available hydrocodo ne 7.5 mg-acetam inophen 325 mg tablet 02/08 completed Not Available Not Available Not Available cephalexi n 500 mg capsule 01/07 completed Not Available Not Available Not Available hydralazi ne 100 mg tablet TAKE 100 MG BY MOUTH 3 (THREE) TIMES DAILY. 01/07 completed Not Available Not Available Not Available pantopraz ole 40 mg tablet,de layed release TAKE 1 TABLET EVERY DAY BY ORAL ROUTE BEFORE MEALS FOR 90 DAYS. active Not Available Not Available No t Available triamcino lone acetonide 0.1 % topical ointment 03/13 completed Not Available Not Available Not Available ranitidin e 150 mg tablet 03/13 completed Not Available Not Available Not Available calcium 200 mg (as calcium carbonate 500 mg) chewable tablet Take 1 tablet twice a day by oral route as directed . 2022 active *PER HOST DISCHARG E NOTE (500 MG W/200 MG ELEMENTA L CALCIUM) Not Available Not Available Not Available losartan 25 mg tablet TAKE 1/2 (ONE-XAVIER F) TABLET BY MOUTH ONCE DAILY active Not Available Not Available No t Available orphenadr ine citrate ER 100 mg tablet,ex tended release TAKE 1 TABLET BY MOUTH TWICE A DAY FOR 30 DAYS 01/07 completed Not Available Not Available Not Available gabapenti n 300 mg capsule Take 1 capsule 3 times a day by oral route for 30 days. 01/07 completed Not Available Not Available Not Available omeprazol e 20 mg capsule,d elayed release 04/06 completed Not Available Not Available Not Available bumetanid e 1 mg tablet TAKE 2 TABLETS (2 MG TOTAL) BY MOUTH TWO TIMES A DAY 01/07 completed *Cardiol ogy RX Not Available Not Available Not Available capsaicin 0.025 % topical cream 01/07 completed Not Available Not Available Not Available hydralazi ne 50 mg tablet TAKE 1 TABLET BY MOUTH TWICE DAILY 01/07 completed Not Available Not Available Not Available aspirin 81 mg tablet Take 1 tablet every day by oral route. 01/07 completed NEPH RX Not Available Not Available Not Available mupirocin 2 % topical ointment APPLY A SMALL AMOUNT TO THE AFFECTED AREA BY TOPICAL ROUTE 3 TIMES PER DAY TO LT LOWER LEG X 2 WEEKs 11/02 completed Not Available Not Available Not Available gabapenti n 100 mg capsule TAKE 1 CAPSULE BY MOUTH THREE TIMES DAILY active [facility]; NEPH Not Available Not Available Not Available clobetaso l 0.05 % topical ointment 11/02 completed Not Available Not Available Not Available lorazepam 1 mg tablet Take 1 tablet every day by oral route for 1 day. 05/02 completed Not Available Not Available Not Available levofloxa eula 500 mg tablet 04/06 completed Not Available Not Available Not Available lisinopri l 40 mg tablet Take 1 tablet every day by oral route. active Not Available Not Available No t Available ondansetr on 4 mg disintegr ating tablet TAKE 1 TABLET BY MOUTH EVERY 8 HOURS NEEDED FOR NAUSEA AND VOMITING 01/07 completed Not Available Not Available Not Available fluticaso ne propionat e 50 mcg/actua tion nasal spray,xiang pension [place] 2 sprays every day by intranas al route. 03/13 completed Not Available Not Available Not Available clotrimaz ole 1 % topical cream APPLY TO THE AFFECTED AND SURROUND ING AREAS OF SKIN BY TOPICAL ROUTE 2 TIMES PER DAY IN THE MORNING AND EVENING 03/13 completed Not Available Not Available Not Available calcitrio l 0.25 mcg capsule TAKE 1 CAPSULE (0.25 MCG TOTAL) BY MOUTH 1 (ONE) TIME EACH DAY 01/07 completed *Nephrol ogy Rx Not Available Not Available Not Available glipizide 5 mg tablet TAKE 1 TABLET BY MOUTH ONCE DAILY 01/07 completed Not Available Not Available Not Available naproxen 500 mg tablet TAKE 1 TABLET BY MOUTH TWICE A DAY WITH MEALS 01/07 completed Not Available Not Available Not Available atovaquon e 750 mg/5 mL oral suspensio n TAKE 10 ML BY MOUTH ONCE DAILY active Not Available Not Available No t Available diazepam 5 mg tablet TAKE 1 TABLET (5 MG TOTAL) BY MOUTH ONCE NEEDED (FOR MRI). 12/20 completed Not Available Not Available Not Available metoclopr amide 10 mg tablet 04/06 completed Not Available Not Available Not Available doxazosin 2 mg tablet 01/07 completed *Cards Rx Not Available Not Available Not Available amoxicill in 875 mg-potass ium clavulana te 125 mg tablet TAKE 1 TABLET BY MOUTH TWICE A DAY FOR 7 DAYS 06/07 completed Not Available Not Available Not Available Ventolin HFA 90 mcg/actua tion aerosol inhaler Inhale 2 puffs every 4-6 hours by inhalati on route as needed. 03/13 completed Not Available Not Available Not Available valsartan 160 mg tablet TAKE 1 TABLET BY MOUTH DAILY 01/07 completed Not Available Not Available Not Available enoxapari n 80 mg/0.8 mL subcutane ous syringe INJECT 0.8 ML SUBCUTAN EOUSLY EVERY 12 HOURS FOR 2 DAYS PRIOR TO PAIN MANAGEME NT INJECTIO N active Not Available Not Available No t Available cyclobenz aprine 5 mg tablet TAKE 1 TABLET BY MOUTH THREE TIMES DAILY NEEDED FOR MUSCLE SPASM active Not Available Not Available No t Available Klor-Con M20 mEq tablet,ex tended release active Not Available Not Available Not Available mycopheno late sodium 360 mg tablet,de layed release TAKE ONE TABLET TWICE DAILY active Not Available Not Available No t Available clopidogr el TAKE ONE TABLET DAILY active [facility] RX FOR DVT; APPT TO SEE VASCULAR Not Available Not Available Not Available Lantus Solostar U-100 Insulin 100 unit/mL (3 mL) subcutane ous pen INJECT 15 UNITS SUBCUTAN EOUSLY IN THE MORNING active Not Available Not Available No t Available Humalog KwikPen (U-100) Insulin 100 unit/mL subcutane ous active Not Available Not Available Not Available Kionex (with sorbitol) 15 gram-19.3 gram/60 mL oral suspensio n 03/13 completed Not Available Not Available Not Available Astepro 205.5 mcg (0.15 %) nasal spray [place] 2 sprays twice a day by intranas al route. 03/13 completed Not Available Not Available Not Available Senexon-S 8.6 mg-50 mg tablet 01/07 completed Outlying Rx Not Available Not Available Not Available Vitamin D3 50 mcg (2,000 unit) capsule Take 1 capsule every day by oral route for 90 days. 2022 active *PER BALJEET HED DX; NEPHROLO G RX(?) Not Available Not Available Not Available OneTouch Verio test strips USE 1 STRIP TO CHECK GLUCOSE FOUR TIMES DAILY WITH MEALS AND AT BEDTIME active Not Available Not Available No t Available Eliquis 5 mg tablet TAKE 1 TABLET BY MOUTH TWICE DAILY active Not Available Not Available No t Available Jardiance 10 mg tablet TAKE 1 TABLET BY MOUTH ONCE DAILY active Not Available Not Available No t Available Envarsus XR 1 mg tablet,ex tended release active Not Available Not Available Not Available Envarsus XR 4 mg tablet,ex tended release TAKE 1 TABLET BY MOUTH ONCE DAILY active Not Available Not Available No t Available OneTouch Verio Flex Meter active CGM ORDERED PER ENDO YET INAPPROP RIATE R/T BLEEDING RISK Not Available Not Available Not Available Eliquis DVT-PE Treatment 30-Day Starter 5 mg (74 tablets) in dose pack TAKE 2 TABLETS BY MOUTH TWICE DAILY FOR 7 DAYS THEN 1 TWICE DAILY THEREAFT ER 01/07 completed Not Available Not Available Not Available OneTouch Delica Plus Lancet 30 gauge active Not Available Not Available Not Available Ozempic 1 mg/dose (4 mg/3 mL) subcutane ous pen injector INJECT 1 MG SUBCUTAN EOUSLY ONCE EVERY 7 DAYS 01/07 completed [facility]; ENDO Not Available Not Available Not Available Mounjaro 7.5 mg/0.5 mL subcutane ous pen injector INJECT 7.5MG SUBCUTAN EOUSLY ONCE A WEEK active Not Available Not Available No t Available Mounjaro 5 mg/0.5 mL subcutane ous pen injector INJECT 5MG SUBCUTAN EOUSLY ONCE A WEEK active Not Available Not Available No t Available Mounjaro 10 mg/0.5 mL subcutane ous pen injector INJECT 10 MG SUBCUTAN EOUSLY ONCE A WEEK active Not Available Not Available No t Available Mounjaro 12.5 mg/0.5 mL subcutane ous pen injector MONTH 1: 12.5MG WEEKLY, MONTH 2: 15MG WEEKLY AND CONTINUE active Not Available Not Available No t Available Ozempic 0.25 mg or 0.5 mg (2 mg/3 mL) subcutane ous pen injector INJECT 0.5 MG SUBCUTAN EOUSLY ONCE A WEEK 01/07 completed Not Available Not Available Not Available Vitals Date Recorded Body height Body mass index (BMI) Body weight Provider Name and Address Organization Details Last Updated DateTime 05/06/2020 172.72 cm 34.5 kg/m2 570869.47 g JIMENA GALE Attn: [employer]ing[address] [place], [address], [place] [facility] 05/06/2020 16:54:47 Date Recorded Body height Body mass index (BMI) Body weight Provider Name and Address Organization Details Last Updated DateTime 06/07/2020 172.72 cm 32.7 kg/m2 39487.36 g Kushal Brown MA [place] [facility] 06/07/2020 10:42:05 Date Recorded Systolic blood pressure Diastolic blood pressure Provider Name and Address Organization Details Last Updated DateTime 06/07/2020 139 mm[Hg] 69 mm[Hg] JIMENA GALE Attn: [facility] [facility], [place], [address], [facility] 06/07/2020 12:13:03 Date Recorded Body weight Body height Body mass index (BMI) Provider Name and Address Organization Details Last Updated DateTime 07/15/2020 28639.32 g 172.72 cm 33.5 kg/m2 Kushal Brown MA [facility] 07/15/2020 14:24:45 Date Recorded Body height Body mass index (BMI) Body weight Provider Name and Address Organization Details Last Updated DateTime 12/19/2020 172.72 cm 31.9 kg/m2 12436.4 g Kushal Brown MA [facility] 12/19/2020 16:06:24 Date Recorded Body weight Body mass index (BMI) Body height Body temperature Heart rate Oxygen saturation Oxygen saturation in Arterial blood by Pulse oximetry Systolic blood pressure Diastolic blood pressure Systolic blood pressure Diastolic blood pressure Provider Name and Address Organization Details Last Updated DateTime 3 81372.1 g 29.8 kg/m2 172.72 cm 96.6 [degF] 94 /min 97 % 97 % 148 mm[Hg] 74 mm[Hg] 131 mm[Hg] 77 mm[Hg] Kushal Brown MA [facility] 11:50:18 Social History Question Answer Notes LastModified by Organizat ion Details LastModified Time Tobacco Smoking Status Former Smoker Margarita Hernandez MA null, [facility] 06/27/2014 13:29:19 What Is Your Level Of Alcohol Consumption? None Information not available 11/03/2019 Are You Blind Or Do You Have Difficulty Seeing? Yes Information not available 01/07/2023 What Is Your Level Of Caffeine Consumption? Occasional Information not available 01/07/2023 In The 14 Days Before Symptom Onset, Have You Had Close Contact With A Laboratory-confir med COVID-19 While That Case Was Ill? No Information not available 01/07/2023 In The 14 Days Before Symptom Onset, Have You Had Close Contact With A Person Who Is Under Investigation For COVID-19 While That Person Was Ill? No Information not available 01/07/2023 Have You Been To An Area Known To Be High Risk For COVID-19? No Information not available 01/07/2023 Are You Currently Employed? Yes Information not available 01/07/2023 Are You Deaf Or Do You Have Serious Difficulty Hearing? No Information not available 01/07/2023 Do You Or Have You Ever Used E-cigarettes Or Vape? 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 01/07/2023 Information not available 01/07/2023 How Many Children Do You Have? 6 Information not available 11/03/2019 What Is Your Current Pack Years? 10-19packyears Information not available 01/07/2023 What Is Your Relationship Status? Information not available 01/07/2023 Are You Sexually Active? Yes Information not available 01/07/2023 At What Age Did You Start Smoking Tobacco? 17 Information not available 01/07/2023 Do You Or Have You Ever Used Smokeless Tobacco? Never Used Smokeless Tobacco Information not available 03/08/2020 How Much Tobacco Do You Smoke? No Information not available 03/11/2020 Do You Use Any Illicit Or Recreational Drugs? No Information not available 01/07/2023 How Many Years Have You Smoked Tobacco? 8 Information not available 01/07/2023 Do You Or Have You Ever Used Any Other Forms Of Tobacco Or Nicotine? No Information not available 01/07/2023 Sex: Unknown Functional Status Question Answer Note LastModified by Organization D etails LastModified Time Are you able to care for yourself? Yes Information not available 01/07/2023 What is your exercise level? Moderate Information not available 01/07/2023 Mental Status None recorded. Family History Relationship Description Onset Age of this Age Resolved Age Notes LastModified by Organization Details LastModified Time Father Diabetes mellitus Not available 2015 16:44:21 Father Hypertensive disorder [email or web address] Not available 2015 16:44:58 Mother Hypertensive disorder [email or web address] Not available 2015 16:44:40 Mother Diabetes mellitus [email or web address] Not available 2015 16:45:05 Medical History Condition Response Diabetes Y Anemia Y High Blood Pressure Y High Cholesterol Y Hypertension Y Depression Y Kidney Disease Y Immunizations Vaccine Type Date Status Note Provider Nam e and Address Organization Details Recorded Time COVID-19 vaccine, vector-nr, rS-Ad26, PF, 0.5 mL 1 completed KALE GALE-C Attn: Accounting[address] [place], [address], [facility] 01/07/2023 12:35:25 influenza, unspecified formulation 1 completed KALE GALE-C Attn: Accounting[address] [place], [address], [facility] 01/07/2023 12:35:25 Tdap 7 completed KALE GALE-C Attn: Accounting[address] [place], [address], [facility] 01/07/2023 12:35:25 Pneumococcal conjugate PCV15, polysaccharide [id number] conjugate, adjuvant, PF 2 completed KALE GALE-C Attn: Accounting[address] [place], [address], [facility] 01/11/2023 15:50:39 Past Encounters Encounter ID Performer Location Encounter Start Date Encounter Closed Date Diagnosis/Indication Diagnosis SNOMED-CT Code Diagnosis ICD10 Code Diagnosis Note [id number] [address] [place] [address] 05/07/2014 16:42:19 05/08/2014 14:53:36 Knee pain 51884341 Essential hypertension 15140394 Renal fail ure syndrome 27204860 Diabetes mellitus 63413463 [id number] Jagruti Gray [address] [place] [address] 06/07/2014 14:16:39 06/07/2014 17:12:20 Essential hypertension 61793839 Knee pain 83534595 [id number] Lana Escobar [address] [place] [address] 06/22/2014 12:17:24 06/22/2014 14:58:19 Renal failure syndrome 01734558 Anxiety 78446964 [id number] [address] [facility] [address] [place] [address] 06/27/2014 12:29:38 07/05/2014 16:15:23 Essential hypertension 94355992 Diabetes mellitus 35865689 Knee pain 99649315 Renal fail ure syndrome 52111332 Dyslipidemia 954729005 [id number] [address] [place] [address] 09/06/2014 15:24:36 09/13/2014 12:41:36 Diabetes mellitus 07058971 Hyperlipidemia 05577444 [id number] Lana Escobar [address] [place] [address] 12/12/2014 16:41:00 12/13/2014 16:25:57 Essential hypertension 75047251 continue appointmen ts with Dr. Elliott and Dr. Barnett (cardiolog ist) as directed. discussed that cardiologi st recently increased labatelol. I will await records. Diabetes mellitus 63249850 discussed that patient is interested in increasing glipizide due to not having tight glycemic control on glipzide 5mg. home blood sugars have been ranging 150s , which is higher then it was when patient was on metformin. metformin was d/c'd due to renal disease. we will increase to glipizide 5mg twice daily with food. patient recently had labs drawn by Dr. Elliott. I will await labs and call patient with results. Hyperlipidemia 06768214 continue medication s as directed. I will await labs from Dr. Elliott and call patient with results. [id number] MARQUITA Rajputia [facility] [address] [place] [address] 04/03/2015 16:24:31 04/10/2015 03:47:50 Essential hypertension 99011238 I10 discussed recent visit with cardiologi st starting patient on clonidine 0.1mg twice a day. discussed that blood pressures most likely elevated due to not taking medication correctly. I will order routine fasting labs and also order magnesium due to recent cramping symptoms patient has been experienci ng. patient can take Tylenol+ tramadol prn arthralgia . continue appointmen ts with Dr. Elliott and Dr. Barnett (cardiolog ist) as directed. Urgent koki raúl to urinate 61754818 R39.15 discussed symptoms of nocturia. I will trial with Flomax 0.4mg 30 min after breakfast. we may discuss referral to urology if no relief of symptoms. [id number] MARQUITA Rajput [facility] [place] [address] 09/30/2015 15:57:26 10/02/2015 15:27:57 Knee pain 12689292 M25.561 discussed meniscus surgery on right knee June 2015. patient still experienci ng mild discomfort . Medrol dose pack sent to pharmacy. if no relief at follow up I may discuss ordering imaging. Essential hypertension 86758122 I10 discussed recent visit with cardiologi st starting patient on clonidine 0.1mg twice a day. discussed that blood pressures most likely elevated due to not taking medication correctly. I will order routine fasting labs and also order magnesium due to recent cramping symptoms patient has been experienci ng. patient can take Tylenol+ tramadol prn arthralgia . continue appointmen ts with Dr. Elliott and Dr. Barnett (cardiolog ist) as directed. Hyperlipidemia 12836433 E78.5 continue medication s as directed. labs ordered. [id number] MARQUITA Rajput [facility] [place] [address] 12/04/2015 16:39:35 12/11/2015 03:48:00 Essential hypertension 73097368 I10 Diabetes mellitus 868792 09 E11.9 discussed that patient is interested in increasing glipizide due to not having tight glycemic control on glipzide 5mg. home blood sugars have been ranging 150s , which is higher then it was when patient was on metformin. metformin was d/c'd due to renal disease. we will increase to glipizide 5mg twice daily with food. patient recently had labs drawn by Dr. Elliott. I will await labs and call patient with results. [place] [id number] B 35.6 [id number] MARQUITA Rajput [address] [place] [address] 04/08/2016 16:31:21 04/14/2016 09:23:38 Diabetes mellitus 32298091 E11.9 refilled medication s. 10/30/15 hgba1c: 7.0 Essential hypertension 02049919 I10 continue appointmen ts with Dr. Elliott and Dr. Barnett (cardiolog ist) as directed. discussed that cardiologi st recently increased labatelol. I will await records. Musculoskeletal pain 279 372790 M79.1 discussed full body cramping may be due to history of kidney failure or muscle tension. will trial with baclofen 10mg tid prn, medrol dose pack use as directed. referral to PT [id number] MARQUITA Rajput [facility] [place] [address] 11/06/2016 16:51:08 11/11/2016 14:51:36 Adult health examination 859548999 Z00.00 [facility] will [facility]. Renal fail ure syndrome 32600973 N19 [facility] will [facility]. patient was interested in d/c'ing glipizide and re-initiat ing metformin. patient states that nephrologi stated this was ok, I will await records from nephrologi before making any changes. Essential hypertension 59682984 I10 continue appointmen ts with Dr. Elliott and Dr. Barnett (cardiolog ist) as directed. discussed that cardiologi st recently increased labatelol. I will await records. I called pharmacy and refilled medication s that was prescribed by cardiologi since patient is running out of medication . provided clonidine 0.1mg in office today. patient currently stable and asymptomat ic. patient to return to see me in 4weeks for re-evaluat ion. [id number] MARQUITA Rajput [address] [place] [address] 04/20/2017 10:01:51 04/21/2017 16:06:12 Renal failure syndrome 60045639 N19 Patient recently went to [facility] 1 week ago for difficulty breathing, lower extremity edema, and shortness of breath. Patient was diagnosed with fluid build up and had his lasix increased, which patient said improved the symptoms. patient has since seen his cardiologi st, Dr. Randolph who order echo, pending results, but stated that he thought the symptoms were due to his kidneys. patient has pending appointmen t with nephrologi st, Dr. Elliott, for next week. he is feeling better now. I will wait for records from cardiology , and [facility] and discuss ordering routine labs at follow up as needed. Patient is currently stable and asymptomat ic. Allergic rhinitis 508001 04 J30.9 Discussed symptoms may be due to allergic rhinitis. I will trial with flonase use as directed, and astepro. patient to return in 3-4weeks for re-evaluat ion. [id number] MARQUITA Rajput [facility] [place] [address] 05/31/2017 15:46:31 06/23/2017 11:08:15 Essential hypertension 85047821 I10 - BP controlled in office today. Patient's medication s have been refilled- Follow up with nephrologi st as directed Hyperlipidemia 48488536 E78.5 - Patient instructed to find out if cholestero l is check during weekly lab draws, if not order placed for lipid panel. Dyspnea 106269910 R06.02 - Follow up with pulmonolog ist as directed Skin lesion 37400903 L98 .9 - 1 month history of lesion on nose. Will refer to dermatolog y. [id number] Morteza [facility] [place] [address] 06/28/2017 16:32:34 06/29/2017 15:30:05 Diabetes mellitus 72370005 E11.9 refilled medication s. 10/30/15 hgba1c: 7.0. patient has pending appointmen t with rah angela for this month. Patient states he has had labs drawn for hgba1c and lipids in the past, since I don't have these results, I provided order for patient to get labs drawn with next blood draw ordered by Dr. Elliott. Patient can call me for results. patient to return to see me in 3months. Adult heal th examination [id number] Z00.00 Reviewed routine labs that are recommende d for patient. I recommende d HIV, which offended patient. I tried to explain that this was just a routine lab test that the [facility] recommends , to have once every 10 years but he did not have to have it done if he didn't want to or thought he had it done already. After about 15min of discussion , patient agreed to get it drawn with next blood draw. Iron defic iency anemia 03220106 D50.9 Patient is being managed by Dr. Elliott. Currently on IM iron supplement . Patient to keep appointmen ts with Dr. Elliott as directed. Renal fail ure syndrome [id number] N19 Patient currently stable and asymptomat ic. patient to keep appointmen t with Dr. Elliott as directed. Essential hypertension 30830217 I10 Discussed elevated blood pressure due to stressor. patient currently stable and asymptomat ic. [id number] SABRINA BUENROSTRO DPM [facility] [address] [place] [address] 09/07/2017 15:31:33 09/27/2017 11:00:09 Tinea pedis 5569267 B35.3 Onychomycosis 431399610 B35.1 Diabetic p eripheral neuropathy 740098487 E11.42 [place] - lesion [id number] L84 [id number] MARQUITA Rajput [address] [place] [address] 02/08/2018 09:57:53 02/09/2018 10:23:15 Abdominal pain 95244500 R10.9 2 week history of abdominal pain, went to [facility] t had imaging donewill await recordsdis cussed management with Dr. Preston discuss referral to general surgery to evaluate for possible herniaI will trial with baclofenpa tient see's Dr. Carrizales, nephrologi st and Dr. Freeman, urologistI will wait for records. [id number] MARQUITA Rajput [address] [place] [address] 04/06/2018 15:58:54 04/13/2018 15:54:37 Essential hypertension 81297106 I10 refilled labetalol 200mg, hydralazin e 75mg, furosemide 40mg and isosorbide mononitrat e Hyperlipidemia 87554772 E78.5 refilled atorvastat inlipid panel ordered Diabetes mellitus 467781 09 E11.9 refilled glipizide 5mg ordering labs Renal fail ure syndrome 74502585 N19 Patient currently stable and asymptomat ic. patient to keep appointmen t with Dr. Elliott as directed.1 06/14/17 [place] [id number] B 35.6 lamisilref erral to podiatry Neck pain 51748380 M54.2 1 yearno injuryachi ngradiculo pathyrefer ral PTcspine xray ordered [id number] MARQUITA Rajput [address] [place] [address] 06/07/2018 15:53:33 06/10/2018 11:44:24 Essential hypertension 50860631 I10 continue labetalol 200mg, hydralazin e 75mg, furosemide 40mg and isosorbide mononitrat ecurrently stablemay be due to musculoske letal painrecomm ended to follow up with cardiologi st as directed Diabetes mellitus 261093 09 E11.9 hgba1c: 6.4refille d glipizide 5mg Renal fail ure syndrome 14581895 N19 Patient currently stable and asymptomat ic. patient to keep appointmen t with Dr. Elliott as directed in July 2018 [place] [id number] B 35.6 follow up with podiatry Neck pain 42056928 M54.2 1 yearno injuryachi ngradiculo pathyrefer ral PTcspine xray orderedrev iewed 04/26/18 cspine xray: DJDpicks up heavy objectsmos t likely musculoske letalincre asing baclofen 20mg tidorderin g MRI as requested by patient, referral to ortho Anemia of chronic disease 306107190 D63.8 due to kindey diseasecon tinue iron supplement s as directed by nephrology , Dr. Carrizales. Abdominal pain 24209875 R10.9 2 week history of abdominal pain, went to [facility] t had imaging donewill await recordsdis cussed management with Dr. Preston discuss referral to general surgery to evaluate for possible herniaI will trial with baclofenpa tient see's Dr. Carrizales, nephrologi st and Dr. Freeman, urologistI will wait for records.im proved Hand pain 58424811 M79.6 44 hit hand today at worknormal romrecomme nded [facility] watch and wait for now. [id number] MARQUITA Rajput [address] [place] [address] 10/11/2018 15:51:16 10/13/2018 11:36:33 Essential hypertension 43954819 I10 continue labetalol 200mg, hydralazin e 75mg, furosemide 40mg and isosorbide mononitrat ecurrently stablemay be due to musculoske letal painrecomm ended to follow up with cardiologi st as directed Diabetes mellitus 781939 09 E11.9 10/11/18 hgba1c: 6.2refille d glipizide 5mg Renal fail ure syndrome 24043939 N19 Patient currently stable and asymptomat ic. patient to keep appointmen t with Dr. Elliott as directed in November 2018 Neck pain 90062323 M54.2 1 yearno injuryachi ngradiculo pathyrefer ral PTcspine xray orderedrev iewed 04/26/18 cspine xray: DJDmost likely musculoske letalincre asing baclofen 20mg tidno improvemen t from last visit will wait for mri resultsmay discuss ordering open mri or giving a short dose of ativan prior to repeat mri testing if needed, since patient states his nerves caused him to stop the procedure early. Anemia of chronic disease [id number] D63.8 due to kidney diseasecon tinue iron supplement s as directed by nephrology , Dr. Carrizales. Hand pain 66214997 M79.6 42 improved since last visit [id number] JIMENA GALE [address] [place] [address] 03/13/2019 16:04:38 03/15/2019 14:46:33 Diabetes mellitus 27962508 E11.9 Last A1C:{{less than 7.0%* 7-8% 8-9% grea ter than 9%}} Goal A1C less than:{{7.0 %* 8.0%}} Current Therapy:{{ metformin sulfonylur ea* TZD SG LT-2 DDP-4 GLP-1 RA long-ac ting insulin ra pid/short- acting insulin}}S tatin:{{ye s no* decl ined due to adverse reaction/a llergy dec lined}} JENNIFER/ARB:{{ yes no no due to negative nephropath y screening* contraind icated dec lined due to adverse reaction/a llergy dec lined}} Foot Exam:{{com pleted in the past 12 months-neg ative comp leted in the past 12 months-pos itive comp leted in the past 12 months- result unknown du e*}} Nephropath y Screening: {{complete d in the past 12 months- negative c ompleted in the past 12 months- positive* due}} Pneumovax 23:{{UTD D eclined No t given*}} Eye Exam:{{due - recommende d annual dilated eye exam; referral made# comp leted in the last 12 months- negative c ompleted in the last 12 months- positive c ompleted per patient report due - recommende d annual dilated eye exam}} Patient Education: healthy diet: {{yes# yes no}} exercise: {{yes# yes no}} weight loss: {{yes# yes no}} foot care: {{yes# yes no}} complicati ons of uncontroll ed diabetes: {{yes# yes no}} medication compliance : {{yes# yes no}} Next Visit: {{1 2 3 4* 5 6 7 8 9 10 11 12} } {{week(s)* month(s)} } Hyperlipidemia 56786853 E78.5 -Pt without management r/t hx of HLD; medication stopped by nephrology per pt report-Silas l recheck and follow for further management at this time with alternativ e options to reduce any cardiovasc ular or cerebrovas cular risks Essential hypertension 03012142 I10 BP Goal: {{Less than 140/90* Le ss than 150/90}} BP Controlled : {{yes no*} } Healthy Weight: {{4'10= 91-118 lbs 4'11= 94-123 lbs 5'= 97-127 lbs 5'1= 100-131 lbs 5'2= 104-135 5' 3= 107-140 lbs 5'4= 110-144 lbs 5'5= 115-149 lbs 5'6= 118-154 lbs 5'7= 121-158 lbs 5'8= 125-163 lbs* 5'9= 128-168 lbs 5'10= 132-173 lbs 5'11= 136-178 lbs 6'= 140-183 lbs 6'1= 144-188 lbs 6'2= 148-193 lbs 6'3= 152-199 lbs 6'4= 156-204 lbs}} Discussed: Low sodium balanced diet, moderate exercise at least 3-4 times per week for an average of 40 minutes; pt is active with aerobic exercise; he maintains employment Next Visit: {{1 2 3 4* 5 6 7 8 9 10 11 12} }{{week(s) * month(s) }}-Pt with historical mild LVH; E of 55-60% per cardiology not, not uncommon in ESRD-Pt continues with cardiology and nephrology -Nephology note with recorded b/p fo 168 SBP with plan to watch; pt to follow for further advisement and management as b/p which is stable within 2mmHg of stated sbp Screening for malignant neoplasm of prostate 265251674 Z12.5 -No historical PSA noted-Eval with further management as required Degenerati on of cervical intervertebral disc 47331091 M50.30 -With bulging disc-Histo rical pain management visit; opts out for steroid injection- Unable to take NSAIDs; managed with Muscle relaxers; may add Tylenol ES Skin lesion 18339329 L98 .9 -Pt presents with skin lesion that appears to be in the healing stages; lg in size of approx 9 in in diameter-L esion is non-evolvi ng, non-tender to touch, healing and raised-Ref errals and diagnostic s for eval and management -Pt and educated on the signs of hydroblaster y concerns and infection and to report immediatel y with signs or symptoms Arthropath y of cervical spine facet joint 354623775 M46.92 -With varying areas of spinal stenosis and radiculopa thy-Pt with persistent pain; historical visit with pain management yielded advisement for steroid injection- Pt to make considerat ion for advised management with steroid injections Hyperparat hyroidism due to renal insufficiency 82966351 N25.81 -Managed by nephrology (Calcitrio l)-Last noted Phos level WDL per nephrology note Chronic ki dney disease stage 4 032355322 N18.4 -Pt followed by nephrology -No acute concerns today-Will continue to follow up with appts as abigail lindquist and advised-De eGFR (20), K=+ (5.1), BUN/Creat (51/3.13) Depression screening 171 593032 Z13.31 -Routine Recommende d screening; (-) -PHQ9 completed and filed [id number] JIMENA GALE [address] [place] [address] 05/02/2019 16:02:45 05/04/2019 13:02:17 Hyperparathyroidism due to renal insufficiency 03404145 N25.81 -Managed by nephrology (Calcitrio l)-Last noted Phos level WDL per nephrology note Knee pain 58204913 M25.5 69 -Pt with degenerati ve changes. Denies pain. Chronic ki dney disease stage 4 127990380 N18.4 -Pt followed by nephrology -No acute concerns today-Will continue to follow up with appts as abigail lindquist and advised Anxiety 33594156 F41.9 -Pt reports that he manages does not feel anxious. Feels it is basically gone Hyperlipidemia 17277795 E78.5 -Pt without management r/t hx of HLD; medication stopped by nephrology per pt report-Sta tin therapy initiated. Pt medication had been stopped by his nephologis t as pt reports due to cramping in legs; renal function and LFTs WDL. Essential hypertension 01105102 I10 BP Goal: {{Less than 140/90* Le ss than 150/90}} BP Controlled : {{yes; pt and spouse verifies that b/p is monitored at home stating values are always within desired range# yes no}} Healthy Weight: {{4'10= 91-118 lbs 4'11= 94-123 lbs 5'= 97-127 lbs 5'1= 100-131 lbs 5'2= 104-135 5' 3= 107-140 lbs 5'4= 110-144 lbs 5'5= 115-149 lbs 5'6= 118-154 lbs 5'7= 121-158 lbs 5'8= 125-163 lbs* 5'9= 128-168 lbs 5'10= 132-173 lbs 5'11= 136-178 lbs 6'= 140-183 lbs 6'1= 144-188 lbs 6'2= 148-193 lbs 6'3= 152-199 lbs 6'4= 156-204 lbs}} Discussed: Low sodium balanced diet, moderate exercise at least 3-4 times per week for an average of 40 minutes; pt is active with aerobic exercise; he maintains employment as well Next Visit: {{1 2 3* 4 5 6 7 8 9 10 11 12} }{{week(s) month(s)* }}-Pt with historical mild LVH; E of 55-60% per cardiology not, not uncommon in ESRD-Pt continues with cardiology and nephrology Diabetes mellitus 333392 09 E11.9 Last A1C:{{less than 7.0%* 7-8% 8-9% grea ter than 9%}} Goal A1C less than:{{7.0 %* 8.0%}} Current Therapy:{{ metformin sulfonylur ea* TZD SG LT-2 DDP-4 GLP-1 RA long-ac ting insulin ra pid/short- acting insulin}}S tatin:{{ye s no* decl ined due to adverse reaction/a llergy dec lined}} JENNIFER/ARB:{{ yes no no due to negative nephropath y screening* contraind icated dec lined due to adverse reaction/a llergy dec lined}} Foot Exam:{{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 and will have records forwarded; [facility] podiatry at [facility] in the past year# comp leted in the past 12 months-neg ative comp leted in the past 12 months-pos itive comp leted in the past 12 months- result unknown du e}} Nephropath y Screening: {{complete d in the past 12 months- negative c ompleted in the past 12 months- positive* due}} Pneumovax 23:{{UTD D eclined No t given*}} Eye Exam:{{com pleted per patient report; records to be provided as pt reports he will retrieve# completed in the last 12 months- negative c ompleted in the last 12 months- positive c ompleted per patient report due - recommende d annual dilated eye exam}} Patient Education: healthy diet: {{yes# yes no}} exercise: {{yes# yes no}} weight loss: {{yes# yes no}} foot care: {{yes# yes no}} complicati ons of uncontroll ed diabetes: {{yes# yes no}} medication compliance : {{yes# yes no}} Next Visit: {{1 2 3 4* 5 6 7 8 9 10 11 12} } {{week(s)* month(s)} } Skin lesion 13639637 L98 .9 -Pt presents with skin lesion that appears to be in the healing stages; lg in size of approx 9 in in diameter-L esion is non-evolvi ng, non-tender to touch, healing and raised-Ref errals and diagnostic s for eval and management -Pt and educated on the signs of hydroblaster y concerns and infection and to report immediatel y with signs or symptoms [id number] KALE GALE-Cam acuna [address] [place] [address] 07/04/2019 11:22:22 07/06/2019 15:15:40 Gastroesophageal reflux disease without esophagitis 912584628 K21.9 -Pt reports sx concerning for Water Brash -Edu cated pt and advised in appropriat e dosing of PPI as he has not taken pill individual ly prior to other meds or food.-Pt advised to call if sx persists beyond changes [id number] JIMENA GALE armand [address] [place] [address] 08/04/2019 11:02:36 08/04/2019 15:21:47 Hyperparathyroidism due to renal insufficiency 58055052 N25.81 -Managed by nephrology (Calcitrio l)-Last noted Phos level WDL per nephrology note Knee pain 99952355 M25.5 71 -Pt with degenerati ve changes. Denies pain. Chronic ki dney disease stage 4 397585200 N18.4 -Pt followed by nephrology -No acute concerns today-Will continue to follow up with appts as establishe d and advised Hyperlipidemia 23176195 E78.5 -Pt without management r/t hx of HLD; medication stopped by nephrology per pt report due to cramping in legs; renal function and LFTs WDL.-Stati n therapy initiated during prior visit.-Cur rent regimen maintained -Pt reports symptoms controlled -RFs as appropriat e Essential hypertension 45767232 I10 BP Goal: {{Less than 140/90* Le ss than 150/90}} BP Controlled : {{Pt reports as sbp always 140 which is borderline ; he is intructed to monitor hidden NA+ and to be more diligent in his routine aerobic exercise; hewill call in 1 week if sbp not improved# yes no}} Healthy Weight: {{4'10= 91-118 lbs 4'11= 94-123 lbs 5'= 97-127 lbs 5'1= 100-131 lbs 5'2= 104-135 5' 3= 107-140 lbs 5'4= 110-144 lbs 5'5= 115-149 lbs 5'6= 118-154 lbs 5'7= 121-158 lbs 5'8= 125-163 lbs* 5'9= 128-168 lbs 5'10= 132-173 lbs 5'11= 136-178 lbs 6'= 140-183 lbs 6'1= 144-188 lbs 6'2= 148-193 lbs 6'3= 152-199 lbs 6'4= 156-204 lbs}} Discussed: Low sodium balanced diet, moderate exercise at least 3-4 times per week for an average of 40 minutes; pt is active with aerobic exercise; he maintains employment as well Next Visit: {{1 2 3* 4 5 6 7 8 9 10 11 12} }{{week(s) month(s)* }}-Pt with historical mild LVH; E of 55-60% per cardiology -Pt continues with cardiology and nephrology Diabetes mellitus 998420 09 E11.9 Last A1C:{{less than 7.0%* 7-8% 8-9% grea ter than 9%}} Goal A1C less than:{{7.0 %* 8.0%}} Current Therapy:{{ metformin sulfonylur ea* TZD SG LT-2 DDP-4 GLP-1 RA long-ac ting insulin ra pid/short- acting insulin}}S tatin:{{ye s no* decl ined due to adverse reaction/a llergy dec lined}} JENNIFER/ARB:{{ yes no no due to negative nephropath y screening* contraind icated dec lined due to adverse reaction/a llergy dec lined}} Foot Exam:{{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 and will have records forwarded; [facility] podiatry at [facility] in the past year# comp leted in the past 12 months-neg ative comp leted in the past 12 months-pos itive comp leted in the past 12 months- result unknown du e}} Nephropath y Screening: {{complete d in the past 12 months- negative c ompleted in the past 12 months- positive* due}} Pneumovax 23:{{UTD D eclined No t given*}} Eye Exam:{{com pleted per patient report; records to be provided as pt reports he will retrieve# completed in the last 12 months- negative c ompleted in the last 12 months- positive c ompleted per patient report due - recommende d annual dilated eye exam}} Patient Education: healthy diet: {{yes# yes no}} exercise: {{yes# yes no}} weight loss: {{yes# yes no}} foot care: {{yes# yes no}} complicati ons of uncontroll ed diabetes: {{yes# yes no}} medication compliance : {{yes# yes no}} Next Visit: {{1 2 3 4* 5 6 7 8 9 10 11 12} } {{week(s)* month(s)} } Gastroesop hageal reflux disease without esophagitis 258590645 K21.9 -Pt reports sx concerning for Water Brasboubacar -Rogers cated pt and advised in appropriat e dosing of PPI as he has not taken pill individual ly prior to other meds or food.-Pt advised to call if sx persists beyond changes [id number] JIMENA GALE [address] [place] [address] 11/29/2019 14:24:50 11/30/2019 09:29:06 Diabetes mellitus 42189201 E11.9 Last A1C:{{less than 7.0%* 7-8% 8-9% grea ter than 9%}} Goal A1C less than:{{7.0 %* 8.0%}} Current Therapy:{{ metformin sulfonylur ea* TZD SG LT-2 DDP-4 GLP-1 RA long-ac ting insulin ra pid/short- acting insulin}}S tatin:{{ye s no* decl ined due to adverse reaction/a llergy dec lined}} JENNIFER/ARB:{{ yes no no due to negative nephropath y screening* contraind icated dec lined due to adverse reaction/a llergy dec lined}} Foot Exam:{{com pleted in the past 12 months-neg ative* com pleted in the past 12 months-pos itive comp leted in the past 12 months- result unknown du e}} Nephropath y Screening: {{complete d in the past 12 months- negative c ompleted in the past 12 months- positive* due}} Pneumovax 23:{{UTD D eclined No t given*}} Eye Exam:{{com pleted per patient report; records to be provided as pt reports he will retrieve# completed in the last 12 months- negative c ompleted in the last 12 months- positive c ompleted per patient report due - recommende d annual dilated eye exam}} Patient Education: healthy diet: {{yes# yes no}} exercise: {{yes# yes no}} weight loss: {{yes# yes no}} foot care: {{yes# yes no}} complicati ons of uncontroll ed diabetes: {{yes# yes no}} medication compliance : {{yes# yes no}} Next Visit: {{1 2 3* 4 5 6 7 8 9 10 11 12} } {{week(s) month(s)*} } Hyperlipidemia 11269907 E78.5 -Pt without management r/t hx of HLD; medication stopped by nephrology per pt report due to cramping in legs; renal function and LFTs WDL.-Stati n therapy initiated during prior visit.-Cur rent regimen maintained -Pt reports symptoms controlled -RFs as appropriat e Knee pain 77142378 M25.5 71 -Pt with degenerati ve changes-Re ports as stable Chronic ki dney disease stage 4 530406983 N18.4 -Pt followed by nephrology -No acute concerns today-Will continue to follow up with appts as establishe d and advised Hyperparat hyroidism due to renal insufficiency 90981541 N25.81 -Managed by nephrology (Timothy torres)-Last noted Phos level WDL per nephrology note Essential hypertension 46456904 I10 BP Goal: {{Less than 140/90* Le ss than 150/90}} BP Controlled : {{yes* no} } Healthy Weight: {{4'10= 91-118 lbs 4'11= 94-123 lbs 5'= 97-127 lbs 5'1= 100-131 lbs 5'2= 104-135 5' 3= 107-140 lbs 5'4= 110-144 lbs 5'5= 115-149 lbs 5'6= 118-154 lbs 5'7= 121-158 lbs 5'8= 125-163 lbs* 5'9= 128-168 lbs 5'10= 132-173 lbs 5'11= 136-178 lbs 6'= 140-183 lbs 6'1= 144-188 lbs 6'2= 148-193 lbs 6'3= 152-199 lbs 6'4= 156-204 lbs}} Discussed: Low sodium balanced diet, moderate exercise at least 3-4 times per week for an average of 40 minutes; pt is active with aerobic exercise; he maintains employment as well Next Visit: {{1 2 3* 4 5 6 7 8 9 10 11 12} }{{week(s) month(s)* }}-Pt with historical mild LVH; E of 55-60% per cardiology -Pt continues with cardiology and nephrology Gastroesop hageal reflux disease without esophagitis 799251312 K21.9 -Pt reports sx concerning for Water Brash (increased salivation secondary to acid reflux to throat)-Ed ucated pt and advised in appropriat e dosing of PPI as he has not taken pill individual ly prior to other meds or food.-Pt advised to call if sx persists beyond changes Hand cramps [id number] R2 5.2 -Pt states he remains hydrated-F urther eval and management as outlined [id number] KALE GALE-C Ivette acuna [address] [place] [address] 03/08/2020 14:34:12 03/11/2020 10:59:56 Hyperlipidemia 85821780 E78.5 -Pt without management r/t hx of HLD; medication stopped by nephrology per pt report due to cramping in legs; renal function and LFTs WDL.-Stati n therapy initiated during prior visit.-Cur rent regimen maintained -Pt reports symptoms controlled -RFs as appropriat e-Prior Lipid Panel 04/08/19 Pt is due Chronic ki dney disease stage 4 [id number] N18.4 -Pt followed by nephrology -No acute concerns today-Will continue to follow up with appts as establishe d and advised Hyperparat hyroidism due to renal insufficiency 68036093 N25.81 -Managed by nephrology (Calcitrio l)-Last noted Phos level WDL per nephrology note Diabetes mellitus 095694 09 E11.9 Last A1C:{{less than 7.0%* 7-8% 8-9% grea ter than 9%}} Goal A1C less than:{{7.0 %* 8.0%}} Current Therapy:{{ metformin sulfonylur ea* TZD SG LT-2 DDP-4 GLP-1 RA long-ac ting insulin ra pid/short- acting insulin}}S tatin:{{ye s no* decl ined due to adverse reaction/a llergy dec lined}} JENNIFER/ARB:{{ yes no no due to negative nephropath y screening* contraind icated dec lined due to adverse reaction/a llergy dec lined}} Foot Exam:{{com pleted in the past 12 months-neg ative* com pleted in the past 12 months-pos itive comp leted in the past 12 months- result unknown du e}} Nephropath y Screening: {{complete d in the past 12 months- negative c ompleted in the past 12 months- positive* due}} Pneumovax 23:{{UTD D eclined No t given*}} Eye Exam:{{com pleted per patient report; have not received a report# co mpleted in the last 12 months- negative c ompleted in the last 12 months- positive c ompleted per patient report due - recommende d annual dilated eye exam}} Patient Education: healthy diet: {{yes# yes no}} exercise: {{yes# yes no}} weight loss: {{yes# yes no}} foot care: {{yes# yes no}} complicati ons of uncontroll ed diabetes: {{yes# yes no}} medication compliance : {{yes# yes no}} Next Visit: {{1 2 3* 4 5 6 7 8 9 10 11 12} } {{week(s) month(s)*} } Essential hypertension 46413541 I10 BP Goal: {{Less than 140/90* Le ss than 150/90}} BP Controlled : {{yes* no} } Healthy Weight: {{4'10= 91-118 lbs 4'11= 94-123 lbs 5'= 97-127 lbs 5'1= 100-131 lbs 5'2= 104-135 5' 3= 107-140 lbs 5'4= 110-144 lbs 5'5= 115-149 lbs 5'6= 118-154 lbs 5'7= 121-158 lbs 5'8= 125-163 lbs* 5'9= 128-168 lbs 5'10= 132-173 lbs 5'11= 136-178 lbs 6'= 140-183 lbs 6'1= 144-188 lbs 6'2= 148-193 lbs 6'3= 152-199 lbs 6'4= 156-204 lbs}} Discussed: Low sodium balanced diet, moderate exercise at least 3-4 times per week for an average of 40 minutes; pt is active with aerobic exercise; he maintains employment as well Next Visit: {{1 2 3* 4 5 6 7 8 9 10 11 12} }{{week(s) month(s)* }}-Pt with historical mild LVH; E of 55-60% per cardiology -Pt continues with cardiology (Janice) and was seen by Alexy onal Cardiology (Hadib) historical ly and nephrology (Beau) currently Gastroesop hageal reflux disease without esophagitis [id number] K21.9 -Pt reports sx concerning for Water Brash (increased salivation secondary to acid reflux to throat)-Ed ucated pt and advised in appropriat e dosing of PPI as he has not taken pill individual ly prior to other meds or food.-Pt advised to call if sx persists beyond changes Depression screening 171 219586 Z13.31 -Routine Recommende d screening; (-) -PHQ9 completed and filed Hand pain 71486928 M79.6 41 -Pt reports bialteral hand pain-See HPI-Furthe r eval and management as outlined [id number] JIMENA GALE [address] [place] [address] 03/29/2020 09:57:19 04/01/2020 09:13:27 Seen in emergency clinic [id number] Z76.89 -Recent ED visit (see HPI)-Pt stable after tx for hypo MG+-Instru cted to f/u with PCP and Neph-No further management required at this time [id number] JIMENA GALEia [address] [place] [id number] 04/15/2020 10:55:31 04/23/2020 09:23:36 Laboratory test result abnormal [id number] R89.9 -Pt has been advised regarding lab results as he calls to requests infusion of iron as advised by his insurance co nurse family service caseworker as he states his nephrologi st has not managed-Pt understand s fiction and nonfiction writer prose will review his record and will inform as to best course of action [id number] JIMENA GALE [address] [place] [id number] 05/06/2020 15:29:29 05/07/2020 09:52:32 Follow-up visit [id number] Z09 -Pt presents for follow up with regard to recent ED visit as noted Diverticulitis 120977951 K57.92 -Pt reports as stable and adding that he is much improved from a pain level of 10 to now a 2-Reports f/u appt with GI to plan colonoscop y per ED referral and advice Body mass index 30+ - obesity 528884300 Z68.34 -Pt advised of BMI; wt per most recent visit to cardiology -Pt encouraged to eat a plant-base d diet, minimizing processed foods and portion control -Pt advised on the recommenda tions for routine exercise [id number] JIMENA GALE [address] [place] [address] 06/07/2020 10:21:28 06/10/2020 13:27:45 Hyperlipidemia 43968484 E78.5 -Pt without management r/t hx of HLD; medication stopped by nephrology per pt report due to cramping in legs; renal function and LFTs WDL.-Stati n therapy initiated during prior visit.-Cur rent regimen maintained -Pt reports symptoms controlled -RFs as appropriat e-Prior Lipid Panel 04/08/19; ordered Feb 2020Pt states she had it done; will submit for records Knee pain 97864421 M25.5 71 -Pt with degenerati ve changes-Re ports as stable Chronic ki dney disease stage 4 [id number] N18.4 -Pt followed by nephrology -No acute concerns today-Will continue to follow up with appts as abigail lindquist and advised Hyperparat hyroidism due to renal insufficiency 09567497 N25.81 -Managed by nephrology (Calcitrio l)-Last noted Phos level WDL per nephrology note Diabetes mellitus 376103 09 E11.9 Last A1C:{{less than 7.0%* 7-8% 8-9% grea ter than 9%}} Goal A1C less than:{{7.0 %* 8.0%}} Current Therapy:{{ metformin sulfonylur ea* TZD SG LT-2 DDP-4 GLP-1 RA long-ac ting insulin ra pid/short- acting insulin}}S tatin:{{ye s no* decl ined due to adverse reaction/a llergy dec lined}} JENNIFER/ARB:{{ yes no no due to negative nephropath y screening* contraind icated dec lined due to adverse reaction/a llergy dec lined}} Foot Exam:{{com pleted in the past 12 months-neg ative* com pleted in the past 12 months-pos itive comp leted in the past 12 months- result unknown du e}} Nephropath y Screening: {{complete d in the past 12 months- negative c ompleted in the past 12 months- positive* due}} Pneumovax 23:{{UTD D eclined No t given*}} Eye Exam:{{com pleted per patient report; have not received a report# co mpleted in the last 12 months- negative c ompleted in the last 12 months- positive c ompleted per patient report due - recommende d annual dilated eye exam}} Patient Education: healthy diet: {{yes# yes no}} exercise: {{yes# yes no}} weight loss: {{yes# yes no}} foot care: {{yes# yes no}} complicati ons of uncontroll ed diabetes: {{yes# yes no}} medication compliance : {{yes# yes no}} Next Visit: {{1 2 3* 4 5 6 7 8 9 10 11 12} } {{week(s) month(s)*} } Essential hypertension [id number] I10 BP Goal: {{Less than 140/90* Le ss than 150/90}} BP Controlled : {{yes* no} } Healthy Weight: {{4'10= 91-118 lbs 4'11= 94-123 lbs 5'= 97-127 lbs 5'1= 100-131 lbs 5'2= 104-135 5' 3= 107-140 lbs 5'4= 110-144 lbs 5'5= 115-149 lbs 5'6= 118-154 lbs 5'7= 121-158 lbs 5'8= 125-163 lbs* 5'9= 128-168 lbs 5'10= 132-173 lbs 5'11= 136-178 lbs 6'= 140-183 lbs 6'1= 144-188 lbs 6'2= 148-193 lbs 6'3= 152-199 lbs 6'4= 156-204 lbs}} Discussed: Low sodium balanced diet, moderate exercise at least 3-4 times per week for an average of 40 minutes; pt is active with aerobic exercise; he maintains employment as well Next Visit: {{1 2 3* 4 5 6 7 8 9 10 11 12} }{{week(s) month(s)* }}-Pt with historical mild LVH; E of 55-60% per cardiology -Pt continues with cardiology (Janice) and was seen by [facility] ([facility]) historical ly Gastroesop hageal reflux disease without esophagitis [id number] K21.9 -Current regimen maintained -Pt reports symptoms controlled -RFs as appropriat e Hand pain 57065959 M79.6 41 -Pt reports bilateral hand pain-See HPI-XR ordered prior visit; Pending HIV screen ing declined [id number] 71090 Z53.20 -Declines [id number] JIMENA GALE [address] [place] [address] 07/15/2020 14:11:12 07/16/2020 07:48:14 HIV screening 461180109 Z11.4 -Routine Recommende d screening Diabetes m ellitus screening 838624656 Z13.1 -Routine Recommende d screening Hyperlipidemia 34704660 E78.5 -Routine Recommende d screening Body mass index 30+ - obesity 192924808 Z68.34 -Pt advised of BMI; wt per most recent visit to cardiology -Pt encouraged to eat a plant-base d diet, minimizing processed foods and portion control -Pt advised on the recommenda tions for routine exercise Obesity 808044247 E66.9 -See above Chronic ki dney disease due to hypertension [id number] 88266 N18.4 -Satisfy measure; noted as prior documented as CKD Stg 4 -Managed by Dr. David Mcnair on of cervical intervertebral disc 29165428 M50.30 -With bulging disc -Historica l pain management visit; opts out for steroid injection -Unable to take NSAIDs; managed with Muscle relaxant; may add Tylenol ES Cervical radiculopathy 06355893 M54.12 Followed by pain management with recent corticoste roid injection; pt reports this management has not helped with pain and radiculopa thy (see HPI) -Further eval and management as outlined [id number] JIMENA GALE [address] [place] [address] 12/19/2020 16:03:50 12/21/2020 11:05:08 Gastroesophageal reflux disease without esophagitis 078646886 K21.9 -Current regimen maintained -Pt reports symptoms controlled -RFs as appropriat e Essential hypertension 31892812 I10 BP Goal: {{Less than 140/90* Le ss than 150/90}} BP Controlled : {{yes* no} } Healthy Weight: {{4'10= 91-118 lbs 4'11= 94-123 lbs 5'= 97-127 lbs 5'1= 100-131 lbs 5'2= 104-135 5' 3= 107-140 lbs 5'4= 110-144 lbs 5'5= 115-149 lbs 5'6= 118-154 lbs 5'7= 121-158 lbs 5'8= 125-163 lbs* 5'9= 128-168 lbs 5'10= 132-173 lbs 5'11= 136-178 lbs 6'= 140-183 lbs 6'1= 144-188 lbs 6'2= 148-193 lbs 6'3= 152-199 lbs 6'4= 156-204 lbs}} Discussed: Low sodium balanced diet, moderate exercise at least 3-4 times per week for an average of 40 minutes; pt is active with aerobic exercise; he maintains employment as well Next Visit: {{1 2 3* 4 5 6 7 8 9 10 11 12} }{{week(s) month(s)* }}-Pt with historical mild LVH; E of 55-60% per cardiology -Pt continues with cardiology (Janice) and was seen by [facility] ([place]) historical ly Diabetes mellitus 315971 09 E11.9 Last A1C:{{less than 7.0%* 7-8% 8-9% grea ter than 9%}} Goal A1C less than:{{7.0 %* 8.0%}} Current Therapy:{{ metformin sulfonylur ea* TZD SG LT-2 DDP-4 GLP-1 RA long-ac ting insulin ra pid/short- acting insulin}}S tatin:{{ye s no* decl ined due to adverse reaction/a llergy dec lined}}JENNIFER /ARB:{{yes no no due to negative nephropath y screening* contraind icated dec lined due to adverse reaction/a llergy dec lined}}Pratibha t Exam:{{com pleted in the past 12 months-neg ative* com pleted in the past 12 months-pos itive comp leted in the past 12 months- result unknown du e}}Nephrop athy Screening: {{complete d in the past 12 months- negative c ompleted in the past 12 months- positive* due}}Pneum ovax 23:{{UTD D eclined No t given*}}Ey e Exam:{{com pleted in the last 12 months- negative c ompleted in the last 12 months- positive c ompleted per patient report due - recommende d annual dilated eye exam compl eted per patient report; have not received a report#}}P atient Education: healthy diet: Yexercise: Yweight loss:Yfoot care: Ycomplicat ions of uncontroll ed diabetes: Ymedicatio n compliance : YNext Visit: {{1 2 3* 4 5 6 7 8 9 10 11 12} } {{week(s) month(s)*} } Hyperlipidemia 80032723 E78.5 -Routine Recommende d screening Knee pain 37091450 M25.5 71 -Pt with degeneramarina ve changes-Re ports as stable Chronic ki dney disease stage 4 040573981 N18.4 -Pt followed by nephrology -No acute concerns today-Will continue to follow up with appts as establishe d and advised Anxiety 87903439 F41.9 -Pt reports that he manages does not feel anxious. Feels it is basically gone Hyperparat hyroidism due to renal insufficiency 94448119 N25.81 -Managed by nephrology (Calcit[facility] l)-Last noted Phos level WDL per nephrology note HIV screen ing declined [id number] 16354 Z53.20 -Declines Body mass index 30+ - obesity 545778591 Z68.34 -Pt advised of BMI -Pt encouraged to eat a plant-base d diet, minimizing processed foods and portion control -Pt advised on the recommenda tions for routine exercise Obesity 396512771 E66.9 -See above Cervical radiculopathy 77701082 M54.12 Followed by pain management with recent corticoste roid injection; pt reports this management has not helped with pain and radiculopa thy (see HPI) -Further eval and management as outlined [id number] JIMENA GALE [facility] [address] [place] [address] 01/07/2023 11:27:55 01/12/2023 15:11:48 Diabetes mellitus 26969628 E11.9 -Pt followed by ENDO-No acute concerns today-Will continue to follow up with appts as establishe d and advised Last A1C:{{less than 7.0%* 7-8% 8-9% grea ter than 9%}}Goal A1C less than:{{7.0 %* 8.0%}}C urrent Therapy:{{ metformin sulfonylur ea* TZD SG LT-2 DDP-4 GLP-1 RA long-ac ting insulin ra pid/short- acting insulin}}S tatin:{{ye s* no decl ined due to adverse reaction/a llergy dec lined}}JENNIFER /ARB:{{yes * no no due to negative nephropath y screening contraindi cated decl ined due to adverse reaction/a llergy dec lined}}Pratibha t Exam:{{com pleted in the past 12 months-neg ative* com pleted in the past 12 months-pos itive comp leted in the past 12 months- result unknown du e}}Nephrop athy Screening: {{complete d in the past 12 months- negative c ompleted in the past 12 months- positive d ue complet ed in the past 12 months- Neph follows and manages; Post transplant #}}Pneumov ax 23:{{UTD D eclined No t given UTD as pt endorses via hosp visits and transplant services#} }Eye Exam:{{com pleted in the last 12 months- negative c ompleted in the last 12 months- positive c ompleted per patient report due - recommende d annual dilated eye exam compl eted per patient report-pos itive#}}Sam yepez Education: healthy diet: Yexercise: Yweight loss:Yfoot care: Ycomplicat ions of uncontroll ed diabetes: Ymedicatio n compliance : YNext Visit: {{1 2 3* 4 5 6 7 8 9 10 11 12} } {{week(s) month(s)*} } Essential hypertension 60401081 I10 06/21/20:- Pt with historical mild LVH; E of 55-60% per cardiology -Pt continues with cardiology (Janice) and [facility] 01/07/2023 (Returning pt):-Pt followed by cardiology -No acute concerns today-Will continue to follow up with appts as establishe d and advised BP Goal: {{Less than 140/90* Le ss than 150/90}}BP Controlled : {{yes* no} }Healthy Weight: {{4'10= 91-118 lbs 4'11= 94-123 lbs 5'= 97-127 lbs 5'1= 100-131 lbs 5'2= 104-135 5' 3= 107-140 lbs 5'4= 110-144 lbs 5'5= 115-149 lbs 5'6= 118-154 lbs 5'7= 121-158 lbs 5'8= 125-163 lbs* 5'9= 128-168 lbs 5'10= 132-173 lbs 5'11= 136-178 lbs 6'= 140-183 lbs 6'1= 144-188 lbs 6'2= 148-193 lbs 6'3= 152-199 lbs 6'4= 156-204 lbs}}Discu ssed: Low sodium balanced diet, moderate exercise at least 3-4 times per week for an average of 40 minutesNex t Visit: {{1 2 3* 4 5 6 7 8 9 10 11 12} }{{week(s) month(s)* }} Chronic ki dney disease stage 4 [id number] N18.4 -Pt followed by nephrology ; Recent transplant ; Will update DX-No acute concerns today-Will continue to follow up with appts as establishe d and advised Gastroesop hageal reflux disease without esophagitis 714387714 K21.9 -Current regimen maintained with PPI per Nephrology Transplant services-P t reports symptoms controlled -RFs as appropriat e Hyperlipidemia 56006154 E78.5 -Pt followed by Nephrology Transplant services who manages-No acute concerns today-Will continue to follow up with appts as abigail lindquist and advised Patient me dical record not available [id number] Z76.89 -Acquire records for lab review and further management *Update; Canceled as was noted in file Benign par oxysmal positional vertigo 689881534 H81.10 -Establish ed dx; pt reports as stable with current regimen; no changes today; will cont to eval Internal c arotid artery stenosis 070139103 I65.29 -Establish ed dx; pt reports as stable with current regimen (plavix) ; no changes today; will cont to eval-[facility]No acute concerns today-Will continue to follow up with appts as abigail lindquist and advised History of deep vein thrombosis 865454550 Z86.718 -Establish ed dx; pt reports as stable with current regimen (eliquis ); no changes today; will cont to eval Vitamin D deficiency 347 24423 E55.9 -Establish ed dx; pt reports as stable with current regimen (ORDER WRITTEN FOR PROFILE DOCUMENTAT ION ONLY); no changes today; will cont to eval Medication review done 204433336 Z76.89 -Some discrepanc ies; Clinical Quality Manager will review med list and will update per last discharge record and forward to patient; Pt agrees. Health Concerns Section Related Observation LastModified by Organization Detai ls LastModified Time None Recorded Concern Status LastModified by Organization Details LastModified Time None Recorded Advance Directives Directive None Recorded Payers Encounter Date Sequence Insurance Name Policy Number Policy Cheng Covered Member ID Cheng Member ID Guarantor Name 05/06/2020 1 [facility] [id number] Kenji Hernandez [id number] Kenji Hernandez 06/07/2020 1 [facility] [id number] Kenji Hernandez [id number] Kenji Hernandez 07/15/2020 1 [facility] [id number] Kenji Hernandez [id number] Kenji Hernandez 12/19/2020 1 [facility] [id number] Kenij Hernandez [id number] Kenji Hernandez 01/07/2023 1 [place] [id number] Kenji Hernandez [id number] Kenji Hernandez Notes Date Note Type Note Provider Name and Address Organization Details Recorded Time 021 text/ht ml Patient with recent inpatient stay for management of cecal diverticulitis. Pt was prescribed antibiotic. States, today, he is much improved. JIMENA GALE Attn: Accounting, [address] , [place], [address], [place] [facility] 05/06/2020 17:02:05 021 text/ht ml Cardiology VisitReported bypatient.chest painno chest pain; location; non-radiating; no pain with exertion SOBno shortness of breath; no SOB during exertion Orthopneano orthopnea; not using extra pillows or sleeping upright (orthopnea) PNDno awakening at night short of breath (pnd) Pedal Edemano edema dizzinessno dizziness Syncopeno fainting (syncope) Palpitationsno palpitations Fatigueno fatigueDiabetes F/UReported bypatient.Review finger sticks:fasting: <130; post dinner: <180 Labs:last A1C result: 6.1 Context:normal range of home blood sugars (in the low 100s); seeing eye doctor regularly; checking feet regularly; taking aspirin daily; not missing doses of medications; no side effects from medications Associated Symptoms:no weight gain; no weight loss; no dizziness; no sweats; no headaches; no confusion; no increased thirst; no increased appetite; no increased urination; no blurred vision; no numbness of feet; no calluses on feetHyperlipidemiaReported bypatient.Type of hyperlipidemia:hypercholesterolemia Duration:chronic Control:usually poorly controlled Current Therapy:States he has not been taking per nephrology instructions Compliance:compliant with diet; exercises Complications:no coronary artery disease; no peripheral artery disease;cardiovascular disease; HTN Risk Factors:diabetes;hypertension;obesi ty;high lipoprotein(a) levelHypertension F/UReported bypatient.Associated Symptoms:no dizziness; no lightheadedness; no chest pain; no shortness of breath; no palpitations; no edema; no calf pain with exertion Lifestyle:regular exercise; exercises times/week; limiting/avoiding salt Medications:taking medications as directed; no side effects from medication Pt presents for routine follow up of chronic illnesses to be evaluated by this provider at this time. See encounter for details. JIMENA GALE Attn: Accounting, [address] [facility], [place], [address], [facility] 06/07/2020 13:58:09 021 text/ht ml Neck PainReported bypatient.Trauma:no Neurological Complaints:numbness of the arms;tingling of the arms;pain in the arms Pain:burning;sharp;radiates to bilateral shoulder; and arms Pain Duration:months; worsening Treatment:steroids; steroid injections JIMENA GALE Attn: Accounting, [address] [facility], [place], [address], [facility] 07/15/2020 20:22:29 021 text/ht ml Cardiology VisitReported bypatient.chest painno chest pain; location; non-radiating; no pain with exertion SOBno shortness of breath; no SOB during exertion Orthopneano orthopnea; not using extra pillows or sleeping upright (orthopnea) PNDno awakening at night short of breath (pnd) Pedal Edemano edema dizzinessno dizziness Syncopeno fainting (syncope) Palpitationsno palpitations Fatigueno fatigueDiabetes F/UReported bypatient.Review finger sticks:fasting: <130; post dinner: <180 Labs:last A1C result: 6.1 Context:normal range of home blood sugars (in the low 100s); seeing eye doctor regularly; checking feet regularly; taking aspirin daily; not missing doses of medications; no side effects from medications Associated Symptoms:no weight gain; no weight loss; no dizziness; no sweats; no headaches; no confusion; no increased thirst; no increased appetite; no increased urination; no blurred vision; no numbness of feet; no calluses on feetHyperlipidemiaReported bypatient.Type of hyperlipidemia:hypercholesterolemia Duration:chronic Control:usually poorly controlled Current Therapy:States he has not been taking per nephrology instructions Compliance:compliant with diet; exercises Complications:no coronary artery disease; no peripheral artery disease;cardiovascular disease; HTN Risk Factors:diabetes;hypertension;obesi ty;high lipoprotein(a) levelHypertension F/UReported bypatient.Associated Symptoms:no dizziness; no lightheadedness; no chest pain; no shortness of breath; no palpitations; no edema; no calf pain with exertion Lifestyle:regular exercise; exercises times/week; limiting/avoiding salt Medications:taking medications as directed; no side effects from medication Pt presents for routine follow up of chronic illnesses to be evaluated by this provider at this time. See encounter for details. JIMENA GALE Attn: Accounting, [address] [place], [address], [facility] 12/20/2020 13:59:54 023 text/ht ml Cardiology VisitReported bypatient.chest painno chest pain; location; non-radiating; no pain with exertion SOBno shortness of breath; no SOB during exertion Orthopneano orthopnea; not using extra pillows or sleeping upright (orthopnea) PNDno awakening at night short of breath (pnd) Pedal Edemano edema dizzinessno dizziness Syncopeno fainting (syncope) Palpitationsno palpitations Fatigueno fatigueDiabetes F/UReported bypatient.Context:normal range of home blood sugars (in the low 100s); seeing eye doctor regularly; checking feet regularly; not missing doses of medications; no side effects from medications Associated Symptoms:no weight gain; no weight loss; no dizziness; no sweats; no headaches; no confusion; no increased thirst; no increased appetite; no increased urination; no blurred vision; no numbness of feet; no calluses on feetDizzinessReported bypatient.Quality:unsteadiness Severity:seen in ER 20 days ago for this complaint Duration:intermittent episodes lasting:; lasts <5 minutes Context:non-smoker Modifying Factors:change in position; rapid movements Aggravating factors:bending/stooping; positional change Prior opinionERPHyperlipidemiaReported bypatient.Type of hyperlipidemia:hypercholesterolemia Duration:chronic Current Therapy:currently taking:; Atorvastatin Compliance:compliant with diet;does not exercise Complications:no coronary artery disease; no peripheral artery disease;cardiovascular disease; HTN Risk Factors:diabetes;hypertension;obesi ty Pt presents as returning pt. Pt is a 67 Y/O M presenting today in the RE-establishment of care with this site. Pt with recent inpatient stays, renal transplant (undergone a renal transplant) and new specialists on board as pt is now followed by NEPHROLOGY, ENDO, OPTHALMOLOGY, AND CARDIOVASCULAR. Pt agrees to vaccinations and screenings as outlined in file. Routine exam, screenings and education completed. Pt with spouse present where he is said to have some mild intermittent confusion. There are some medication discrepancies where fiction and nonfiction writer prose will follow most recent discharge summary and update the med profile. It is noted that pt was managed for a DVT inpatient and transitioned to a PCP ([facility]) where pt is transitioning from that office prior to this last inpatient stay from Dec 21- d/t LOSS OF VISION OF OS.Pt denies acute concerns. Chronic disorders as follows for review. Other disorders pt is managed for as stable are: OS VISUAL CHANGES, BPPV, DM, HX OF ESRD STG IV, VIT D DEFICIENCY, HS OF DVT, GERD, CHF, CAROTID ARTERY STENOSIS (LEFT)See HPI and A/P for further details. JIMENA GALE Attn: Accounting, [address] [facility], [place], [address], [place] [facility] 01/11/2023 16:10:23
--- OUTSIDE RECORDS SUMMARY | 2024-06-18 11:42 | XMS_ITS | Clinical Summary ---
Author Organization [facility] [address] [facility] Address [address] [place] [address] Care Team Providers Care Electrician'S Helper Name Role Phone JaniceMohan barone MD Unavailable [phone] Radha Jurado Primary Care Provider [phone] Sylvester Nicholas MD Unavailable + [phone] Js Martinez MD Unavailable [phone] Alexis Ngo MD Unavailable [phone] Ludmila Tesfaye RN Unavailable [phone] Sudheer Arnold MD Unavailable + Haja Piers OD Unavailable [phone] Allergies Active Allergy Reactions Criticality Noted Date Comments Sulfamethoxazole-Tr imethoprim Itching Low 09/04/2022 Iodinated Contrast Media Other (See comments) Low 09/16/2020 Pt states it is contraindicated with renal disease. Nsaids (Non-Steroidal Anti-Inflammatory Drug) Other (See comments) High 06/05/2024 Non-steroidal anti-inflammatory agent (product) Sulfa (Sulfonamide Antibiotics) Other (See comments) Low 06/05/2024 Substance with sulfonamide structure and antibacterial mechanism of action (substance) Medications cholecalciferol (Vitamin D3) 2000 unit tablet Take 1 tablet (2,000 Units total) by mouth daily 30 tablet 09/02/19 23 Active calcium carbonate (TUMS) 500 mg (200 mg elemental) chewable tabletIndications :Chronic kidney disease-mineral and bone disorder Take 1 tablet/chew tab (500 mg total) by mouth 2 (two) times a day 60 tablet/chew tab 09/23/19 23 Active traMADoL (ULTRAM) 50 mg tablet Take 1 tablet (50 mg total) by mouth every 8 (eight) hours as needed for pain Active HumaLOG 100 unit/mL pen for injection INJECT 1-4 UNITS UNDER THE SKIN FOUR TIMES A DAY WITH MEALS AND AT BEDTIME. ( 1 UNIT FOR EVERY 50 MG/DL GREATER THAN 150 UP TO MAX OF 4 UNITS) 15 mL 12/21/19 23 Active alcohol swabs pads, medicated Use to clean skin before injections or blood glucose checks 100 each 12/22/19 23 Active aspirin 81 mg chewable tablet Take 1 tablet (81 mg total) by mouth daily Active citalopram (CeleXA) 20 mg tablet Take 1 tablet (20 mg total) by mouth daily Active diazePAM (VALIUM) 5 mg tablet Active dicyclomine (BENTYL) 20 mg tablet Active ferrous fumarate 325 mg (106 mg iron) tablet Take every day by oral route. Active LORazepam (ATIVAN) 1 mg tablet Active ondansetron ODT (ZOFRAN-ODT) 4 mg disintegrating tablet Take 1 tablet (4 mg total) by mouth Active senna-docusate (Senexon-S) 8.6-50 mg Active amLODIPine (NORVASC) 10 mg tablet Take 1 tablet by mouth once daily 90 tablet 3 07/05/19 24 Active enoxaparin (LOVENOX) 80 mg/0.8 mL syringe INJECT 0.8 ML SUBCUTANEOUSLY EVERY 12 HOURS FOR 2 DAYS PRIOR TO PAIN MANAGEMENT INJECTION Active tirzepatide (Mounjaro) 15 mg/0.5 mL pen injectorIndicatio ns:Type 2 diabetes mellitus with diabetic nephropathy, with long-term current use of insulin (HCC) Month 1: 12.5 mg weekly, Month 2: 15 mg weekly and continue 2 mL 08/12/19 24 Active gabapentin (NEURONTIN) 300 mg capsuleIndication s:Lumbar spondylosis,Estefani inal stenosis of cervical region,Cervical radiculopathy Take 1 capsule (300 mg total) by mouth nightly 90 capsule 1 09/01/19 24 Active Additional Information Patient taking differently:300 mg oralDaily PRN, Reported on 06/05/2024 traZODone (DESYREL) 100 mg tabletIndications :Insomnia, unspecified type Take 1 tablet (100 mg total) by mouth nightly as needed for sleep 90 tablet 1 09/01/[address] (PROTONIX) 40 mg EC tablet TAKE ONE TABLET BY MOUTH EVERY DAY 30 tablet 09/06/19 24 Active blood glucose diagnostic stripIndications: Type 2 diabetes mellitus with diabetic nephropathy, with long-term current use of insulin ([facility]) 1 strip QID with meals and at bedtime. Max 28/week 100 each 09/08/19 24 Active empagliflozin (Jardiance) 10 mg tabletIndications :Type 2 diabetes mellitus with diabetic nephropathy, with long-term current use of insulin ([facility]) Take 1 tablet (10 mg total) by mouth daily 90 tablet 3 09/21/19 24 Active atorvastatin (LIPITOR) 40 mg tablet Take 1 tablet by mouth once daily 90 tablet 3 09/27/[address] (MYFORTIC) 360 mg EC tablet TAKE 1 TABLET BY MOUTH TWO TIMES A DAY 60 tablet 10/06/19 24 Active predniSONE (DELTASONE) 5 mg tablet TAKE ONE TABLET BY MOUTH EVERY DAY 30 tablet 10/06/19 24 Active carvediloL (COREG) 25 mg tabletIndications :Primary hypertension,Enco unter for aftercare following kidney transplant Take 1 tablet (25 mg total) by mouth 2 (two) times a day with meals 60 tablet 11/01/19 24 Active blood-glucose meter kitIndications:Ty pe 2 diabetes mellitus with diabetic nephropathy, with long-term current use of insulin ([facility]) Use to monitor glucose at least three times daily 1 kit 12/09/19 24 Active insulin glargine (LANTUS) 100 unit/mL (3 mL) pen for injectionIndicati ons:Type 2 diabetes mellitus with diabetic nephropathy, with long-term current use of insulin ([facility]) Inject 15 Units under the skin daily 15 mL 3 12/20/19 24 Active blood-glucose meter,continuous (Dexcom G7 Farm Assistant) miscIndications:T ype 2 diabetes mellitus with diabetic nephropathy, with long-term current use of insulin ([facility]) Use to check glucose at least 4 times per day 3 each 11 12/20/19 24 Active meclizine (ANTIVERT) 25 mg tabletIndications :Benign paroxysmal positional vertigo, unspecified laterality Take 1 tablet (25 mg total) by mouth 3 (three) times a day as needed for dizziness 30 tablet 3 01/26/20 24 Active lancets (OneTouch Delica Plus Lancet) 30 gauge miscIndications:T ype 2 diabetes mellitus with diabetic nephropathy, with long-term current use of insulin ([facility]) USE TO CHECK BLOOD GLUCOSE 5 TIMES DAILY 500 each 1 02/16/20 24 Active cyclobenzaprine (FLEXERIL) 5 mg tablet Take 1 tablet (5 mg total) by mouth 3 (three) times a day as needed for muscle spasms for muscle spasms 30 tablet 02/16/20 24 Active losartan (COZAAR) 25 mg tablet Take 1 tablet (25 mg total) by mouth daily 90 tablet 3 02/23/20 24 Active pen needle, diabetic (BD Ultra-Fine Vero Pen Needle) 32 gauge x 5/32 needle USE TO INJECT INSULIN FIVE (5) TIMES DAILY 100 each 3 03/17/20 24 Active blood-glucose sensor (DesignMedixcom G7 Sensor) deviceIndications :Type 2 diabetes mellitus with diabetic nephropathy, with long-term current use of insulin ([facility]) Change sensor every 10 days 9 each 3 04/28/19 25 Active tacrolimus XR (ENVARSUS XR) 1 mg tablet extended release 24 hrIndications:Pre vention of Kidney Transplant Rejection Take 3 tablets (3 mg total) by mouth bull chain operator before breakfast 270 tablet 3 06/05/19 25 026 Active tacrolimus XR (ENVARSUS XR) 1 mg tablet extended release 24 hrIndications:Pre vention of Kidney Transplant Rejection Take 4 tablets (4 mg total) by mouth bull chain operator before breakfast 360 tablet 3 03/23/20 23 025 Disconti nued(Reo rder) Active Problems Patient Care Coordination No te Formatting of this note migh t be different from the original. Verbal consent - spouse Chhaya Pharmacy: [facility] Specialty: [facility] Specialty Program Labs: Stephanie Silva SO: Q-Monthly FK; Q-3 Routine HGBA1C (10/12/2024) HH: [facility] Home Care Problem Noted Date Diagnosed Date Type 2 diabetes mellitus without complication ([facility]) 05/29/2024 End-stage renal disease ([facility]) 05/29/2024 Anxiety 11/18/2023 Overview (11/18/2023): Pt states resolved Removal Reason: Pt denies (resolved) Tinea cruris 11/18/2023 Overview (11/18/2023): Removal Reason: Resolved Urinary urgency 11/18/2023 Overview (11/18/2023): Removal Reason: duplicate Dyslipidemia 11/18/2023 Overview (11/18/2023): Removal Reason: Duplicate Renal failure syndrome 11/18/2023 Overview (11/18/2023): Removal Reason: Updated Incisional hernia, without obstruction or gangre ne 11/11/2023 Lumbar spondylosis 09/01/2023 S/P cervical spinal fusion 09/01/2023 Nonrheumatic aortic valve stenosis 05/21/2023 Nonrheumatic aortic valve insufficiency 05/21/19 24 ESRD (end stage renal disease) ([facility]) 024 Assessment & Plan (02/10/2024 11:29 AM CDT): Impression: Patient has a left brachiocephalic AV fistula that is not being utilized for dialysis as he is status post kidney transplant in August 2022. Audible bruit and palpable thrill noted on exam. Av duplex reveals a patent AV fistula with elevated velocities. Av fistula is aneurysmal measuring 1.5 and 1.4 cm. No concern for skin compromise or discomfort at this time. Plan: Would like to avoid any surgical interventions requiring IV contrast due to his recent kidney transplant. -Patient to follow-up in 6 months for re-evaluation with repeat AV duplex. Assessment & Plan (05/11/2023 10:58 AM SOLAR FABRICATION TECHNICIAN): Impression: Patient has a left brachiocephalic AV fistula that is currently not being utilized for dialysis as he is status post kidney transplant of August 2022. Audible bruit and palpable thrill noted on exam. Av duplex scan reveals a patent AV fistula. Plan: We will continue monitoring AV fistula. Follow-up in 3 months for re- evaluation with AV duplex scan. Bilateral occipital neuralgia 03/23/2023 Left facial numbness 03/23/2023 History of DVT (deep vein thrombosis) 03/17/2023 Assessment & Plan (03/17/2023 12:00 PM SOLAR FABRICATION TECHNICIAN): Patient has completed 3 months of Eliquis. Discussed that he can discontinue the medication. We discussed doing a follow-up ultrasound, patient would like to proceed with this, order placed. Benign paroxysmal positional vertigo 01/11/2023 Assessment & Plan (01/26/2024 11:46 AM CDT): Continue meclizine as prescribed. Patient will continue to monitor symptoms over the next 1.5 weeks. If symptoms do not fully resolve he will reach out and I can place a referral back to physical therapy. Notify me of any new or changing symptoms. Patient voiced agreement with this plan. Internal carotid artery stenosis 01/11/2023 Amaurosis fugax of left eye 12/23/2022 Overview (12/23/2022): Onset 12/18/22, three episodes over three days, each lasted about 5 minutes Internal carotid artery stenosis, left Overview (12/23/2022): Moderate, luminal irregularities in distal carotid a Episodic confusion 12/23/2022 Assessment & Plan (03/17/2023 11:59 AM SOLAR FABRICATION TECHNICIAN): Advised patient to discuss this with his neurologist at his appointment next month. This was previously thought to be a side effect of one of his transplant medications, but patient states symptoms were present before his transplant. They have worsened since the surgery. Assessment & Plan (03/04/2023 2:57 PM SOLAR FABRICATION TECHNICIAN): Recommend patient schedule follow-up with his neurologist. This was previously thought to be a side effect of one of his transplant medications. The dose was reduced and symptoms improved but have not resolved. Drug level above therapeutic range 12/23/2022 Overview (12/23/2022): Possible side effect of elevated tacrolimus level: episodic confusion Dizziness 12/22/2022 Vertigo 12/22/2022 Assessment & Plan (03/17/2023 12:02 PM SOLAR FABRICATION TECHNICIAN): Continue meclizine as needed. Patient is scheduled for follow-up with physical therapy next week. Discussed with Neurology at appointment next month as well. Assessment & Plan (03/04/2023 2:57 PM SOLAR FABRICATION TECHNICIAN): Patient had sudden worsening episode yesterday, he is doing better today. Recommend he continue with meclizine and exercises as needed. Can schedule follow-up with neurology. Vision loss of left eye 12/21/2022 Right forearm pain 12/16/2022 Status post kidney transplant 11/04/2022 Assessment & Plan (02/10/2024 11:30 AM CDT): Impression: Patient is status post kidney transplant in August 2022. He continues to recover well and has a stable kidney function. Patient has been compliant with his routine follow-ups with his transplant team. Plan: Continue recommendations as per kidney transplant team. Assessment & Plan (05/11/2023 10:57 AM SOLAR FABRICATION TECHNICIAN): Impression: Patient is status post kidney transplant on August 2022. He continues to recover well. Patient has been compliant with routine follow-ups with his transplant team. Plan: Continue recommendations as per kidney transplant team. Assessment & Plan (03/17/2023 12:01 PM SOLAR FABRICATION TECHNICIAN): Patient will continue to follow with transplant team. Continue medications as prescribed. Assessment & Plan (02/04/2023 1:26 PM CDT): Impression: Patient is status post kidney transplant on 09/01/2022 and continues to recover well. Plan: Continue recommendations as per kidney transplant team. Assessment & Plan (11/04/2022 10:02 AM CDT): See above. Stage 3a chronic kidney disease 11/04/2022 Assessment & Plan (03/17/2023 12:01 PM SOLAR FABRICATION TECHNICIAN): Previously with ESRD, now status post renal transplant. Kidney function is stable. Continue to follow with Nephrology and transplant team. Assessment & Plan (11/04/2022 10:02 AM CDT): See above. Encounter for long-term (cur rent) use of high-risk medication 11/03/2021 Overview (10/07/2023): Health Maintenance: -PCV20: due -PCV15: 2021 -Tdap vaccine: 2017 -Influenza vaccine: 2021 -Shingles vaccine: -Colonoscopy: 2023 (3 year recall) -Last PSA: 10/2022 -Last eye exam: 11/27/22 -Last MHA: N/A Assessment & Plan (11/04/2022 11:33 AM CDT): Health Maintenance: -PCV20: due -PCV15: 2021 -Tdap vaccine: 2017 -Influenza vaccine: 2021 -Shingles vaccine: declined -Colonoscopy: 07/11/2020 (3 year recall) -Last PSA: ordered -Last eye exam: scheduled in November -Last MHA: N/A Patient due for Prevnar 20. He will check with his transplant team to make sure he can get this. He can return to our office if he is able to do so. He declines Shingrix. PSA ordered. He has an upcoming diabetic eye exam scheduled. Labs ordered today. Work on healthy diet and exercise habits. Assessment & Plan (11/04/2021 8:29 AM CDT): Health Maintenance: -PCV20: -Tdap vaccine: 2017 -Influenza vaccine: -Shingles vaccine: -Colonoscopy: 07/11/2020 (3 year recall) -Last PSA: 09/2021 -Last eye exam: 06/2021 -Last MHA: N/A Patient states he had pneumonia and shingles vaccines at dialysis. We will request these records. He is otherwise up-to-date on health maintenance. Annual labs ordered. CKD stage 5 due to type 2 diabetes mellitus ([facility] /[facility]) 09/11/2021 Assessment & Plan (11/04/2021 7:25 AM CDT): Chronic. Patient is on dialysis. Diabetes has been well controlled. Will check labs today. Continue with healthy diet and exercise habits. Continue follow-up with Nephrology as scheduled. 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 Diabetes remains controlled. Will check labs today. Will request patient's diabetic eye exam. Myofascial pain 04/11/2021 Degeneration of intervertebral disc of cervical region 03/19/2021 Assessment & Plan (11/04/2022 11:32 AM CDT): Chronic. Patient doing well since C3-C4 anterior cervical diskectomy and fusion. Reports he still has some pain, but better than prior to surgery. Continue gabapentin as prescribed. Assessment & Plan (11/04/2021 8:32 AM CDT): Status post anterior cervical diskectomy and fusion. Continue tramadol p.r.n.. Patient has follow-up appointment with surgeon later today for trigger point injections. Encouraged him to keep this appointment. Foraminal stenosis of cervical region 03/19/2021 Assessment & Plan (11/04/2021 7:26 AM CDT): See above. Spinal instability of cervical region 03/19/2021 Proteinuria 03/04/2021 Normocytic anemia 03/04/2021 Assessment & Plan (03/17/2023 12:00 PM SOLAR FABRICATION TECHNICIAN): Chronic and stable. Will continue to monitor. Coronary arteriosclerosis in [place] artery 03/04 Assessment & Plan (03/17/2023 11:58 AM SOLAR FABRICATION TECHNICIAN): Managed by Cardiology. Continue Lipitor and Plavix as prescribed. Patient will discuss with Cardiology at upcoming appointment whether he should continue Plavix or switched back to aspirin. Assessment & Plan (11/04/2022 10:00 AM CDT): Managed by Cardiology. Continue Lipitor and low-dose aspirin daily as prescribed. Assessment & Plan (11/04/2021 7:25 AM CDT): Chronic. Managed by Cardiology. Continue Lipitor 40 mg daily. Fatigue associated with anemia 03/04/2021 Antral gastritis 03/04/2021 Class 1 obesity due to exces s calories with serious comorbidity and body mass index (BMI) of 30.0 to 30.9 in adult 03/04/2021 Assessment & Plan (03/17/2023 11:58 AM SOLAR FABRICATION TECHNICIAN): Reviewed BMI Focus on healthy diet options Work on healthy changes Assessment & Plan (11/04/2022 9:59 AM CDT): Reviewed BMI Focus on healthy diet options Work on healthy changes Assessment & Plan (11/04/2021 7:25 AM CDT): Reviewed BMI Focus on healthy diet options Work on healthy changes Diverticulosis 10/14/2020 Routine adult health maintenance 08/01/2020 Overview (01/26/2024): Health Maintenance: -PCV15 vaccine: 05/15/21 -PCV 20 vaccine: due -Tdap vaccine: 2017 -Influenza vaccine: due -Shingles vaccine: due -Colonoscopy: 09/17/23 (3 year recall) -Last PSA: ordered -Last eye exam: 11/2022 -Last MHA: N/A Assessment & Plan (08/05/2020 4:25 PM CDT): Health Maintenance: -PCV13 vaccine: N/A -PPSV23 vaccine: N/A -Tdap vaccine: 2017 -Influenza vaccine: due -Shingles vaccine: due -Colonoscopy: 07/11/20 (3 year recall) -Last PSA: ordered -Last eye exam: 04/2020 -Last MHA: N/A Patient is due for Shingrix vaccine, we discussed this today. He will let me know if he is interested in getting this. He is up-to-date on colonoscopy, with a 3 year recall due to polyps. He is due for PSA which was ordered today. He reports having an eye exam in April. We will request this record. Work on healthy diet and exercise habits. Congestive heart failure wit h left ventricular diastolic dysfunction (CMS/HCC) 07/30/2020 Assessment & Plan (03/17/2023 11:58 AM SOLAR FABRICATION TECHNICIAN): Managed by Cardiology. Continue beta-luis antonio as prescribed. Assessment & Plan (11/04/2022 10:00 AM CDT): Managed by Cardiology. Continue beta-luis antonio as prescribed. Assessment & Plan (11/04/2021 8:33 AM CDT): Managed by Cardiology. Continue beta-luis antonio and diuretic as prescribed. Recent echo showed normal ejection fraction. Insomnia 07/30/2020 Assessment & Plan (11/04/2021 7:27 AM CDT): Chronic. Continue trazodone 100 mg nightly. Assessment & Plan (08/05/2020 4:24 PM CDT): He was recently started on trazodone 25 mg daily. Follow-up with me as needed. Can increase to 50 mg nightly if needed. Cervical radiculopathy 07/15/2020 Overview (11/18/2023): Managed by Pain Management Degeneration of cervical intervertebral disc Overview (11/18/2023): Pain Management Chronic kidney disease due to hypertension 07/15 Overview (11/18/2023): Nephrology Removal Reason: Duplicate Benign prostatic hyperplasia 06/20/2020 Overview (11/18/2023): Mild; incidental finding per CT of abd/pelvis Diastolic dysfunction 06/06/2020 Overview (11/18/2023): Per Cards note; Grade II Anemia of chronic renal failure, stage 5 021 Assessment & Plan (11/04/2022 11:31 AM CDT): Chronic and stable. Patient followed by Nephrology. Continue current management. Assessment & Plan (11/04/2021 8:29 AM CDT): Stable. Managed by Nephrology. Continue current management. Continue follow-up with specialist as scheduled. Assessment & Plan (08/05/2020 4:22 PM CDT): Chronic and stable. Continue to follow-up with Hematology. Will check CBC today. Chest pain 04/09/2020 Intermittent claudication 10/27/2019 Gastroesophageal reflux disease without esophagi tis 08/04/2019 Hyperparathyroidism due to renal insufficiency 1 05/13/2018 Overview (11/18/2023): Managed by Nephrology Cervical radiculopathy 12/27/2018 Assessment & Plan (03/17/2023 11:58 AM SOLAR FABRICATION TECHNICIAN): Chronic and uncontrolled. Patient has upcoming appointment with neurosurgeon later this week. Discussed again that he can try low-dose gabapentin 100 mg nightly. If he has any adverse side effects then he can discontinue the medication. Update me with any changes after seeing the neurosurgeon. Assessment & Plan (03/04/2023 2:56 PM SOLAR FABRICATION TECHNICIAN): Chronic and worsening since his epidural injection last week. He reached out to Pain Management who advised he return to his neurosurgeon. He will reach out to them today to see if he can get a sooner appointment. Patient was previously on gabapentin, but this was discontinued when his vertigo episode started. Discussed that we could try restarting this at a very low dose only at nighttime. We can increase the dose as tolerated. If it makes his dizziness worse than will discontinue. Patient agreeable to this plan. Will start gabapentin 100 mg nightly. Anemia of chronic disease 06/06/2018 Overview (11/18/2023): Secondary to renal failure; *Managed by Dr. Negro Gautam Neck pain 04/05/2018 Overview (11/18/2023): Removal Reason: Updated Hyperparathyroidism 02/08/2018 Overview (11/18/2023): monitored by Dr. Carrizales Removal Reason: Updated Abdominal pain 02/08/2018 Overview (11/18/2023): Removal Reason: acute resolved Hypertensive kidney disease with end stage chronic kidney disease on dialysis ([facility]) 11/02/2017 Assessment & Plan (11/04/2021 7:27 AM CDT): Chronic and controlled. Continue amlodipine, hydralazine, labetalol, lisinopril as prescribed. Continue follow-up with cardiology as scheduled. Labs ordered today. Low-salt diet. Assessment & Plan (08/05/2020 4:24 PM CDT): Chronic with moderate control. He is currently on 3 agents. Systolic is slightly elevated in the upper 140s, diastolic is normal. Patient is to continue to follow-up with his powertrain engineer. We will request these records. Note, CHF is also documented in his chart, however he had a normal echocardiogram in 2018. Will request to cardiology notes to get clarification on this. Dyslipidemia 11/02/2017 Assessment & Plan (03/17/2023 11:59 AM SOLAR FABRICATION TECHNICIAN): Chronic and stable. Continue Lipitor as prescribed. Assessment & Plan (02/04/2023 1:25 PM CDT): Impression: Chronic and stable. Plan: Continue Lipitor Assessment & Plan (11/04/2022 10:01 AM CDT): Chronic and controlled with Lipitor. Continue current management. Continue to follow with Cardiology. Assessment & Plan (06/09/2022 3:22 PM SOLAR FABRICATION TECHNICIAN): Chronic dyslipidemia being controlled with Lipitor, continue current medical therapy. Assessment & Plan (11/04/2021 7:26 AM CDT): Chronic and controlled. Labs ordered today. Continue Lipitor as prescribed. Assessment & Plan (06/10/2021 8:00 AM SOLAR FABRICATION TECHNICIAN): Dyslipidemia chronic and controlled. Continue atorvastatin daily per PCP. Assessment & Plan (08/05/2020 4:23 PM CDT): Patient is due for lipid panel, this was ordered today. Will continue with atorvastatin daily. Continue follow-up with cardiology. Of note, I cannot find the cardiology notes in his chart. We will request these. Secondary hyperparathyroidism of renal origin Assessment & Plan (11/04/2022 10:02 AM CDT): Followed by Nephrology. Continue current management. Assessment & Plan (11/04/2021 7:27 AM CDT): Managed by Nephrology. Continue calcitriol as prescribed. Iron deficiency anemia 06/27/2017 Overview (11/18/2023): Removal Reason: Duplicate Pain in both lower extremities 01/27/2017 Chronic diastolic heart failure 06/15/2016 Aortic valve stenosis 06/15/2016 Overview (11/18/2023): Per Cards Note; Mild Muscle cramps 04/28/2016 Type 2 diabetes mellitus with diabetic nephropat hy 01/03/2016 Assessment & Plan (02/10/2024 11:32 AM CDT): Impression: Chronic and stable. Plan: Continue glucose monitoring. Continue in subhepatic insulin and Jardiance Assessment & Plan (05/11/2023 10:59 AM SOLAR FABRICATION TECHNICIAN): Impression: Chronic and uncontrolled likely secondary to chronic steroid use due to a kidney transplant. Plan: Continue glucose monitoring. - continue in Ozempic, insulin, Jardiance. Assessment & Plan (03/17/2023 12:01 PM SOLAR FABRICATION TECHNICIAN): Chronic and uncontrolled, but improving. A1c 7.6 Patient is now on chronic steroids due to his kidney transplant. Patient is managed by endocrinology. Continue Ozempic, insulin, jardiance as prescribed. Continue to follow with endocrinology as scheduled. Work on healthy low carb diet. Recommend Prevnar 20 -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 [facility] Comment: Interpretive Data Percent cell count reference ranges are not reported, since discordance with absolute values may lead to misinterpretation of CBC data. Current Interpretive Data was last revised on 2017. Imm gran pct 0.4 % [facility] Comment: Interpretive Data Percent cell count reference ranges are not reported, since discordance with absolute values may lead to misinterpretation of CBC data. Current Interpretive Data was last revised on 2017. Lymphocyte pct 15.0 % [facility] Comment: Interpretive Data Percent cell count reference ranges are not reported, since discordance with absolute values may lead to misinterpretation of CBC data. Current Interpretive Data was last revised on 2017. Monocyte pct 11.3 % [facility] Comment: Interpretive Data Percent cell count reference ranges are not reported, since discordance with absolute values may lead to misinterpretation of CBC data. Current Interpretive Data was last revised on 2017. Eosinophil pct 1.3 % [facility] Comment: Interpretive Data Percent cell count reference ranges are not reported, since discordance with absolute values may lead to misinterpretation of CBC data. Current Interpretive Data was last revised on 2017. Basophil pct 0.3 % [facility] Comment: Interpretive Data Percent cell count reference ranges are not reported, since discordance with absolute values may lead to misinterpretation of CBC data. Current Interpretive Data was last revised on 2017. Blood 06/05/2024 9:42 AM SOLAR FABRICATION TECHNICIAN 06/05/2024 10:34 AM SOLAR FABRICATION TECHNICIAN Munira Faith WAREDRESSER LAB BLOOD ORDERABLES Cammy l Result Performing Organization Address [facility] de Phone Number CARMINE [facility] Department [place] [address] * Tacrolimus level trough (06/05/2024 9:42 AM SOLAR FABRICATION TECHNICIAN) Tacrolimus trough 7.9 ng/mL Comment: Interpretive Data Testing performed by liquid chromatography-tandem mass spectrometry. Therapeutic concentrations vary depending on type of transplanted organ and time elapsed since transplant. Typical trough concentrations range from 5-15 ng/mL. This test was developed and its performance characteristics determined by the [facility] consistent with CLIA requirements. This test has not been cleared or approved by the [place] Food and Drug administration. Current interpretive data last reviewed 2019. Blood 06/05/2024 9:42 AM SOLAR FABRICATION TECHNICIAN 06/05/2024 10:34 AM SOLAR FABRICATION TECHNICIAN Munira Faith NP LAB BLOOD ORDERABLES Cammy l Result Performing Organization Address [facility] de Phone Number CARMINE [facility] Department [place] [address] * PSA screen (06/05/2024 9:42 AM SOLAR FABRICATION TECHNICIAN) PSA-Total 1.88 <=5.40 ng/mL Comment: Interpretive Data AGE SEX REFERENCE INTERVAL 0 minutes-150 years Female None 0 minutes-49 years Male None 50-59 years Male 0-3.90 60-69 years Male 0-5.40 70-79 years Male 0-6.20 80-150 years Male 0-6.20 The Yue PSA Total assay procedure was used. Results from different manufacturers or methods may not be comparable. Serial testing should be performed using the same method. Current interpretive data last revised 21. Blood 06/05/2024 9:42 AM SOLAR FABRICATION TECHNICIAN 06/05/2024 10:33 AM SOLAR FABRICATION TECHNICIAN us Munira Faith WAREDRESSER LAB BLOOD ORDERABLES Cammy l Result Performing Organization Address [facility]/ZIP Co de Phone Number [facility] Department [place] [address] * (ABNORMAL) CBC with auto differential (06/05/2024 9:42 AM SOLAR FABRICATION TECHNICIAN) [facility] WBC 6.9 3.8 - 9.9 K/cumm Hgb 12.9(L) 13.0 - 17.5 g/dL [facility] Hct 41.1 38.9 - 50.3 % [facility] Plt 222 150 - 400 K/cumm [facility] MPV 8.8(L) 9.1 - 12.3 fL [facility] RBC 4.78 4.30 - 5.80 M/cumm [facility] MCV 86.0 81.3 - 96.4 fL [facility] MCH 27.0(L) 27.1 - 33.3 pg [facility] MCHC 31.4(L) 32.3 - 35.7 g/dL [facility] RDW CV 17.5(H) 11.1 - 14.9 % [facility] RDW SD 55.3(H) 35.7 - 48.1 fL [facility] NRBC abs 0.00 0.00 - 0.01 K/cumm [facility] Blood 06/05/2024 9:42 AM SOLAR FABRICATION TECHNICIAN 06/05/2024 10:34 AM SOLAR FABRICATION TECHNICIAN us Munira Faith WAREDRESSER LAB BLOOD ORDERABLES Cammy l Result [facility] Department of [place], [place] [id number] * (ABNORMAL) Vitamin B12 (06/05/2024 9:42 AM SOLAR FABRICATION TECHNICIAN) Pathologist [facility] Vitamin B12 1,381(H) 230 - 1,250 pg/mL Blood 06/05/2024 9:42 AM SOLAR FABRICATION TECHNICIAN 06/05/2024 10:33 AM SOLAR FABRICATION TECHNICIAN us Munira Faith NP LAB BLOOD ORDERABLES Cammy l Result [facility] Department [place] [address] * (ABNORMAL) Renal function panel (06/05/2024 9:42 AM SOLAR FABRICATION TECHNICIAN) [facility] Sodium 141 135 - 145 mmol/L Potassium, pl 4.4 3.3 - 4.9 mmol/L [facility] Chloride 109 97 - 110 mmol/L [facility] CO2 22 22 - 32 mmol/L [facility] Anion gap 10 2 - 15 mmol/L [facility] BUN 36(H) 6 - 25 mg/dL [facility] Creatinine 1.41(H) 0.80 - 1.30 mg/dL [facility] Glucose 112 70 - 199 mg/dL [facility] Comment: Interpretive Data Fasting glucose >/= 126 mg/dl is diagnostic for diabetes. Fasting is defined as no caloric intake for at least 8 hours. Fasting glucose between 100 mg/dl to 125 mg/dl is diagnostic of prediabetes. In a patient with classic symptoms of hyperglycemia or hyperglycemic crisis, a random glucose >/= 200 mg/dl is diagnostic for diabetes. In the absence of unequivocal hyperglycemia, results should be confirmed by repeat testing. The classification and Diagnosis of Diabetes Diabetes Care 2021; 46: S19-S40. Current interpretive data was last revised 2022. Calcium 9.4 8.5 - 10.3 mg/dL [facility] Phosphorus, pl 4.0 2.3 - 4.5 mg/dL [facility] Albumin 4.3 3.5 - 5.0 g/dL [facility] Blood 06/05/2024 9:42 AM SOLAR FABRICATION TECHNICIAN 06/05/2024 10:33 AM SOLAR FABRICATION TECHNICIAN us Munira Faith NP LAB BLOOD ORDERABLES Cammy l Result Performing Organization Address [facility]/ZIP Co de Phone Number [facility] Department [place] [address] * Cytomegalovirus (CMV) DNA PCR, quantitative Blood (04/28/2024 7:22 AM SOLAR FABRICATION TECHNICIAN) [facility] CMV DNA Not Detected [facility] Comment: Interpretive Data: The quantifiable range of this assay is 34 IUnits/mL to 10,000,000 IUnits/mL (1.53 log IUnits/mL to 7.0 log IUnits/mL). Testing was performed by the TRAE 6800 CMV Test ([employer] Testing performed at [facility]. Current interpretive data was last revised on 2020. Blood 04/28/2024 7:22 AM SOLAR FABRICATION TECHNICIAN 04/28/2024 7:47 AM SOLAR FABRICATION TECHNICIAN Andrew Gamez MD LAB MICROBIOLOGY - GENERAL SHAQUILLE MCKAY Final Result [facility] Department [place] [address] [facility] * T-SPOT.TB Blood (04/28/2024 7:22 AM SOLAR FABRICATION TECHNICIAN) [facility] T-SPOT.TB Negative [facility] Comment: Normal Value: Negative A negative test result does not exclude the possibility of exposure to or infection with Mycobacterium tuberculosis (M. tuberculosis). Patients with recent exposure to TB infected individuals exhibiting a negative T-SPOT.TB result should be considered for retesting within 6 weeks or if other relevant clinical symptoms indicate. Results from T-SPOT.TB testing must be used in conjunction with each individual's epidemiological history, current medical status, and results of other diagnostic evaluations. The T-SPOT.TB test is qualitative and results are reported as positive, borderline or negative, given that the test controls perform as expected. In line with the Centers for Disease Control and Prevention's 2010 recommendation to report quantitative measurements alongside the qualitative result, the laboratory provides spot counts for informational purposes only. The T-SPOT.TB test should not be interpreted as a quantitative test. T-SPOT.TB Panel A Spot Count 0 [facility] T-SPOT.TB Panel B Spot Count 1 [facility] T-SPOT.TB Negative Control Passed [facility] T-SPOT.TB Positive Control Passed [facility] Comment: Test Performed at: [employer] [facility], [employer] [address] [address] IVORY PACE,PHD Blood 04/28/2024 7:22 AM SOLAR FABRICATION TECHNICIAN 04/28/2024 8:00 AM SOLAR FABRICATION TECHNICIAN Andrew Gamez MD LAB MICROBIOLOGY - GENERAL ORDE RABLES Final Result Performing Organization Address City/[facility]/ZIP Co de Phone Number [facility] Department [place] [address] * (ABNORMAL) eGFR (04/28/2024 7:22 AM SOLAR FABRICATION TECHNICIAN) eGFR 52(L) >=60 mL/min/1. 73 m2 Comment: Interpretive Data Reference Interval Normal >/= 90 mL/min/1.73m2 Mildly decreased* 60 - 89 mL/min/1.73m2 Mildly to moderately decreased 45 - 59 mL/min/1.73m2 Moderately to severely decreased 30 - 44 mL/min/1.73m2 Severely decreased 15 - 29 mL/min/1.73m2 Kidney Failure < 15 mL/min/1.73m2 *Relative to young adult level Estimated glomerular filtration rate is determined by the 2020 CKD-EPI equation recommended by the National Kidney Foundation (A Unifying Approach to GFR Estimation: Recommendations of the NKF-ASK Task Force on Reassessing the Inclusion of Race in Diagnosing Kidney Disease, JASN 2020). The CKD-EPI equation should not be used for patients with unstable renal function and has not been validated in children and those over 70. Current interpretive data was last reviewed 2021. Blood 04/28/2024 7:22 AM SOLAR FABRICATION TECHNICIAN 04/28/2024 7:50 AM SOLAR FABRICATION TECHNICIAN Andrew Gamez MD LAB BLOOD ORDERABLES Final Resu lt [facility] Department [place] [address] * Differential, auto (04/28/2024 7:22 AM SOLAR FABRICATION TECHNICIAN) Neutrophil abs 4.3 1.5 - 6.5 K/cumm Imm gran abs 0.0 0.0 - 0.1 K/cumm [facility] Lymphocyte abs 0.9 0.8 - 3.3 K/cumm [facility] Monocyte abs 0.7 0.2 - 0.8 K/cumm [facility] Eosinophil abs 0.1 0.0 - 0.5 K/cumm [facility] Basophil abs 0.0 0.0 - 0.1 K/cumm [facility] Neutrophil pct 70.5 % [facility] Comment: Interpretive Data Percent cell count reference ranges are not reported, since discordance with absolute values may lead to misinterpretation of CBC data. Current Interpretive Data was last revised on 2017. Imm gran pct 0.5 % [facility] Comment: Interpretive Data Percent cell count reference ranges are not reported, since discordance with absolute values may lead to misinterpretation of CBC data. Current Interpretive Data was last revised on 2017. Lymphocyte pct 15.4 % [facility] Comment: Interpretive Data Percent cell count reference ranges are not reported, since discordance with absolute values may lead to misinterpretation of CBC data. Current Interpretive Data was last revised on 2017. Monocyte pct 11.7 % [facility] Comment: Interpretive Data Percent cell count reference ranges are not reported, since discordance with absolute values may lead to misinterpretation of CBC data. Current Interpretive Data was last revised on 2017. Eosinophil pct 1.6 % [facility] Comment: Interpretive Data Percent cell count reference ranges are not reported, since discordance with absolute values may lead to misinterpretation of CBC data. Current Interpretive Data was last revised on 2017. Basophil pct 0.3 % [facility] Comment: Interpretive Data Percent cell count reference ranges are not reported, since discordance with absolute values may lead to misinterpretation of CBC data. Current Interpretive Data was last revised on 2017. Blood 04/28/2024 7:22 AM SOLAR FABRICATION TECHNICIAN 04/28/2024 7:50 AM SOLAR FABRICATION TECHNICIAN Andrew Gamez MD LAB BLOOD ORDERABLES Final Resu lt Performing Organization Address [facility] Co de Phone Number CARMINE SILVA [facility] [place] [address] * Christoph-Kent Virus (EBV) DNA Quantitative Blood (04/28/2024 7:22 AM SOLAR FABRICATION TECHNICIAN) [facility] EBV DNA Result Not Detected [facility] Comment: Interpretive Data The quantifiable range of this assay is 35 IUnits/mL to 100,000,000 IUnits/mL (1.54 log IUnits/mL to 8.0 log IUnits/mL). Testing was performed by the TRAE 6800 EBV Test ([employer] Testing performed at [facility]. Current interpretive data was last revised on 2022. Blood 04/28/2024 7:22 AM SOLAR FABRICATION TECHNICIAN 04/28/2024 7:47 AM SOLAR FABRICATION TECHNICIAN Andrew Gamez MD LAB MICROBIOLOGY - GENERAL ORDE RABLES Final Result Performing Organization Address [facility] de Phone Number CARMINE [facility] [place] [address] [facility] * Tacrolimus level trough (04/28/2024 7:22 AM SOLAR FABRICATION TECHNICIAN) [facility] Tacrolimus trough 7.5 ng/mL Comment: Interpretive Data Testing performed by liquid chromatography-tandem mass spectrometry. Therapeutic concentrations vary depending on type of transplanted organ and time elapsed since transplant. Typical trough concentrations range from 5-15 ng/mL. This test was developed and its performance characteristics determined by the [facility] consistent with CLIA requirements. This test has not been cleared or approved by the [place] Food and Drug administration. Current interpretive data last reviewed 2019. Blood 04/28/2024 7:22 AM SOLAR FABRICATION TECHNICIAN 04/28/2024 7:50 AM SOLAR FABRICATION TECHNICIAN Andrew Gamez MD LAB BLOOD ORDERABLES Final Resu lt [facility] [place] [address] * (ABNORMAL) CBC with auto differential (04/28/2024 7:22 AM SOLAR FABRICATION TECHNICIAN) WBC 6.1 3.8 - 9.9 K/cumm Hgb 13.3 13.0 - 17.5 g/dL [facility] Hct 42.3 38.9 - 50.3 % [facility] Plt 286 150 - 400 K/cumm [facility] MPV 9.0(L) 9.1 - 12.3 fL [facility] RBC 4.77 4.30 - 5.80 M/cumm [facility] MCV 88.7 81.3 - 96.4 fL [facility] MCH 27.9 27.1 - 33.3 pg [facility] MCHC 31.4(L) 32.3 - 35.7 g/dL [facility] RDW CV 17.4(H) 11.1 - 14.9 % [facility] RDW SD 56.5(H) 35.7 - 48.1 fL [facility] NRBC abs 0.00 0.00 - 0.01 K/cumm [facility] Blood 04/28/2024 7:22 AM SOLAR FABRICATION TECHNICIAN 04/28/2024 7:50 AM SOLAR FABRICATION TECHNICIAN us Andrew Gamez MD LAB BLOOD ORDERABLES Final Resu lt [facility] [place] [address] * Blood culture Blood Forearm, right (04/28/2024 7:22 AM SOLAR FABRICATION TECHNICIAN) Report Final Report: No growth Blood (Forearm, right) 04/28/2024 7:22 AM SOLAR FABRICATION TECHNICIAN 04/28/2024 7:56 AM SOLAR FABRICATION TECHNICIAN Narrative CARMINE SILVA - 05/02/2024 12:00 PM SOLAR FABRICATION TECHNICIAN 1. Blood cultures are incubated for 4 days on a continuously monitored blood culture system. The first report of a negative culture is issued within 24 hours of receipt of the specimen in the laboratory. 2. Positive culture results are reported as soon as they are detected. 3. The most important factor for detection of microbes in the setting of bloodstream infection is the volume of blood submitted for culture. Failure to collect an optimal blood volume can result in false negative blood cultures. 4. For pediatric patients, the recommended blood volume to collect follows a weight based strategy. See the electronic test catalog for collection instructions. 5. For positive blood cultures, a rapid molecular test may be performed for organism identification using the trae ePlex blood culture identification panel for gram positive (BCID-GP) and gram negative (BCID-GN) organisms. This nucleic acid amplification test detects microbial DNA in positive blood culture broth. This assay has been cleared by the [place] Food and Drug Administration and its performance characteristics have been verified by the [facility]. For questions about this culture, contact the Microbiology Laboratory at [phone]. Interpretive data was last revised on 24. Andrew Gamez MD LAB [facility] - [facility] Final Result Performing Organization Address City/[facility]/ZIP Co de Phone Number [facility] Department [place] [address] * Lactate dehydrogenase (LD) (04/28/2024 7:22 AM SOLAR FABRICATION TECHNICIAN) Lactate dehydrogenase (LDH) 229 100 - 250 Units/L Blood 04/28/2024 7:22 AM SOLAR FABRICATION TECHNICIAN 04/28/2024 7:50 AM SOLAR FABRICATION TECHNICIAN Andrew Gamez MD LAB BLOOD ORDERABLES Final Resu lt Performing Organization Address City/[facility] Co de Phone Number [facility] Department [place] [address] * (ABNORMAL) Renal function panel (04/28/2024 7:22 AM SOLAR FABRICATION TECHNICIAN) Pathologist [facility] Sodium 142 135 - 145 mmol/L Potassium, pl 4.4 3.3 - 4.9 mmol/L [facility] Chloride 110 97 - 110 mmol/L [facility] CO2 21(L) 22 - 32 mmol/L [facility] Anion gap 11 2 - 15 mmol/L [facility] BUN 35(H) 6 - 25 mg/dL [facility] Creatinine 1.47(H) 0.80 - 1.30 mg/dL [facility] Glucose 104 70 - 199 mg/dL [facility] Comment: Interpretive Data Fasting glucose >/= 126 mg/dl is diagnostic for diabetes. Fasting is defined as no caloric intake for at least 8 hours. Fasting glucose between 100 mg/dl to 125 mg/dl is diagnostic of prediabetes. In a patient with classic symptoms of hyperglycemia or hyperglycemic crisis, a random glucose >/= 200 mg/dl is diagnostic for diabetes. In the absence of unequivocal hyperglycemia, results should be confirmed by repeat testing. The classification and Diagnosis of Diabetes Diabetes Care 2021; 46: S19-S40. Current interpretive data was last revised 2022. Calcium 9.1 8.5 - 10.3 mg/dL [facility] Phosphorus, pl 3.8 2.3 - 4.5 mg/dL [facility] Albumin 4.3 3.5 - 5.0 g/dL [facility] Blood 04/28/2024 7:22 AM SOLAR FABRICATION TECHNICIAN 04/28/2024 7:50 AM SOLAR FABRICATION TECHNICIAN us Andrew Gamez MD LAB BLOOD ORDERABLES Final Resu lt [facility] Department [place] [address] * POCT glucose (04/03/2024 10:55 AM SOLAR FABRICATION TECHNICIAN) Glucose Blood, POC 173 mg/dL Blood 04/03/2024 10:5 5 AM SOLAR FABRICATION TECHNICIAN Chiara Perez WAREDRESSER POINT OF CARE TEST ORDERA BLES Final Result * CT Abdomen Pelvis WO Contrast (02/16/2024 12:03 PM CDT) Anatomical Region Laterality Modality Body N/A Computed Tomogra phy 02/16/2024 12:4 1 PM CDT Narrative 02/16/2024 12:54 PM CDT EXAM DESCRIPTION: CT ABDOMEN PELVIS WO CONTRAST REASON FOR STUDY: RLQ abdominal pain, appendicitis suspected (Age => 16y) TECHNIQUE: CT scan of the abdomen and pelvis performed without intravenous and without oral contrast using helical scanning technique. Reconstructed coronal and sagittal MPR images reviewed. All images stored on PACS. Automated exposure control was used as a dose optimization technique for this examination. COMPARISON: 11/07/2023 FINDINGS: The sensitivity for detection of visceral lesions is diminished without the use of intravenous contrast. LOWER CHEST: No significant pulmonary abnormalities. No effusion. Coronary artery calcification. LIVER: Scattered tiny calcified granulomas. GALLBLADDER: Unremarkable. BILE DUCTS: No intrahepatic or extrahepatic ductal dilatation. SPLEEN: Normal size. calcified granulomas. PANCREAS: Unremarkable for noncontrast technique. . ADRENALS: Normal. KIDNEYS/URINARY TRACT: There is severe atrophy of the [place] kidneys. No nephrolithiasis, or hydronephrosis of the [place] kidneys. Multiple renal cysts are unchanged from the prior exam. No significant bladder wall thickening on this examination. There is trace fat stranding along the right anterior aspect of the urinary bladder which is decreased from the prior exam. Redemonstrated right lower quadrant transplant kidney. No hydronephrosis or hydroureter of the transplant. The transplant kidney measures approximately 11 cm in craniocaudal dimension which is grossly stable from the prior exam. There was previously fat stranding surrounding the transplant kidney which has nearly resolved from the prior study. GI: Gastroesophageal junction is unremarkable. No small bowel obstruction. Normal appendix. Colonic diverticulosis without evidence of diverticulitis. Cecal diverticulosis is noted. PERITONEUM: No ascites or free air. RETROPERITONEUM: No mass or adenopathy. REPRODUCTIVE: No significant abnormality in the field of view. VASCULATURE: Atherosclerotic calcification of the aorta and iliac arteries without aneurysm. MUSCULOSKELETAL: No acute finding or concerning lesion. Thoracolumbar degenerative changes moderate at L5-S1. OTHER: There is a small midline ventral hernia containing fat but no bowel with neck measuring approximately 2 cm. This is near the umbilicus. This is unchanged from the prior exam. IMPRESSION: 1. No acute process in the abdomen or pelvis identified. Normal appendix. 2. Right lower quadrant transplant kidney without evidence of hydronephrosis or significant perinephric fat stranding. THIS IS AN ELECTRONICALLY VERIFIED FINAL REPORT 02/16/2024 12:54 PM - Electronically signed by Aman Bradley M.D. MM: MM Report ID: [id number] Reading Location: [id number] Procedure Note Aman Bradley MD - 02/16/2024 EXAM DESCRIPTION: CT ABDOMEN PELVIS WO CONTRAST REASON FOR STUDY: RLQ abdominal pain, appendicitis suspected (Age =>16y) TECHNIQUE: CT scan of the abdomen and pelvis performed without intravenousand without oral contrast using helical scanning technique. Reconstructed coronal and sagittal MPR images reviewed. All images stored on PACS.Automated exposure control was used as a dose optimization technique for this examination. COMPARISON: 11/07/2023 FINDINGS: The sensitivity for detection of visceral lesions is diminished without the use of intravenous contrast. LOWER CHEST: No significant pulmonary abnormalities. No effusion.Coronary artery calcification. LIVER: Scattered tiny calcified granulomas. GALLBLADDER: Unremarkable. BILE DUCTS: No intrahepatic or extrahepatic ductal dilatation. SPLEEN: Normal size. calcified granulomas. PANCREAS: Unremarkable for noncontrast technique. . ADRENALS: Normal. KIDNEYS/URINARY TRACT: There is severe atrophy of the [place] kidneys. No nephrolithiasis, or hydronephrosis of the [place] kidneys. Multiple renal cysts are unchangedfrom the prior exam. No significant bladder wall thickening on this examination. There istrace fat stranding along the right anterior aspect of the urinary bladder whichis decreased from the prior exam. Redemonstrated right lower quadrant transplant kidney. No hydronephrosisor hydroureter of the transplant. The transplant kidney measuresapproximately 11 cm in craniocaudal dimension which is grossly stable from the priorexam. There was previously fat stranding surrounding the transplant kidney whichhas nearly resolved from the prior study. GI: Gastroesophageal junction is unremarkable. No small bowelobstruction. Normal appendix. Colonic diverticulosis without evidence ofdiverticulitis. Cecal diverticulosis is noted. PERITONEUM: No ascites or free air. RETROPERITONEUM: No mass or adenopathy. REPRODUCTIVE: No significant abnormality in the field of view. VASCULATURE: Atherosclerotic calcification of the aorta and iliacarteries without aneurysm. MUSCULOSKELETAL: No acute finding or concerning lesion. Thoracolumbar degenerative changes moderate at L5-S1. OTHER: There is a small midline ventral hernia containing fat but no bowel with neck measuring approximately 2 cm. This is near the umbilicus. Thisis unchanged from the prior exam. IMPRESSION: 1. No acute process in the abdomen or pelvis identified. Normalappendix. 2. Right lower quadrant transplant kidney without evidence ofhydronephrosis or significant perinephric fat stranding. THIS IS AN ELECTRONICALLY VERIFIED FINAL REPORT 02/16/2024 12:54 PM - Electronically signed by Aman Bradley M.D. MM: MM Report ID: [id number] Reading Location: [id number] Radha CELESTIN IMG CT PROCEDURES Final R esult * (ABNORMAL) Albumin Creatinine Ratio, Urine (02/10/2024 7:51 AM CDT) Creatinine, ur 148 20 - 320 mg/dL [facility] Microalbumin, ur 6.4 See Note: mg/dL [facility] Comment: Reference Range: Reference Range Not established Microalbumin/creat ratio 43(H) <30 mg/g creat [facility] Comment: The ADA defines abnormalities in albumin excretion as follows: Albuminuria Category Result (mg/g creatinine) Normal to Mildly increased <30 Moderately increased 30-299 Severely increased > OR = 300 The ADA recommends that at least two of three specimens collected within a 3-6 month period be abnormal before considering a patient to be within a diagnostic category. Urine 02/10/2024 7:51 AM CDT 02/10/2024 7:51 AM CDT Radha CELESTIN LAB URINE ORDERABLES Cammy l Result [facility] [address] [place] [id number] * (ABNORMAL) Hemoglobin A1c (02/10/2024 7:44 AM CDT) Hgb A1C 7.2(H) <5.7 % of total Hgb [facility] juliette Alexander Comment: For someone without known diabetes, a hemoglobin A1c value of 6.5% or greater indicates that they may have diabetes and this should be confirmed with a follow-up test. For someone with known diabetes, a value <7% indicates that their diabetes is well controlled and a value greater than or equal to 7% indicates suboptimal control. A1c targets should be individualized based on duration of diabetes, age, comorbid conditions, and other considerations. Currently, no consensus exists regarding use of hemoglobin A1c for diagnosis of diabetes for children. 02/10/2024 7:44 AM CDT 02/10/2024 7:44 AM CDT Narrative [facility] - 02/11/2024 4:06 PM CDT LB Andrew Gamez MD LAB BLOOD ORDERABLES Final Resu lt Performing Organization Address City/[facility]/ZIP Co de Phone Number [facility] [address] [place] [address] * Lipid panel (02/10/2024 7:44 AM CDT) Cholesterol 118 <200 mg/dL [facility] HDL 47 > OR = 40 mg/dL [facility] Triglycerides 62 <150 mg/dL [facility] LDL 57 mg/dL (calc) [facility] Comment: Reference range: <100 Desirable range <100 mg/dL for primary prevention; <70 mg/dL for patients with CHD or diabetic patients with > or = 2 CHD risk factors. LDL-C is now calculated using the Cuco-Alfonso calculation, which is a validated novel method providing better accuracy than the Friedewald equation in the estimation of LDL-C. Cuco SS et al. ODETTE. 2013;310(99): 4085-0578 (http://education.edo/faq/ZKA410) Chol/HDL ratio 2.5 <5.0 (calc) [facility] Non-HDL, (LDL+VLDL) 71 <130 mg/dL (calc) [facility] Comment: For patients with diabetes plus 1 major ASCVD risk factor, treating to a non-HDL-C goal of <100 mg/dL (LDL-C of <70 mg/dL) is considered a therapeutic option. 02/10/2024 7:44 AM CDT 02/10/2024 7:44 AM CDT Narrative [facility] - 02/11/2024 4:06 PM CDT LB Andrew Gamez MD LAB BLOOD ORDERABLES Final Resu lt [facility] [address] [place] [address] * COLONOSCOPY (09/17/2023) Scribed Colonoscopy Normal Historical Provider [facility] Final Result * (ABNORMAL) DIABETES EYE EXAM (11/27/2022) [facility] SCRIBED DIABETIC DILATED EYE EXAM Abnormal [facility] Provider [facility] MAINTENANCE Final Result * Hepatitis C (HCV) RNA PCR, quantitative (10/08/2022 12:10 PM CDT) [facility] HCV RNA result Not Detected CARM[facility] GARDNER Comment: The quantifiable range of this assay is 15 IU/mL to 100,000,000 IU/mL (1.18 log IU/mL to 8.00 log IU/mL). Testing was performed by the [facility] 6800 HCV Test ([employer] Testing performed at [facility] Current Interpretive Data was last revised on 2020 Blood 10/08/2022 12:1 0 PM CDT 10/08/2022 12:43 PM CDT Andrew Gamez MD LAB MICROBIOLOGY - GENERAL SHAQUILLE MCKAY Final Result [facility] Department [place] [address] from Last 3 Months or Most Recently Relevant to Health Maintenance Insurance [employer]ARE [employer]UT[employer] [facility] Address: [address] [address] [place] [address] [facility] Address: [address] [address] [place] [address] [facility] H[facility]/PPO Address: [place] [address] Advance Directives For more information, please contact: [phone] * Full Code (Latest Code Status on File) Date Activated Date Inactivated Comments 12/22/2022 12:39 AM 12/23/2022 5:34 PM * Full Code Date Activated Date Inactivated Comments 09/01/2022 8:52 PM 09/04/2022 5:19 PM Care 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 Relationship Specialty Start Date End Date Radha Jurado PA [address] [place] [address] PCP - General Family Medicine 07/23/20 Mohan Camacho MD Documentation Supervisor Cardiology 12/17/17 Sylvester Nicholas MD [address] [place] [address] Consulting Physician Family Medicine 07/23/20 Js Martinez MD [address] [place] [address] Referring Physician Nephrology 06/17/21 Alexis Ngo MD [address] [facility] [address] [place] [address] Surgeon Vascular Surgery 06/30/21 Ludmila Tesfaye, RN [address] [facility] [address] [place] [address] Editor Index 09/01/22 Sudheer Arnold MD [address] [place] [address] Consulting Physician Nephrology 12/23/22 Haja Pires, OD [address] [facility] [address] [place] [address] Housing And Residence Life Director 12/23/22
--- OUTSIDE RECORDS SUMMARY | 2024-06-18 11:42 | XMS_ITS | Referral Summary ---
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 M/cumm [facility] MCV 86.0 81.3 - 96.4 fL [facility] MCH 27.0(L) 27.1 - 33.3 pg [facility] MCHC 31.4(L) 32.3 - 35.7 g/dL [facility] RDW CV 17.5(H) 11.1 - 14.9 % [facility] RDW SD 55.3(H) 35.7 - 48.1 fL [facility] NRBC abs 0.00 0.00 - 0.01 K/cumm [facility] Blood 06/05/2024 9:42 AM DIRECT MARKETING SPECIALIST 06/05/2024 10:34 AM DIRECT MARKETING SPECIALIST us Munira Faith NP LAB BLOOD ORDERABLES Cammy l Result Performing Organization Address City/[facility]/ZIP Co de Phone Number [facility] [place] [address] * (ABNORMAL) Vitamin B12 (06/05/2024 9:42 AM DIRECT MARKETING SPECIALIST) Pathologist [facility] Vitamin B12 1,381(H) 230 - 1,250 pg/mL Blood 06/05/2024 9:42 AM DIRECT MARKETING SPECIALIST 06/05/2024 10:33 AM DIRECT MARKETING SPECIALIST us Munira Faith NP LAB BLOOD ORDERABLES Cammy l Result [facility] [place] [address] * (ABNORMAL) Renal function panel (06/05/2024 9:42 AM DIRECT MARKETING SPECIALIST) [facility] Sodium 141 135 - 145 mmol/L Potassium, pl 4.4 3.3 - 4.9 mmol/L [facility] Chloride 109 97 - 110 mmol/L [facility] CO2 22 22 - 32 mmol/L [facility] Anion gap 10 2 - 15 mmol/L [facility] BUN 36(H) 6 - 25 mg/dL [facility] Creatinine 1.41(H) 0.80 - 1.30 mg/dL [facility] Glucose 112 70 - 199 mg/dL [facility] Comment: Interpretive Data Fasting glucose >/= 126 [...] classification and Diagnosis of Diabetes Diabetes Care 202; 46: S19-S40. Current interpretive data was last revised 2022. Calcium 9.4 8.5 - 10.3 mg/dL [facility] Phosphorus, pl 4.0 2.3 - 4.5 mg/dL [facility] Albumin 4.3 3.5 - 5.0 g/dL [facility] Blood 06/05/2024 9:42 AM DIRECT MARKETING SPECIALIST 06/05/2024 10:33 AM DIRECT MARKETING SPECIALIST us Munira Faith BOBBIN CLEANER LAB BLOOD ORDERABLES Cammy torres Result CARMINE [facility] Eulalia [facility] Department [place] [address] * Cytomegalovirus (CMV) DNA PCR, quantitative Blood (04/28/2024 7:22 AM DIRECT MARKETING SPECIALIST) CMV DNA Not Detected [facility] Comment: Interpretive Data: The quantifiable range of this assay is 34 IUnits/mL to 10,000,000 IUnits/mL (1.53 log IUnits/mL to 7.0 log IUnits/mL). Testing was performed by the TRAE 6800 CMV Test ([employer] Testing performed at [facility]. Current interpretive data was last revised on 2020. Blood 04/28/2024 7:22 AM DIRECT MARKETING SPECIALIST 04/28/2024 7:47 AM DIRECT MARKETING SPECIALIST Andrew Gamez MD LAB MICROBIOLOGY - GENERAL [facility] Final Result [facility] [place] [address] [facility] * T-SPOT.TB Blood (04/28/2024 7:22 AM DIRECT MARKETING SPECIALIST) [facility] T-SPOT.TB Negative SeeBel Comment: Normal Value: [...] test. T-SPOT.TB Panel A Spot Count 0 [facility] T-SPOT.TB Panel B Spot Count 1 [facility] T-SPOT.TB Negative Control Passed [facility] T-SPOT.TB Positive Control Passed [facility] Comment: Test Performed at: [employer], [facility] [address] [place] [id number] TRIVIKRAM DASU,PHD Blood 04/28/2024 7:22 AM DIRECT MARKETING SPECIALIST 04/28/2024 8:00 AM DIRECT MARKETING SPECIALIST us Andrew Gamez MD LAB MICROBIOLOGY - GENERAL [facility] Final Result Performing Organization Address [facility]/ZIP Co de Phone Number [facility] [place] [address] * (ABNORMAL) eGFR (04/28/2024 7:22 AM DIRECT MARKETING SPECIALIST) eGFR 52(L) >=60 mL/min/1. 73 m2 Comment: [...] last reviewed 2021. Blood 04/28/2024 7:22 AM DIRECT MARKETING SPECIALIST 04/28/2024 7:50 AM DIRECT MARKETING SPECIALIST us Andrew Gamez MD LAB BLOOD ORDERABLES Final Resu lt Performing Organization Address City/[facility]/ZIP Co de Phone Number [facility] [place] [address] * Differential, auto (04/28/2024 7:22 AM DIRECT MARKETING SPECIALIST) Neutrophil abs 4.3 1.5 - 6.5 K/cumm Imm gran abs 0.0 0.0 - 0.1 K/cumm [facility] Lymphocyte abs 0.9 0.8 - 3.3 K/cumm [facility] Monocyte abs 0.7 0.2 - 0.8 K/cumm [facility] Eosinophil abs 0.1 0.0 - 0.5 K/cumm [facility] Basophil abs 0.0 0.0 - 0.1 K/cumm [facility] Neutrophil pct 70.5 % [facility] Comment: Interpretive Data Percent cell count reference ranges are not reported, since discordance with absolute values may lead to misinterpretation of CBC data. Current Interpretive Data was last revised on 2017. Imm gran pct 0.5 % [facility] Comment: Interpretive Data Percent cell count reference ranges are not reported, since discordance with absolute values may lead to misinterpretation of CBC data. Current Interpretive Data was last revised on 2017. Lymphocyte pct 15.4 % [facility] Comment: Interpretive Data Percent cell count reference ranges are not reported, since discordance with absolute values may lead to misinterpretation of CBC data. Current Interpretive Data was last revised on 2017. Monocyte pct 11.7 % [facility] Comment: Interpretive Data Percent cell count reference ranges are not reported, since discordance with absolute values may lead to misinterpretation of CBC data. Current Interpretive Data was last revised on 2017. Eosinophil pct 1.6 % [facility] Comment: Interpretive Data Percent cell count reference ranges are not reported, since discordance with absolute values may lead to misinterpretation of CBC data. Current Interpretive Data was last revised on 2017. Basophil pct 0.3 % [facility] Comment: Interpretive Data Percent cell count reference ranges are not reported, since discordance with absolute values may lead to misinterpretation of CBC data. Current Interpretive Data was last revised on 2017. Blood 04/28/2024 7:22 AM DIRECT MARKETING SPECIALIST 04/28/2024 7:50 AM DIRECT MARKETING SPECIALIST us Andrew Gamez MD LAB BLOOD ORDERABLES Final Resu lt Performing Organization Address [facility] de Phone Number [facility] Eulalia [facility] [place] [address] * Christoph-Kent Virus (EBV) DNA Quantitative Blood (04/28/2024 7:22 AM DIRECT MARKETING SPECIALIST) [facility] EBV DNA Result Not Detected [facility] Comment: Interpretive Data The quantifiable range of this assay is 35 IUnits/mL to 100,000,000 IUnits/mL (1.54 log IUnits/mL to 8.0 log IUnits/mL). Testing was performed by the TRAE 6800 EBV Test ([employer] Testing performed at [facility]. Current interpretive data was last revised on 2022. Blood 04/28/2024 7:22 AM DIRECT MARKETING SPECIALIST 04/28/2024 7:47 AM DIRECT MARKETING SPECIALIST Andrew Gamez MD LAB MICROBIOLOGY - GENERAL [facility] Final Result Performing Organization Address [facility] de Phone Number CARMINE [facility] Eulalia [facility] [place] [address] [facility] * Tacrolimus level trough (04/28/2024 7:22 AM DIRECT MARKETING SPECIALIST) [facility] Tacrolimus trough 7.5 ng/mL Comment: Interpretive Data Testing performed by liquid chromatography-tandem mass spectrometry. Therapeutic concentrations vary depending on type of transplanted organ and time elapsed since transplant. Typical trough concentrations range from 5-15 ng/mL. This test was developed and its performance characteristics determined by the [facility] consistent with CLIA requirements. This test has not been cleared or approved by the [place] Food and Drug administration. Current interpretive data last reviewed 2019. Blood 04/28/2024 7:22 AM DIRECT MARKETING SPECIALIST 04/28/2024 7:50 AM DIRECT MARKETING SPECIALIST Andrew Gamez MD LAB BLOOD ORDERABLES Final Resu lt Performing Organization Address [facility] Co de Phone Number [facility] [place] [address] * (ABNORMAL) CBC with auto differential (04/28/2024 7:22 AM DIRECT MARKETING SPECIALIST) WBC 6.1 3.8 - 9.9 K/cumm Hgb 13.3 13.0 - 17.5 g/dL [facility] Hct 42.3 38.9 - 50.3 % [facility] Plt 286 150 - 400 K/cumm [facility] MPV 9.0(L) 9.1 - 12.3 fL [facility] RBC 4.77 4.30 - 5.80 M/cumm [facility] MCV 88.7 81.3 - 96.4 fL [facility] MCH 27.9 27.1 - 33.3 pg [facility] MCHC 31.4(L) 32.3 - 35.7 g/dL [facility] RDW CV 17.4(H) 11.1 - 14.9 % [facility] RDW SD 56.5(H) 35.7 - 48.1 fL [facility] NRBC abs 0.00 0.00 - 0.01 K/cumm [facility] Blood 04/28/2024 7:22 AM DIRECT MARKETING SPECIALIST 04/28/2024 7:50 AM DIRECT MARKETING SPECIALIST Andrew Gamez MD LAB BLOOD ORDERABLES Final Resu lt Performing Organization Address [facility] Co de Phone Number [facility] [place] [address] * Blood culture Blood Forearm, right (04/28/2024 7:22 AM DIRECT MARKETING SPECIALIST) Pathologist [facility] Report Final Report: No growth Blood (Forearm, right) 04/28/2024 7:22 AM DIRECT MARKETING SPECIALIST 04/28/2024 7:56 AM DIRECT MARKETING SPECIALIST Narrative [facility] - 05/02/2024 12:00 PM DIRECT MARKETING SPECIALIST 1. Blood cultures are incubated for 4 [...] performance characteristics have been verified by the [facility]. For questions about this culture, contact the Microbiology Laboratory at [phone]. Interpretive data was last revised on 24. Andrew Gamez MD LAB MICROBIOLOGY - GENERAL [facility] Final Result Performing Organization Address City/[facility]/ZIP Co de Phone Number [facility] [place] [address] * Lactate dehydrogenase (LD) (04/28/2024 7:22 AM DIRECT MARKETING SPECIALIST) Pathologist [facility] Lactate dehydrogenase (LDH) 229 100 - 250 Units/L Blood 04/28/2024 7:22 AM DIRECT MARKETING SPECIALIST 04/28/2024 7:50 AM DIRECT MARKETING SPECIALIST Andrew Gamez MD LAB BLOOD ORDERABLES Final Resu lt Performing Organization Address City/[facility] Co de Phone Number [facility] [place] [address] * (ABNORMAL) Renal function panel (04/28/2024 7:22 AM DIRECT MARKETING SPECIALIST) Pathologist [facility] Sodium 142 135 - 145 mmol/L Potassium, pl 4.4 3.3 - 4.9 mmol/L [facility] Chloride 110 97 - 110 mmol/L [facility] CO2 21(L) 22 - 32 mmol/L [facility] Anion gap 11 2 - 15 mmol/L [facility] BUN 35(H) 6 - 25 mg/dL [facility] Creatinine 1.47(H) 0.80 - 1.30 mg/dL [facility] Glucose 104 70 - 199 mg/dL [facility] Comment: Interpretive Data Fasting glucose >/= 126 [...] 2022. Calcium 9.1 8.5 - 10.3 mg/dL [facility] Phosphorus, pl 3.8 2.3 - 4.5 mg/dL [facility] Albumin 4.3 3.5 - 5.0 g/dL [facility] Blood 04/28/2024 7:22 AM DIRECT MARKETING SPECIALIST 04/28/2024 7:50 AM DIRECT MARKETING SPECIALIST Andrew Gamez MD LAB BLOOD ORDERABLES Final Resu lt [facility] [place] [address] * POCT glucose (04/03/2024 10:55 AM DIRECT MARKETING SPECIALIST) Glucose Blood, POC 173 mg/dL Blood 04/03/2024 10:5 5 AM DIRECT MARKETING SPECIALIST Chiara Perez NP POINT OF CARE TEST ORDERA BLES Final [...] TRACT: There is severe atrophy of the [place] kidneys. No nephrolithiasis, or hydronephrosis of the [place] kidneys. Multiple renal cysts are unchanged from [...] Aman Bradley M.D. MM: MM Report ID: [id number] Reading Location: [id number] Procedure Note Aman Bradley MD - 02/16/2024 [...] TRACT: There is severe atrophy of the [place] kidneys. No nephrolithiasis, or hydronephrosis of the [place] kidneys. Multiple renal cysts are unchangedfrom the [...] Aman Bradley M.D. MM: MM Report ID: [id number] Reading Location: [place] [address] PROCEDURES Final R [...] URINE ORDERABLES Cammy l Result [facility] [address] [facility] [place] [address] * (ABNORMAL) Hemoglobin A1c (02/10/2024 7:44 AM CDT) Hgb A1C 7.2(H) <5.7 % of total Hgb [employer] [facility] Comment: For someone without known diabetes, [...] 7:44 AM CDT 02/10/2024 7:44 AM CDT [facility] - 02/11/2024 4:06 PM CDT LB us Andrew Gamez MD LAB BLOOD ORDERABLES Final Resu lt [facility] [address] [place] [address] * Lipid panel (02/10/2024 7:44 AM CDT) Pathologist [facility] Cholesterol 118 <200 mg/dL [facility] HDL 47 > OR = 40 mg/dL [facility] Triglycerides 62 <150 mg/dL [facility] LDL 57 mg/dL (calc) [facility] Comment: Reference range: <100 Desirable range <100 mg/dL for primary prevention; <70 mg/dL for patients with CHD or diabetic patients with > or = 2 CHD risk factors. LDL-C is now calculated using the Cuco-Naty calculation, which is a validated novel method providing better accuracy than the Friedewald equation in the estimation of LDL-C. Cuco ALDRICH et al. ODETTE. 2013;310(19): 8291-0617 (http://education.Granular.Clarabridge/faq/AMD444) Chol/HDL ratio 2.5 <5.0 (calc) [facility] Non-HDL, (LDL+VLDL) 71 <130 mg/dL (calc) [facility] Comment: For patients with diabetes plus 1 major ASCVD risk factor, treating to a non-HDL-C goal of <100 mg/dL (LDL-C of <70 mg/dL) is considered a therapeutic option. 02/10/2024 7:44 AM CDT 02/10/2024 7:44 AM CDT Narrative [facility] - 02/11/2024 4:06 PM CDT LB Result [facility] Andrew Gamez MD LAB BLOOD ORDERABLES Final Resu lt [facility] [address] [facility] [place] [id number] * COLONOSCOPY (09/17/2023) Scribed Colonoscopy Normal Result [facility] Historical Provider HEALTH MAINTENANCE Final Result * (ABNORMAL) DIABETES EYE EXAM (11/27/2022) SCRIBED DIABETIC DILATED EYE EXAM Abnormal Result [facility] Historical Provider [facility] Final Result * Hepatitis C (HCV) RNA PCR, quantitative (10/08/2022 12:10 PM CDT) Pathologist [facility] HCV RNA result Not Detected [facility] Comment: The quantifiable range of this assay is 15 IU/mL to 100,000,000 IU/mL (1.18 log IU/mL to 8.00 log IU/mL). Testing was performed by the TRAE 6800 HCV Test ([employer] Testing performed at [facility] Current Interpretive Data was last revised on 2020 Blood 10/08/2022 12:1 0 PM CDT 10/08/2022 12:43 PM CDT Andrew Gamez MD LAB MICROBIOLOGY - GENERAL [facility] Final Result [facility] [place] [address] from Last 3 Months or Most Recently Relevant to Health Maintenance Insurance [place] [id number] [place] [id number] [place] [address] Advance Directives For more information, please contact: [phone] * Full Code (Latest Code Status on File) Date Activated Date Inactivated Comments 12/22/2022 12:39 AM 12/23/2022 5:34 PM * Full Code Date Activated Date Inactivated Comments 09/01/2022 8:52 PM 09/04/2022 5:19 PM Care Teams Document Management Technician Relationship Specialty Start Date End Date Radha Jurado PA [address] [place] [address] PCP - General Family Medicine 07/23/20 Mohan Camacho MD Medicaid Plan Compliance Director Cardiology 12/17/17 Sylvester Nicholas MD [address] [place] [address] Consulting Physician Family Medicine 07/23/20 Js Martinez MD [address] [place] [address] Referring Physician Nephrology 06/17/21 Alexis Ngo MD [address] [facility] [address] [place] [address] Surgeon Vascular Surgery 06/30/21 Ludmila Tesfaye, RN [address] [facility] [address] [place] [address] Manager Labor Relations 09/01/22 Sudheer Arnold MD [address] [place] [address] Consulting Physician Nephrology 12/23/22 Haja Pires, OD [address] [facility] [address] [place] [address] Hardwood Floor Installation Helper 12/23/22
--- OUTSIDE RECORDS SUMMARY | 2024-06-18 11:42 | XMS_ITS | Encounter Summary ---
Author Organization [facility] Address [address] [place] [address] Care Team Providers Care Electrical Manufacturing Technician Name Role Phone Radha Jurado PA-C Primary Care Provider [phone] Mohan Camacho MD Unavailable [phone] Lyla Hernandez MD Unavailable [phone] Encounter Details Date Type Department Care Team (Late st Contact Info) Description 02/24/2023 Prep for Procedure [facility] [place], [place] [id number] Taisha Meyer MD Three [facility] [address] [place], [place] [id number] Social History Tobacco Use Types Packs/Day Years Used Date Smoking Tobacco: Former Cigarettes Q uit: 2009 Smokeless Tobacco: Never Comments:Former, Quit 2009 Alcohol Use Standard Drinks/Week Comments No 0 (1 standard drink = 0.6 oz pur e alcohol) NA AUDIT-C Answer Date Recorded Frequency of Alcohol Consumption Never 12/07/2018 Average Number of Drinks Not on file 019 Frequency of Binge Drinking Not on file 11/24 PHQ-2 Answer Date Recorded Patient Health Questionnaire-2 Score 0 10/19/2022 Sex and Gender Information Value Date Recorded Sex Assigned at Male 06/08/2024 3:09 PM STOCK CONTROL CLERK Legal Sex Male 4:42 PM CDT Gender Identity Not on file Sexual Orientation Not on file Occupation Industry Job Start Date Job End Date [employer] Not on file Not on file Not on file documented as of this encounter Functional Status * RETIRED Are you deaf or do you have serious difficulty hearing Answer Date of Assessment Author Status No 03/18/2021 9:00 PM STOCK CONTROL CLERK Activ e * RETIRED Are you blind or do you have serious difficulty seeing, even when wearing glasses? Answer Date of Assessment Author Status No 03/18/2021 9:00 PM STOCK CONTROL CLERK Activ e * Do you have serious difficulty walking or climbing stairs? Answer Date of Assessment Author Status No 03/18/2021 9:00 PM Wendy Sinha RN Active * Do you have difficulty dressing or bathing? Answer Date of Assessment Author Status Yes 03/18/2021 9:00 PM Wendy Sinha RN Active * Because of a physical, mental, or emotional condition, do you have difficulty doing errands alone such as visiting a doctor's office or shopping? Answer Date of Assessment Author Status No 03/18/2021 9:00 PM Wendy Sinha RN Active documented as of this encounter Mental Status * Because of a physical, mental, or emotional condition, do you have serious difficulty concentrating, remembering, or making decisions? Answer Entry Date Author Status No 03/18/2021 9:00 PM Wendy Sinha RN Active documented in this encounter Plan of Treatment Upcoming Encounters Date Type Department Care Team (Latest Contact Info) Description 07/06/2024 10:20 AM CDT Hospital Encounter [facility] [place] [place] [address] [id number] Taisha Meyer MD Three [facility] [address] [facility] [place] [address] 07/06/2024 10:20 AM CDT - 07/06/2024 10:40 AM CDT Surgery [facility] [place] [address] [id number] Taisha Meyer MD Three [facility] [address] [place] [address] INJECTION EPIDURAL STEROID [id number] Scheduled Procedures Name Priority Associated Diagnoses Date/Ti me INJECTION EPIDURAL STEROID CERVICAL Cervical radiculopathy 07/06/2024 10:20 AM CDT documented as of this encounter Goals Goal Patient Goal Type Associated Problems Recent Progress Patient-Stated? Author Safety - demonstrates understanding of home safety measures General No Pooja Garrido RN documented as of this encounter Visit Diagnoses Diagnosis Cervical radiculopathy- Primary Brachial neuritis or radiculitis nos Cervical radiculopathy Brachial neuritis or radiculitis nos documented in this encounter Care Teams Electrical Manufacturing Technician Relationship Specialty Start Date End Date Radha Jurado PA-C [address] [place] [address] PCP - General PHYSICIAN DUPLICATION SPECIALIST 01/09/21 Mohan Camacho MD [address] [place] [address] Sandwich Rv Detailer CARDIOVASCULAR DISEASE 03/11/21 Lyla Hernandez MD [address] [facility] [address] [place] [address] Referring Physician NEPHROLOGY 03/11/21 documented as of this encounter
--- OUTSIDE RECORDS SUMMARY | 2024-06-18 11:42 | XMS_ITS | Encounter Summary ---
Author Organization [facility] Address [address] [place] [address] Care Team Providers Care Resident Caregiver Name Role Phone Radha Jurado PA-C Primary Care Provider [phone] Mohan Camacho MD Unavailable [phone] Lyla Hernandez MD Unavailable [phone] Encounter Details Date Type Department Care Team (Late st Contact Info) Description 03/04/2023 Prep for Procedure [facility] [place] [address] [id number] Laurie Ramirez APNP [address] [place] [id number] Social History Tobacco Use Types Packs/Day Years Used Date Smoking Tobacco: Former Cigarettes Q uit: 2009 Smokeless Tobacco: Never Comments:Former, Quit 2009 Alcohol Use Standard Drinks/Week Comments No 0 (1 standard drink = 0.6 oz pur e alcohol) NA Humiliation, Afraid, Rape, and Kick questionnair e Answer Date Recorded Within the last year, have y ou been afraid of your partner or ex-partner? No 03/05/2023 Within the last year, have y ou been humiliated or emotionally abused in other ways by your partner or ex-partner? No Within the last year, have y ou been kicked, hit, slapped, or otherwise physically hurt by your partner or ex-partner? No 03/05/2023 Within the last year, have y ou been raped or forced to have any kind of sexual activity by your partner or ex-partner? No 03/05/2023 Social Connection and Isolat ion Panel [NHANES] Answer Date Recorded In a typical week, how many times do you talk on the phone with family, friends, or neighbors? More than three times a week 03/05/2023 How often do you get togethe r with friends or relatives? More than three times a week 03/05/2023 How often do you attend chur or congregational services? More than 4 times per year 03/05/2023 Do you belong to any clubs o r organizations such as anabaptism groups, unions, fraternal or athletic groups, or school groups? Yes 03/05/2023 How often do you attend meet ings of the clubs or organizations you belong to? More than 4 times per year 03/05/2023 Are you , , di vorced, , never , or living with a partner? 03/05/2023 AUDIT-C Answer Date Recorded Q1: How often do you have a drink containing alcohol? Never 03/05/2023 Q2: How many drinks containi ng alcohol do you have on a typical day when you are drinking? Patient does not drink Q3: How often do you have si x or more drinks on one occasion? Never 03/05/2023 Overall Financial Resource Strain (CARDIA) Answe r Date Recorded How hard is it for you to pa y for the very basics like food, housing, medical care, and heating? Somewhat hard 03/05/2023 PHQ-2 Answer Date Recorded Patient Health Questionnaire-2 Score 0 10/19/2022 [facility] - Occupational Stress Questionnaire Answer Date Recorded Do you feel stress - tense, restless, nervous, or anxious, or unable to sleep at night because your mind is troubled all the time - these days? Very much 03/05/2023 Exercise Vital Sign Answer Date Recorde d On average, how many days pe r week do you engage in moderate to strenuous exercise (like a brisk walk)? 7 days 03/05/2023 On average, how many minutes do you engage in exercise at this level? 30 min 03/05/2023 Hunger Vital Sign Answer Date Recorded Within the past 12 months, y ou worried that your food would run out before you got the money to buy more. Never true 03/05/20 Within the past 12 months, t he food you bought just didn't last and you didn't have money to get more. Never true 03/05/2023 PRAPARE - Transportation Answer Date Re corded In the past 12 months, has l ack of transportation kept you from medical appointments or from getting medications? No 02/24 In the past 12 months, has l ack of transportation kept you from meetings, work, or from getting things needed for daily living? No 03/05/2023 Housing Stability Vital Sign Answer Daniel e Recorded In the last 12 months, was t here a time when you were not able to pay the mortgage or rent on time? No 03/05/2023 In the last 12 months, how many places have you lived? 1 03/05/2023 In the last 12 months, was t here a time when you did not have a steady place to sleep or slept in a usp (including now)? 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 Yes 03/05/2023 11:00 PM Alexandru Toney RN Active Do you have difficulty dressing or bathing? No 03/05/2023 11:00 PM Ulises Toney RN Active Because of a physical, mental, or emotional condition, do you have difficulty doing errands alone such as visiting a doctor's office or shopping? No 03/05/2023 11:00 PM Alexandru Toney RN Active * RETIRED Are you deaf or do you have serious difficulty hearing Answer Date of Assessment Author Status No 03/18/2021 9:00 PM SUPERVISOR PLASMA Activ e * RETIRED Are you blind or do you have serious difficulty seeing, even when wearing glasses? Answer Date of Assessment Author Status No 03/18/2021 9:00 PM SUPERVISOR PLASMA Activ e * Do you have serious [...] as of this encounter Mental Status * Question Answer Entry Date Author Status Because of a physical, mental, or emotional condition, do you have serious difficulty concentrating, remembering, or making decisions? No 03/05/2023 11:00 PM Hermila Toney RN Active * Because of a physical, mental, or emotional condition, do you have serious difficulty concentrating, remembering, or making decisions? Answer Entry Date Author Status No 03/18/2021 9:00 PM Wendy Sinha RN Active documented in this encounter Plan of Treatment Upcoming Encounters Date Type Department Care Team (Latest Contact Info) Description 07/06/2024 10:20 AM CDT Hospital Encounter [facility] [place] [place] [address] [id number] Taisha Meyer MD Three [address] [address] 07/06/2024 10:20 AM CDT - 07/06/2024 10:40 AM CDT Surgery [facility] Interventional [place] [address] [id number] Taisha Meyer MD Three [address] [place] [address] INJECTION EPIDURAL STEROID [id number] Scheduled Procedures Name Priority Associated Diagnoses Date/Ti me INJECTION EPIDURAL STEROID CERVICAL Cervical radiculopathy 07/06/2024 10:20 AM CDT documented as of this encounter Goals Goal Patient Goal Type Associated Problems Recent Progress Patient-Stated? Author Safety - demonstrates understanding of home safety measures General No Pooja Garrido RN documented as of this encounter Visit Diagnoses Not on filedocumented in this encounter Care Teams Resident Caregiver Relationship Specialty Start Date End Date Radha Jurado PA-C [address] [place] [address] PCP - General PHYSICIAN INVENTORY CONTROL CLERK 01/09/21 Mohan Camacho MD [address] [place] [address] Thornton Braille Operator CARDIOVASCULAR DISEASE 03/11/21 Lyla Hernandez MD [address] [address] Referring Physician NEPHROLOGY 03/11/21 documented as of this encounter
--- OUTSIDE RECORDS SUMMARY | 2024-06-18 11:43 | XMS_ITS | Encounter Summary ---
Author Organization [facility] Address [address] [place] [address] Care Team Providers Care Hospitality House Supervisor Name Role Phone Mohan Camacho MD Unavailable [phone] Radha Jurado Primary Care Provider [phone] Sylvester Nicholas MD Unavailable [phone] Js Martinez MD Unavailable [phone] Alexis Ngo MD Unavailable [phone] Ludmila Tesfaye RN Unavailable [phone] Sudheer Arnold MD Unavailable + Haja Pires OD Unavailable [phone] Encounter Details Date Type Department Care Team (Late st Contact Info) Description 04/17/2024 Telephone [facility] Family Medicine [address] [phone] Radha Jurado PA [address] [place] [address] Social History Tobacco Use Types Packs/Day Years Used Date Smoking Tobacco: Former Cigarettes 0.3 28 1 974 - 2001 Smokeless Tobacco: Never Comments:not a daily smoker [...] often do you attend chur ch or gnosticism services? More than 4 times per year 12/22/2022 Do you belong to any clubs o r organizations such as jehovah's witness groups, unions, fraternal or athletic groups, or [...] place to sleep or slept in a assisted (including now)? 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 Gender Identity Not on file Sexual Orientation Not on file documented as of this encounter Plan of Treatment Scheduled Procedures Name Priority Associated Diagnoses Date/Ti me TRANSPLANT KIDNEY ESRD (end stage renal disease) (CMS/HCC) (FORMERLY [facility]) documented as of this encounter Visit Diagnoses Not on filedocumented in this encounter Care Teams Hospitality House Supervisor Relationship Specialty Start Date End Date Radha Jurado PA [address] [place] [address] PCP - General Family Medicine 07/23/20 Mohan Camacho MD Slat Basket Maker Machine Cardiology 12/17/17 Sylvester Nicholas MD [address] [place], [place] [address] Consulting Physician Family Medicine 07/23/20 Js Martinez MD [address] [place] [address] Referring Physician Nephrology 06/17/21 Alexis Ngo MD [address] [facility] [address] [place] [address] Surgeon Vascular Surgery 06/30/21 Ludmila Tesfaye, RN [address] [facility] [address] [place], [place] [id number] Tunnel Kiln Firer 09/01/22 Sudheer Arnold MD [address] [place] [address] Consulting Physician Nephrology 12/23/22 Haja Pires, OD [address] [facility] [address] [place] [address] Safety Person 12/23/22 documented as of this encounter
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
--- NOTE | 2024-06-18 12:00 | ECG_ITS ---
Test Date: 2024-06-18 13:09:11 Measurements Intervals [place] Rate: 118 P: 64 [place]: 166 QRS: 69 QRSD: 81 T: 18 QT: 283 QTc: 397 Interpretive Statements SINUS TACHYCARDIA WITH FREQUENT VENTRICULAR PREMATURE COMPLEXES CONSIDER ANTERIOR INFARCT, AGE INDETERMINATE BORDERLINE ST-T WAVE ABNORMALITY- INFERIOR LEADS BASELINE ARTIFACT- I, II, AVR ABNORMAL ECG No previous ECG available for comparison Electronically Signed On 06-18-2024 16:32:47 CARD WRITER HAND by Chandana Morris D.O.
--- OUTSIDE RECORDS SUMMARY | 2024-06-18 12:37 | XMS_ITS | Encounter Summary ---
Author Organization [facility] Healthcare Address [address] [place] [address] Care Team Providers Care Radiology Physician Assistant Name Role Phone Mohan Camacho MD Unavailable [phone] Jasmyne Eduardo RN Unavailable [phone] Radha Jurado Primary Care Provider [phone] Sylvester Nicholas MD Unavailable [phone] Lyla Hernandez MD Unavailable [phone] Js Martinez MD Unavailable [phone] Alexis Ngo MD Unavailable [phone] Ludmila Tesfaye RN Unavailable [phone] Sudheer [place] MD Unavailable + Haja Pires OD Unavailable [phone] Gaby Pierre MA Unavailable Unavailable Encounter Details Date Type Department Care Team (Late st Contact Info) Description 02/26/2022 Telephone [facility] [address] [facility] [address] [place] [address] Tutu Ngo MD [address] [facility] [address] [place] [address] Social History Tobacco Use Types [...] on file Legal Sex Male 3:15 PM TAG STRINGER Gender Identity Not on file Sexual Orientation Not on file documented as of this encounter Plan of Treatment Scheduled Procedures Name Priority Associated Diagnoses Date/Ti me TRANSPLANT KIDNEY ESRD (end stage renal disease) ([facility]) ([facility]) documented as of this encounter Visit Diagnoses Not on filedocumented in this encounter Care Teams Radiology Physician Assistant Relationship Specialty Start Date End Date Radha Jurado PA [address] [place] [address] PCP - General Family Medicine 07/23/20 Mohan Camacho MD Grain Buyer Cardiology 12/17/17 Jasmyne Eduardo, RN [address] [facility] [address] [place] [address] Registered Nurse Cardiac Catheterization Technologist 07/04/20 Sylvester Nicholas MD [address] [place] [address] Consulting Physician Family Medicine 07/23/20 Lyla Hernandez MD [facility] [address] [place] [address] Referring Physician Nephrology 08/07/20 07/13/22 Js Martinez MD [address] [facility] [address] [place] [address] Referring Physician Nephrology 06/17/21 Alexis Ngo MD [address] [facility] [address] [place] [address] Surgeon Vascular Surgery 06/30/21 Ludmila Tesfaye, RN [address] [facility] [address] [place] [address] Cardiac Catheterization Technologist 09/01/22 Sudheer [place] MD [address] [place] [address] Consulting Physician Nephrology 12/23/22 Haja Pires, OD [address] [facility] [address] [place] [address] Service 12/23/22 Gaby Pierre, HECTOR [address] [facility] [address] [place] [address] ACO Care Polymerization Kettle Operator 01/24/24 01/24/24 documented as of this encounter
--- OUTSIDE RECORDS SUMMARY | 2024-06-18 12:37 | XMS_ITS | Referral Summary ---
Author Organization [facility] Address [address] [place] [address] Care Team Providers Care Senior Business Development Manager Name Role Phone Rachel Nielsen REFRIGERATION SPECIALIST-SANITATION MANAGER Primary Care Provider [phone] Source Comments [facility],non-owned Affiliates and Associated Physician Practices is amultiple site organization consisting of ambulatory clinics and hospital sitesin [place] and [place]. This disclosure is being madepursuant to the Care Everywhere program and may not contain all information available regarding this patient. Last updated 18.[facility] [employer] Allergies No known active allergies Medications * [...] daily Active Cholecalciferol (VITAMIN D3) 1.25 MG (97671 UT) capsule Take 50,000 Units by mouth [...] Comments Blood Pressure 152/69 05/16/2019 11:09 AM NIGHT TIME BABYSITTER Pulse 80 05/16/2019 11:09 AM NIGHT TIME BABYSITTER Temperature 36.7 C (98 F) 05/16/2019 11:09 AM NIGHT TIME BABYSITTER Respiratory Rate - - Oxygen Saturation 98% 05/16/2019 11:09 AM NIGHT TIME BABYSITTER Inhaled Oxygen Concentration - - Weight 98.9 kg (218 lb) 05/16/2019 11:09 AM NIGHT TIME BABYSITTER Height 174 cm (5' 8.5 ) 05/16/2019 11:09 AM NIGHT TIME BABYSITTER Body Mass Index 32.66 05/16/2019 11:09 AM NIGHT TIME BABYSITTER Plan of Treatment Not on file Care Teams Senior Business Development Manager Relationship Specialty Start Date End Date Rachel Nielsen, REFRIGERATION SPECIALIST-SANITATION MANAGER [address] [place] [id number] PCP - General 03/20/19
--- OUTSIDE RECORDS SUMMARY | 2024-06-18 12:37 | XMS_ITS | Clinical Summary ---
Author Organization [facility] Address [address] [place] [address] Phone Care Team Providers Care Telephone Plant Power Operator Name Role Phone Kaorlina Crowder MD Primary Care Provider [phone] Allergies Active Allergy Reactions Criticality Noted Date [...] daily 0 01/03/2016 Active ergocalciferol (VITAMIN D-2) 30130 units capsule one tab daily 0 06/15/2017 [...] Plan: Chronic and stable. 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 and is working to get on the [...] Comments Blood Pressure 154/84 05/07/2021 1:27 PM INDUSTRIAL MAINTENANCE MILLWRIGHT Pulse 77 09/26/2019 1:05 PM CDT Temperature 36.3 C (97.4 F) 05/07/2021 1:27 PM INDUSTRIAL MAINTENANCE MILLWRIGHT Respiratory Rate 18 05/07/2021 1:27 PM INDUSTRIAL MAINTENANCE MILLWRIGHT Oxygen Saturation - - Inhaled Oxygen Concentration - - Weight 95.7 kg (211 lb) 05/07/2021 1:27 PM INDUSTRIAL MAINTENANCE MILLWRIGHT Height 172.7 cm (5' 8 ) 05/07/2021 1:27 PM INDUSTRIAL MAINTENANCE MILLWRIGHT Body Mass Index 32.08 05/07/2021 1:27 PM INDUSTRIAL MAINTENANCE MILLWRIGHT Plan of Treatment Health Maintenance Due Date Last Done Comments Pneumococcal PPSV23/PCV13 65 + Years / Low and Medium Risk (1 of 4 - PCV) 2022 Influenza Vaccine (#1) 2023 02/15/2017 Care Teams Telephone Plant Power Operator Relationship Specialty Start Date End Date Karolina Crowder MD [address] [facility] [place] [phone] PCP - General 03/17/21
--- OUTSIDE RECORDS SUMMARY | 2024-06-18 12:37 | XMS_ITS | Encounter Summary ---
Author Organization [facility] Facility Care Team Providers Care It Help Desk Manager Name Role Phone Sena Marie RN Unavailable [phone] Seun Green RN Unavailable [phone] Miscellaneous, Not In File Primary Care [...] Primary Care Provider + [phone] Rachel Nielsen TIME CLOCK REPAIRER Primary Care Provider + [phone] MonRachel lindquist TIME CLOCK REPAIRER Primary Care Provider + [phone] Karolina Crowder Primary Care Provider + [phone] MonRachel lindquist TIME CLOCK REPAIRER Primary Care Provider + [phone] Jasmyne Eduardo RN Unavailable +[phone] Rachel Nielsen TIME CLOCK REPAIRER Primary Care Provider + [phone] Radha Jurado PA Primary Care Provider +[phone] Sylvester Nicholas MD Unavailable + [phone] Lyla Hernandez MD Unavailable [phone] Js Martinez MD Unavailable +[phone] Alexis Ngo MD Unavailable +[phone] Ludmila Tesfaye RN Unavailable +[phone] Sudheer Arnold MD Unavailable + Haja Pires OD Unavailable +[phone] Gaby Pierre MA Unavailable Unavailable Encounter Details Date Type Department Care Team (Latest Contact Info) Description 06/21/2015 Orders Only MMG CLINCONV ProviderRasheed MD [address] [place] [address] Social History Tobacco Use Types Packs/Day Years Used Date Smoking Tobacco: Former Sex and Gender Information Value Date Recorded Sex Assigned at Not on file Legal Sex Male 3:15 PM HYDRAULIC MODELING ENGINEER Gender Identity Not on file Sexual Orientation Not on file documented as of this encounter Plan of Treatment Scheduled Procedures Name Priority Associated Diagnoses Date/Ti me TRANSPLANT KIDNEY ESRD (end stage renal disease) (CMS/HCC) ([facility]) documented as of this encounter Procedures Procedure Name Priority Date/Time Associated Diagnosis Comments PROCEDURE - RESULT 06/21/2015 12 :00 AM HYDRAULIC MODELING ENGINEER documented in this encounter Results * PROCEDURE - RESULT (06/21/2015 12:00 AM HYDRAULIC MODELING ENGINEER) Narrative 06/21/2015 12:00 AM HYDRAULIC MODELING ENGINEER Ordered by an unspecified provider. Historical Provider Final Res ult documented in this encounter Visit Diagnoses Not on filedocumented in this encounter Additional Health Concerns Infection Onset Date Last Indicated Resolved Time COVID: Recovered Comment:Positive 05/11/21 at OSH. Results scanned in media. 06/25/2021 06/25/2021 10/23/2021 3:0 5 AM CDT documented as of this encounter Care Teams It Help Desk Manager Relationship Specialty Start Date End Date Miscellaneous, Not In File PCP - General 10/11/17 10/19/17 Unknown, Notinfile PCP - General 10/20/17 11/22/17 Miscellaneous, Not In File PCP - General 11/23/17 11/24/17 Unknown, Notinfile PCP - General 11/25/17 11/28/17 Karolina Crowder PA PCP - General 11/29/17 12/23/17 Unknown, Notinfile PCP - General 12/24/17 06/08/18 Karolina Crowder PA PCP - General 06/09/18 04/24/20 Rachel Nielsen TIME CLOCK REPAIRER PCP - General 04/29/20 05/25/20 Rachel Nielsen TIME CLOCK REPAIRER PCP - General 04/25/20 04/28/20 Karolina Crowder PA PCP - General 05/26/20 06/16/20 Rachel Nielsen TIME CLOCK REPAIRER PCP - General Nurse Practitioner 07/04/20 07/22/20 Rachel Nielsen, TIME CLOCK REPAIRER PCP - General 06/17/20 07/03/20 Radha Jurado PA [facility] [address] [place] [address] PCP - General Family Medicine 07/23/20 Sena Marie, RN [address] [phone] Finisher Hot Strip 09/21/17 8 Seun Green, ELEANOR [address] [address] Finisher Hot Strip 09/27/17 9 Arsalan Carrizales MD Referring Physician Nephrology 11/08/17 08/06/20 Mohan Camacho MD Industrial Maintenance Mechanic Cardiology 12/17/17 Jasmyne Eduardo RN [address] [address] Registered Nurse Finisher Hot Strip 07/04/20 Sylvester Nicholas MD [address] [place] [address] Consulting Physician Family Medicine 07/23/20 Lyla Hernandez MD [facility] [address] Referring Physician Nephrology 08/07/20 07/13/22 Js Martinez MD [facility] [address] [address] Referring Physician Nephrology 06/17/21 [place] [address] [place] [address] Surgeon Vascular Surgery 06/30/21 Ludmila Tesfaye, RN [address] [address] Finisher Hot Strip 09/01/22 Sudheer Arnold MD [address] [place] [address] Consulting Physician Nephrology 12/23/22 Haja Pires, OD [address] [facility] [address] [place] [address] Corner Cutter 12/23/22 Gaby Pierre MA [address] [facility] [place] [address] ACO Care Commercial Artist Lettering 01/24/24 01/24/24 documented as of this encounter
--- OUTSIDE RECORDS SUMMARY | 2024-06-18 12:37 | XMS_ITS | Encounter Summary ---
Author Organization [facility] Address [address] [place] [address] Phone Care Team Providers Care Boatwright Name Role Phone Karolina Crowder MD Primary Care Provider [phone] Reason for Visit * Reason Comments Med Refill Encounter Details Date Type Department Care Team (Late st Contact Info) Description 07/02/2021 Refill [facility] Nephrology and Hypertension [address] [facility], [address] [place] [address] Lyla Hernandez MD [address] [facility], SUITE [facility] [place] [address] Social History Tobacco Use Types Packs/Day Years [...] PM CST Under the care of another clinical quality assurance associate. documented in this encounter Plan of Treatment Not on file documented as of this encounter Visit Diagnoses Not on filedocumented in this encounter Care Teams Boatwright Relationship Specialty Start Date End Date Karolina Crowder MD [address] [facility] [place] [address] PCP - General 03/17/21 documented as of this encounter
--- OUTSIDE RECORDS SUMMARY | 2024-06-18 12:37 | XMS_ITS | Clinical Summary ---
Author Organization [facility] Address [address] [place] [address] Care Team Providers Care Ophthalmic Lens Inspector Name Role Phone Rachel Nielsen BLAST FURNACE CHECKER-SHACTOR Primary Care Provider [phone] Source Comments [facility],non-owned Affiliates and Associated Physician Practices is amultiple site organization consisting of ambulatory clinics and hospital sitesin [place], [place], [place] and [place]. This disclosure is being madepursuant to the Care Everywhere program and may not contain all information available regarding this patient. Last updated 18.[facility] Allergies No known active allergies Medications * [...] daily Active Cholecalciferol (VITAMIN D3) 1.25 MG (75022 UT) capsule Take 50,000 Units by mouth [...] Comments Blood Pressure 152/69 05/16/2019 11:09 AM SWEET PICKLE MAKER Pulse 80 05/16/2019 11:09 AM SWEET PICKLE MAKER Temperature 36.7 C (98 F) 05/16/2019 11:09 AM SWEET PICKLE MAKER Respiratory Rate - - Oxygen Saturation 98% 05/16/2019 11:09 AM SWEET PICKLE MAKER Inhaled Oxygen Concentration - - Weight 98.9 kg (218 lb) 05/16/2019 11:09 AM SWEET PICKLE MAKER Height 174 cm (5' 8.5 ) 05/16/2019 11:09 AM SWEET PICKLE MAKER Body Mass Index 32.66 05/16/2019 11:09 AM SWEET PICKLE MAKER Plan of Treatment Health Maintenance Due Date [...] age to complete this topic Care Teams Ophthalmic Lens Inspector Relationship Specialty Start Date End Date Rachel Nielsen, BLAST FURNACE CHECKER-SHACTOR [address] [place] [address] PCP - General 03/20/19
--- OUTSIDE RECORDS SUMMARY | 2024-06-18 12:37 | XMS_ITS | Encounter Summary ---
Author Organization [facility] Healthcare Address [address] [place] [address] Care Team Providers Care Agricultural Engineering Teacher Name Role Phone Mohan Camacho MD Unavailable [phone] Jasmyne Eduardo RN Unavailable [phone] Radha Jruado Primary Care Provider [phone] Sylvester Nicholas MD Unavailable + [phone] Lyla Hernandez MD Unavailable [phone] Js Martinez MD Unavailable +[phone] Alexis Ngo MD Unavailable [phone] Ludmila Tesfaye RN Unavailable [phone] Sudheer Arnold MD Unavailable + Haja Pires OD Unavailable [phone] Gaby Pierre MA Unavailable Unavailable Encounter Details Date Type Department Care Team (Late st Contact Info) Description 01/05/2022 Telephone [facility] at [facility] [address] [facility] [address] [place] [address] [place] [address] [place] [address] [address] [place], [place] [id number] Social History Tobacco Use Types Packs/Day Years [...] on file Legal Sex Male 3:15 PM CASH REGISTER REPAIRER Gender Identity Not on file Sexual Orientation Not on file documented as of this encounter Plan of Treatment Scheduled Procedures Name Priority Associated Diagnoses Date/Ti me TRANSPLANT KIDNEY ESRD (end stage renal disease) ([facility]/HCC) ([facility]) documented as of this encounter Visit Diagnoses Not on filedocumented in this encounter Care Teams Agricultural Engineering Teacher Relationship Specialty Start Date End Date Radha Jurado PA [address] [place] [address] PCP - General Family Medicine 07/23/20 Mohan Camacho MD Unit Leader Cardiology 12/17/17 Jasmyne Eduardo, RN [address] [facility] [address] [place] [address] Registered Nurse Perl Software Engineer 07/04/20 Sylvester Nicholas MD [address] [place] [address] Consulting Physician Family Medicine 07/23/20 Lyla Hernandez MD [facility] [address] [place] [address] Referring Physician Nephrology 08/07/20 07/13/22 Js Martinez MD [address] [facility] [address] [place] [address] Referring Physician Nephrology 06/17/21 Alexis Ngo MD [address] [facility] [address] [place] [address] Surgeon Vascular Surgery 06/30/21 Ludmila Tesfaye, RN [address] [facility] [address] [place] [address] Perl Software Engineer 09/01/22 Sudheer Arnold MD [address] [place] [address] Consulting Physician Nephrology 12/23/22 Haja Pires, OD [address] [facility] 200 [place] [address] Clinic Director 12/23/22 Gaby Pierre MA [address] [facility] [address] [place] [address] ACO Care Boom Man 01/24/24 01/24/24 documented as of this encounter
--- OUTSIDE RECORDS SUMMARY | 2024-06-18 12:37 | XMS_ITS | Patient Health Summary ---
Author Organization [facility] Address [address] [place] [address] Care Team Providers Care Service Associate Name Role Phone Rachel Nielsen SAFETY TRAINER-CHIEF UNDERWRITER Primary Care Provider [phone] [facility],non-owned Affiliates and Associated Physician Practices is amultiple site organization consisting of ambulatory clinics and hospital sitesin [place], [place], [place] and [place]. This disclosure is being madepursuant to the Care Everywhere program and may not contain all information available regarding this patient. Last updated 18.[facility] [employer] Allergies No known active allergies Medications * [...] daily * Cholecalciferol (VITAMIN D3) 1.25 MG (30629 UT) capsule Take 50,000 Units by mouth [...] Comments Blood Pressure 152/69 05/16/2019 11:09 AM RN SHIFT MGR Pulse 80 05/16/2019 11:09 AM RN SHIFT MGR Temperature 36.7 C (98 F) 05/16/2019 11:09 AM RN SHIFT MGR Respiratory Rate - - Oxygen Saturation 98% 05/16/2019 11:09 AM RN SHIFT MGR Inhaled Oxygen Concentration - - Weight 98.9 kg (218 lb) 05/16/2019 11:09 AM RN SHIFT MGR Height 174 cm (5' 8.5 ) 05/16/2019 11:09 AM RN SHIFT MGR Body Mass Index 32.66 05/16/2019 11:09 AM RN SHIFT MGR Care Teams Service Associate Relationship Specialty Start Date End Date Rachel Nielsen, SAFETY TRAINER-CHIEF UNDERWRITER [address] [place] [id number] PCP - General 03/20/19
--- OUTSIDE RECORDS SUMMARY | 2024-06-18 12:37 | XMS_ITS | Encounter Summary ---
Author Organization [facility] Address [address] [place] [address] Phone Care Team Providers Care Mark Up Designer Name Role Phone Karolina Crowder MD Primary Care Provider Reason for Visit * Reason Comments Med Refill Encounter Details Date Type Department Care Team ([facility] st Contact Info) Description 02/29/2020 Refill [facility] [address] [facility] 1 [place] [address] Arsalan Carrizales MD [facility] [address] [address] Social History Tobacco Use Types [...] on filedocumented in this encounter Care Teams Mark Up Designer Relationship Specialty Start Date End Date Karolina Crowder MD [address] [place] [address] PCP - General 03/17/21 documented as of this encounter
--- OUTSIDE RECORDS SUMMARY | 2024-06-18 12:37 | XMS_ITS | Encounter Summary ---
Author Organization [facility] Facility Care Team Providers Care Die Setter Name Role Phone Sena Marie RN Unavailable [phone] Seun Green RN Unavailable [phone] Miscellaneous, Not In File Primary Care [...] Primary Care Provider + [phone] Rachel Nielsen TEACHER PRIVATE Primary Care Provider + [phone] MonRachel lindquist TEACHER PRIVATE Primary Care Provider + [phone] Karolina Crowder Primary Care Provider + [phone] MonRachel lindquist TEACHER PRIVATE Primary Care Provider + [phone] Jasmyne Eduardo RN Unavailable [phone] Rachel Nielsen TEACHER PRIVATE Primary Care Provider + [phone] Radha Jurado PA Primary Care Provider [phone] Sylvester Nicholas MD Unavailable + [phone] Lyla Hernandez MD Unavailable [phone] Js Martinez MD Unavailable [phone] Alexis Ngo MD Unavailable +[phone] Ludmila Tesfaye RN Unavailable +[phone] Sudheer Arnold MD Unavailable + Haja Pires OD Unavailable [phone] Gaby Pierre MA Unavailable Unavailable Encounter Details Date Type Department Care Team (Latest Contact Info) Description 06/06/2015 Orders Only [facility]G CLINCONV ProviderRasheed MD [address] [place] [address] Social History Tobacco Use Types Packs/Day Years Used Date Smoking Tobacco: Former Sex and Gender Information Value Date Recorded Sex Assigned at Not on file Legal Sex Male 3:15 PM MIDDLEWARE ENGINEER Gender Identity Not on file Sexual Orientation Not on file documented as of this encounter Plan of Treatment Scheduled Procedures Name Priority Associated Diagnoses Date/Ti me TRANSPLANT KIDNEY ESRD (end stage renal disease) (CMS/HCC) ([facility]) documented as of this encounter Procedures Procedure Name Priority Date/Time Associated Diagnosis Comments PROCEDURE - RESULT 06/06/2015 12 :00 AM MIDDLEWARE ENGINEER documented in this encounter Results * PROCEDURE - RESULT (06/06/2015 12:00 AM MIDDLEWARE ENGINEER) Narrative 06/06/2015 12:00 AM MIDDLEWARE ENGINEER Ordered by an unspecified provider. Historical Provider Final Res ult documented in this encounter Visit Diagnoses Not on filedocumented in this encounter Additional Health Concerns Infection Onset Date Last Indicated Resolved Time COVID: Recovered Comment:Positive 05/11/21 at OSH. Results scanned in media. 06/25/2021 06/25/2021 10/23/2021 3:0 5 AM CDT documented as of this encounter Care Teams Die Setter Relationship Specialty Start Date End Date Miscellaneous, Not In File PCP - General 10/11/17 10/19/17 Unknown, Notinfile PCP - General 10/20/17 11/22/17 Miscellaneous, Not In File PCP - General 11/23/17 11/24/17 Unknown, Notinfile PCP - General 11/25/17 11/28/17 Karolina Crowder PA PCP - General 11/29/17 12/23/17 Unknown, Notinfile PCP - General 12/24/17 06/08/18 Karolina Crowder PA PCP - General 06/09/18 04/24/20 Rachel Nielsen TEACHER PRIVATE PCP - General 04/29/20 05/25/20 Rachel Nielsen TEACHER PRIVATE PCP - General 04/25/20 04/28/20 Karolina Crowder PA PCP - General 05/26/20 06/16/20 Rachel Nielsen TEACHER PRIVATE PCP - General Nurse Practitioner 07/04/20 07/22/20 Rachel Nielsen, TEACHER PRIVATE PCP - General 06/17/20 07/03/20 Radha Jurado PA [facility] [address] [place] [address] PCP - General Family Medicine 07/23/20 Sena Marie, RN [address] [id number] Blanket Winder Helper 09/21/17 8 Seun Green, ELEANOR [address] [address] Blanket Winder Helper 09/27/17 9 Arsalan Carrizales MD Referring Physician Nephrology 11/08/17 08/06/20 Mohan Camacho MD Electric Power Line Repairer Cardiology 12/17/17 Jasmyne Eduardo RN [address] [address] Registered Nurse Blanket Winder Helper 07/04/20 Sylvester Nicholas MD [address] [place] [address] Consulting Physician Family Medicine 07/23/20 Lyla Hernandez MD [facility] [address] [address] Referring Physician Nephrology 08/07/20 07/13/22 Js Martinez MD [facility] [address] [address] Referring Physician Nephrology 06/17/21 [place] [address] [place] [address] Surgeon Vascular Surgery 06/30/21 Ludmila Tesfaye, RN [address] [address] Blanket Winder Helper 09/01/22 Sudheer Arnold MD [address] [place] [address] Consulting Physician Nephrology 12/23/22 Haja Pires, OD [address] [facility] 200 [place] [address] Per Assessment Nurse 12/23/22 Gaby Pierre MA [address] [facility] [address] [place] [address] ACO Care Fine Grader 01/24/24 01/24/24 documented as of this encounter
--- OUTSIDE RECORDS SUMMARY | 2024-06-18 12:37 | XMS_ITS | Encounter Summary ---
Author Organization [facility] Address [address] [place] [address] Phone Care Team Providers Care Crop Production Advisor Name Role Phone Karolina Crowder MD Primary Care Provider [phone] Reason for Visit * Reason Comments Med Refill Encounter Details Date Type Department Care Team ([facility] st Contact Info) Description 10/29/2019 Refill [facility] [address] [facility] 1 [place] [address] Arsalan Carrizales MD [facility] [address] [address] Social History Tobacco Use Types [...] on filedocumented in this encounter Care Teams Crop Production Advisor Relationship Specialty Start Date End Date Karolina Crowder MD [address] [place] [address] PCP - General 03/17/21 documented as of this encounter
--- OUTSIDE RECORDS SUMMARY | 2024-06-18 12:37 | XMS_ITS | Encounter Summary ---
Author Organization [facility] Facility Care Team Providers Care Baked And Graphite Inspector Name Role Phone Sena Marie RN Unavailable [phone] Seun Green RN Unavailable [phone] Miscellaneous, Not In File Primary Care [...] Primary Care Provider + [phone] Rachel Nielsen WOOD PILE DRIVER OPERATOR Primary Care Provider + [phone] MonRachel lindquist WOOD PILE DRIVER OPERATOR Primary Care Provider + 4-05 Karolina Crowder Primary Care Provider + [phone] MonRachel lindquist WOOD PILE DRIVER OPERATOR Primary Care Provider + [phone] Jasmyne Eduardo RN Unavailable [phone] Rachel Nielsen WOOD PILE DRIVER OPERATOR Primary Care Provider + [phone] Radha Jurado PA Primary Care Provider +[phone] Sylvester Nicholas MD Unavailable + [phone] Lyla Hernandez MD Unavailable [phone] Js Martinez MD Unavailable [phone] Alexis Ngo MD Unavailable +[phone] Ludmila Tesfaye RN Unavailable +[phone] Sudheer Arnold MD Unavailable + Haja Pires OD Unavailable [phone] Gaby Pierre MA Unavailable Unavailable Encounter Details Date Type Department Care Team (Latest Contact Info) Description 05/30/2015 Orders Only [facility]G CLINCONV ProviderRasheed MD [address] [place] [address] Social History Tobacco Use Types Packs/Day Years Used Date Smoking Tobacco: Former Sex and Gender Information Value Date Recorded Sex Assigned at Not on file Legal Sex Male 3:15 PM CAMPUS EXECUTIVE DIRECTOR Gender Identity Not on file Sexual Orientation Not on file documented as of this encounter Plan of Treatment Scheduled Procedures Name Priority Associated Diagnoses Date/Ti me TRANSPLANT KIDNEY ESRD (end stage renal disease) (CMS/HCC) ([facility]) documented as of this encounter Procedures Procedure Name Priority Date/Time Associated Diagnosis Comments PROCEDURE - RESULT 06/03/2015 12 :00 AM CAMPUS EXECUTIVE DIRECTOR documented in this encounter Results * PROCEDURE - RESULT (06/03/2015 12:00 AM CAMPUS EXECUTIVE DIRECTOR) Narrative 06/03/2015 12:00 AM CAMPUS EXECUTIVE DIRECTOR Ordered by an unspecified provider. Historical Provider Final Res ult documented in this encounter Visit Diagnoses Not on filedocumented in this encounter Additional Health Concerns Infection Onset Date Last Indicated Resolved Time COVID: Recovered Comment:Positive 05/11/21 at OSH. Results scanned in media. 06/25/2021 06/25/2021 10/23/2021 3:0 5 AM CDT documented as of this encounter Care Teams Baked And Graphite Inspector Relationship Specialty Start Date End Date Miscellaneous, Not In File PCP - General 10/11/17 10/19/17 Unknown, Notinfile PCP - General 10/20/17 11/22/17 Miscellaneous, Not In File PCP - General 11/23/17 11/24/17 Unknown, Notinfile PCP - General 11/25/17 11/28/17 Karolina Crowder PA PCP - General 11/29/17 12/23/17 Unknown, Notinfile PCP - General 12/24/17 06/08/18 Karolina Crowder PA PCP - General 06/09/18 04/24/20 Rachel Nielsen WOOD PILE DRIVER OPERATOR PCP - General 04/29/20 05/25/20 Rachel Nielsen WOOD PILE DRIVER OPERATOR PCP - General 04/25/20 04/28/20 Karolina Crowder PA PCP - General 05/26/20 06/16/20 Rachel Nielsen WOOD PILE DRIVER OPERATOR PCP - General Nurse Practitioner 07/04/20 07/22/20 Rachel Nielsen, WOOD PILE DRIVER OPERATOR PCP - General 06/17/20 07/03/20 Radha Jurado PA [facility] [address] [place] [address] PCP - General Family Medicine 07/23/20 Sena Marie, RN [address] [phone] Regeneration Operator 09/21/17 8 Seun Green, ELEANOR [address] [address] Regeneration Operator 09/27/17 9 Arsalan Carrizales MD Referring Physician Nephrology 11/08/17 08/06/20 Mohan Camacho MD Doctor Of Nursing Practice Cardiology 12/17/17 Jasmyne Eduardo RN [address] [address] Registered Nurse Regeneration Operator 07/04/20 Sylvester Nicholas MD [address] [place] [address] Consulting Physician Family Medicine 07/23/20 Lyla Hernandez MD [facility] [address] Referring Physician Nephrology 08/07/20 07/13/22 Js Martinez MD [facility] [address] [address] Referring Physician Nephrology 06/17/21 [place] [address] [place] [address] Surgeon Vascular Surgery 06/30/21 Ludmila Tesfaye, RN [address] [address] Regeneration Operator 09/01/22 Sudheer Arnold MD [address] [place] [address] Consulting Physician Nephrology 12/23/22 Haja Pires, OD [address] [facility] 200 [place] [address] Case Preparer And Liner 12/23/22 Gaby Pierre MA [address] [facility] [address] [place] [address] ACO Care Inside Sales Representative 01/24/24 01/24/24 documented as of this encounter
--- OUTSIDE RECORDS SUMMARY | 2024-06-18 12:38 | XMS_ITS | Encounter Summary ---
Author Organization [facility] Facility Care Team Providers Care Tile Grader Name Role Phone Sena Marie RN Unavailable [phone] Seun Green RN Unavailable [phone] Miscellaneous, Not In File Primary Care [...] Primary Care Provider + [phone] Rachel Nielsen STORAGE BATTERY INSPECTOR AND TESTER Primary Care Provider + [phone] MonRachel lindquist STORAGE BATTERY INSPECTOR AND TESTER Primary Care Provider + [phone] Karolina Crowder Primary Care Provider + [phone] MonRachel lindquist STORAGE BATTERY INSPECTOR AND TESTER Primary Care Provider + [phone] Jasmyne Eduardo RN Unavailable [phone] Rachel Nielsen STORAGE BATTERY INSPECTOR AND TESTER Primary Care Provider + [phone] Radha Jurado PA Primary Care Provider [phone] Sylvester Nicholas MD Unavailable + [phone] Lyla Hernandez MD Unavailable [phone] Js Martinez MD Unavailable [phone] Alexis Ngo MD Unavailable [phone] Ludmila Tesfaye RN Unavailable [phone] Sudheer Arnold MD Unavailable + Haja Pires OD Unavailable Gaby Pierre MA Unavailable Unavailable Encounter Details Date Type Department Care Team (Latest Contact Info) Description 05/27/2015 Orders Only [facility]CON[facility] Provider, MD Rasheed [address] [place] [address] Social History Tobacco Use Types Packs/Day Years Used Date Smoking Tobacco: Former Sex and Gender Information Value Date Recorded Sex Assigned at Not on file Legal Sex Male 3:15 PM SURGICAL NURSE Gender Identity Not on file Sexual Orientation Not on file documented as of this encounter Plan of Treatment Scheduled Procedures Name Priority Associated Diagnoses Date/Ti me TRANSPLANT KIDNEY ESRD (end stage renal disease) (CMS/HCC) ([facility]) documented as of this encounter Procedures Procedure Name Priority Date/Time Associated Diagnosis Comments PROCEDURE - RESULT 06/07/2015 12 :00 AM SURGICAL NURSE documented in this encounter Results * PROCEDURE - RESULT (06/07/2015 12:00 AM SURGICAL NURSE) Narrative 06/07/2015 12:00 AM SURGICAL NURSE Ordered by an unspecified provider. Historical Provider Final Res ult documented in this encounter Visit Diagnoses Not on filedocumented in this encounter Additional Health Concerns Infection Onset Date Last Indicated Resolved Time COVID: Recovered Comment:Positive 05/11/21 at O[facility]. Results scanned in media. 06/25/2021 06/25/2021 10/23/2021 3:0 5 AM CDT documented as of this encounter Care Teams Tile Grader Relationship Specialty Start Date End Date Miscellaneous, Not In File PCP - General 10/11/17 10/19/17 Unknown, Notinfile PCP - General 10/20/17 11/22/17 Miscellaneous, Not In File PCP - General 11/23/17 11/24/17 Unknown, Notinfile PCP - General 11/25/17 11/28/17 Karolina Crowder PA PCP - General 11/29/17 12/23/17 Unknown, Notinfile PCP - General 12/24/17 06/08/18 Karolina Crowder PA PCP - General 06/09/18 04/24/20 Rachel Nielsen STORAGE BATTERY INSPECTOR AND TESTER PCP - General 04/29/20 05/25/20 Rachel Nielsen STORAGE BATTERY INSPECTOR AND TESTER PCP - General 04/25/20 04/28/20 Karolina Crowder PA PCP - General 05/26/20 06/16/20 Rachel Nielsen STORAGE BATTERY INSPECTOR AND TESTER PCP - General Nurse Practitioner 07/04/20 07/22/20 Rachel Nielsen, STORAGE BATTERY INSPECTOR AND TESTER PCP - General 06/17/20 07/03/20 Radha Jurado PA [facility] [address] [place] [address] PCP - General Family Medicine 07/23/20 Sena Marie, RN [address] [phone] Professional Services Consultant 09/21/17 8 Seun Green, ELEANOR [address] [address] Professional Services Consultant 09/27/17 9 Arsalan Carrizales MD Referring Physician Nephrology 11/08/17 08/06/20 Mohan Camacho MD [facility]iology 12/17/17 Jasmyne Eduardo RN [address] [address] Registered Nurse Professional Services Consultant 07/04/20 Sylvester Nicholas MD [address] [place] [address] Consulting Physician Family Medicine 07/23/20 Lyla Hernandez MD [facility] [address] Referring Physician Nephrology 08/07/20 07/13/22 Js Martinez MD [facility] [address] [address] Referring Physician Nephrology 06/17/21 [place] [address] [place] [address] Surgeon Vascular Surgery 06/30/21 Ludmila Tesfaye, RN [address] [address] Professional Services Consultant 09/01/22 Sudheer Arnold MD [address] [place] [address] Consulting Physician Nephrology 12/23/22 Haja Pires, OD [address] [facility] [address] [place] [address] Intelligence Clerk 12/23/22 Gaby Pierre MA [address] [facility] [address] [place] [address] ACO Care Brand Analyst 01/24/24 01/24/24 documented as of this encounter
--- OUTSIDE RECORDS SUMMARY | 2024-06-18 12:38 | XMS_ITS | Encounter Summary ---
Author Organization [facility] Address [address] [place] [address] Care Team Providers Care Screening Technician Name Role Phone Rachel Nielsen NP Primary Care Provider Radha JuradoC Primary Care Provider [phone] Mohan Camacho MD Unavailable [phone] Lyla Heranndez MD Unavailable Encounter Details Date Type Department Care Team (Late st Contact Info) Description 07/05/2020 Prep for Procedure [facility] [place] [address] Rose Brizuela MD [facility] [address] Social History Tobacco Use Types [...] Sex Assigned at Male 06/08/2024 3:09 PM CONTACT CENTRE SUPERVISOR Legal Sex Male 4:42 PM CDT Gender Identity Not on file Sexual Orientation Not on file 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 No / Unsure 07/05/2020 2:39 PM CONTACT CENTRE SUPERVISOR documented as of this encounter Plan of Treatment Upcoming Encounters Date Type Department Care Team (Latest Contact Info) Description 07/06/2024 10:20 AM CDT Hospital Encounter [facility] Interventional Pain Management [place] [address] [id number] Taisha Meyer MD Three [facility] [address] [place] [place] [address] 07/06/2024 10:20 AM CDT - 07/06/2024 10:40 AM CDT Surgery [facility] Interventional Pain Management [place] [address] [id number] Taisha Meyer MD Three [facility] [address] [place] [place] [address] INJECTION EPIDURAL STEROID [id number] Scheduled Procedures Name Priority Associated Diagnoses Date/Ti me INJECTION EPIDURAL STEROID CERVICAL Cervical radiculopathy 07/06/2024 10:20 AM CDT documented as of this encounter Results * PRE-SURGICAL/PRE-PROCEDURE CORONAVIRUS (COVID 19) (07/08/2020 11:35 AM CDT) Pathologist [facility] CORONAVIRUS SARS COV 2 PCR (RESP) NOT DETECTED NOT DETECTED 07/09/2020 5:51 PM CDT [facility] Comment: A Not Detected (negative) test result [...] providers and patients using the following websites: https://www.[employer].com/home/Covid-19/HCP/[facility]/fact- sheet.html https://www.[employer]/home/Covid-19/Patients/ Quest[employer]/fact-sheet.html This test has been authorized by the FDA under an Emergency Use Authorization (EUA) for use by authorized laboratories. Due to the current public health emergency, [facility] is receiving a high volume of samples [...] about COVID-19 can be found at the [facility] website: www.[employer]/Covid19. Test performed at [facility] [address] [address] Director: ROBERT BELLA DO,MPH FIRST TEST YES 07/08/2020 12:39 PM CDT [facility] EMPLOYED IN HEALTHCARE NO 07/08/2020 12:39 PM CDT [facility] SYMPTOMATIC DEFINED BY CDC NO 07/08/2020 12:39 PM CDT [facility] DATE OF SYMPTOM ONSET NO 07/08/2020 12:50 PM CDT [facility] HOSPITALIZATION STATUS NO 07/08/2020 12:39 PM CDT [facility] PATIENT IN ICU NO 07/08/2020 12:39 PM CDT [facility] RESIDENT OF CONGREGATE CARE NO 07/08/2020 12:39 PM CDT [facility] NO 07/08/2020 12:50 PM CDT [facility] PATIENT'S RACE BLACK OR 07/08/2020 12:39 PM CDT [facility] ETHNICITY NONHISPANIC 07/08/2020 12:39 PM CDT [facility] SOURCE (QST) NASOPHARYNGEAL SWAB 07/08/2020 12:39 PM CDT [facility] NASOPHARYNGEAL SWAB / Unknown 07/08/2020 11:35 AM CDT us Rose Brizuela MD MICROBIOLOGY - GENERAL ORDERABLE S Final Result [facility] [address] [place] [address], [facility] [address] documented in this encounter Visit Diagnoses Diagnosis Diverticulitis- Primary Diverticulitis of colon (without mention of hemorrhage) Cervical radiculopathy Brachial neuritis or radiculitis nos documented in this encounter Additional Health Concerns Infection Onset Date Last Indicated Resolved Time COVID-19 Rule Out 07/08/2020 07/08/2020 07/09/2020 5:51 PM CDT documented as of this encounter Care Teams Screening Technician Relationship Specialty Start Date End Date Rachel Nielsen NP [address] [place] [address] PCP - General Nurse Practitioner Family 12/25/19 1 Radha Jurado PA-C [address] [place] [address] PCP - General PHYSICIAN LOCK CORNER MACHINE OPERATOR 01/09/21 Mohan Camacho MD [address] [place] [address] [place] [employer] Blocker CARDIOVASCULAR DISEASE 03/11/21 Lyla Hernandez MD [address] [address] Referring Physician NEPHROLOGY 03/11/21 documented as of this encounter
--- OUTSIDE RECORDS SUMMARY | 2024-06-18 12:38 | XMS_ITS | Encounter Summary ---
Author Organization [facility] Address [address] [place] [address] Care Team Providers Care Wire Hanger Name Role Phone Radha Jurado PA-C Primary Care Provider [phone] Mohan Camacho MD Unavailable [phone] Lyla Hernandez MD Unavailable [phone] Encounter Details Date Type Department Care Team (Late st Contact Info) Description 03/04/2023 Prep for Procedure [facility] Interventional Pain [place] [address] [id number] Laurie Ramirez APNP [address] [place] [phone] Social History Tobacco Use Types Packs/Day Years [...] How often do you attend chur or methodist services? More than 4 times per year 03/05/2023 Do you belong to any clubs o r organizations such as spiritism groups, unions, fraternal or athletic groups, or [...] Recorded Patient Health Questionnaire-2 Score 0 10/19/2022 [facility] - Occupational Stress [...] place to sleep or slept in a jail (including now)? 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 Answer Date of Assessment Author Status No 03/18/2021 9:00 PM SECURITY INSPECTOR Activ e * Do you have serious [...] Description 07/06/2024 10:20 AM CDT Hospital Encounter [facility] Interventional [place] [address] [id number] Taisha Meyer MD Three [address] [address] 07/06/2024 10:20 AM CDT - 07/06/2024 10:40 AM CDT Surgery [facility] [place] [address] [id number] Taisha Meyer MD Three [address] [place] [address] INJECTION EPIDURAL STEROID [id number] Scheduled Procedures Name Priority Associated Diagnoses Date/Ti me INJECTION EPIDURAL STEROID CERVICAL Cervical radiculopathy 07/06/2024 10:20 AM CDT documented as of this encounter Goals Goal Patient Goal Type Associated Problems Recent Progress Patient-Stated? Author Safety - demonstrates understanding of home safety measures General No Pooja Garrido RN documented as of this encounter Visit Diagnoses Not on filedocumented in this encounter Care Teams Wire Hanger Relationship Specialty Start Date End Date Radha Jurado PA-C [address] [place] [address] PCP - General PHYSICIAN DIECAST MACHINE OPERATOR 01/09/21 Mohan Camacho MD [address] [place] [address] [place] Wildlife Manager CARDIOVASCULAR DISEASE 03/11/21 Lyla Hernandez MD [address] [address] Referring Physician NEPHROLOGY 03/11/21 documented as of this encounter
--- OUTSIDE RECORDS SUMMARY | 2024-06-18 12:38 | XMS_ITS | Encounter Summary ---
Author Organization [facility] Address [address] [place] [address] Care Team Providers Care Bowling Alley Refinisher Name Role Phone Radha Jurado PA-C Primary Care Provider [phone] Mohan Camacho MD Unavailable [phone] Lyla Hernandez MD Unavailable [phone] Encounter Details Date Type Department Care Team (Late st Contact Info) Description 02/24/2023 Prep for Procedure [facility] Interventional Pain Management Center [address] [place], [place] [id number] Taisha Meyer MD Three [facility] [address] [place], [place] [id number] Social History Tobacco Use Types Packs/Day Years [...] Sex Assigned at Male 06/08/2024 3:09 PM CLOTH CUTTING INSPECTOR Legal Sex Male 4:42 PM CDT Gender Identity Not on file Sexual Orientation Not on file 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 Answer Date of Assessment Author Status No 03/18/2021 9:00 PM CLOTH CUTTING INSPECTOR Activ e * Do you have [...] Description 07/06/2024 10:20 AM CDT Hospital Encounter [facility] Interventional Pain [place] [address] [id number] Taisha Meyer MD Three [facility] [address] [facility] [place] [address] 07/06/2024 10:20 AM CDT - 07/06/2024 10:40 AM CDT Surgery [facility] Interventional Pain [place] [address] [id number] Taisha Meyer MD Three [facility] [address] [place] [address] INJECTION EPIDURAL STEROID [id number] Scheduled Procedures Name Priority Associated Diagnoses Date/Ti [...] nos documented in this encounter Care Teams Bowling Alley Refinisher Relationship Specialty Start Date End Date Radha Jurado PA-C [address] [place] [address] PCP - General PHYSICIAN GYPSUM ROOFER 01/09/21 Mohan Camacho MD [address] [place] [address] [place] Clinical Services Specialist CARDIOVASCULAR DISEASE 03/11/21 Lyla Hernandez MD [address] [facility] [address] [place] [address] Referring Physician NEPHROLOGY 03/11/21 documented as of this encounter
--- OUTSIDE RECORDS SUMMARY | 2024-06-18 12:38 | XMS_ITS | Clinical Summary ---
[facility] Address [address] [place] [address] Care Team Providers Care Painter Touch Up Name Role Phone Provider, Abstract Primary Care [...] Colorectal Cancer Screening 07/11/2030 Insurance Care Teams Painter Touch Up Relationship Specialty Start Date End Date Provider, Abstract NO ADDRESS ON FILE PCP - General 05/27/20
--- OUTSIDE RECORDS SUMMARY | 2024-06-18 12:38 | XMS_ITS ---
Author Organization [facility] [address] [facility] Address [address] [place] [address] Care Team Providers Care Foreign Service Officer Name Role Phone Mohan Camacho MD Unavailable [phone] Radha Jurado Primary Care Provider [phone] Sylvester Nicholas MD Unavailable + [phone] Js Martinez MD Unavailable [phone] Alexis Ngo MD Unavailable [phone] Ludmila Tesfaye RN Unavailable [phone] Sudheer Arnold MD Unavailable + Haja Pires OD Unavailable [phone] Transplant Episode Kidney Recipient [facility] ([place], [place]) - 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 Marked as Active Follow-up on 09/01/2022 Reason: Transplanted at [facility] Kidney CoordinatorLudmila Tesfaye RN Fax: N/A Email: N/A [place] Organ Diagnosis Organ Primary Contributory Kidney Diabetes [...] Fax Email Ludmila Tesfaye RN Kidney Coordinator [phone] N/A N/A Yanet Issa Primary Inspector Publications N/A N/A N/A Daysi Shanks Sed Special Education Teacher [phone] N/A N/A Js Martinez MD Referring Physician [phone] N/A Reyna Rodriguez Secondary Inspector Publications N/A N/A N/A Clare Castro RN Secondary Coordinator Secondary Post Kidney Coordinator [phone] N/A N/A Ludmila Tesfaye RN Contract Analyst [phone] N/A N/A Events Post-Transplant Pre-Transplant Admitted: 09/01/2022 [...] Comments Center 05/14/2021 09/01/2022 Hemo MWF PM [facility] Dialysis Center Information Center Phone Fax Address [facility] [phone] [facility] [address]
--- OUTSIDE RECORDS SUMMARY | 2024-06-18 12:39 | XMS_ITS | Referral Summary ---
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 [facility] Department [place] [address] * Cytomegalovirus (CMV) DNA PCR, quantitative Blood (04/28/2024 7:22 AM INTERNAL CONTROL CONSULTANT) CMV DNA Not Detected [facility] Comment: Interpretive Data: The quantifiable range of this assay is 34 IUnits/mL to 10,000,000 IUnits/mL (1.53 log IUnits/mL to 7.0 log IUnits/mL). Testing was performed by the TRAE 6800 CMV Test ([employer] Testing performed at [facility]. Current interpretive data was last revised on 2020. Blood 04/28/2024 7:22 AM INTERNAL CONTROL CONSULTANT 04/28/2024 7:47 AM INTERNAL CONTROL CONSULTANT Andrew Gamez MD LAB MICROBIOLOGY - GENERAL [facility] Final Result [facility] Department [place] [address] [facility] * T-SPOT.TB Blood (04/28/2024 7:22 AM INTERNAL CONTROL CONSULTANT) [facility] T-SPOT.TB Negative SeeBel Comment: Normal Value: [...] test. T-SPOT.TB Panel A Spot Count 0 [facility] T-SPOT.TB Panel B Spot Count 1 [facility] T-SPOT.TB Negative Control Passed [facility] T-SPOT.TB Positive Control Passed [facility] Comment: Test Performed at: [employer] [facility], [facility] [address] [place] [id number] TRIVIKRAM DASU,PHD Blood 04/28/2024 7:22 AM INTERNAL CONTROL CONSULTANT 04/28/2024 8:00 AM INTERNAL CONTROL CONSULTANT us Andrew Gamez MD LAB MICROBIOLOGY - GENERAL ORDE RABLES Final Result Performing Organization Address [facility]/ZIP Co de Phone Number [facility] Department [place] [address] * (ABNORMAL) eGFR (04/28/2024 7:22 AM INTERNAL CONTROL CONSULTANT) eGFR 52(L) >=60 mL/min/1. 73 m2 Comment: [...] last reviewed 2021. Blood 04/28/2024 7:22 AM INTERNAL CONTROL CONSULTANT 04/28/2024 7:50 AM INTERNAL CONTROL CONSULTANT us Andrew Gamez MD LAB BLOOD ORDERABLES Final Resu lt Performing Organization Address City/[facility]/ZIP Co de Phone Number [facility] Department [place] [address] * Differential, auto (04/28/2024 7:22 AM INTERNAL CONTROL CONSULTANT) Neutrophil abs 4.3 1.5 - 6.5 K/cumm Imm gran abs 0.0 0.0 - 0.1 K/cumm [facility] Lymphocyte abs 0.9 0.8 - 3.3 K/cumm [facility] Monocyte abs 0.7 0.2 - 0.8 K/cumm [facility] Eosinophil abs 0.1 0.0 - 0.5 K/cumm [facility] Basophil abs 0.0 0.0 - 0.1 K/cumm [facility] Neutrophil pct 70.5 % [facility] Comment: Interpretive Data Percent cell count reference ranges are not reported, since discordance with absolute values may lead to misinterpretation of CBC data. Current Interpretive Data was last revised on 2017. Imm gran pct 0.5 % [facility] Comment: Interpretive Data Percent cell count reference ranges are not reported, since discordance with absolute values may lead to misinterpretation of CBC data. Current Interpretive Data was last revised on 2017. Lymphocyte pct 15.4 % [facility] Comment: Interpretive Data Percent cell count reference ranges are not reported, since discordance with absolute values may lead to misinterpretation of CBC data. Current Interpretive Data was last revised on 2017. Monocyte pct 11.7 % [facility] Comment: Interpretive Data Percent cell count reference ranges are not reported, since discordance with absolute values may lead to misinterpretation of CBC data. Current Interpretive Data was last revised on 2017. Eosinophil pct 1.6 % [facility] Comment: Interpretive Data Percent cell count reference ranges are not reported, since discordance with absolute values may lead to misinterpretation of CBC data. Current Interpretive Data was last revised on 2017. Basophil pct 0.3 % [facility] Comment: Interpretive Data Percent cell count reference ranges are not reported, since discordance with absolute values may lead to misinterpretation of CBC data. Current Interpretive Data was last revised on 2017. Blood 04/28/2024 7:22 AM INTERNAL CONTROL CONSULTANT 04/28/2024 7:50 AM INTERNAL CONTROL CONSULTANT us Andrew Gamez MD LAB BLOOD ORDERABLES Final Resu lt Performing Organization Address [facility] de Phone Number [facility]MINE [facility] Eulalia [facility] [place] [address] * Christoph-Kent Virus (EBV) DNA Quantitative Blood (04/28/2024 7:22 AM INTERNAL CONTROL CONSULTANT) [facility] EBV DNA Result Not Detected [facility] Comment: Interpretive Data The quantifiable range of this assay is 35 IUnits/mL to 100,000,000 IUnits/mL (1.54 log IUnits/mL to 8.0 log IUnits/mL). Testing was performed by the TRAE 6800 EBV Test ([employer] Testing performed at [facility]. Current interpretive data was last revised on 2022. Blood 04/28/2024 7:22 AM INTERNAL CONTROL CONSULTANT 04/28/2024 7:47 AM INTERNAL CONTROL CONSULTANT Andrew Gamez MD LAB MICROBIOLOGY - GENERAL ORDE [facility] Final Result Performing Organization Address [facility] de Phone Number CARMINE [facility] Eulalia [facility] [place] [address] [facility] * Tacrolimus level trough (04/28/2024 7:22 AM INTERNAL CONTROL CONSULTANT) [facility] Tacrolimus trough 7.5 ng/mL Comment: Interpretive Data Testing performed by liquid chromatography-tandem mass spectrometry. Therapeutic concentrations vary depending on type of transplanted organ and time elapsed since transplant. Typical trough concentrations range from 5-15 ng/mL. This test was developed and its performance characteristics determined by the [facility] Laboratory consistent with CLIA requirements. This test has not been cleared or approved by the [place] Food and Drug administration. Current interpretive data last reviewed 2019. Blood 04/28/2024 7:22 AM INTERNAL CONTROL CONSULTANT 04/28/2024 7:50 AM INTERNAL CONTROL CONSULTANT Andrew Gamez MD LAB BLOOD ORDERABLES Final Resu lt Performing Organization Address [facility] Co de Phone Number [facility] Department [place] [address] * (ABNORMAL) CBC with auto differential (04/28/2024 7:22 AM INTERNAL CONTROL CONSULTANT) WBC 6.1 3.8 - 9.9 K/cumm Hgb 13.3 13.0 - 17.5 g/dL [facility] Hct 42.3 38.9 - 50.3 % [facility] Plt 286 150 - 400 K/cumm [facility] MPV 9.0(L) 9.1 - 12.3 fL [facility] RBC 4.77 4.30 - 5.80 M/cumm [facility] MCV 88.7 81.3 - 96.4 fL [facility] MCH 27.9 27.1 - 33.3 pg [facility] MCHC 31.4(L) 32.3 - 35.7 g/dL [facility] RDW CV 17.4(H) 11.1 - 14.9 % [facility] RDW SD 56.5(H) 35.7 - 48.1 fL [facility] NRBC abs 0.00 0.00 - 0.01 K/cumm [facility] Blood 04/28/2024 7:22 AM INTERNAL CONTROL CONSULTANT 04/28/2024 7:50 AM INTERNAL CONTROL CONSULTANT Andrew Gamez MD LAB BLOOD ORDERABLES Final Resu lt Performing Organization Address [facility] Co de Phone Number [facility] Department [place] [address] * Blood culture Blood Forearm, right (04/28/2024 7:22 AM INTERNAL CONTROL CONSULTANT) Pathologist [facility] [place] Report Final Report: No growth Blood (Forearm, right) 04/28/2024 7:22 AM INTERNAL CONTROL CONSULTANT 04/28/2024 7:56 AM INTERNAL CONTROL CONSULTANT Narrative [facility] - 05/02/2024 12:00 PM INTERNAL CONTROL CONSULTANT 1. Blood cultures are incubated for 4 [...] performance characteristics have been verified by the [facility] Microbiology Laboratory. For questions about this culture, contact the Microbiology Laboratory at [phone]. Interpretive data was last revised on 24. Andrew Gamez MD LAB MICROBIOLOGY - GENERAL ORDE [facility] Final Result Performing Organization Address City/[facility]/ZIP Co de Phone Number [facility] Department [place] [address] * Lactate dehydrogenase (LD) (04/28/2024 7:22 AM INTERNAL CONTROL CONSULTANT) Pathologist [facility] [place] Lactate dehydrogenase (LDH) 229 100 - 250 Units/L Blood 04/28/2024 7:22 AM INTERNAL CONTROL CONSULTANT 04/28/2024 7:50 AM INTERNAL CONTROL CONSULTANT Andrew Gamez MD LAB BLOOD ORDERABLES Final Resu lt Performing Organization Address City/[facility] Co de Phone Number [facility] Department [place] [address] * (ABNORMAL) Renal function panel (04/28/2024 7:22 AM INTERNAL CONTROL CONSULTANT) Pathologist [facility] [place] Sodium 142 135 - 145 mmol/L Potassium, pl 4.4 3.3 - 4.9 mmol/L [facility] Chloride 110 97 - 110 mmol/L [facility] CO2 21(L) 22 - 32 mmol/L [facility] Anion gap 11 2 - 15 mmol/L [facility] BUN 35(H) 6 - 25 mg/dL [facility] Creatinine 1.47(H) 0.80 - 1.30 mg/dL [facility] Glucose 104 70 - 199 mg/dL [facility] Comment: Interpretive Data Fasting glucose >/= [...] 2022. Calcium 9.1 8.5 - 10.3 mg/dL [facility] Phosphorus, pl 3.8 2.3 - 4.5 mg/dL [facility] Albumin 4.3 3.5 - 5.0 g/dL [facility] Blood 04/28/2024 7:22 AM INTERNAL CONTROL CONSULTANT 04/28/2024 7:50 AM INTERNAL CONTROL CONSULTANT Andrew Gamez MD LAB BLOOD ORDERABLES Final Resu lt [facility] Department [place] [address] * POCT glucose (04/03/2024 10:55 AM INTERNAL CONTROL CONSULTANT) Glucose Blood, POC 173 mg/dL Blood 04/03/2024 10:5 5 AM INTERNAL CONTROL CONSULTANT Chiara Perez NP POINT OF CARE TEST [...] TRACT: There is severe atrophy of the cantwell kidneys. No nephrolithiasis, or hydronephrosis of the cantwell kidneys. Multiple renal cysts are unchanged from [...] Aman Bradley M.D. MM: MM Report ID: [id number] Reading Location: [id number] Procedure Note Aman Bradley MD - 02/16/2024 [...] TRACT: There is severe atrophy of the cantwell kidneys. No nephrolithiasis, or hydronephrosis of the cantwell kidneys. Multiple renal cysts are unchangedfrom the [...] Aman Bradley M.D. MM: MM Report ID: [id number] Reading Location: [place] [address] PROCEDURES Final R [...] URINE ORDERABLES Cammy l Result [facility] [address] [facility] [place] [address] * (ABNORMAL) Hemoglobin A1c (02/10/2024 7:44 AM CDT) Hgb A1C 7.2(H) <5.7 % of total Hgb [facility] Comment: For someone without known diabetes, [...] 7:44 AM CDT 02/10/2024 7:[address] [facility] - 02/11/2024 4:06 PM CDT LB us Andrew Gamez MD LAB BLOOD ORDERABLES Final [facility]u lt [facility] [address] [place] [address] * Lipid panel (02/10/2024 7:44 AM CDT) Pathologist [facility] [place] Cholesterol 118 <200 mg/dL [facility] HDL 47 > OR = 40 mg/dL [facility] Triglycerides 62 <150 mg/dL [facility] [...] LDL-C. Cuco ALDRICH et al. ODETTE. 2013;310(19): 5114-9449 (http://education.TasteBook.PlayJam/faq/RHS179) Chol/HDL ratio 2.5 <5.0 (calc) [facility] Non-HDL, (LDL+VLDL) 71 <130 mg/dL (calc) [facility] Comment: For patients with diabetes plus 1 major ASCVD risk factor, treating to a non-HDL-C goal of <100 mg/dL (LDL-C of <70 mg/dL) is considered a therapeutic option. 02/10/2024 7:44 AM CDT 02/10/2024 7:44 AM CDT Narrative [facility] - 02/11/2024 4:06 PM CDT LB Result [facility] Andrew Gamez MD LAB BLOOD ORDERABLES Final Resu lt [facility] [address] [address] [facility] [place] [phone] * COLONOSCOPY (09/17/2023) Scribed Colonoscopy Normal Result [facility] Historical Provider HEALTH MAINTENANCE Final Result * (ABNORMAL) DIABETES EYE EXAM (11/27/2022) SCRIBED DIABETIC DILATED EYE EXAM Abnormal Result [facility] Historical Provider HEALTH [facility] Final Result * Hepatitis C (HCV) RNA PCR, quantitative (10/08/2022 12:10 PM CDT) Pathologist [facility] [place] HCV RNA result Not Detected [facility] Comment: The quantifiable range of this assay is 15 IU/mL to 100,000,000 IU/mL (1.18 log IU/mL to 8.00 log IU/mL). Testing was performed by the TRAE 6800 HCV Test ([employer] Testing performed at [facility] Current Interpretive Data was last revised on 2020 Blood 10/08/2022 12:1 0 PM CDT 10/08/2022 12:43 PM CDT Andrew Gamez MD LAB MICROBIOLOGY - GENERAL [facility] Final Result [facility] Department [place] [address] from Last 3 Months or Most Recently Relevant to Health Maintenance Insurance [place] [id number] [place] [id number] Advance Directives For more information, please contact: [phone] * Full Code (Latest Code Status on File) Date Activated Date Inactivated Comments 12/22/2022 12:39 AM 12/23/2022 5:34 PM * Full Code Date Activated Date Inactivated Comments 09/01/2022 8:52 PM 09/04/2022 5:19 PM Care Teams Rendering Equipment Tender Relationship Specialty Start Date End Date Radha Jurado PA [address] [place] [address] PCP - General Family Medicine 07/23/20 Mohan Camacho MD Fire Extinguisher Tester Cardiology 12/17/17 Sylvester Nicholas MD [address] [place] [address] Consulting Physician Family Medicine 07/23/20 Js Martinez MD [address] [place] [address] Referring Physician Nephrology 06/17/21 Alexis Ngo MD [address] [facility] [address] [place] [address] Surgeon Vascular Surgery 06/30/21 Ludmila Tesfaye, RN [address] [facility] [address] [place] [address] Elastic Attacher Chainstitch 09/01/22 Sudheer Arnold MD [address] [place] [address] Consulting Physician Nephrology 12/23/22 Haja Pires, OD [address] [facility] [address] [place] [address] Hand Weaver 12/23/22
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
--- OUTSIDE RECORDS SUMMARY | 2024-06-18 12:39 | XMS_ITS | Clinical Summary ---
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 Munira aFith NP LAB BLOOD ORDERABLES Cammy l Result Performing Organization Address [facility]/ZIP Co de Phone Number [facility] Department [place] [address] * Cytomegalovirus (CMV) DNA PCR, quantitative Blood (04/28/2024 7:22 AM PHONE TECHNICIAN) [facility] CMV DNA Not Detected [facility] Comment: Interpretive Data: The quantifiable range of this assay is 34 IUnits/mL to 10,000,000 IUnits/mL (1.53 log IUnits/mL to 7.0 log IUnits/mL). Testing was performed by the TRAE 6800 CMV Test ([employer] Testing performed at [facility]. Current interpretive data was last revised on 2020. Blood 04/28/2024 7:22 AM PHONE TECHNICIAN 04/28/2024 7:47 AM PHONE TECHNICIAN Andrew Gamez MD LAB MICROBIOLOGY - GENERAL SHAQUILLE MCKAY Final Result [facility] Department [place] [address] [facility] * T-SPOT.TB Blood (04/28/2024 7:22 AM PHONE TECHNICIAN) [facility] T-SPOT.TB Negative SeeBel Comment: Normal Value: Negative [...] test. T-SPOT.TB Panel A Spot Count 0 [facility] T-SPOT.TB Panel B Spot Count 1 [facility] T-SPOT.TB Negative Control Passed [facility] T-SPOT.TB Positive Control Passed [facility] Comment: Test Performed at: [facility], [employer] [address] [address] IVORY PACE,PHD Blood 04/28/2024 7:22 AM PHONE TECHNICIAN 04/28/2024 8:00 AM PHONE TECHNICIAN Andrew Gamez MD LAB MICROBIOLOGY - GENERAL ORDE RABLES Final Result Performing Organization Address City/[facility]/ZIP Co de Phone Number [facility] Department [place] [address] * (ABNORMAL) eGFR (04/28/2024 7:22 AM PHONE TECHNICIAN) eGFR 52(L) >=60 mL/min/1. 73 m2 [...] last reviewed 2021. Blood 04/28/2024 7:22 AM PHONE TECHNICIAN 04/28/2024 7:50 AM PHONE TECHNICIAN Andrew Gamez MD LAB BLOOD ORDERABLES Final Resu lt [facility] Department [place] [address] * Differential, auto (04/28/2024 7:22 AM PHONE TECHNICIAN) Neutrophil abs 4.3 1.5 - 6.5 K/cumm Imm gran abs 0.0 0.0 - 0.1 K/cumm [facility] Lymphocyte abs 0.9 0.8 - 3.3 K/cumm [facility] Monocyte abs 0.7 0.2 - 0.8 K/cumm [facility] Eosinophil abs 0.1 0.0 - 0.5 K/cumm [facility] Basophil abs 0.0 0.0 - 0.1 K/cumm [facility] Neutrophil pct 70.5 % [facility] Comment: Interpretive Data Percent cell count reference ranges are not reported, since discordance with absolute values may lead to misinterpretation of CBC data. Current Interpretive Data was last revised on 2017. Imm gran pct 0.5 % [facility] Comment: Interpretive Data Percent cell count reference ranges are not reported, since discordance with absolute values may lead to misinterpretation of CBC data. Current Interpretive Data was last revised on 2017. Lymphocyte pct 15.4 % [facility] Comment: Interpretive Data Percent cell count reference ranges are not reported, since discordance with absolute values may lead to misinterpretation of CBC data. Current Interpretive Data was last revised on 2017. Monocyte pct 11.7 % [facility] Comment: Interpretive Data Percent cell count reference ranges are not reported, since discordance with absolute values may lead to misinterpretation of CBC data. Current Interpretive Data was last revised on 2017. Eosinophil pct 1.6 % [facility] Comment: Interpretive Data Percent cell count reference ranges are not reported, since discordance with absolute values may lead to misinterpretation of CBC data. Current Interpretive Data was last revised on 2017. Basophil pct 0.3 % [facility] Comment: Interpretive Data Percent cell count reference ranges are not reported, since discordance with absolute values may lead to misinterpretation of CBC data. Current Interpretive Data was last revised on 2017. Blood 04/28/2024 7:22 AM PHONE TECHNICIAN 04/28/2024 7:50 AM PHONE TECHNICIAN Andrew Gamez MD LAB BLOOD ORDERABLES Final Resu lt Performing Organization Address [facility] Co de Phone Number CARMINE SILVA [facility] [place] [address] * Christoph-Kent Virus (EBV) DNA Quantitative Blood (04/28/2024 7:22 AM PHONE TECHNICIAN) [facility] EBV DNA Result Not Detected [facility] Comment: Interpretive Data The quantifiable range of this assay is 35 IUnits/mL to 100,000,000 IUnits/mL (1.54 log IUnits/mL to 8.0 log IUnits/mL). Testing was performed by the TRAE 6800 EBV Test ([employer] Testing performed at [facility]. Current interpretive data was last revised on 2022. Blood 04/28/2024 7:22 AM PHONE TECHNICIAN 04/28/2024 7:47 AM PHONE TECHNICIAN Andrew Gamez MD LAB MICROBIOLOGY - GENERAL ORDE RABLES Final Result Performing Organization Address [facility] de Phone Number CARMINE [facility] [place] [address] [facility] * Tacrolimus level trough (04/28/2024 7:22 AM PHONE TECHNICIAN) [facility] Tacrolimus trough 7.5 ng/mL Comment: Interpretive Data Testing performed by liquid chromatography-tandem mass spectrometry. Therapeutic concentrations vary depending on type of transplanted organ and time elapsed since transplant. Typical trough concentrations range from 5-15 ng/mL. This test was developed and its performance characteristics determined by the [facility] consistent with CLIA requirements. This test has not been cleared or approved by the [place] Food and Drug administration. Current interpretive data last reviewed 2019. Blood 04/28/2024 7:22 AM PHONE TECHNICIAN 04/28/2024 7:50 AM PHONE TECHNICIAN Andrew Gamez MD LAB BLOOD ORDERABLES Final Resu lt [facility] [place] [address] * (ABNORMAL) CBC with auto differential (04/28/2024 7:22 AM PHONE TECHNICIAN) WBC 6.1 3.8 - 9.9 K/cumm Hgb 13.3 13.0 - 17.5 g/dL [facility] Hct 42.3 38.9 - 50.3 % [facility] Plt 286 150 - 400 K/cumm [facility] MPV 9.0(L) 9.1 - 12.3 fL [facility] RBC 4.77 4.30 - 5.80 M/cumm [facility] MCV 88.7 81.3 - 96.4 fL [facility] MCH 27.9 27.1 - 33.3 pg [facility] MCHC 31.4(L) 32.3 - 35.7 g/dL [facility] RDW CV 17.4(H) 11.1 - 14.9 % [facility] RDW SD 56.5(H) 35.7 - 48.1 fL [facility] NRBC abs 0.00 0.00 - 0.01 K/cumm [facility] Blood 04/28/2024 7:22 AM PHONE TECHNICIAN 04/28/2024 7:50 AM PHONE TECHNICIAN us Andrew Gamez MD LAB BLOOD ORDERABLES Final Resu lt [facility] [place] [address] * Blood culture Blood Forearm, right (04/28/2024 7:22 AM PHONE TECHNICIAN) Report Final Report: No growth Blood (Forearm, right) 04/28/2024 7:22 AM PHONE TECHNICIAN 04/28/2024 7:56 AM PHONE TECHNICIAN Narrative CARMINE SILVA - 05/02/2024 12:00 PM PHONE TECHNICIAN 1. Blood cultures are incubated for [...] performance characteristics have been verified by the [facility]biology Laboratory. For questions about this culture, contact the Microbiology Laboratory at [phone]. Interpretive data was last revised on 24. Andrew Gamez MD LAB [facility] Final Result Performing Organization Address City/[facility]/ZIP Co de Phone Number [facility] Department [place] [address] * Lactate dehydrogenase (LD) (04/28/2024 7:22 AM PHONE TECHNICIAN) Lactate dehydrogenase (LDH) 229 100 - 250 Units/L Blood 04/28/2024 7:22 AM PHONE TECHNICIAN 04/28/2024 7:50 AM PHONE TECHNICIAN Andrew Gamez MD LAB BLOOD ORDERABLES Final Resu lt Performing Organization Address City/[facility] Co de Phone Number [facility] Department [place] [address] * (ABNORMAL) Renal function panel (04/28/2024 7:22 AM PHONE TECHNICIAN) Pathologist [facility] Sodium 142 135 - 145 mmol/L Potassium, pl 4.4 3.3 - 4.9 mmol/L [facility] Chloride 110 97 - 110 mmol/L [facility] CO2 21(L) 22 - 32 mmol/L [facility] Anion gap 11 2 - 15 mmol/L [facility] BUN 35(H) 6 - 25 mg/dL [facility] Creatinine 1.47(H) 0.80 - 1.30 mg/dL [facility] Glucose 104 70 - 199 mg/dL [facility] Comment: Interpretive Data Fasting glucose >/= [...] 2022. Calcium 9.1 8.5 - 10.3 mg/dL [facility] Phosphorus, pl 3.8 2.3 - 4.5 mg/dL [facility] Albumin 4.3 3.5 - 5.0 g/dL [facility] Blood 04/28/2024 7:22 AM PHONE TECHNICIAN 04/28/2024 7:50 AM PHONE TECHNICIAN us Andrew Gamez MD LAB BLOOD ORDERABLES Final Resu lt [facility] Department [place] [address] * POCT glucose (04/03/2024 10:55 AM PHONE TECHNICIAN) Glucose Blood, POC 173 mg/dL Blood 04/03/2024 10:5 5 AM PHONE TECHNICIAN Chiara Perez DRILLING ENGINEERING MANAGER POINT OF CARE TEST ORDERA BLES Final [...] TRACT: 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 No nephrolithiasis, or hydronephrosis of the mary's igloo kidneys. Multiple renal cysts are unchanged from [...] Aman Bradley M.D. 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 No nephrolithiasis, or hydronephrosis of the mary's igloo kidneys. Multiple renal cysts are unchangedfrom the [...] Aman Bradley M.D. MM: MM Report ID: [id number] Reading Location: [id number] Radha CELESTIN IMG CT PROCEDURES Final R [...] ORDERABLES Cammy l Result [facility] [address] [place] [address] * (ABNORMAL) Hemoglobin A1c (02/10/2024 7:44 AM CDT) Hgb A1C 7.2(H) <5.7 % of total Hgb [email or web address] juliette Alexander Comment: For someone without [...] ORDERABLES Final Resu lt Performing Organization Address City/[facility]/ZIP Co de Phone Number [facility] [address] [place] [address] * Lipid panel (02/10/2024 7:44 AM CDT) [...] of LDL-C. Cuco SS et al. ODETTE. 2013;310(12): 0065-7647 (http://education.[employer]/faq/WZD057) Chol/HDL ratio 2.5 <5.0 (calc) [facility] [...] LAB BLOOD ORDERABLES Final Resu lt [email or web address] [address] [place] [address] * COLONOSCOPY (09/17/2023) Scribed Colonoscopy Normal Historical Provider [facility] Final Result * (ABNORMAL) DIABETES EYE EXAM (11/27/2022) [facility] SCRIBED DIABETIC DILATED EYE EXAM Abnormal [facility] Provider [facility] Final Result * Hepatitis C (HCV) RNA PCR, quantitative (10/08/2022 12:10 PM CDT) [facility] HCV RNA result Not Detected [facility] Comment: The quantifiable range of this assay is 15 IU/mL to 100,000,000 IU/mL (1.18 log IU/mL to 8.00 log IU/mL). Testing was performed by the TRAE 6800 HCV Test ([employer] Testing performed at [facility] Current Interpretive Data was last revised on 2020 Blood 10/08/2022 12:1 0 PM CDT 10/08/2022 12:43 PM CDT Andrew Gamez MD LAB MICROBIOLOGY - GENERAL SHAQUILLE MCKAY Final Result [facility] [place] [address] from Last 3 Months or Most Recently Relevant to Health Maintenance Insurance [employer] [facility] MED[facility] Address: [address] [address] [place] [address] [facility] Address: [address] [address] [place] [address] [facility] HMO/PPO Address: [place] [address] Advance Directives For more information, please contact: [phone] * Full Code (Latest Code Status on File) Date Activated Date Inactivated Comments 12/22/2022 12:39 AM 12/23/2022 5:34 PM * Full Code Date Activated Date Inactivated Comments 09/01/2022 8:52 PM 09/04/2022 5:19 PM Care Teams Salvage Supervisor Relationship Specialty Start Date End Date Radha Jurado PA [address] [place] [address] PCP - General Family Medicine 07/23/20 Mohan Camacho MD Prepper Cardiology 12/17/17 Sylvester Nicholas MD [address] [place] [address] Consulting Physician Family Medicine 07/23/20 Js Martinez MD [address] [place] [address] Referring Physician Nephrology 06/17/21 Alexis Ngo MD [address] [facility] [address] [place] [address] Surgeon Vascular Surgery 06/30/21 Ludmila Tesfaye, RN [address] [facility] [address] [place] [address] Cab Worker 09/01/22 Sudheer Arnold MD [address] [place] [address] Consulting Physician Nephrology 12/23/22 Haja Pires, OD [address] [facility] [address] [place] [address] Professor Of Languages 12/23/22
--- OUTSIDE RECORDS SUMMARY | 2024-06-18 12:39 | XMS_ITS | Encounter Summary ---
Author Organization [facility] Healthcare Address [address] [place] [address] Care Team Providers Care Senior Writer Name Role Phone Mohan Camacho MD Unavailable [phone] Radha Jurado Primary Care Provider + [phone] Sylvester Nicholas MD Unavailable + [phone] Js Martinez MD Unavailable [phone] Alexis Ngo MD Unavailable [phone] Ludmila Tesfaye RN Unavailable [phone] Sudheer Arnold MD Unavailable + Haja Pires OD Unavailable [phone] Encounter Details Date Type Department Care Team (Late st Contact Info) Description 04/17/2024 Telephone [facility] Family Medicine [address] [address] Radha Jurado PA [address] [place] [address] Social History Tobacco Use Types Packs/Day [...] often do you attend chur ch or restoration services? More than 4 times per year 12/22/2022 Do you belong to any clubs o r organizations such as pentecostal groups, unions, fraternal or athletic groups, or [...] on file Legal Sex Male 3:15 PM RECENTERER Gender Identity Not on file Sexual Orientation Not on file documented as of this encounter Plan of Treatment Scheduled Procedures Name Priority Associated Diagnoses Date/Ti me TRANSPLANT KIDNEY ESRD (end stage renal disease) (CMS/HCC) ([facility]) documented as of this encounter Visit Diagnoses Not on filedocumented in this encounter Care Teams Senior Writer Relationship Specialty Start Date End Date Radha Jurado PA [address] [place] [address] PCP - General Family Medicine 07/23/20 Mohan Camacho MD Cripple Worker Cardiology 12/17/17 Sylvester Nicholas MD [address] [place], [place] [address] Consulting Physician Family Medicine 07/23/20 Js Martinez MD [address] [place] [address] Referring Physician Nephrology 06/17/21 Aelxis Ngo MD [address] [facility] [address] [place] [address] Surgeon Vascular Surgery 06/30/21 Ludmila Tesfaye, RN [address] [facility] [address] [place], [place] [id number] Aircraft Detail Draftsperson 09/01/22 Sudheer Arnold MD [address] [place] [address] Consulting Physician Nephrology 12/23/22 Haja Pires, OD [address] [facility] [address] [place] [address] Export Freight Clerk 12/23/22 documented as of this encounter
[2024-06-18 13:03] LABS: Basophils Percent Auto 0.2 % (0.2-1.2); Eosinophils Percent Auto 0.1 % (0-4.4); Hematocrit 40.6 % (42.0-52.0); Hemoglobin 12.9 g/dL (14.0-18.0); Immature Granulocyte Absolute 0.09 K/mm3 (0.00-0.031); Immature Granulocyte Percent A 0.8 % (0-0.5); Lymphocytes Absolute Auto 0.56 K/mm3 (0.9-3.2); Lymphocytes Percent Auto 4.9 % (18.3-44.2); Mean Corpuscular HGB Conc 31.8 g/dl (32-36); Mean Corpuscular Hemoglobin 27.6 pg (26-34); Mean Corpuscular Volume 86.8 fl (80-100); Mean Platelet Volume 9.5 fl (7.4-10.4); Monocytes Percent Auto 9.1 % (2.6-8.5); Neutrophils Absolute Auto 9.7 K/mm3 (1.3-6.7); Neutrophils Percent Auto 84.9 % (45.5-73.1); Platelet Count Result 292 k/mm3 (150-375); Red Blood Count 4.68 M/mm3 (4.6-6.20); Red Cell Distribution Width 17.2 % (11.5-14.5); White Blood Count 11.4 K/mm3 (4.5-10.0)
[2024-06-18 13:09] LABS: Lactic Acid Reflex 1.2 mmol/L (0.7-2.0)
[2024-06-18 13:12] LABS: Alanine Aminotransferase 19 U/L (6-50); Albumin Level 3.9 g/dL (3.5-5.1); Alkaline Phosphatase 57 U/L (38-126); Anion Gap 10 mmol/L (4-12); Aspartate Amino Transferase 17 U/L (17-59); Bilirubin,Total 1.1 mg/dL (0.2-1.3); Blood Urea Nitrogen 24 mg/dL (9-20); Calcium 9.2 mg/dL (8.4-10.2); Carbon Dioxide 22 mmol/L (22-30); Chloride 106 mmol/L (98-107); Estimated CRCL calculation 46 ml/min; Estimated Glomerular Filt Rate 52; Glucose 127 mg/dL (65-110); Potassium 4.6 mmol/L (3.4-5.0); Sodium 138 mmol/L (137-145)
--- NOTE | 2024-06-18 13:17 | ED.GENADULT ---
HPI - General Adult General Chief complaint: Upper Respiratory Infection Stated complaint: URI sx Time Seen by Provider: 06/18/24 12:24 History of Present Illness HPI narrative: 68-year-old male history of kidney transplant approximately 3 years ago present to the emergency department for evaluation for cough congestion nausea vomiting diarrhea it has been ongoing for the last 2 weeks. Patient reports he has had approximately 10 lb of weight loss. Patient has been taking his tacrolimus. Patient has history of hypertension, high cholesterol and diabetes. Related Data Home Medications ?Medication ?Instructions ?Recorded ?Confirmed ?Last Taken ?Type amlodipine 10 mg tablet 10 mg PO HS 06/18/20 06/18/24 06/18/24 History aspirin 81 mg tablet 81 mg PO DAILY 06/18/20 06/18/24 06/18/24 History atorvastatin 40 mg tablet 40 mg PO HS 06/18/20 06/18/24 06/17/24 History cholecalciferol (vitamin D3) 50 50 mcg PO DAILY 06/18/20 06/18/24 06/18/24 History mcg (2,000 unit) capsule ferrous sulfate 325 mg (65 mg 325 mg PO DAILY 06/18/20 06/18/24 06/18/24 History iron) tablet (iron) pantoprazole 40 mg tablet,delayed 40 mg PO HS 06/18/20 06/18/24 06/18/24 History release trazodone 50 mg tablet 50 mg PO HS 08/13/20 06/18/24 Unknown History empagliflozin 10 mg tablet 10 mg PO DAILY 06/18/24 06/18/24 06/18/24 History (Jardiance) tacrolimus 1 mg tablet,extended 3 mg PO DAILY 06/18/24 06/18/24 06/18/24 History release 24 hr (Envarsus XR) Allergies Allergy/AdvReac Type Severity Reaction Status Date / Time No Known Allergies Allergy Verified 06/18/24 14:00 Review of Systems Review of Systems: All systems reviewed & are unremarkable except as noted in HPI and below PMFSH Past Medical History Medical History (Updated 06/18/24 @ 14:52 by Manuel Erickson MD) CHF (congestive heart failure) Chronic kidney disease, stage 5 Chronic neck pain Anemia of chronic disease DM2 (diabetes mellitus, type 2) Hyperlipidemia associated with type 2 diabetes mellitus HTN (hypertension), malignant Surgical History Surgical History (Updated 06/18/24 @ 14:52 by Manuel Erickson MD) Hx of meniscectomy of right knee History of carpal tunnel release elisa Hx of cervical spine surgery 6-7 weeks ago at [facility] Family History Family History Mother Diabetes mellitus Father Heart disease Social History Social History Social History: The patient has had 6 children, but he lost 2. He lives with his , who is the durable power immigration attorney for healthcare. 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 the patient stated that he used to smoke but has quit. He said he used to drink and smoke marijuana when he was younger but no longer does that either. Code status full code Smoking status: Never smoker Alcohol intake: never Substance use: never Substance use type: does not use Do You Feel Safe in your Home?: Yes Lack of Transportation: No Lack of Food: Never True Current Housing: I Have Housing Concerned About Future Housing: No Difficulty Paying Gas/Electric Bills: No Difficulty Paying for Meds: YES Currently Unemployed: No Education: High School Diploma/GED Difficulty w/ Childcare or Family Care: No Gender identity (if verbalized by the patient): Male Spiritual care concerns: No Exam Narrative: APPEARANCE: Ill-appearing HEAD: normocephalic, atraumatic. EYES: PERRLA/EOMI, conjunctivae clear. NOSE: Normal no drainage EARS:TMS clear with good light reflex. THROAT: Pharynx clear, no exudate. NECK: Supple. No adenopathy, no masses. RESPIRATORY: Airway patent, respirations nonlabored. Clear to auscultation bilaterally, no rales, rhonchi, wheezing. CARDIOVASCULAR: Regular rate and rhythm without murmurs rubs or gallops. ABDOMINAL: Soft, nontender, nondistended, normal bowel sounds MUSCULOSKELETAL: Moves all extremities. Strength/ROM intact, No edema, No calf tenderness. NEURO: Alert. Cranial nerves II through XII intact. Good gait. Good coordination SKIN: Warm, dry. Normal Color Course Vital Signs Vital signs: Vital Signs Pulse Rate 124 H 06/18/24 11:47 Respiratory Rate 21 H 06/18/24 11:47 Blood Pressure 142/84 H 06/18/24 11:47 Pulse Oximetry 98 06/18/24 11:47 Temperature 99.7 F H 06/18/24 17:17 Pulse Rate 109 H 06/18/24 17:17 Respiratory Rate 18 06/18/24 17:17 Blood Pressure 144/59 H 06/18/24 17:17 Pulse Oximetry 99 06/18/24 17:17 Oxygen Delivery Room Air 06/18/24 17:48 Medical Decision Making MDM Narrative Medical decision making narrative: 68-year-old male with history of high cholesterol, diabetes and kidney transplant. Patient is currently afebrile but does have a leukocytosis 11.4 and hemoglobin of 12.9. Patient does have a creatinine of 1.38. Patient's new baseline creatinine at post transplant is unknown. UA was negative for infection, patient was negative for influenza RSV and for COVID, CT chest abdomen pelvis was ordered without contrast and did confirm mild pneumonia in all lobes. Blood cultures were ordered and patient was started on Rocephin and azithromycin. Case was discussed with the transplant team at [facility] and Dr. Sultana was comfortable with us keeping the patient here. Patient has a tacrolimus order for the morning and that should be in the 4-6 range. Differential Diagnosis Differential Diagnosis: Pneumonia, COVID, RSV, influenza Vital Signs Vital Signs: Vital Signs Pulse Rate 124 H 06/18/24 11:47 Respiratory Rate 21 H 06/18/24 11:47 Blood Pressure 142/84 H 06/18/24 11:47 Pulse Oximetry 98 06/18/24 11:47 Temperature 99.7 F H 06/18/24 17:17 Pulse Rate 109 H 06/18/24 17:17 Respiratory Rate 18 06/18/24 17:17 Blood Pressure 144/59 H 06/18/24 17:17 Pulse Oximetry 99 06/18/24 17:17 Oxygen Delivery Room Air 06/18/24 17:48 Lab Data Lab results reviewed: Yes I reviewed the patient's lab results. 06/18/24 12:40 06/18/24 12:40 Labs: Lab Results 06/18/24 06/18/24 Range/Units 12:40 14:20 WBC 11.4 H (4.5-10.0) K/mm3 RBC 4.68 (4.6-6.20) M/mm3 Hgb 12.9 L D (14.0-18.0) g/dL Hct 40.6 L (42.0-52.0) % MCV 86.8 (80-100) fl MCH 27.6 (26-34) pg MCHC 31.8 L (32-36) g/dl RDW 17.2 H (11.5-14.5) % Plt Count 292 (150-375) k/mm3 MPV 9.5 (7.4-10.4) fl Immature Gran % (Auto) 0.8 H (0-0.5) % Neut % (Auto) 84.9 H (45.5-73.1) % Lymph % (Auto) 4.9 L (18.3-44.2) % [place] % (Auto) 9.1 H (2.6-8.5) % Eos % (Auto) 0.1 (0-4.4) % Baso % (Auto) 0.2 (0.2-1.2) % Lymph # (Auto) 0.56 L (0.9-3.2) K/mm3 [place] # (Auto) 1.0 H (0.1-0.6) K/mm3 Eos # (Auto) 0.0 (0-0.3) K/mm3 Baso # (Auto) 0.0 (0.0-0.1) K/mm3 Abs Immat Gran (auto) 0.09 H (0.00-0.031) K/mm3 Absolute Neuts (auto) 9.7 H (1.3-6.7) K/mm3 Absolute Nucleated RBC 0.000 (0.0-0.012) K/mm3 Band Neutrophils % Not Reportable Nucleated RBC % 0.0 (0.0-0.2) % Platelet Estimate Adequate (Adequate) Poikilocytosis 1+ Anisocytosis 1+ Ezequiel Cells 1+ Schistocytes None seen Sodium 138 (137-145) mmol/L Potassium 4.6 (3.4-5.0) mmol/L Chloride 106 (98-107) mmol/L Carbon Dioxide 22 (22-30) mmol/L Anion Gap 10 (4-12) mmol/L BUN 24 H D (9-20) mg/dL Creatinine 1.38 H (0.7-1.3) mg/dL Estim Creat Clear Calc 46 ml/min Estimated GFR 52 L (59 - ) Glucose 127 H (65-110) mg/dL Lactic Acid 1.2 (0.7-2.0) mmol/L Calcium 9.2 (8.4-10.2) mg/dL Total Bilirubin 1.1 (0.2-1.3) mg/dL AST 17 (17-59) U/L ALT 19 (6-50) U/L Alkaline Phosphatase 57 (38-126) U/L Total Protein 7.0 (6.3-8.2) g/dL Albumin 3.9 (3.5-5.1) g/dL Urine Color Yellow (Yellow) Urine Appearance Cloudy H (Clear) Urine pH 5.0 (5.0-9.0) Ur Specific [place] 1.031 (1.001-1.035) Urine Protein 2+ H (Negative) mg/dL Urine Glucose (UA) 3+ H (Negative) mg/dL Urine Ketones Trace H (Negative) mg/dL Ur Blood (Man) Negative (Negative) Urine Nitrate Negative (Negative) Urine Bilirubin Negative (Negative) Urine Urobilinogen 0.2 (<2.0) mg/dL Add Ur Microanalysis Reviewed Leukocyte Esterase Rfl Negative (Negative) JACOB/UL Urine RBC 0-2 (0-2) /hpf Urine WBC 0-5 (0-3) /hpf Ur Squamous Epith Cells Few (Few) /hpf Urine Bacteria None seen /hpf Urine Casts >20 Influenza A (RT-PCR) Negative (Negative) Influenza B (RT-PCR) Negative (Negative) RSV (RT-PCR) Negative (Negative) SARS-CoV-2 RNA (RT-PCR) Negative (Negative) Imaging Data Radiologist's impression: Impressions Chest X-Ray 06/18/24 12:43 IMPRESSION: 1. No acute cardiopulmonary disease. Chest/Abdomen/Pelvis CT 06/18/24 13:55 IMPRESSION: 1. Mild pneumonia involving all lobes. 2. Mild emphysema. 3. Small sliding hiatal hernia. Discharge Plan Discharge Clinical Impression: Pneumonia, Kidney transplant recipient Patient Disposition: Still a Patient Condition: Serious
[2024-06-18] MEDS: SODIUM CHLORIDE 0.9% IV 1,000 ML 999 ML IV CONT ×2 (13:56→15:57)
--- NOTE | 2024-06-18 14:08 | PC.NURSE ---
Pt unable to give urine sample at this time. Fluids started
[2024-06-18 14:16] LABS: Platelet Estimate Adequate (Adequate); Schistocytes None Seen
[2024-06-18 14:17] LABS: Anisocytosis 1+; Poikilocytosis 1+
[2024-06-18 14:18] LABS: Burr Cells 1+
[2024-06-18 14:30] LABS: Influenza A QL RT-PCR Negative (Negative); Influenza B QL RT-PCR Negative (Negative); RSV RNA, RT-PCR Negative (Negative); SARS-CoV-2 RNA PCR Negative (Negative)
[2024-06-18 14:44] LABS: Add Urine Microscopic? YES; Appearance Urine Cloudy (Clear); Bacteria Urine None Seen /hpf; Bilirubin Urine Negative (Negative); Blood Urine Negative (Negative); Color Urine Yellow (Yellow); Glucose Urine UA 3+ mg/dL (Negative); Ketones Urine Trace mg/dL (Negative); Leukocyte Esterase Ur Negative LEU/UL (Negative); Need Manual Microscopic Reviewed; Nitrate Urine Negative (Negative); Non Pathogenic Casts >20; Protein Urine 2+ mg/dL (Negative); RBC Urine 0-2 /hpf (0-2); Specific Grav Ur 1.031 (1.001-1.035); Squamous Epithelial Cell Urine Few /hpf (Few); Urobilinogen Urine 0.2 mg/dL (<2.0); WBC Urine 0-5 /hpf (0-3)
[2024-06-18] MEDS: AZITHROMYCIN 500 MG/NS 250 ML 500 MG/250 ML BAG 250 MG IVPB (14:54)
--- NOTE | 2024-06-18 17:00 | PM.IMHP ---
H&P: HPI History of Present Illness Date/Time: 06/18/24 17:00 Chief Complaint: Sick for 2 weeks. Narrative: This is a 68-year-old male with history of kidney transplant in August 2022, hypertension, hyperlipidemia, type 2 diabetes mellitus, and gastroesophageal reflux disease reflux disease who presented to the emergency department via private vehicle with reports that he has been sick for 2 weeks. The patient provides the following history. He has felt poorly for almost 2 weeks with symptoms to include nausea, occasional nonbilious and nonbloody emesis, loose stools at least a couple of times a day, sinus congestion, cough occasionally productive of white phlegm, chills, and sweats. He has lost 10 lb in the same time frame. He has been taking Tylenol and cold and flu medication without much benefit. He denies headache, sore throat, chest and pleuritic pain, shortness of breath, abdominal pain, dysuria, syncope, and near syncope. He has been able to keep down his medications with the exception of two times when he vomited shortly after they were ingested. In the ED: He was afebrile on arrival with stable blood pressures. Labs are significant for WBC count of 11.4, hemoglobin 12.9, BUN 24, creatinine 1.38. Urinalysis was positive for 2+ protein, 3+ glucose, and trace ketones. Respiratory panel was negative. CT of the chest, abdomen, and pelvis showed mild pneumonia involving all lobes, mild emphysema, and small sliding hiatal hernia. ED physician spoke with the transplant team at [place] who recommends that the patient be admitted to the hospital for IV antibiotics; no need for transfer. He was started on azithromycin and ceftriaxone he is being admitted in this setting for further treatment. Review of Systems Review of Systems: 12 systems were reviewed and are negative except for as per HPI. [facility] Past Medical History Medical History (Updated 06/19/24 @ 14:33 by Juani Rodriguez PA-C) Type 2 diabetes mellitus Hypertension Immunocompromised patient Chronic kidney disease, stage 5 status post renal transplant Chronic neck pain Anemia of chronic disease Hyperlipidemia associated with type 2 diabetes mellitus Surgical History Surgical History (Updated 06/19/24 @ 14:33 by Juani Rodriguez PA-C) History of renal transplant (08/2022) History of bilateral carpal tunnel release History of cervical spinal surgery History of meniscectomy of right knee Family History Family History Mother Diabetes mellitus Father Heart disease Social History Social History (Updated 06/19/24 @ 14:34 by Juani Rodirguez PA-C) Social History: Surrogate medical decision maker: Chhaya Hernandez, spouse. Code status: Full code. Smoking status: Never smoker Alcohol intake: never Substance use: never Substance use type: does not use Do You Feel Safe in your Home?: Yes Lack of Transportation: No Lack of Food: Never True Current Housing: I Have Housing Concerned About Future Housing: No Difficulty Paying Gas/Electric Bills: No Difficulty Paying for Meds: YES Currently Unemployed: No Education: High School Diploma/GED Difficulty w/ Childcare or Family Care: No Spiritual care concerns: No Meds Home Medications and Allergies Home Medications ?Medication ?Instructions ?Recorded ?Confirmed ?Type amlodipine 10 mg tablet 10 mg PO HS 06/18/20 06/18/24 History aspirin 81 mg tablet 81 mg PO DAILY 06/18/20 06/18/24 History atorvastatin 40 mg tablet 40 mg PO HS 06/18/20 06/18/24 History cholecalciferol (vitamin D3) 50 50 mcg PO DAILY 06/18/20 06/18/24 History mcg (2,000 unit) capsule ferrous sulfate 325 mg (65 mg 325 mg PO DAILY 06/18/20 06/18/24 History iron) tablet (iron) pantoprazole 40 mg tablet,delayed 40 mg PO HS 06/18/20 06/18/24 History release trazodone 50 mg tablet 50 mg PO HS 08/13/20 06/18/24 History albuterol sulfate 90 mcg/actuation 2 puff inhalation Q6HRT PRN 05/16/21 06/18/24 Rx aerosol inhaler (Proventil HFA) Shortness Of Breath #1 inh calcium carbonate 200 mg (0.4 x 500 mg calcium 05/16/21 06/18/24 Rx (1,250 mg)) PO Q6H PRN Indigestion #120 tabs empagliflozin 10 mg tablet 10 mg PO DAILY 06/18/24 06/18/24 History (Jardiance) mycophenolate sodium 360 mg 360 mg PO BID anti rejection 06/18/24 06/18/24 History tablet,delayed release (Myfortic) tacrolimus 1 mg tablet,extended 3 mg PO DAILY 06/18/24 06/18/24 History release 24 hr (Envarsus XR) carvedilol 25 mg tablet 25 mg PO BID blood pressure 06/19/24 06/19/24 History insulin glargine 100 unit/mL (3 10 unit subcut QAM 06/19/24 06/19/24 History mL) subcutaneous pen (Basaglar KwikPen U-100 Insulin) losartan 25 mg tablet 25 mg PO DAILY 06/19/24 06/19/24 History prednisone 5 mg tablet 5 mg PO DAILY 06/19/24 06/19/24 History Allergies Allergy/AdvReac Type Severity Reaction Status Date / Time No Known Allergies Allergy Verified 06/18/24 14:00 Vital Signs Vital Signs - 24 hr 06/18/24 11:47 06/18/24 11:58 06/18/24 12:01 Pulse Rate 124 H 122 H 122 H Respiratory Rate 21 H 24 H 26 H Blood Pressure 142/84 H 142/84 H 135/74 Pulse Oximetry 98 98 98 Oxygen Delivery 06/18/24 12:14 06/18/24 13:58 06/18/24 13:58 Pulse Rate 124 H 117 H Respiratory Rate 26 H 28 H Blood Pressure 135/74 135/76 Pulse Oximetry 99 100 Oxygen Delivery Room Air 06/18/24 13:59 06/18/24 14:01 06/18/24 14:16 Pulse Rate 116 H 115 H 117 H Respiratory Rate 30 H 28 H 28 H Blood Pressure 135/76 126/57 L 125/77 Pulse Oximetry 99 99 Oxygen Delivery 06/18/24 14:31 06/18/24 14:55 06/18/24 15:01 Pulse Rate 112 H 116 H 115 H Respiratory Rate 27 H 25 H 29 H Blood Pressure 145/56 H 125/77 153/68 H Pulse Oximetry 99 98 98 Oxygen Delivery 06/18/24 15:31 06/18/24 16:01 06/18/24 16:31 Pulse Rate 117 H 116 H 117 H Respiratory Rate 25 H 23 H 17 Blood Pressure 130/64 133/66 120/82 Pulse Oximetry 98 97 98 Oxygen Delivery Exam Narrative: General: Mildly ill-appearing male semi-Beckman position in bed in no acute distress. Weight: 81 kg. BMI: 27.2. HEENT: PERRL, EOMI. Sclera anicteric. Conjunctiva mildly injected. Tacky mucous membranes. Neck: Supple. Respiratory: Respirations are nonlabored he speaking in full sentences. Occasional cough. Lung sounds are coarse throughout with scattered rhonchi. Cardiovascular: Regular rate and rhythm with S1-S2. Gastrointestinal: Abdomen is soft, nontender, and nondistended with positive bowel sounds. Skin: Warm and dry. No rash or lesions on limited exam. Extremities: No cyanosis, clubbing, or edema. Radial and pedal pulses intact. Neurological: Alert. Cranial nerves 2-12 are grossly intact. No gross focal deficits to casual conversation. Psychiatric: Cooperative with appropriate mood and affect. H&P: Results Labs Labs: Short CBC 06/18/24 Range/Units 12:40 WBC 11.4 H (4.5-10.0) K/mm3 Hgb 12.9 L D (14.0-18.0) g/dL Hct 40.6 L (42.0-52.0) % Plt Count 292 (150-375) k/mm3 BMP 06/18/24 12:40 Sodium 138 Potassium 4.6 Chloride 106 Carbon Dioxide 22 BUN 24 H D Creatinine 1.38 H Glucose 127 H Calcium 9.2 Liver Function 06/18/24 Range/Units 12:40 Total Bilirubin 1.1 (0.2-1.3) mg/dL AST 17 (17-59) U/L ALT 19 (6-50) U/L Alkaline Phosphatase 57 (38-126) U/L Albumin 3.9 (3.5-5.1) g/dL Urine 06/18/24 Range/Units 14:20 Urine Color Yellow (Yellow) Urine Appearance Cloudy H (Clear) Urine pH 5.0 (5.0-9.0) Ur Specific [place] 1.031 (1.001-1.035) Urine Protein 2+ H (Negative) mg/dL Urine Glucose (UA) 3+ H (Negative) mg/dL Impressions Chest X-Ray 06/18/24 12:43 IMPRESSION: 1. No acute cardiopulmonary disease. Chest/Abdomen/Pelvis CT 06/18/24 13:55 IMPRESSION: 1. Mild pneumonia involving all lobes. 2. Mild emphysema. 3. Small sliding hiatal hernia. Assessment and Plan Assessment and plan (1) Multifocal pneumonia: Code(s): J18.9 - Pneumonia, unspecified organism Status: Acute (2) Renal insufficiency: Code(s): N28.9 - Disorder of kidney and ureter, unspecified Status: Acute (3) Immunocompromised patient: Code(s): D84.9 - Immunodeficiency, unspecified Status: Acute (4) Status post kidney transplant: Code(s): Z94.0 - Kidney transplant status Status: Acute (5) Hypertension: Code(s): I10 - Essential (primary) hypertension Status: Acute (6) Type 2 diabetes mellitus: Code(s): E11.9 - Type 2 diabetes mellitus without complications Status: Acute Plan The patient presented to the emergency department for evaluation of multiple symptoms over the past 2 weeks including nausea, vomiting, diarrhea, cough, etc. as detailed in HPI. Labs, imaging, EKG, and all reports were personally reviewed. CT scan shows findings of mild pneumonia in all lobes. He is immunocompromised and is being admitted for IV antibiotics. Continue azithromycin and ceftriaxone. MRSA nasal swab pending. Send sputum for culture. Check Legionella and pneumococcal antigens as well as mycoplasma IgM. He has been started on scheduled bronchodilators. He does not know his baseline renal function following transplant. I suspect he is a bit dry given his history and he will be hydrated overnight. Blood pressures were reviewed and they are stable. Initiate sliding scale insulin, Accu-Cheks, and hypoglycemic protocol. Continue mycophenolate and tacrolimus and check level in a.m. with a goal of 4 to 6. The rest of his home medications will be reviewed and resumed as appropriate. Findings and treatment plan were discussed with the patient and his . Questions were solicited and answered to satisfaction. The patient's medical management will be taken over by the hospitalist team in a.m. Quality VTE Prophylaxis VTE prophylaxis: mechanical ordered and pharmacologic ordered Hospitalist [facility] Advance Care Plan I have confirmed that the patient's Advanced Care Plan is present, code status is documented, or surrogate decision maker is listed in patient medical record.: Yes Medication Reconciliation I have utilized all available resources to obtain, update and review the patients current medications (includes all prescriptions, OTC, herbals, cannabis, and nutritional supplements).: Yes
--- NOTE | 2024-06-18 17:24 | ADMGEN ---
This patient, Kenji Hernandez, was admitted to 3 [facility] Surg Room 303-01. Patient/family oriented to hospital policies and general routines including ID bracelet, bed and alarms, visiting hours, pain management, procedures, bathroom and other care routines, personal items, smoking policy, room service/diet, and visiting hours. Information on how to activate the Rapid Response Team has been discussed. Patient/Family are encouraged to report perceived risks to care and to ask questions if they do not understand what they are told or what they should do.
[2024-06-18] MEDS: traZODone HCL 50 MG TABLET PO (22:46)
[2024-06-18] MEDS: PANTOPRAZOLE 40 MG TABLET PO (22:46)
[2024-06-18] MEDS: amLODIPine BESYLATE 10 MG TABLET PO (22:46)
[2024-06-18] MEDS: ATORVASTATIN 40 MG TABLET PO (22:46)
[2024-06-18] MEDS: mycophenolate mofetiL 250 MG CAPSULE PO (23:16)
[2024-06-19] VITALS (18 sets, daily range): BP systolic 119–153; BP diastolic 61–75; PULSE 93–124; RESP 18–20; TEMP 36.1–36.9; O2SAT 94–100; BMI 27.1
[2024-06-19] MEDS: IPRATROPIUM 0.5 MG/ALBUTEROL SULFATE 2.5 MG AMPUL.NEB 3 ML INHALATION ×4 (00:57→22:42)
[2024-06-19 02:26] LABS: Hemoglobin A1C 7.2 % (<5.7)
[2024-06-19 04:34] LABS: Hematocrit 35.3 % (42.0-52.0); Hemoglobin 11.2 g/dL (14.0-18.0); Mean Corpuscular HGB Conc 31.7 g/dl (32-36); Mean Corpuscular Hemoglobin 27.3 pg (26-34); Mean Corpuscular Volume 86.1 fl (80-100); Mean Platelet Volume 8.7 fl (7.4-10.4); Platelet Count Result 266 k/mm3 (150-375); Red Cell Distribution Width 17.1 % (11.5-14.5); White Blood Count 11.2 K/mm3 (4.5-10.0)
[2024-06-19 04:46] LABS: Anion Gap 10 mmol/L (4-12); Blood Urea Nitrogen 23 mg/dL (9-20); Calcium 8.4 mg/dL (8.4-10.2); Carbon Dioxide 19 mmol/L (22-30); Chloride 110 mmol/L (98-107); Estimated CRCL calculation 50 ml/min; Estimated Glomerular Filt Rate 57; Glucose 95 mg/dL (65-110); Magnesium 1.6 mg/dL (1.6-2.3); Potassium 4.4 mmol/L (3.4-5.0); Sodium 139 mmol/L (137-145)
[2024-06-19 07:59] LABS: Glucose Point of Care 101 mg/dl (65-105)
--- NOTE | 2024-06-19 08:04 | P.PNIM_ITS ---
Progress Note: A&P Assessment and Plan (1) Pneumonia: Code(s): J18.9 - Pneumonia, unspecified organism Status: Acute Assessment and Plan: On Rocephin and azithromycin Incentive spirometer Chest PT (2) DM2 (diabetes mellitus, type 2): Code(s): E11.9 - Type 2 diabetes mellitus without complications Status: Chronic Assessment and Plan: Continue Jardiance Diabetic diet and SSI (3) Acute on chronic kidney failure: Qualifiers: Acute renal failure type: unspecified Chronic kidney disease stage: unspecified stage Qualified Code(s): N17.9 - Acute kidney failure, unspecified; N18.9 - Chronic kidney disease, unspecified Code(s): N17.9 - Acute kidney failure, unspecified; N18.9 - Chronic kidney disease, unspecified Status: Acute Assessment and Plan: IV fluid hydration Daily BMP (4) Status post kidney transplant: Code(s): Z94.0 - Kidney transplant status Status: Acute Assessment and Plan: Continue tacro and prednisone Myfortic patient will need to bring in from home A.m. tacro level Time Spent With Patient Time with patient: Greater than 35 minutes Subjective Date/time seen: 06/19/24 08:04 Interval history: 68-year-old male with history of kidney transplant in August 2022, hypertension, hyperlipidemia, type 2 diabetes mellitus, and gastroesophageal reflux disease reflux disease who presented to the emergency department via private vehicle with reports that he has been sick for 2 weeks found to have pneumonia. Patient states he brought in his transplant medications from home will send to pharmacy in order. Review of Systems Review of Systems: 12 systems were reviewed and are negativ e except for as per HPI. Exam Narrative: General: well appearing, appears stated age. HEENT: normocephalic, atraumatic. Mucous membranes moist. EOMI, PERRLA, bilateral sclera anicteric, no conjunctival injection. Neck supple without JVD, lymphadenopathy, or bruit. Respiratory: Course to ascultation bilaterally. No rales/rhonic/wheezes. Cardiovascular: Regular rate and rhythm, normal S1-S2 upon ascultation. No murmurs, rubs, or clicks. PMI is nondisplaced, capillary refill less than 3 second. Abdomen: Soft, round, no pulsatile masses, nondistended and nontender. No rebound, no guarding. No CVA tenderness, no hepatosplenomegaly. Bowel sounds present to all four quadrants. No high pitch or tinkling sounds, resonant to percussion. Extremities: No cyanosis, clubbing, or edema present. Pulses are palpable 2/2. Active ROM to all four extremities. Neuro: Alert and orientated x 4. PERRLA. Cranial nerves 2-12 intact without focal deficit. Skin: Warm, dry, and intact, without rash, erythema, or lesion. Psych: pleasant, cooperative, normal speech, normal affect, no hallucinations, no dysarthia Objective Data Vital Signs Vital Signs: Vital Signs - 24 hr 06/18/24 11:47 06/18/24 11:58 06/18/24 12:01 Temperature Pulse Rate 124 H 122 H 122 H Respiratory Rate 21 H 24 H 26 H Blood Pressure 142/84 H 142/84 H 135/74 Pulse Oximetry 98 98 98 Oxygen Delivery Fraction of Inspired Oxygen 06/18/24 12:14 06/18/24 13:58 06/18/24 13:58 Temperature Pulse Rate 124 H 117 H Respiratory Rate 26 H 28 H Blood Pressure 135/74 135/76 Pulse Oximetry 99 100 Oxygen Delivery Room Air Fraction of Inspired Oxygen 06/18/24 13:59 06/18/24 14:01 06/18/24 14:16 Temperature Pulse Rate 116 H 115 H 117 H Respiratory Rate 30 H 28 H 28 H Blood Pressure 135/76 126/57 L 125/77 Pulse Oximetry 99 99 Oxygen Delivery Fraction of Inspired Oxygen 06/18/24 14:31 06/18/24 14:55 06/18/24 15:01 Temperature Pulse Rate 112 H 116 H 115 H Respiratory Rate 27 H 25 H 29 H Blood Pressure 145/56 H 125/77 153/68 H Pulse Oximetry 99 98 98 Oxygen Delivery Fraction of Inspired Oxygen 06/18/24 15:31 06/18/24 16:01 06/18/24 16:31 Temperature Pulse Rate 117 H 116 H 117 H Respiratory Rate 25 H 23 H 17 Blood Pressure 130/64 133/66 120/82 Pulse Oximetry 98 97 98 Oxygen Delivery Fraction of Inspired Oxygen 06/18/24 17:17 06/18/24 17:48 06/18/24 20:00 Temperature 99.7 F H Pulse Rate 109 H 109 H Respiratory Rate 18 Blood Pressure 144/59 H Pulse Oximetry 99 Oxygen Delivery Room Air Fraction of Inspired Oxygen 06/18/24 22:00 06/19/24 00:00 06/19/24 00:57 Temperature 96.9 F L Pulse Rate 108 H 102 H Respiratory Rate 18 Blood Pressure 127/68 Pulse Oximetry 96 94 Oxygen Delivery Room Air Fraction of Inspired Oxygen 21 06/19/24 00:57 06/19/24 01:12 06/19/24 04:00 Temperature Pulse Rate 99 93 120 H Respiratory Rate 18 18 Blood Pressure Pulse Oximetry Oxygen Delivery Fraction of Inspired Oxygen 06/19/24 06:00 Temperature 97 F L Pulse Rate 106 H Respiratory Rate 18 Blood Pressure 125/61 Pulse Oximetry 97 Oxygen Delivery Fraction of Inspired Oxygen Intake/Output Intake/Output: Intake & Output 06/16/24 06/17/24 06/18/24 06/19/24 23:59 23:59 23:59 23:59 Intake Total 2300 550 Balance 2300 550 Meds/Results Medications: Active Medications Generic Name Dose Route Start Last Admin Trade Name Freq PRN Reason Stop Dose Admin Acetaminophen 650 mg 06/18/24 15:15 Acetaminophen 325 Mg Tablet PO Q4H PRN Mild Pain (1-3) or Fever Albuterol 2 puff 06/18/24 21:19 Albuterol Sulfate (*Sp) Aerosol 1 Puff INHALATION Q6HRT PRN Shortness Of Breath Albuterol/Ipratropium 3 ml 06/19/24 02:00 06/19/24 00:57 Ipratropium 0.5 Mg/Albuterol Sulfate 2.5 Mg Ampul.Neb 3 Ml INHALATION 3 ml Q6HRT JAVI Administration Amlodipine Besylate 10 mg 06/18/24 21:30 06/18/24 22:46 Amlodipine Besylate 10 Mg Tablet PO 10 mg HS JAVI Administration Aspirin 81 mg 06/19/24 09:00 Aspirin 81 Mg Chewable Tablet PO DAILY JAVI Atorvastatin Calcium 40 mg 06/18/24 21:30 06/18/24 22:46 Atorvastatin 40 Mg Tablet PO 40 mg HS JAVI Administration Calcium Carbonate 200 mg 06/18/24 21:19 Calcium Carbonate (Tums) 500 Mg (200 Mg Elemental) PO Q6H PRN Indigestion Dextrose 12.5 gm 06/18/24 23:23 Dextrose 50% 25 Gm/50 Ml Syringe IV PUSH PRN PRN Hypoglycemia Protocol Empagliflozin 10 mg 06/19/24 09:00 Empagliflozin 10 Mg Tablet PO DAILY [facility] Ferrous Sulfate 325 mg 06/19/24 09:00 Ferrous Sulfate [address] PO DAILY [facility] Glucagon 1 mg 06/18/24 23:23 Glucagon For Inj 1 Mg Vial IM PRN PRN Hypoglycemia Protocol Glucose 15 gm 06/18/24 23:23 Glucose Oral Gel 15 Gm Of Glucse In 37.5 Gm Tube PO PRN PRN Hypoglycemia Protocol Guaifenesin 1,200 mg 06/19/24 09:00 Guaifenesin 12 Hr 600 Mg Tabcr PO Q12HR [facility] Heparin Sodium (Porcine) 5,000 units 06/19/24 09:00 Heparin Sodium 5,000 Units/Ml Vial SUB-Q Q12HR [facility] Ceftriaxone Sodium 1 gm in 50 mls @ 100 mls/hr 06/19/24 15:00 Rocephin 1 Gm/Ns 50 Ml IVPB Q24H [facility] Azithromycin 500 mg in 250 mls @ 250 mls/hr 06/19/24 15:00 Zithromax IVPB Q24H [facility] Dextrose 1,000 mls @ 100 mls/hr 06/18/24 23:23 Dextrose 5% 1,000 Ml IVPB PRN PRN Hypoglycemia Protocol Insulin Aspart 3 - 6 units 06/19/24 08:00 Insulin Aspart (*Bkc) 100 Units/Ml SUB-Q TIDWM [facility] Protocol Insulin Aspart 1 - 3 units 06/19/24 21:00 Insulin Aspart (*Bkc) 100 Units/Ml SUB-Q HS [facility] Protocol Miscellaneous Information 0 each 06/19/24 06:25 Mycophenolate Sodium [Myfortic] 360 Mg Tablet,Delayed Release (Dr/Ec)- Nonformulary. Hospi XX 07/19/24 06:24 CLARIFY [facility] Non-Formulary Medication 360 mg 06/19/24 09:00 Mycophenolate Sodium [Myfortic] PO 07/19/24 08:59 BID [facility] Pantoprazole Sodium 40 mg 06/18/24 21:30 06/18/24 22:46 Pantoprazole 40 Mg Tablet PO 40 mg HS JAVI Administration Tacrolimus 1.5 mg 06/18/24 21:43 06/18/24 22:47 Tacrolimus 0.5 Mg Capsule PO Not Given Q12HR [facility] Trazodone HCl 50 mg 06/18/24 21:20 06/18/24 22:46 Trazodone Hcl 50 Mg Tablet PO 50 mg HS JAVI Administration Vitamin D 2,000 units 06/19/24 09:00 Cholecalciferol 1,000 Units Tablet PO DAILY [facility] Radiology Results: ITS Impressions Chest X-Ray 06/18/24 12:43 IMPRESSION: 1. No acute cardiopulmonary disease. Chest/Abdomen/Pelvis CT 06/18/24 13:55 IMPRESSION: 1. Mild pneumonia involving all lobes. 2. Mild emphysema. 3. Small sliding hiatal hernia. Labs Labs: Laboratory Results - last 24 hr 06/18/24 06/18/24 06/19/24 12:40 14:20 04:26 WBC 11.4 H 11.2 H RBC 4.68 4.10 L Hgb 12.9 L D 11.2 L Hct 40.6 L 35.3 L MCV 86.8 86.1 MCH 27.6 27.3 MCHC 31.8 L 31.7 L RDW 17.2 H 17.1 H Plt Count 292 266 MPV 9.5 8.7 Immature Gran % (Auto) 0.8 H Neut % (Auto) 84.9 H Lymph % (Auto) 4.9 L [place] % (Auto) 9.1 H Eos % (Auto) 0.1 Baso % (Auto) 0.2 Lymph # (Auto) 0.56 L [place] # (Auto) 1.0 H Eos # (Auto) 0.0 Baso # (Auto) 0.0 Abs Immat Gran (auto) 0.09 H Absolute Neuts (auto) 9.7 H Absolute Nucleated RBC 0.000 Band Neutrophils % Not Reportable Nucleated RBC % 0.0 Platelet Estimate Adequate Poikilocytosis 1+ Anisocytosis 1+ [place] Cells 1+ Schistocytes None seen Sodium 138 139 Potassium 4.6 4.4 Chloride 106 110 H Carbon Dioxide 22 19 L Anion Gap 10 10 BUN 24 H D 23 H Creatinine 1.38 H 1.26 Estim Creat Clear Calc 46 50 Estimated GFR 52 L 57 L Glucose 127 H 95 POC Capillary Glucose Hemoglobin A1c 7.2 H Lactic Acid 1.2 Calcium 9.2 8.4 Magnesium 1.6 Total Bilirubin 1.1 AST 17 ALT 19 Alkaline Phosphatase 57 Total Protein 7.0 Albumin 3.9 Urine Color Yellow Urine Appearance Cloudy H Urine pH 5.0 Ur Specific Procious 1.031 Urine Protein 2+ H Urine Glucose (UA) 3+ H Urine Ketones Trace H Ur Blood (Man) Negative Urine Nitrate Negative Urine Bilirubin Negative Urine Urobilinogen 0.2 Add Ur Microanalysis Reviewed Leukocyte Esterase Rfl Negative Urine RBC 0-2 Urine WBC 0-5 Ur Squamous Epith Cells Few Urine Bacteria None seen Urine Casts >20 Influenza A (RT-PCR) Negative Influenza B (RT-PCR) Negative RSV (RT-PCR) Negative SARS-CoV-2 RNA (RT-PCR) Negative 06/19/24 07:48 WBC RBC Hgb Hct MCV MCH MCHC RDW Plt Count MPV Immature Gran % (Auto) Neut % (Auto) Lymph % (Auto) [place] % (Auto) Eos % (Auto) Baso % (Auto) Lymph # (Auto) [place] # (Auto) Eos # (Auto) Baso # (Auto) Abs Immat Gran (auto) Absolute Neuts (auto) Absolute Nucleated RBC Band Neutrophils % Nucleated RBC % Platelet Estimate Poikilocytosis Anisocytosis Ezequiel Cells Schistocytes Sodium Potassium Chloride Carbon Dioxide Anion Gap BUN Creatinine Estim Creat Clear Calc Estimated GFR Glucose POC Capillary Glucose 101 Hemoglobin A1c Lactic Acid Calcium Magnesium Total Bilirubin AST ALT Alkaline Phosphatase Total Protein Albumin Urine Color Urine Appearance Urine pH Ur Specific Procious Urine Protein Urine Glucose (UA) Urine Ketones Ur Blood (Man) Urine Nitrate Urine Bilirubin Urine Urobilinogen Add Ur Microanalysis Leukocyte Esterase Rfl Urine RBC Urine WBC Ur Squamous Epith Cells Urine Bacteria Urine Casts Influenza A (RT-PCR) Influenza B (RT-PCR) RSV (RT-PCR) SARS-CoV-2 RNA (RT-PCR) Quality VTE Prophylaxis VTE prophylaxis: mechanical ordered and pharmacologic ordered Hospitalist [facility] Advance Care Plan I have confirmed that the patient's Advanced Care Plan is present, code status is documented, or surrogate decision maker is listed in patient medical record.: Yes Medication Reconciliation I have utilized all available resources to obtain, update and review the patients current medications (includes all prescriptions, OTC, herbals, can nabis, and nutritional supplements).: Yes
[2024-06-19] MEDS: guaiFENesin 12 HR 600 MG TABCR 1200 MG PO ×2 (09:15→21:16)
[2024-06-19] MEDS: EMPAGLIFLOZIN 10 MG TABLET PO (09:15)
[2024-06-19] MEDS: CHOLECALCIFEROL 1,000 UNITS TABLET 2000 UNITS PO (09:16)
[2024-06-19] MEDS: FERROUS SULFATE 325 MG TABLET DR PO (09:16)
[2024-06-19] MEDS: ASPIRIN 81 MG CHEWABLE TABLET PO (09:16)
[2024-06-19] MEDS: HEPARIN SODIUM 5,000 UNITS/ML VIAL 5000 UNITS SUB-Q (09:17)
--- NOTE | 2024-06-19 10:08 | PHAR ---
Pharmacy verified home med: *Use from home* Mycophenolate Sodium [Myfortic] 360 mg tablet,delayed release (DR/EC) - take 1 tablet by mouth twice a day - take on an empty stomach one hour before or two to three hours after a meal
[2024-06-19] MEDS: MYCOPHENOLATE SODIUM 360 MG 360 EACH PO ×2 (10:57→16:18)
[2024-06-19 12:11] LABS: Glucose Point of Care 117 mg/dl (65-105)
[2024-06-19] MEDS: AZITHROMYCIN 500 MG/NS 250 ML 500 MG/250 ML BAG 250 MG IVPB (14:53)
[2024-06-19] MEDS: SODIUM CHLORIDE 0.9% IV 1,000 ML 75 ML IV CONT (14:53)
[2024-06-19] MEDS: ACETAMINOPHEN 325 MG TABLET 650 MG PO (15:23)
[2024-06-19 17:18] LABS: Glucose Point of Care 177 mg/dl (65-105)
[2024-06-19] MEDS: traZODone HCL 50 MG TABLET PO (21:16)
[2024-06-20] VITALS (10 sets, daily range): BP systolic 133–150; BP diastolic 53–65; PULSE 104–121; RESP 18–20; TEMP 36.3–36.8; O2SAT 94–98
[2024-06-20] MEDS: SODIUM CHLORIDE 0.9% IV 1,000 ML 75 ML IV CONT (06:00)
[2024-06-20 06:20] LABS: Basophils Percent Auto 0.2 % (0.2-1.2); Eosinophils Absolute Auto 0.1 K/mm3 (0-0.3); Eosinophils Percent Auto 0.7 % (0-4.4); Hematocrit 34.4 % (42.0-52.0); Hemoglobin 10.9 g/dL (14.0-18.0); Immature Granulocyte Absolute 0.06 K/mm3 (0.00-0.031); Immature Granulocyte Percent A 0.6 % (0-0.5); Lymphocytes Absolute Auto 0.72 K/mm3 (0.9-3.2); Lymphocytes Percent Auto 7.3 % (18.3-44.2); Mean Corpuscular HGB Conc 31.7 g/dl (32-36); Mean Corpuscular Hemoglobin 27.7 pg (26-34); Mean Corpuscular Volume 87.3 fl (80-100); Monocytes Absolute Auto 1.2 K/mm3 (0.1-0.6); Monocytes Percent Auto 11.9 % (2.6-8.5); Neutrophils Absolute Auto 7.9 K/mm3 (1.3-6.7); Neutrophils Percent Auto 79.3 % (45.5-73.1); Platelet Count Result 271 k/mm3 (150-375); Red Blood Count 3.94 M/mm3 (4.6-6.20); White Blood Count 9.9 K/mm3 (4.5-10.0)
[2024-06-20 06:32] LABS: Anion Gap 10 mmol/L (4-12); Blood Urea Nitrogen 21 mg/dL (9-20); Calcium 8.5 mg/dL (8.4-10.2); Carbon Dioxide 18 mmol/L (22-30); Chloride 110 mmol/L (98-107); Estimated CRCL calculation 55 ml/min; Estimated Glomerular Filt Rate > 60; Glucose 107 mg/dL (65-110); Potassium 4.3 mmol/L (3.4-5.0); Sodium 138 mmol/L (137-145)
--- NOTE | 2024-06-20 07:53 | PM.IMPN ---
Progress Note: A&P Assessment and Plan (1) Pneumonia: Code(s): J18.9 - Pneumonia, unspecified organism Status: Acute Assessment and Plan: On Rocephin and azithromycin Incentive spirometer Chest PT Guaifenesin (2) DM2 (diabetes mellitus, type 2): Code(s): E11.9 - Type 2 diabetes mellitus without complications Status: Chronic Assessment and Plan: Continue Jardiance Diabetic diet and SSI (3) Acute on chronic kidney failure: Qualifiers: Acute renal failure type: unspecified Chronic kidney disease stage: unspecified stage Qualified Code(s): N17.9 - Acute kidney failure, unspecified; N18.9 - Chronic kidney disease, unspecified Code(s): N17.9 - Acute kidney failure, unspecified; N18.9 - Chronic kidney disease, unspecified Status: Acute Assessment and Plan: IV fluid hydration Daily BMP (4) Status post kidney transplant: Code(s): Z94.0 - Kidney transplant status Status: Acute Assessment and Plan: Continue tacro and prednisone Myfortic patient will need to bring in from home A.m. tacro level Time Spent With Patient Time with patient: Greater than 35 minutes Subjective Date/time seen: 06/20/24 07:53 Interval history: 68-year-old male with history of kidney transplant in August 2022, hypertension, hyperlipidemia, type 2 diabetes mellitus, and gastroesophageal reflux disease reflux disease who presented to the emergency department via private vehicle with reports that he has been sick for 2 weeks found to have pneumonia. [employer] aware the patient is taking home meds. Review of Systems Review of Systems: 12 systems were reviewed and are negative except for as per HPI. Exam Narrative: General: well appearing, appears stated age. HEENT: normocephalic, atraumatic. Mucous membranes moist. EOMI, PERRLA, bilateral sclera anicteric, no conjunctival injection. Neck supple without JVD, lymphadenopathy, or bruit. Respiratory: Course to ascultation bilaterally. No rales/rhonic/wheezes. Cardiovascular: Regular rate and rhythm, normal S1-S2 upon ascultation. No murmurs, rubs, or clicks. PMI is nondisplaced, capillary refill less than 3 second. Abdomen: Soft, round, no pulsatile masses, nondistended and nontender. No rebound, no guarding. No CVA tenderness, no hepatosplenomegaly. Bowel sounds present to all four quadrants. No high pitch or tinkling sounds, resonant to percussion. Extremities: No cyanosis, clubbing, or edema present. Pulses are palpable 2/2. Active ROM to all four extremities. Neuro: Alert and orientated x 4. PERRLA. Cranial nerves 2-12 intact without focal deficit. Skin: Warm, dry, and intact, without rash, erythema, or lesion. Psych: pleasant, cooperative, normal speech, normal affect, no hallucinations, no dysarthia Objective Data Vital Signs Vital Signs: Vital Signs - 24 hr 06/19/24 08:00 06/19/24 08:00 06/19/24 09:00 Temperature Pulse Rate 113 H Respiratory Rate Blood Pressure Pulse Oximetry 100 Oxygen Delivery Room Air Room Air 06/19/24 09:00 06/19/24 09:12 06/19/24 12:00 Temperature Pulse Rate 96 99 124 H Respiratory Rate 20 20 Blood Pressure Pulse Oximetry Oxygen Delivery 06/19/24 13:55 06/19/24 14:00 06/19/24 14:08 Temperature 98.5 F Pulse Rate 107 H 107 H 109 H Respiratory Rate 18 18 18 Blood Pressure 153/75 H Pulse Oximetry 98 Oxygen Delivery 06/19/24 16:00 06/19/24 20:00 06/19/24 22:00 Temperature 97.2 F L Pulse Rate 109 H 107 H 107 H Respiratory Rate 18 Blood Pressure 119/72 Pulse Oximetry 95 Oxygen Delivery 06/19/24 22:42 06/19/24 22:54 06/19/24 23:59 Temperature Pulse Rate 100 100 100 Respiratory Rate 18 18 Blood Pressure Pulse Oximetry 100 Oxygen Delivery Room Air 06/20/24 00:00 06/20/24 04:00 06/20/24 06:00 Temperature 97.4 F L Pulse Rate 105 H 107 H 109 H Respiratory Rate 18 Blood Pressure 133/65 Pulse Oximetry 96 Oxygen Delivery Intake/Output Intake/Output: Intake & Output 06/17/24 06/18/24 06/19/24 06/20/24 23:59 23:59 23:59 23:59 Intake Total 2300 2308 1300 Balance 2300 2308 1300 Meds/Results Medications: Active Medications Generic Name Dose Route Start Last Admin Trade Name Freq PRN Reason Stop Dose Admin Acetaminophen 650 mg 06/18/24 15:15 06/19/24 15:23 Acetaminophen 325 Mg Tablet PO 650 mg Q4H PRN Administration Mild Pain (1-3) or Fever Albuterol 2 puff 06/18/24 21:19 Albuterol Sulfate (*Sp) Aerosol 1 Puff INHALATION Q6HRT PRN Shortness Of Breath Albuterol/Ipratropium 3 ml 06/19/24 02:00 06/19/24 22:42 Ipratropium 0.5 Mg/Albuterol Sulfate 2.5 Mg Ampul.Neb 3 Ml INHALATION 3 ml Q6HRT JAVI Administration Amlodipine Besylate 10 mg 06/18/24 21:30 06/19/24 21:23 Amlodipine Besylate 10 Mg Tablet PO Not Given HS JAVI Aspirin 81 mg 06/19/24 09:00 06/19/24 09:16 Aspirin 81 Mg Chewable Tablet PO 81 mg DAILY JAVI Administration Atorvastatin Calcium 40 mg 06/18/24 21:30 06/19/24 21:23 Atorvastatin 40 Mg Tablet PO Not Given HS JAVI Calcium Carbonate 200 mg 06/18/24 21:19 Calcium Carbonate (Tums) 500 Mg (200 Mg Elemental) PO Q6H PRN Indigestion Carvedilol 25 mg 06/19/24 21:00 06/19/24 21:23 Carvedilol 25 Mg Tablet PO Not Given Q12HR JAVI Dextrose 12.5 gm 06/18/24 23:23 Dextrose 50% 25 Gm/50 Ml Syringe IV PUSH PRN PRN Hypoglycemia Protocol Empagliflozin 10 mg 06/19/24 09:00 06/19/24 09:15 Empagliflozin 10 Mg Tablet PO 10 mg DAILY JAVI Administration Ferrous Sulfate 325 mg 06/19/24 09:00 06/19/24 09:16 Ferrous Sulfate [address] PO 325 mg DAILY JAVI Administration Glucagon 1 mg 06/18/24 23:23 Glucagon For Inj 1 Mg Vial IM PRN PRN Hypoglycemia Protocol Glucose 15 gm 06/18/24 23:23 Glucose Oral Gel 15 Gm Of Glucse In 37.5 Gm Tube PO PRN PRN Hypoglycemia Protocol Guaifenesin 1,200 mg 06/19/24 09:00 06/19/24 21:16 Guaifenesin 12 Hr 600 Mg Tabcr PO 1,200 mg Q12HR JAVI Administration Heparin Sodium (Porcine) 5,000 units 06/19/24 09:00 06/19/24 21:24 Heparin Sodium 5,000 Units/Ml Vial SUB-Q Not Given Q12HR JAVI Ceftriaxone Sodium 1 gm in 50 mls @ 100 mls/hr 06/19/24 15:00 06/19/24 16:18 Rocephin 1 Gm/Ns 50 Ml IVPB 100 mls/hr Q24H JAVI Administration Azithromycin 500 mg in 250 mls @ 250 mls/hr 06/19/24 15:00 06/19/24 14:53 Zithromax IVPB 250 mls/hr Q24H JAVI Administration Dextrose 1,000 mls @ 100 mls/hr 06/18/24 23:23 Dextrose 5% 1,000 Ml IVPB PRN PRN Hypoglycemia Protocol Sodium Chloride 1,000 mls @ 75 mls/hr 06/19/24 14:15 06/20/24 06:00 Normal Saline Iv IV CONT 75 mls/hr .[id number] JAVI Administration Insulin Aspart 3 - 6 units 06/19/24 08:00 06/20/24 06:49 Insulin Aspart (*Bkc) 100 Units/Ml SUB-Q Not Given TIDWM [facility] Protocol Insulin Aspart 1 - 3 units 06/19/24 21:00 06/19/24 21:24 Insulin Aspart (*Bkc) 100 Units/Ml SUB-Q Not Given HS [facility] Protocol Insulin Glargine 10 units 06/20/24 09:00 Insulin Glargine (*Bkc) 100 Units/Ml SUB-Q QAM JAVI Losartan Potassium 25 mg 06/20/24 09:00 Losartan Potassium 25 Mg Tablet PO DAILY JAVI * Home Med * 360 mg 06/19/24 10:05 06/19/24 16:18 Mycophenolate Sodium PO 07/19/24 10:04 360 mg [Myfortic] 360 Mg BID@0800,1600 JAVI Administration Tablet,Delayed Release (Dr/Ec) Pantoprazole Sodium 40 mg 06/18/24 21:30 06/19/24 21:24 Pantoprazole 40 Mg Tablet PO Not Given HS JAVI Prednisone 5 mg 06/19/24 14:15 06/19/24 14:19 Prednisone 5 Mg Tablet PO Not Given DAILY JAVI Tacrolimus 1.5 mg 06/18/24 21:43 06/19/24 21:24 Tacrolimus 0.5 Mg Capsule PO Not Given Q12HR [facility]I Trazodone HCl 50 mg 06/18/24 21:20 06/19/24 21:16 Trazodone Hcl 50 Mg Tablet PO 50 mg HS JAVI Administration Vitamin D 2,000 units 06/19/24 09:00 06/19/24 09:16 Cholecalciferol 1,000 Units Tablet PO 2,000 units DAILY JAVI Administration Radiology Results: ITS Impressions Chest X-Ray 06/18/24 12:43 IMPRESSION: 1. No acute cardiopulmonary disease. Chest/Abdomen/Pelvis CT 06/18/24 13:55 IMPRESSION: 1. Mild pneumonia involving all lobes. 2. Mild emphysema. 3. Small sliding hiatal hernia. Labs Labs: Laboratory Results - last 24 hr 06/19/24 06/19/24 06/19/24 07:48 12:05 17:10 WBC RBC Hgb Hct MCV MCH MCHC RDW Plt Count MPV Immature Gran % (Auto) Neut % (Auto) Lymph % (Auto) [place] % (Auto) Eos % (Auto) Baso % (Auto) Lymph # (Auto) [place] # (Auto) Eos # (Auto) Baso # (Auto) Abs Immat Gran (auto) Absolute Neuts (auto) Absolute Nucleated RBC Nucleated RBC % Sodium Potassium Chloride Carbon Dioxide Anion Gap BUN Creatinine Estim Creat Clear Calc Estimated GFR Glucose POC Capillary Glucose 101 117 H 177 H Calcium 06/20/24 06/20/24 05:56 05:57 WBC 9.9 RBC 3.94 L Hgb 10.9 L Hct 34.4 L MCV 87.3 MCH 27.7 MCHC 31.7 L RDW 17.0 H Plt Count 271 MPV 9.0 Immature Gran % (Auto) 0.6 H Neut % (Auto) 79.3 H Lymph % (Auto) 7.3 L [place] % (Auto) 11.9 H Eos % (Auto) 0.7 Baso % (Auto) 0.2 Lymph # (Auto) 0.72 L [place] # (Auto) 1.2 H Eos # (Auto) 0.1 Baso # (Auto) 0.0 Abs Immat Gran (auto) 0.06 H Absolute Neuts (auto) 7.9 H Absolute Nucleated RBC 0.000 Nucleated RBC % 0.0 Sodium 138 Potassium 4.3 Chloride 110 H Carbon Dioxide 18 L Anion Gap 10 BUN 21 H Creatinine 1.13 Estim Creat Clear Calc 55 Estimated GFR > 60 Glucose 107 POC Capillary Glucose Calcium 8.5 Quality VTE Prophylaxis VTE prophylaxis: mechanical ordered and pharmacologic ordered
[2024-06-20 08:00] LABS: Glucose Point of Care 113 mg/dl (65-105)
[2024-06-20] MEDS: IPRATROPIUM 0.5 MG/ALBUTEROL SULFATE 2.5 MG AMPUL.NEB 3 ML INHALATION ×2 (08:02→14:37)
[2024-06-20] MEDS: MYCOPHENOLATE SODIUM 360 MG 360 EACH PO ×2 (08:21→16:32)
[2024-06-20] MEDS: guaiFENesin 12 HR 600 MG TABCR 1200 MG PO (08:23)
[2024-06-20] MEDS: HEPARIN SODIUM 5,000 UNITS/ML VIAL 5000 UNITS SUB-Q (08:24)
[2024-06-20 08:44] LABS: MRSA (PCR) NOT DETECTED (NOT DETECTE)
[2024-06-20] MEDS: INSULIN GLARGINE (*BKC) 100 UNITS/ML 10 UNITS SUB-Q (09:31)
[2024-06-20 11:32] LABS: Glucose Point of Care 133 mg/dl (65-105)
[2024-06-20 13:08] LABS: Tacrolimus Prograf 19.8 mcg/L
--- NOTE | 2024-06-20 13:45 | P.DS_ITS ---
DS: Admitting Diagnosis Discharge Date 06/20/24 Admitting Diagnosis Pneumonia DS: Discharge Diagnosis Discharge Diagnosis (1) Pneumonia: Code(s): J18.9 - Pneumonia, unspecified organism Status: Acute Assessment and Plan: On Rocephin and azithromycin Incentive spirometer Chest PT Guaifenesin Transition to oral antibiotics (2) DM2 (diabetes mellitus, type 2): Code(s): E11.9 - Type 2 diabetes mellitus without complications Status: Chronic Assessment and Plan: Continue Jardiance Diabetic diet and SSI (3) Acute on chronic kidney failure: Qualifiers: Acute renal failure type: unspecified Chronic kidney disease stage: unspecified stage Qualified Code(s): N17.9 - Acute kidney failure, unspecified; N18.9 - Chronic kidney disease, unspecified Code(s): N17.9 - Acute kidney failure, unspecified; N18.9 - Chronic kidney disease, unspecified Status: Acute Assessment and Plan: Resolved IV fluid hydration DC Daily BMP (4) Status post kidney transplant: Code(s): Z94.0 - Kidney transplant status Status: Acute Assessment and Plan: Continue tacro and prednisone Myfortic patient will need to bring in from home A.m. tacro level 19.8 DS: Summary Hospital Course Reason for hospitalization: Pneumonia Hospital Course: 68-year-old male with history of kidney transplant in August 2022, hypertension, hyperlipidemia, type 2 diabetes mellitus, and gastroesophageal reflux disease reflux disease who presented to the emergency department via private vehicle with reports that he has been sick for 2 weeks. Patient found to have pneumonia and started on IV antibiotics. Patient received 3 days of IV antibiotics. He has been transitioned over to oral antibiotics for a total course of 7 days. He is off oxygen. And ready to be discharged home. Patient has been taking his anti-rejection medications as prescribed. Hospital course was uneventful. Status at Discharge Functional status at discharge: independent ambulation Time Spent with Patient Time attestation: Total time spent providing and/or coordinating discharge services: Time spent: Greater than 30 minutes Exam Narrative: General: well appearing, appears stated age. HEENT: normocephalic, atraumatic. Mucous membranes moist. EOMI, PERRLA, bilateral sclera anicteric, no conjunctival injection. Neck supple without JVD, lymphadenopathy, or bruit. Respiratory: Course to ascultation bilaterally. No rales/rhonic/wheezes. Cardiovascular: Regular rate and rhythm, normal S1-S2 upon ascultation. No murmurs, rubs, or clicks. PMI is nondisplaced, capillary refill less than 3 second. Abdomen: Soft, round, no pulsatile masses, nondistended and nontender. No rebound, no guarding. No CVA tenderness, no hepatosplenomegaly. Bowel sounds present to all four quadrants. No high pitch or tinkling sounds, resonant to percussion. Extremities: No cyanosis, clubbing, or edema present. Pulses are palpable 2/2. Active ROM to all four extremities. Left arm fistula positive bruit and thrill Neuro: Alert and orientated x 4. PERRLA. Cranial nerves 2-12 intact without focal deficit. Skin: Warm, dry, and intact, without rash, erythema, or lesion. Psych: pleasant, cooperative, normal speech, normal affect, no hallucinations, no dysarthia DS: Data Data Completed and Pending Labs on day of discharge: Labs from last 24 hours 06/20/24 06/20/24 06/20/24 11:21 11:21 07:49 WBC RBC Hgb Hct MCV MCH MCHC RDW Plt Count MPV Immature Gran % (Auto) Neut % (Auto) Lymph % (Auto) Lewis % (Auto) Eos % (Auto) Baso % (Auto) Lymph # (Auto) Lewis # (Auto) Eos # (Auto) Baso # (Auto) Abs Immat Gran (auto) Absolute Neuts (auto) Absolute Nucleated RBC Nucleated RBC % Sodium Potassium Chloride Carbon Dioxide Anion Gap BUN Creatinine Estim Creat Clear Calc Estimated GFR Glucose POC Capillary Glucose 133 H 133 H 113 H Calcium Nasal MRSA (PCR) Tacrolimus Ur L.pneumophila Ag Urine Pneumococcal Ag 06/20/24 06/20/24 06/20/24 07:24 05:57 05:56 WBC 9.9 RBC 3.94 L Hgb 10.9 L Hct 34.4 L MCV 87.3 MCH 27.7 MCHC 31.7 L RDW 17.0 H Plt Count 271 MPV 9.0 Immature Gran % (Auto) 0.6 H Neut % (Auto) 79.3 H Lymph % (Auto) 7.3 L Lewis % (Auto) 11.9 H Eos % (Auto) 0.7 Baso % (Auto) 0.2 Lymph # (Auto) 0.72 L Lewis # (Auto) 1.2 H Eos # (Auto) 0.1 Baso # (Auto) 0.0 Abs Immat Gran (auto) 0.06 H Absolute Neuts (auto) 7.9 H Absolute Nucleated RBC 0.000 Nucleated RBC % 0.0 Sodium 138 Potassium 4.3 Chloride 110 H Carbon Dioxide 18 L Anion Gap 10 BUN 21 H Creatinine 1.13 Estim Creat Clear Calc 55 Estimated GFR > 60 Glucose 107 POC Capillary Glucose Calcium 8.5 Nasal MRSA (PCR) Not detected Tacrolimus Pending Ur L.pneumophila Ag Urine Pneumococcal Ag 06/19/24 06/19/24 06/19/24 17:10 13:39 04:26 WBC RBC Hgb Hct MCV MCH MCHC RDW Plt Count MPV Immature Gran % (Auto) Neut % (Auto) Lymph % (Auto) Lewis % (Auto) Eos % (Auto) Baso % (Auto) Lymph # (Auto) Lewis # (Auto) Eos # (Auto) Baso # (Auto) Abs Immat Gran (auto) Absolute Neuts (auto) Absolute Nucleated RBC Nucleated RBC % Sodium Potassium Chloride Carbon Dioxide Anion Gap BUN Creatinine Estim Creat Clear Calc Estimated GFR Glucose POC Capillary Glucose 177 H Calcium Nasal MRSA (PCR) Tacrolimus 19.8 Ur L.pneumophila Ag Pending Urine Pneumococcal Ag Pending Preliminary micro results at discharge 06/18/24 12:40 Blood Culture - Preliminary Blood 06/18/24 12:40 Blood Culture - Preliminary Blood Discharge Plan Discharge Discharging Clinician: Panchito Benito Anticipated Discharge Date/Time: 06/20/24 14:11 Patient Disposition: Home, Self-Care Activity: may shower Diet: other - see discharge instructions Discharge Instructions: Discharge instructions: Take medications as prescribed New medications prescribed: Antibiotics for pneumonia Your tacro limits level while in the hospital was 19.8 Transplant diet You are activity as tolerated Monitor blood pressures Avoid social areas, you wear a mask when in social settings Encouraged to continue with yearly vaccinations Return to the emergency department if he developed sudden shortness of breath, chest pain, nausea, vomiting, upset stomach or intractable diarrhea Return to the emergency department if you develop fever greater than 101.5 Follow-up with: Your primary care physician within 1-2 weeks for post hospitalization check up Thank you for [facility] for your healthcare needs Patient Instructions: Antibiotic Form, Bacterial Pneumonia (DC) Patient Language: Japanese Stand Alone Forms: General Discharge Information, Work/School Release IP Follow-up/Referrals: PHYSICIAN NOT ON STAFF,NONSTAFF [Primary Care Provider] - Discharge Medications: New levofloxacin 750 mg tablet 750 mg PO DAILY 5 Days Qty: 5 0RF Continued atorvastatin 40 mg Tablet 40 mg PO HS amlodipine 10 mg Tablet 10 mg PO HS pantoprazole 40 mg Tablet,Delayed Release (Dr/Ec) 40 mg PO HS ferrous sulfate [iron] 325 mg (65 mg iron) Tablet 325 mg PO DAILY aspirin 81 mg Tablet 81 mg PO DAILY cholecalciferol (vitamin D3) 50 mcg (2,000 unit) Capsule 50 mcg PO DAILY trazodone 50 mg Tablet 50 mg PO HS calcium carbonate 500 mg calcium (1,250 mg) Tablet,Chewable 200 mg PO Q6H PRN (Reason: Indigestion) Qty: 120 0RF albuterol sulfate [Proventil HFA] 90 mcg/actuation Hfa Aerosol Inhaler 2 puff inhalation Q6HRT PRN (Reason: Shortness Of Breath) Qty: 1 0RF Envarsus XR 1 mg tablet extended release 24 hr 3 mg PO DAILY Rx Instructions: must be taken on empty stomach Jardiance 10 mg tablet 10 mg PO DAILY mycophenolate sodium [Myfortic] 360 mg tablet,delayed release (DR/EC) 360 mg PO BID Patient Comments: kidney transplant carvedilol 25 mg tablet 25 mg PO BID Rx Instructions: must administer with a meal/food insulin glargine [Basaglar KwikPen U-100 Insulin] 100 unit/mL (3 mL) insulin pen 10 unit subcut QAM prednisone 5 mg tablet 5 mg PO DAILY losartan 25 mg tablet 25 mg PO DAILY Date of admission: 06/19/24 09:31 Primary Care Provider: PHYSICIAN NOT ON STAFF,NONSTAFF Admitting Provider: Ana Mensha Attending physician on admission: Ana Mensah Condition: Improved Quality VTE Prophylaxis VTE prophylaxis: mechanical ordered and pharmacologic ordered Hospitalist MIPS Heart Failure (Exclusion) Patient has history of Heart Transplant or Left Ventricular Assistive Device?: No IF YES, STOP HERE Heart Failure (Qualifier) Patient has current or prior documentation of LVEF less than or equal to 40%, or mod/servere depressed LVSF?: No IF NO, STOP HERE
[2024-06-20] MEDS: levoFLOXacin 750 MG TABLET PO (15:04)
[2024-06-22 08:24] LABS: Tacrolimus Prograf 15.4 mcg/L
[2024-06-22 13:48] LABS: Pneumococcal Antigen Urine NOT DETECTED
[2024-06-23 17:23] LABS: Mycoplasma IgM Antibody Titer 87 U/mL
[2024-06-24 20:29] LABS: Legionella pneumophila Ag Ur NOT DETECTED
== END 2024-06-20 16:35 | disposition home or self-care (01) | DRG 194 ==
LOC: ANHED 14:52 → ANH3MEDSUR 16:20
PROVIDERS: Emergency Medicine; Physician Assistant; Admitting Provider Internal Medicine; Emergency Provider Emergency Medicine; Visit Provider Nurse Practitioner Gerontology
DX: J18.9 Pneumonia, unspecified organism (principal); D84.9 Immunodeficiency, unspecified; I13.2 Hypertensive heart and chronic kidney disease with heart failure and with stage 5 chronic kidney disease, or end stage renal disease; N17.9 Acute kidney failure, unspecified; N18.5 Chronic kidney disease, stage 5; T86.19 Other complication of kidney transplant; D63.1 Anemia in chronic kidney disease; E78.5 Hyperlipidemia, unspecified; E11.22 Type 2 diabetes mellitus with diabetic chronic kidney disease; I50.9 Heart failure, unspecified; J43.9 Emphysema, unspecified; K21.9 Gastro-esophageal reflux disease without esophagitis; K44.9 Diaphragmatic hernia without obstruction or gangrene; Z20.822 Contact with and (suspected) exposure to COVID-19; Z79.82 Long term (current) use of aspirin; Z79.84 Long term (current) use of oral hypoglycemic drugs
CPT/HCPCS: 36415; 71045; 71250; 74176; 80048; 80053; 80197; 81001; 82948; 83036; 83605; 83735; 85025; 85027; 86738; 87040; 87070; 87205; 87449; 87637; 87641; 87899; 93005; 94640; 94668; 96361; 96365; 96366; 96367; 99285; A9270; G0378; J0456; J0696; J1644; J1815; J7030; J7517